=== PATIENT | male | born 1950 | race Caucasian/White ===

== ENCOUNTER 2020-06-14 07:50 | Outpatient (CLI) | payer MEDICARE, SELFPAY ==
[2020-06-14 08:04] LABS: Hematocrit 45.3 % (37.0-46.0); Mean Corpuscular HGB Conc 33.1 g/dL (32.0-36.0); Mean Corpuscular Hemoglobin 29.4 pg (27.0-31.0); Mean Corpuscular Volume 88.8 fL (78.0-102.0); Mean Platelet Volume 10.2 fl (8.7-11.0); Platelet Count Result 151 K/mm3 (150-420); Red Cell Distribution Width 13.9 % (11.6-14.4); White Blood Count 2.6 K/mm3 (4.8-10.8)
[2020-06-14 08:34] LABS: Band Neutrophils Percent 1 % (0-6); Neutrophils Absolute Manual 1.24 K/mm3 (1.3-6.7); Neutrophils Percent Manual 47 % (46-73); Total Cells Counted 100
[2020-06-14 08:35] LABS: Basophils Percent Manual 0 % (0-1); Eosinophils Percent Manual 8 % (1-6); Lymphocytes Absolute Manual 1.09 K/mm3 (1.1-4.5); Lymphocytes Percent Manual 42 % (18-44); Monocytes Absolute Manual 0.05 K/mm3 (0.1-0.90); Monocytes Percent Manual 2 % (3-9); Platelet Estimate Adequate (Adequate)
[2020-06-14 09:24] LABS: Alanine Aminotransferase 26 U/L (16-63); Albumin Level 3.9 g/dL (3.4-5.0); Alkaline Phosphatase 64 U/L (46-116); Anion Gap 7 mmol/L (8-16); Aspartate Amino Transferase 19 U/L (15-37); Bilirubin,Total 1.2 mg/dL (0.00-1.00); Blood Urea Nitrogen 22 mg/dL (7-18); Calcium 8.9 mg/dL (8.5-10.1); Carbon Dioxide 29 mmol/L (21-32); Chloride 105 mmol/L (98-108); Cholesterol 204 mg/dL (0-200); Estimated Glomerular Filt Rate > 60; Glucose 100 mg/dL (70-99); HDL Direct 52 mg/dL (40-60); LDL Cholesterol Calculated 123 mg/dL (<130); Osmolality Calculated 295 mOsm/kg (285-295); Potassium 4.4 mmol/L (3.5-5.1); Sodium 141 mmol/L (136-145); Thyroid Stimulating Hormone 5.59 uIU/mL (0.36-3.74); Total Protein 7.4 g/dL (6.4-8.2); Triglycerides 144 mg/dL (0-150)
[2020-06-14 09:35] LABS: Prostate Specific Antigen 5.5 ng/mL (< OR = 4.0)
== END 2020-06-14 07:51 | disposition home or self-care (01) ==
PROVIDERS: PCP Internal Medicine; Visit Provider Internal Medicine
DX: E66.9 Obesity, unspecified (principal); Z12.5 Encounter for screening for malignant neoplasm of prostate; K76.9 Liver disease, unspecified; I10 Essential (primary) hypertension
CPT/HCPCS: 36415; 80053; 80061; 84153; 84443; 85025; G0103

== ENCOUNTER 2020-12-05 15:49 | Outpatient (CLI) | payer MEDICARE, SELFPAY ==
--- NOTE | ~2020-12-05 | XR_ITS ---
EXAMINATION: XR chest 2V DATE: 12/05/2020 16:19 INDICATION: Cough and fever. TECHNIQUE: Frontal and lateral views of the chest were obtained. COMPARISON: CT abdomen and pelvis 07/05/2009 FINDINGS: There are airspace opacities in right midlung zone. No pleural effusion or pneumothorax. Th e heart size is normal. There is a moderate-sized hiatal hernia. Surgical clips in the right upper qu adrant are likely from cholecystectomy. IMPRESSION: 1. Airspace opacities in right midlung zone, consistent with pneumonia. 2. Moderate-sized hiatal hernia. Reviewed, dictated and finalized at location A.
[2020-12-05 16:14] LABS: Hematocrit 40.9 % (37.0-46.0); Hemoglobin 13.7 g/dL (12.4-15.3); Mean Corpuscular HGB Conc 33.5 g/dL (32.0-36.0); Mean Corpuscular Hemoglobin 29.3 pg (27.0-31.0); Mean Corpuscular Volume 87.4 fL (78.0-102.0); Mean Platelet Volume 9.7 fl (8.7-11.0); Platelet Count Result 134 K/mm3 (150-420); Red Blood Count 4.68 M/mm3 (4.70-6.10); Red Cell Distribution Width 13.7 % (11.6-14.4); White Blood Count 2.5 K/mm3 (4.8-10.8)
[2020-12-05 16:29] LABS: Add Urine Microscopic? YES; Alanine Aminotransferase 33 U/L (16-63); Albumin Level 3.5 g/dL (3.4-5.0); Alkaline Phosphatase 73 U/L (46-116); Anion Gap 7 mmol/L (8-16); Appearance Urine Clear (Clear); Aspartate Amino Transferase 24 U/L (15-37); Bilirubin Urine Negative (Negative); Bilirubin,Total 1.2 mg/dL (0.00-1.00); Blood Urea Nitrogen 17 mg/dL (7-18); Blood Urine Negative (Negative); Calcium 8.8 mg/dL (8.5-10.1); Carbon Dioxide 28 mmol/L (21-32); Chloride 100 mmol/L (98-108); Color Urine Yellow (Yellow); Estimated Glomerular Filt Rate 51; Glucose 169 mg/dL (70-99); Glucose Urine UA Negative (Negative); Ketones Urine Negative (Negative); Leukocyte Esterase Ur Negative (Negative); Nitrate Urine Negative (Negative); Osmolality Calculated 285 mOsm/kg (285-295); Potassium 4.1 mmol/L (3.5-5.1); Protein Urine Trace (Negative); Sodium 135 mmol/L (136-145); Specific Grav Ur 1.025 (1.010-1.020); Total Protein 7.6 g/dL (6.4-8.2); Urobilinogen Urine 0.2 mg/dL (0.2-1.0); pH Urine 5.5 (5.0-8.0)
[2020-12-05 16:36] LABS: RBC Urine None seen /hpf (0-2); WBC Urine None seen /hpf (0-3)
[2020-12-05 16:37] LABS: Bacteria Urine Trace /hpf; Squamous Epithelial Cell Urine Rare /hpf (Few)
[2020-12-05 16:38] LABS: Influenza Control Valid (Valid)
[2020-12-05 16:54] LABS: Band Neutrophils Percent 1 % (0-6); Basophils Absolute Manual 0.02 K/mm3 (0-0.1); Basophils Percent Manual 1 % (0-1); Eosinophils Absolute Manual 0.05 K/mm3 (0.02-0.5); Eosinophils Percent Manual 2 % (1-6); Lymphocytes Absolute Manual 0.45 K/mm3 (1.1-4.5); Lymphocytes Percent Manual 18 % (18-44); Monocytes Absolute Manual 0.05 K/mm3 (0.1-0.90); Monocytes Percent Manual 2 % (3-9); Neutrophils Absolute Manual 1.92 K/mm3 (1.3-6.7); Neutrophils Percent Manual 76 % (46-73); Total Cells Counted 100
[2020-12-05 16:55] LABS: Platelet Estimate Adequate (Adequate)
[2020-12-05 17:02] LABS: SARS-CoV-2 RNA PCR Negative (Negative)
== END 2020-12-05 15:50 | disposition home or self-care (01) ==
PROVIDERS: PCP Internal Medicine; Visit Provider Internal Medicine
DX: R05 Cough (principal); R50.9 Fever, unspecified; Z20.822 Contact with and (suspected) exposure to COVID-19
CPT/HCPCS: 36415; 71046; 80053; 81001; 85025; 87804; C9803; U0003; U0005

== ENCOUNTER 2020-12-23 07:08 | Outpatient (CLI) | payer MEDICARE, SELFPAY ==
[2020-12-23 07:33] LABS: Hematocrit 42.4 % (37.0-46.0); Mean Corpuscular Hemoglobin 28.9 pg (27.0-31.0); Mean Corpuscular Volume 87.4 fL (78.0-102.0); Platelet Count Result 152 K/mm3 (150-420); Red Blood Count 4.85 M/mm3 (4.70-6.10); Red Cell Distribution Width 13.8 % (11.6-14.4); White Blood Count 2.1 K/mm3 (4.8-10.8)
[2020-12-23 07:34] LABS: Add Urine Microscopic? NO; Appearance Urine Clear (Clear); Bilirubin Urine Negative (Negative); Blood Urine Negative (Negative); Color Urine Light Yellow (Yellow); Glucose Urine UA Negative (Negative); Ketones Urine Negative (Negative); Leukocyte Esterase Ur Negative (Negative); Nitrate Urine Negative (Negative); Protein Urine Negative (Negative); Specific Grav Ur 1.025 (1.010-1.020); Urobilinogen Urine 0.2 mg/dL (0.2-1.0); pH Urine 5.5 (5.0-8.0)
[2020-12-23 07:54] LABS: Total Cells Counted 100
[2020-12-23 07:55] LABS: Band Neutrophils Percent 0 % (0-6); Eosinophils Absolute Manual 0.12 K/mm3 (0.02-0.5); Eosinophils Percent Manual 6 % (1-6); Lymphocytes Absolute Manual 0.96 K/mm3 (1.1-4.5); Lymphocytes Percent Manual 46 % (18-44); Monocytes Absolute Manual 0.06 K/mm3 (0.1-0.90); Monocytes Percent Manual 3 % (3-9); Neutrophils Absolute Manual 0.94 K/mm3 (1.3-6.7); Neutrophils Percent Manual 45 % (46-73); Platelet Estimate Adequate (Adequate)
[2020-12-23 08:24] LABS: Alanine Aminotransferase 38 U/L (16-63); Albumin Level 3.6 g/dL (3.4-5.0); Alkaline Phosphatase 65 U/L (46-116); Anion Gap 10 mmol/L (8-16); Aspartate Amino Transferase 28 U/L (15-37); Blood Urea Nitrogen 21 mg/dL (7-18); CRP < 0.5 mg/dL (0.0-0.9); Calcium 8.8 mg/dL (8.5-10.1); Carbon Dioxide 25 mmol/L (21-32); Chloride 105 mmol/L (98-108); Estimated Glomerular Filt Rate > 60; Glucose 125 mg/dL (70-99); Osmolality Calculated 294 mOsm/kg (285-295); Potassium 4.2 mmol/L (3.5-5.1); Sodium 140 mmol/L (136-145); Thyroid Stimulating Hormone 4.37 uIU/mL (0.36-3.74); Total Protein 6.9 g/dL (6.4-8.2)
[2020-12-27 11:43] LABS: Immunoglobulin A 24 mg/dL (70-320); Immunoglobulin G 1255 mg/dL (600-1540); Immunoglobulin M 13 mg/dL (50-300)
[2020-12-28 12:00] LABS: Mycoplasma IgM Antibody Titer 24 U/mL (<770)
== END 2020-12-23 07:09 | disposition home or self-care (01) ==
LOC: CHSLAB 07:12
PROVIDERS: PCP Internal Medicine; Visit Provider Internal Medicine
DX: J18.9 Pneumonia, unspecified organism (principal); D47.2 Monoclonal gammopathy; R79.89 Other specified abnormal findings of blood chemistry; R94.6 Abnormal results of thyroid function studies; Z01.84 Encounter for antibody response examination
CPT/HCPCS: 36415; 80053; 81003; 82784; 84443; 85025; 86140; 86738; 86769

== ENCOUNTER 2021-03-30 07:41 | Outpatient (CLI) | payer MEDICARE, SELFPAY ==
--- NOTE | ~2021-03-30 | NM_ITS ---
EXAMINATION: NM bone scan whole body DATE: 03/30/2021 11:25 INDICATION: Malignant neoplasm of the prostate TECHNIQUE: 25 mCi Tc-99m HDP was administered intravenously. Delayed whole-body scintigrams were obt ained. COMPARISON: Chest radiograph dated 12/05/2020. No other recent imaging studies at our institution. FINDINGS: Likely degenerative joint centered uptake at the medial compartments of both knees, at the bilateral hands and wrists and bilateral acromioclavicular and sternoclavicular joints. No other suspicious foc i of abnormal bone uptake. IMPRESSION: 1. No evident osseous metastatic disease. Reviewed, dictated and finalized at location A.
== END 2021-03-30 07:42 | disposition home or self-care (01) ==
PROVIDERS: PCP Internal Medicine; Visit Provider Urology
DX: C61 Malignant neoplasm of prostate (principal)
CPT/HCPCS: 78306; A9561

== ENCOUNTER 2023-01-30 07:20 | Outpatient (CLI) | payer MEDICARE, SELFPAY ==
[2023-01-30 07:37] LABS: Hemoglobin 13.9 g/dL (12.4-15.3); Mean Corpuscular HGB Conc 33.9 g/dL (32.0-36.0); Mean Corpuscular Volume 85.6 fL (78.0-102.0); Mean Platelet Volume 9.3 fl (8.7-11.0); Platelet Count Result 140 K/mm3 (150-420); Red Blood Count 4.79 M/mm3 (4.70-6.10); Red Cell Distribution Width 14.6 % (11.6-14.4); White Blood Count 1.8 K/mm3 (4.8-10.8)
[2023-01-30 07:42] LABS: Appearance Urine Clear (Clear); Bilirubin Urine Negative (Negative); Blood Urine Negative (Negative); Color Urine Light Yellow (Yellow); Glucose Urine UA Negative (Negative); Ketones Urine Negative (Negative); Leukocyte Esterase Ur Negative (Negative); Nitrate Urine Negative (Negative); Protein Urine Negative (Negative); Specific Grav Ur 1.015 (1.010-1.020); Urobilinogen Urine 0.2 mg/dL (0.2-1.0); pH Urine 6.5 (5.0-8.0)
[2023-01-30 07:47] LABS: Add Urine Microscopic? NO
[2023-01-30 08:09] LABS: Neutrophils Percent Manual 64 % (46-73); Total Cells Counted 100
[2023-01-30 08:10] LABS: Band Neutrophils Percent 4 % (0-6); Eosinophils Percent Manual 6 % (1-6); Lymphocytes Absolute Manual 0.37 K/mm3 (1.1-4.5); Lymphocytes Percent Manual 21 % (18-44); Monocytes Absolute Manual 0.09 K/mm3 (0.1-0.90); Monocytes Percent Manual 5 % (3-9); Neutrophils Absolute Manual 1.22 K/mm3 (1.3-6.7); Platelet Estimate Adequate (Adequate)
[2023-01-30 08:18] LABS: Alanine Aminotransferase 39 U/L (16-63); Albumin Level 3.5 g/dL (3.4-5.0); Alkaline Phosphatase 64 U/L (46-116); Anion Gap 8 mmol/L (8-16); Aspartate Amino Transferase 25 U/L (15-37); Bilirubin,Total 1.2 mg/dL (0.00-1.00); Blood Urea Nitrogen 19 mg/dL (7-18); Calcium 8.6 mg/dL (8.5-10.1); Carbon Dioxide 26 mmol/L (21-32); Chloride 107 mmol/L (98-108); Cholesterol 167 mg/dL (0-200); Estimated Glomerular Filt Rate > 60; Glucose 110 mg/dL (70-99); HDL Direct 44 mg/dL (40-60); LDL Cholesterol Calculated 98 mg/dL (<130); Osmolality Calculated 295 mOsm/kg (285-295); Potassium 4.2 mmol/L (3.5-5.1); Sodium 141 mmol/L (136-145); Thyroid Stimulating Hormone 5.18 uIU/mL (0.36-3.74); Total Protein 7.1 g/dL (6.4-8.2); Triglycerides 126 mg/dL (0-150)
== END 2023-01-30 07:21 | disposition home or self-care (01) ==
LOC: CHSLAB 07:22
PROVIDERS: PCP Internal Medicine; Visit Provider Internal Medicine
DX: R73.9 Hyperglycemia, unspecified (principal); R53.83 Other fatigue
CPT/HCPCS: 36415; 80053; 80061; 81003; 83036; 84443; 85025

== ENCOUNTER 2023-04-11 14:55 | Outpatient (CLI) | payer MEDICARE, SELFPAY ==
--- NOTE | ~2023-04-11 | XR_ITS ---
XR chest 2V 04/11/2023 15:15 Indication: Upper respiratory infection. History of pneumonia. Procedure: PA and lateral views of the chest Comparison: 12/05/2020 Findings: Heart size normal. Large hiatal hernia. No focal air space disease, pulmonary edema, pleura l effusion or suspected pneumothorax. There is diffuse idiopathic skeletal hyperostosis (DISH) of the thoracic spine. Impression: 1: No acute cardiopulmonary disease. Reviewed, dictated and finalized at location A. Impression: 1: No acute cardiopulmonary disease.
== END 2023-04-11 14:56 | disposition home or self-care (01) ==
LOC: CHSIMG 14:57
PROVIDERS: PCP Internal Medicine; Visit Provider Nurse Practitioner Family
DX: J06.9 Acute upper respiratory infection, unspecified (principal)
CPT/HCPCS: 71046

== ENCOUNTER 2023-07-12 07:25 | Outpatient (CLI) | payer MEDICARE, SELFPAY ==
[2023-07-12 07:43] LABS: Hematocrit 42.3 % (37.0-46.0); Hemoglobin 14.4 g/dL (12.4-15.3); Mean Corpuscular Hemoglobin 29.4 pg (27.0-31.0); Mean Corpuscular Volume 86.5 fL (78.0-102.0); Mean Platelet Volume 9.6 fl (8.7-11.0); Platelet Count Result 151 K/mm3 (150-420); Red Blood Count 4.89 M/mm3 (4.70-6.10); Red Cell Distribution Width 14.4 % (11.6-14.4); White Blood Count 1.9 K/mm3 (4.8-10.8)
[2023-07-12 07:44] LABS: Appearance Urine Clear (Clear); Bilirubin Urine Negative (Negative); Blood Urine Negative (Negative); Color Urine Yellow (Yellow); Glucose Urine UA Negative (Negative); Ketones Urine Negative (Negative); Leukocyte Esterase Ur Negative (Negative); Nitrate Urine Negative (Negative); Protein Urine Negative (Negative); Specific Grav Ur 1.025 (1.010-1.020); Urobilinogen Urine 0.2 mg/dL (0.2-1.0)
[2023-07-12 07:52] LABS: Add Urine Microscopic? NO
[2023-07-12 08:02] LABS: Band Neutrophils Percent 0 % (0-6); Basophils Absolute Manual 0.03 K/mm3 (0-0.1); Basophils Percent Manual 2 % (0-1); Eosinophils Absolute Manual 0.11 K/mm3 (0.02-0.5); Eosinophils Percent Manual 6 % (1-6); Lymphocytes Absolute Manual 0.47 K/mm3 (1.1-4.5); Lymphocytes Percent Manual 25 % (18-44); Monocytes Absolute Manual 0.13 K/mm3 (0.1-0.90); Monocytes Percent Manual 7 % (3-9); Neutrophils Absolute Manual 1.14 K/mm3 (1.3-6.7); Neutrophils Percent Manual 60 % (46-73); Platelet Estimate Adequate (Adequate); Total Cells Counted 100
[2023-07-12 08:43] LABS: Alanine Aminotransferase 31 U/L (16-63); Albumin Level 3.3 g/dL (3.4-5.0); Alkaline Phosphatase 53 U/L (46-116); Anion Gap 9 mmol/L (8-16); Aspartate Amino Transferase 22 U/L (15-37); Bilirubin,Total 0.9 mg/dL (0.00-1.00); Blood Urea Nitrogen 20 mg/dL (7-18); Calcium 8.7 mg/dL (8.5-10.1); Carbon Dioxide 26 mmol/L (21-32); Chloride 105 mmol/L (98-108); Cholesterol 184 mg/dL (0-200); Estimated Glomerular Filt Rate > 60; Glucose 107 mg/dL (70-99); HDL Direct 43 mg/dL (40-60); LDL Cholesterol Calculated 119 mg/dL (<130); Osmolality Calculated 292 mOsm/kg (285-295); Potassium 4.2 mmol/L (3.5-5.1); Sodium 140 mmol/L (136-145); Thyroid Stimulating Hormone 7.59 uIU/mL (0.36-3.74); Total Protein 7.1 g/dL (6.4-8.2); Triglycerides 112 mg/dL (0-150)
[2023-07-12 12:36] LABS: Free T3 2.99 pg/mL (2.18-3.98); Free T4 Free Thyroxine 0.87 ng/dL (0.76-1.46)
[2023-07-16 08:32] LABS: Immunoglobulin A 22 mg/dL (70-320); Immunoglobulin G 1633 mg/dL (600-1540); Immunoglobulin M 12 mg/dL (50-300)
== END 2023-07-12 07:26 | disposition home or self-care (01) ==
PROVIDERS: PCP Internal Medicine; Visit Provider Internal Medicine
DX: J06.9 Acute upper respiratory infection, unspecified (principal); R94.6 Abnormal results of thyroid function studies; Z13.6 Encounter for screening for cardiovascular disorders
CPT/HCPCS: 36415; 80053; 80061; 81003; 82784; 84439; 84443; 84481; 85025

== ENCOUNTER 2023-07-22 10:42 | Outpatient (CLI) | payer MEDICARE, SELFPAY | END 2023-07-22 10:43 | disposition home or self-care (01) | LOC: CHSLAB 10:43 | PROVIDERS: PCP Internal Medicine; Visit Provider Internal Medicine | DX: C43.61 Malignant melanoma of right upper limb, including shoulder (principal) | CPT/HCPCS: 88305; 88342 ==

== ENCOUNTER 2024-07-09 07:27 | Outpatient (CLI) | payer MEDICARE, SELFPAY ==
[2024-07-09 07:52] LABS: Hematocrit 37.4 % (37.0-46.0); Hemoglobin 12.4 g/dL (12.4-15.3); Immature Platelet Fraction Pct 2.4 % (1.0-7.0); Mean Corpuscular HGB Conc 33.2 g/dL (32-36); Mean Corpuscular Hemoglobin 29.5 pg (27.0-31.0); Mean Corpuscular Volume 88.8 fL (78.0-102.0); Mean Platelet Volume 9.5 fl (8.7-11.0); Platelet Count Result 118 K/mm3 (150-420); Red Blood Count 4.21 M/mm3 (4.70-6.10); Red Cell Distribution Width 14.2 % (11.6-14.4); White Blood Count 2.4 K/mm3 (4.8-10.8)
[2024-07-09 08:02] LABS: Add Urine Microscopic? NO; Appearance Urine Clear (Clear); Bilirubin Urine Negative (Negative); Blood Urine Negative (Negative); Color Urine Light Yellow (Yellow); Glucose Urine UA Negative (Negative); Ketones Urine Negative (Negative); Leukocyte Esterase Ur Negative LEU/UL (Negative); Nitrate Urine Negative (Negative); Protein Urine Negative (Negative); Specific Grav Ur 1.015 (1.010-1.020); Urobilinogen Urine 0.2 mg/dL (0.2-1.0)
[2024-07-09 08:39] LABS: Alanine Aminotransferase 24 U/L (16-63); Albumin Level 3.3 g/dL (3.4-5.0); Alkaline Phosphatase 50 U/L (46-116); Anion Gap 5 mmol/L (4-12); Aspartate Amino Transferase 17 U/L (15-37); Bilirubin,Total 1.3 mg/dL (0.00-1.00); Blood Urea Nitrogen 18 mg/dL (7-18); Calcium 8.9 mg/dL (8.5-10.1); Carbon Dioxide 32 mmol/L (21-32); Chloride 104 mmol/L (98-108); Cholesterol 263 mg/dL (0-200); Estimated Glomerular Filt Rate > 60; Free T3 2.85 pg/mL (2.18-3.98); Free T4 Free Thyroxine 0.82 ng/dL (0.76-1.46); Glucose 112 mg/dL (70-99); HDL Direct 50 mg/dL (40-60); LDL Cholesterol Calculated 168 mg/dL (<130); Osmolality Calculated 294 mOsm/kg (285-295); Potassium 3.9 mmol/L (3.5-5.1); Sodium 141 mmol/L (136-145); Thyroid Stimulating Hormone 4.28 uIU/mL (0.36-3.74); Total Protein 6.2 g/dL (6.4-8.2); Triglycerides 225 mg/dL (0-150)
[2024-07-09 13:58] LABS: Hemoglobin A1C 6.9 % (<5.7)
== END 2024-07-09 07:28 | disposition home or self-care (01) ==
LOC: CHSLAB 07:30
PROVIDERS: PCP Internal Medicine; Visit Provider Internal Medicine
DX: E03.9 Hypothyroidism, unspecified (principal); E78.5 Hyperlipidemia, unspecified; R73.01 Impaired fasting glucose
CPT/HCPCS: 36415; 80053; 80061; 81003; 83036; 84439; 84443; 84481; 85027; 85055

== ENCOUNTER 2024-08-10 11:03 | Outpatient (CLI) | payer MEDICARE, SELFPAY ==
--- NOTE | ~2024-08-10 | XR_ITS ---
Clinical Indication: Pneumonia PA and lateral views of the chest: Comparison: 04/11/2023 Findings: There is hazy right upper lobe airspace consolidation. Possible mild haziness bilateral dmitry g bases. No pleural effusion.. Cardiomediastinal silhouette is within normal limits. Bones and soft tissues are unremarkable. Impression: Right upper lobe pneumonia. Possible mild bibasilar pneumonic involvement versus mild bibasilar pulmonary edema. Reviewed, dictated and finalized at location . ARCH [employer]RARIAN Impression: Right upper lobe pneumonia. Possible mild bibasilar pneumonic involvement versus mild bibasilar pulmonary e bhavna.
[2024-08-10 11:44] LABS: Hematocrit 36.3 % (37.0-46.0); Hemoglobin 11.9 g/dL (12.4-15.3); Immature Platelet Fraction Pct 2.7 % (1.0-7.0); Mean Corpuscular HGB Conc 32.8 g/dL (32-36); Mean Corpuscular Hemoglobin 29.3 pg (27.0-31.0); Mean Corpuscular Volume 89.4 fL (78.0-102.0); Mean Platelet Volume 10.2 fl (8.7-11.0); Platelet Count Result 73 K/mm3 (150-420); Red Blood Count 4.06 M/mm3 (4.70-6.10); Red Cell Distribution Width 14.6 % (11.6-14.4); White Blood Count 3.8 K/mm3 (4.8-10.8)
[2024-08-10 11:45] LABS: Add Urine Microscopic? YES; Bilirubin Urine Negative (Negative); Blood Urine Negative (Negative); Color Urine Yellow (Yellow); Glucose Urine UA Negative (Negative); Ketones Urine Negative (Negative); Leukocyte Esterase Ur Negative (Negative); Nitrate Urine Negative (Negative); Protein Urine 3+ (Negative); Specific Grav Ur >= 1.030 (1.010-1.020); Urobilinogen Urine 0.2 mg/dL (0.2-1.0)
[2024-08-10 11:52] LABS: Amorphous Sediment Urine Moderate; Appearance Urine Cloudy (Clear); Bacteria Urine 1+ /hpf; RBC Urine None seen /hpf (0-2); Squamous Epithelial Cell Urine Rare /hpf (Few); WBC Urine None seen /hpf (0-3)
--- OUTSIDE RECORDS SUMMARY | 2024-08-10 11:59 | XMS_ITS ---
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/15/2017 Current Oncology Plans Bortezomib Weekly (3 weeks ON / 1 weeks OFF) 28 Day Cycles - Myeloma* Plan Start Date:11/29/2023 Plan Provider:Wander Matthews MD Linked Problems Multiple myeloma not having achieved remission (CMS/HCC) (HCC) Treatment Medications Current Day (Day 1 5, Cycle 9 - Planned for 08/14/2024) Next Day (Day 1, Cycle 10 - Planned for 08/28/2024) bortezomib (VELCADE)bortezomib (VELCADE) 2.5 mg/mL bortezomib (VELCADE) 2.5 mg/mL subcutaneous syringe 3.5 mg bortezomib (VELCADE) 2.5 mg/mL subcutaneous syringe 3.5 mg Pembrolizumab 21 Day Cycles* Plan Start Date:02/12/2024 Plan Provider:Wander Matthews MD Linked Problems Malignant melanoma of right upper extremity including shoulder (HCC)Chemotherapy induced nausea and vomiting Treatment Medications Current Day (Day 1 , Cycle 9 - Planned for 08/28/2024) Next Day (Day 1, Cycle 10 - Planned for 09/18/2024) pembrolizumab (KEYTRUDA)pembrolizumab (KEYTRUDA) IVPB in 100 mL pembrolizumab (KEYTRUDA) 200 mg in sodium chloride 0.9% 100 mL IVPB pembrolizumab (KEYTRUDA) 200 mg in sodium chloride 0.9% 100 mL IVPB Past Plans No past plan information found. Radiation Treatments * No radiation treatments are documented for this patient in [facility]. Treatments may have been administered in another system. Lifetime Dose Tracking * Chemical Lifetime Dose Automatic Entry Manual Entr y Fluoro Time 0.17 minutes 0.17 minutes 0 minutes Air kerma at the reference point (Ka,r) 3.5 mGy 3 .5 mGy 0 mGy
--- OUTSIDE RECORDS SUMMARY | 2024-08-10 12:00 | XMS_ITS | Clinical Summary ---
Author Organization [facility] Address [address] [place] [address] Phone Care Team Providers Care Tibco Developer Name Role Phone Vick Perkins MD Primary Care Provider [phone] Wander Matthews MD Unavailable [phone] Allergies No known active allergies Medications aspirin 81 mg tablet Take 1 tablet (81 mg total) by mouth daily Active magnesium gluconate 200 mg tabletIndicati ons:hypomagnes emia 1 tablet (200 mg total) Active multivitamin-C s-reon-ebenacr s 18-0.4 mg tablet Take by mouth. Activ e glucosam-faraz- lqf3-W-ptfb-maria guadalupe sw 750 mg-644 mg- 30 mg-1 mg tablet Take by mouth. Activ e omeprazole (PriLOSEC) 20 mg capsule Take 1 capsule (20 mg total) by mouth daily Active B complex 53-njwmu-O-bio t-zinc [id number] aw-zd-bbd-mg tablet Take by mouth. Activ e Lumigan 0.01 % ophthalmic drops 11/02/19 21 Active turmeric (CURCUMIN MISC) Active prochlorperazi ne (Compazine) 10 mg tabletIndicati ons:Multiple myeloma not having achieved remission (CMS/HCC) (HCC) Take 1 tablet (10 mg total) by mouth every 6 (six) hours as needed for nausea or vomiting 120 tablet 3 12/17/19 24 Active ascorbic acid (vitamin C) 100 mg tablet Take 1 tablet (100 mg total) by mouth daily Active BETA-GLUCAN ORAL Take by mouth Active prochlorperazi ne (Compazine) 10 mg tabletIndicati ons:Chemothera py induced nausea and vomiting,Malig nant melanoma of right upper extremity including shoulder (HCC) Take 1 tablet (10 mg total) by mouth every 6 (six) hours as needed for nausea or vomiting 30 tablet 3 03/10/20 24 Active triamterene-hy droCHLOROthiaz rosanne 37.5-25 mg per tablet/capsule Take 1 tablet/capsule by mouth daily 30 tablet/caps ule 11 04/22/20 24 025 Active Additional Information Patient not taking.Reported on 07/17/2024 dexAMETHasone (DECADRON) 4 mg tabletIndicati ons:Multiple myeloma not having achieved remission (CMS/HCC) (HCC) Take 5 tablets (20 mg total) by mouth once a week Take 5 tablets by mouth on day two of chemotherapy treatment weekly as directed. 50 tablet 1 06/03/20 24 Active gabapentin (NEURONTIN) 100 mg capsuleIndicat ions:Neuropath ic Pain Take 1 capsule (100 mg total) by mouth daily Take 1 capsule (100 mg total) by mouth daily at HS. 30 capsule 06/03/20 24 Active Additional Information Patient not taking.Reported on 06/26/2024 acyclovir (ZOVIRAX) 400 mg tabletIndicati ons:Multiple myeloma not having achieved remission (CMS/HCC) (HCC) TAKE 1 TABLET (400 MG TOTAL) BY MOUTH 3 (THREE) TIMES A DAY FOR SHINGLES PREVENTION. 90 tablet 3 07/06/19 25 Active levothyroxine (SYNTHROID) 25 mcg tabletIndicati ons:Hypothyroi dism, unspecified type Take 1 tablet (25 mcg total) by mouth net wpf developer before breakfast 30 tablet 2 07/17/19 25 Active ketoconazole (NIZORAL) 2 % creamIndicatio ns:fungal infection of skin APPLY TOPICALLY DAILY FOR 6 WEEKS 15 g 3 08/03/19 25 025 Active cefdinir (OMNICEF) 300 mg capsuleIndicat ions:Upper Respiratory/HE ENT Infection Take 1 capsule (300 mg total) by mouth 2 (two) times a day 20 capsule 3 08/07/19 25 Active ketoconazole (NIZORAL) 2 % creamIndicatio ns:fungal infection of skin Apply topically daily For 6 weeks 15 g 3 04/22/20 24 025 Discontinued Active Problems Problem Noted Date Diagnosed Date Malignant melanoma 02/12/2024 Overview (02/12/2024): Stage 111 malignant melanoma to skin superficial with 1 positive node. 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/15/2017 Encounters Date Type Department Care Team Description 08/07/2024 8:30 AM [employer] WORK[employer] Infusion [address] [place] [address] Multiple myeloma not having achieved remission (CMS/HCC) (HCC) (Primary Dx); Malignant melanoma of right upper extremity including shoulder (HCC); Chemotherapy induced nausea and vomiting 08/07/2024 8:15 AM [employer] Office Visit [facility] [address] [place] [address] Medical Office [address] [place] [address] Wander Matthews MD Malignant melanoma of right upper extremity including shoulder (HCC) (Primary Dx); Multiple myeloma not having achieved remission (CMS/HCC) (HCC); Chemotherapy induced nausea and vomiting; Acute upper respiratory infection 08/07/2024 8:00 AM [employer] WORKER Lab [address] [place] [phone] Multiple myeloma not having achieved remission (CMS/HCC) (HCC) 08/06/2024 Telephone [facility] [address] [place] [address] Medical Office [address] [place] [address] Lucrecia Haskins CLT 08/03/2024 4:18 PM [employer] - 08/03/2024 11:59 PM [employer] WORKER Hospital Encounter [address] [address] Multiple myeloma not having achieved remission (CMS/HCC) (HCC) Discharge Disposition: Discharge to home or self care 08/03/2024 8:15 AM [employer] VA[employer] WORKER Lab [facility] Outpatient Lab at [address] [phone] Multiple myeloma not having achieved remission (CMS/HCC) (HCC) (Primary Dx); Malignant melanoma (HCC) 07/31/2024 1:00 PM [employer] WORK[employer] Infusion [facility] [address] [place] [address] Multiple myeloma not having achieved remission (CMS/HCC) (HCC) (Primary Dx) 07/31/2024 12:30 PM [employer] WORKER Lab [facility] [address] [place] [address] Multiple myeloma not having achieved remission (CMS/HCC) (HCC) 07/31/2024 Orders Only [facility] [address] [place] [address] Medical Office [address] [place] [address] Wander Matthews MD 07/27/2024 1:03 PM [employer] - 07/27/2024 11:59 PM [employer] WORKER [address] [address] Hypothyroidism, unspecified type; Malignant melanoma of right upper extremity including shoulder (HCC) Discharge Disposition: Discharge to home or self care 07/27/2024 1:00 PM [employer] WORKER Lab [facility] Lab at [address] [phone] Chemotherapy induced nausea and vomiting (Primary Dx) 07/17/2024 8:30 AM [employer] Infusion [address] [place] [phone] Multiple myeloma not having achieved remission (CMS/HCC) (HCC) (Primary Dx); Malignant melanoma of right upper extremity including shoulder (HCC); Chemotherapy induced nausea and vomiting 07/17/2024 8:15 AM [employer] Office Visit [facility] [address] [place] [address] Medical Office [address] [place] [address] Wander Matthews MD Multiple myeloma not having achieved remission (CMS/HCC) (HCC) (Primary Dx); Malignant melanoma of right upper extremity including shoulder (HCC); Chemotherapy induced nausea and vomiting; Hypothyroidism, unspecified type 07/15/2024 Telephone [facility] [address] [place] [address] Office [facility] [address] [place] [address] Alix Miller RN 07/15/2024 Orders Only [facility] [address] [place] [address] Office [address] [place] [address] Wander Matthews MD 07/13/2024 4:18 PM [employer] - 07/13/2024 11:59 PM [employer] WORKER Hospital Encounter [address] [address] Malignant melanoma of right upper extremity including shoulder (HCC); Chemotherapy induced nausea and vomiting Discharge Disposition: Discharge to home or self care 07/13/2024 10:00 AM [employer] WORKER Lab [facility] Lab at [address] [phone] Monoclonal gammopathy of unknown significance (MGUS) (Primary Dx); Multiple myeloma not having achieved remission (CMS/HCC) (HCC) 07/10/2024 11:00 AM [employer] Infusion [address] [address] Multiple myeloma not having achieved remission (CMS/HCC) (HCC) (Primary Dx) 07/07/2024 9:05 AM [employer] WORK[employer] - 07/07/2024 11:59 PM [employer] WORKER Hospital Encounter [address] [address] Malignant melanoma of right upper extremity including shoulder (HCC); Multiple myeloma not having achieved remission (CMS/HCC) (HCC); Hypothyroidism due to medication Discharge Disposition: Discharge to home or self care 07/07/2024 9:00 AM [employer] WORKER Lab [facility] Lab at [address] [phone] 07/03/2024 9:00 AM [employer] Infusion [address] [address] Multiple myeloma not having achieved remission (CMS/HCC) (HCC) (Primary Dx) 06/29/2024 4:18 PM [employer] WORK[employer] - 06/29/2024 11:59 PM [employer] WORKER Hospital Encounter [address] [address] Malignant melanoma of right upper extremity including shoulder (HCC) Discharge Disposition: Discharge to home or self care 06/29/2024 9:00 AM [employer] WORKER Lab [facility] Lab at [address] [phone] Malignant melanoma (HCC) (Primary Dx); Multiple myeloma not having achieved remission (CMS/HCC) (HCC) 06/26/2024 9:00 AM [employer] Infusion [address] [place] [phone] Chemotherapy induced nausea and vomiting (Primary Dx); Malignant melanoma of right upper extremity including shoulder (HCC) 06/26/2024 8:45 AM [employer] WORK[employer] Office Visit [facility] [address] [place] [address] Medical Office [address] [place] [address] Wander Matthews MD Malignant melanoma of right upper extremity including shoulder (HCC) (Primary Dx); Chemotherapy induced nausea and vomiting; Multiple myeloma not having achieved remission (CMS/HCC) (HCC); Hypothyroidism due to medication 06/22/2024 11:05 AM [employer] - 06/22/2024 11:59 PM [employer] WORKER Hospital Encounter [address] [address] Multiple myeloma not having achieved remission (CMS/HCC) (HCC); Malignant melanoma of right upper extremity including shoulder (HCC) Discharge Disposition: Discharge to home or self care 06/22/2024 9:15 AM [employer] WORKER Lab [facility] Lab at [address] [address] Multiple myeloma not having achieved remission (CMS/HCC) (HCC) (Primary Dx); Monoclonal gammopathy of unknown significance (MGUS); Malignant melanoma (HCC); Chemotherapy induced nausea and vomiting 06/17/2024 11:30 AM [employer] Infusion [address] [place] [phone] Multiple myeloma not having achieved remission (CMS/HCC) (HCC) (Primary Dx) 06/16/2024 1:53 PM [employer] WORK[employer] - 06/16/2024 11:59 PM [employer] WORKER Hospital Encounter [address] [phone] Malignant melanoma of right upper extremity including shoulder (HCC); Chemotherapy induced nausea and vomiting Discharge Disposition: Discharge to home or self care 06/16/2024 8:45 AM [employer] WORKER Lab [facility] Lab at [address] [phone] Malignant melanoma (HCC) (Primary Dx); Multiple myeloma not having achieved remission (CMS/HCC) (HCC) 06/10/2024 10:00 AM [employer] Infusion [address] [place] [phone] Multiple myeloma not having achieved remission (CMS/HCC) (HCC) (Primary Dx) 06/09/2024 Documentation [facility] [address] [place] [address] Medical Office [facility] [address] [place] [address] Shereen Beal RN 06/09/2024 Telephone [facility] [address] [place] [address] Medical Office [facility] [address] [place] [address] Odessa Garland, LOGAN 06/08/2024 3:46 PM [employer] - 06/08/2024 11:59 PM [employer] WORKER Hospital Encounter [address] [phone] Multiple myeloma not having achieved remission (CMS/HCC) (HCC) Discharge Disposition: Discharge to home or self care 06/08/2024 8:15 AM [employer] WORKER Lab [facility] Lab at [address] [phone] Multiple myeloma not having achieved remission (CMS/HCC) (HCC) (Primary Dx); Malignant melanoma (HCC) 06/03/2024 9:30 AM [employer] WORK[employer] Infusion [facility] [address] [place] [phone] Chemotherapy induced nausea and vomiting (Primary Dx); Malignant melanoma of right upper extremity including shoulder (HCC); Multiple myeloma not having achieved remission (CMS/HCC) (HCC) 06/03/2024 9:00 AM [employer] Office Visit [facility] [address] [place] [address] [address] [place] [address] Wander Matthews MD Multiple myeloma not having achieved remission (CMS/HCC) (HCC) (Primary Dx); Malignant melanoma of right upper extremity including shoulder (HCC); Chemotherapy induced nausea and vomiting 06/02/2024 Telephone [facility] [address] [place] [address] Office [address] [place] [address] Lucrecia Haskins CLT 06/01/2024 2:15 PM [employer] - 06/01/2024 11:59 PM [employer] WORKER Hospital Encounter [address] [phone] Malignant melanoma of right upper extremity including shoulder (HCC) Discharge Disposition: Discharge to home or self care 06/01/2024 2:15 PM [employer] WORKER Lab [facility] Lab at [address] [phone] Malignant melanoma (HCC) (Primary Dx); Multiple myeloma not having achieved remission (CMS/HCC) (HCC) 05/20/2024 1:00 PM [employer] WORK[employer] Infusion [facility] [address] [address] Multiple myeloma not having achieved remission (CMS/HCC) (HCC) (Primary Dx) 05/18/2024 4:18 PM [employer] WORK[employer] - 05/18/2024 11:59 PM [employer] WORKER Hospital Encounter [address] [phone] Malignant melanoma of right upper extremity including shoulder (HCC) Discharge Disposition: Discharge to home or self care 05/18/2024 9:00 AM [employer] WORKER Lab [facility] Lab at [address] [address] Malignant melanoma (HCC) (Primary Dx) 05/13/2024 1:00 PM [employer] WORK[employer] Infusion [facility] [address] [address] Malignant melanoma of right upper extremity including shoulder (HCC) (Primary Dx); Multiple myeloma not having achieved remission (CMS/HCC) (HCC); Chemotherapy induced nausea and vomiting 05/11/2024 9:05 AM [employer] WORK[employer] - 05/11/2024 11:59 PM [employer] WORKER Hospital Encounter [address] [address] Malignant melanoma of right upper extremity including shoulder (HCC) Discharge Disposition: Discharge to home or self care 05/11/2024 9:00 AM [employer] WORKER Lab [facility] Lab at [address] [phone] Malignant melanoma (HCC) (Primary Dx) from Last 3 Months Immunizations Name Administration Dates Next Due Influenza, Quad, Adjuvantate d, Intramuscular 04/26/2023 Influenza, Quadrivalent, Hig h Dose, Preservative Free, Intrr 06/04/2022,04/05/2021,04/28/2020 Influenza, Trivalent, High D ose, Split, Preservative Free, Intramuscular 05/12/2019 Influenza, Unspecified 04/14/2021 Moderna SARS-CoV-2 Monovalen t Vaccination (12+ YRS) 09/10/2020,09/09/2020,08/12/2020 Pneumococcal Conjugate Pcv20 02/11/2023 RSV Vaccine, Pref, Recombina nt, Subunit, Adjuvanted, PF, IM (Arexvy) 07/16/2023 Tdap 03/09/2023 Surgical History Surgery Date Site/Laterality Comments COLONOSCOPY Medical History Medical History Date Comments Multiple myeloma not having achieved remission ( CMS/HCC) (HCC) 11/29/2023 Multiple myeloma (HCC) Family History Medical History Relation Name Comments Colon cancer Mother Relation Name Status Comments Mother (Age 76) Social History Tobacco Use Types Packs/Day Years Used Date Smoking Tobacco: Never Smokeless Tobacco: Never Alcohol Use Standard Drinks/Week Comments Not Currently 0 (1 standard drink = 0.6 oz pur e alcohol) AUDIT-C Answer Date Recorded Q1: How often do you have a drink containing alcohol? Never 07/17/2024 Q2: How many drinks containi ng alcohol do you have on a typical day when you are drinking? Patient does not drink Q3: How often do you have si x or more drinks on one occasion? Never 07/17/2024 Personal Safety Answer Date Recorded Have you ever been in or are you currently in a harmful physical or emotional relationship or is someone making you feel afraid or unsafe? Denies 11/11/2023 Sex and Gender Information Value Date Recorded Sex Assigned at Not on file Legal Sex Male 1:08 PM [employer] Gender Identity Not on file Sexual Orientation Not on file Obstetrics History Last Filed Vital Signs Vital Sign Reading Time Taken Comments Blood Pressure 110/72 08/07/2024 8:28 AM [employer] Pulse 118 08/07/2024 8:28 AM [employer] Temperature 36.8 C (98.2 F) 08/07/2024 8:28 AM [employer] Respiratory Rate 18 08/07/2024 8:28 AM [employer] Oxygen Saturation 95% 08/07/2024 8:28 AM [employer] Inhaled Oxygen Concentration - - Weight 105 kg (231 lb 6.4 oz) 08/07/2024 8:28 AM [employer] Height 177.8 cm (5' 10 ) 07/17/2024 8:09 AM [employer] Body Mass Index 33.2 07/17/2024 8:09 AM [employer] WORK[employer] Plan of Treatment Health Maintenance Due Date Last Done Comments Colon Cancer Screening-Colonoscopy 1950 Depression Screening 1950 Hepatitis C Screening 1950 Hepatitis B Screening 1970 Zoster Vaccine (1 of 2) 1971 Well Visit 65+ 2017 Influenza Vaccine (#1) 2024 , 06/04/2022, 04/14/2021, Additional history exists Covid-19 Vaccine (2023-2 5 season) 2024 05/18/2024, 06/04/2023, 06/13/2022, Additional history exists Fall Risk Assessment 08/07/2025 08/07/2024, 07/03/2024, 06/26/2024, Additional history exists DTaP/Tdap/Td Vaccine (2 - Td or Tdap) 03/09/2033 03/09/2023 Pneumococcal vaccine 65+ Completed 02/11/2023 Prostate Cancer Screening-PSA Discontinued , 12/25/2023, 11/07/2023, Additional history exists Procedures Procedure Name Priority Date/Time Associated Diagnosis Comments EGFR STAT 08/03/2024 10:57 PM [employer] Multiple myeloma not having achieved remission (CMS/HCC) (HCC) DIFFERENTIAL AUTO STAT 08/03/2024 10: 57 PM [employer] Multiple myeloma not having achieved remission (CMS/HCC) (HCC) CBC WITH AUTO DIFFERENTIAL STAT 08/03/2024 10:57 PM [employer] Multiple myeloma not having achieved remission (CMS/HCC) (HCC) COMPREHENSIVE METABOLIC PANEL STAT 08/03/2024 10:57 PM [employer] Multiple myeloma not having achieved remission (CMS/HCC) (HCC) EGFR Routine 07/27/2024 1:03 PM [employer] Malignant melanoma of right upper extremity including shoulder (HCC) DIFFERENTIAL AUTO Routine 07/27/2024 1:0 3 PM [employer] Malignant melanoma of right upper extremity including shoulder (HCC) IGG Routine 07/27/2024 1:03 PM [employer] Malignant melanoma of right upper extremity including shoulder (HCC) IMMUNOGLOBULIN FREE LIGHT CHAINS Routine 07/27/2024 1:03 PM [employer] Malignant melanoma of right upper extremity including shoulder (HCC) CBC WITH AUTO DIFFERENTIAL Routine 07/27/2024 1:03 PM [employer] Malignant melanoma of right upper extremity including shoulder (HCC) COMPREHENSIVE METABOLIC PANEL Routine 07/27/2024 1:03 PM [employer] Malignant melanoma of right upper extremity including shoulder (HCC) TSH Routine 07/27/2024 1:03 PM [employer] Hypothyroidism, unspecified type EGFR STAT 07/13/2024 10:05 AM [employer] Malignant melanoma of right upper extremity including shoulder (HCC) Chemotherapy induced nausea and vomiting DIFFERENTIAL AUTO STAT 07/13/2024 10: 05 AM [employer] WORK[employer] Malignant melanoma of right upper extremity including shoulder (HCC) Chemotherapy induced nausea and vomiting CBC WITH AUTO DIFFERENTIAL STAT 07/13/2024 10:05 AM [employer] Malignant melanoma of right upper extremity including shoulder (HCC) Chemotherapy induced nausea and vomiting COMPREHENSIVE METABOLIC PANEL STAT 07/13/2024 10:05 AM [employer] Malignant melanoma of right upper extremity including shoulder (HCC) Chemotherapy induced nausea and vomiting TSH Routine 07/13/2024 10:05 AM [employer] Malignant melanoma of right upper extremity including shoulder (HCC) Chemotherapy induced nausea and vomiting EGFR Routine 07/07/2024 9:05 AM [employer] WORK[employer] Malignant melanoma of right upper extremity including shoulder (HCC) Multiple myeloma not having achieved remission (CMS/HCC) (HCC) DIFFERENTIAL AUTO Routine 07/07/2024 9:0 5 AM [employer] Malignant melanoma of right upper extremity including shoulder (HCC) Multiple myeloma not having achieved remission (CMS/HCC) (HCC) CBC WITH AUTO DIFFERENTIAL Routine 07/07/2024 9:05 AM [employer] Malignant melanoma of right upper extremity including shoulder (HCC) Multiple myeloma not having achieved remission (CMS/HCC) (HCC) TSH Routine 07/07/2024 9:05 AM [employer] Malignant melanoma of right upper extremity including shoulder (HCC) Multiple myeloma not having achieved remission (CMS/HCC) (HCC) Hypothyroidism due to medication IMMUNOGLOBULIN FREE LIGHT CHAINS Routine 07/07/2024 9:05 AM [employer] Malignant melanoma of right upper extremity including shoulder (HCC) Multiple myeloma not having achieved remission (CMS/HCC) (HCC) IGG Routine 07/07/2024 9:05 AM [employer] Malignant melanoma of right upper extremity including shoulder (HCC) Multiple myeloma not having achieved remission (CMS/HCC) (HCC) COMPREHENSIVE METABOLIC PANEL Routine 07/07/2024 9:05 AM [employer] Malignant melanoma of right upper extremity including shoulder (HCC) Multiple myeloma not having achieved remission (CMS/HCC) (HCC) EGFR Routine 06/29/2024 8:57 AM [employer] Malignant melanoma of right upper extremity including shoulder (HCC) DIFFERENTIAL AUTO Routine 06/29/2024 8:5 7 AM [employer] Malignant melanoma of right upper extremity including shoulder (HCC) COMPREHENSIVE METABOLIC PANEL Routine 06/29/2024 8:57 AM [employer] Malignant melanoma of right upper extremity including shoulder (HCC) CBC WITH AUTO DIFFERENTIAL Routine 06/29/2024 8:57 AM [employer] Malignant melanoma of right upper extremity including shoulder (HCC) IMMUNOGLOBULIN FREE LIGHT CHAINS Routine 06/22/2024 9:14 AM [employer] Malignant melanoma of right upper extremity including shoulder (HCC) EGFR STAT 06/22/2024 9:14 AM [employer] Multiple myeloma not having achieved remission (CMS/HCC) (HCC) DIFFERENTIAL AUTO STAT 06/22/2024 9:1 4 AM [employer] Multiple myeloma not having achieved remission (CMS/HCC) (HCC) COMPREHENSIVE METABOLIC PANEL STAT 06/22/2024 9:14 AM [employer] Multiple myeloma not having achieved remission (CMS/HCC) (HCC) CBC WITH AUTO DIFFERENTIAL STAT 06/22/2024 9:14 AM [employer] Multiple myeloma not having achieved remission (CMS/HCC) (HCC) EGFR STAT 06/16/2024 8:00 AM [employer] Malignant melanoma of right upper extremity including shoulder (HCC) Chemotherapy induced nausea and vomiting DIFFERENTIAL AUTO STAT 06/16/2024 8:0 0 AM [employer] Malignant melanoma of right upper extremity including shoulder (HCC) Chemotherapy induced nausea and vomiting CBC WITH AUTO DIFFERENTIAL STAT 06/16/2024 8:00 AM [employer] Malignant melanoma of right upper extremity including shoulder (HCC) Chemotherapy induced nausea and vomiting COMPREHENSIVE METABOLIC PANEL STAT 06/16/2024 8:00 AM [employer] WORK[employer] Malignant melanoma of right upper extremity including shoulder (HCC) Chemotherapy induced nausea and vomiting EGFR Routine 06/08/2024 9:00 AM [employer] Multiple myeloma not having achieved remission (CMS/HCC) (HCC) DIFFERENTIAL AUTO Routine 06/08/2024 9:0 0 AM [employer] Multiple myeloma not having achieved remission (CMS/HCC) (HCC) CBC WITH AUTO DIFFERENTIAL Routine 06/08/2024 9:00 AM [employer] Multiple myeloma not having achieved remission (CMS/HCC) (HCC) COMPREHENSIVE METABOLIC PANEL Routine 06/08/2024 9:00 AM [employer] Multiple myeloma not having achieved remission (CMS/HCC) (HCC) EGFR Routine 06/01/2024 2:15 PM [employer] Malignant melanoma of right upper extremity including shoulder (HCC) DIFFERENTIAL AUTO Routine 06/01/2024 2:1 5 PM [employer] Malignant melanoma of right upper extremity including shoulder (HCC) IMMUNOGLOBULIN FREE LIGHT CHAINS Routine 06/01/2024 2:15 PM [employer] Malignant melanoma of right upper extremity including shoulder (HCC) IGG Routine 06/01/2024 2:15 PM [employer] Malignant melanoma of right upper extremity including shoulder (HCC) COMPREHENSIVE METABOLIC PANEL Routine 06/01/2024 2:15 PM [employer] Malignant melanoma of right upper extremity including shoulder (HCC) CBC WITH AUTO DIFFERENTIAL Routine 06/01/2024 2:15 PM [employer] Malignant melanoma of right upper extremity including shoulder (HCC) EGFR Routine 05/18/2024 9:11 AM [employer] Malignant melanoma of right upper extremity including shoulder (HCC) DIFFERENTIAL AUTO Routine 05/18/2024 9:1 1 AM [employer] Malignant melanoma of right upper extremity including shoulder (HCC) COMPREHENSIVE METABOLIC PANEL Routine 05/18/2024 9:11 AM [employer] Malignant melanoma of right upper extremity including shoulder (HCC) CBC WITH AUTO DIFFERENTIAL Routine 05/18/2024 9:11 AM [employer] Malignant melanoma of right upper extremity including shoulder (HCC) EGFR Routine 05/11/2024 9:05 AM [employer] Malignant melanoma of right upper extremity including shoulder (HCC) DIFFERENTIAL AUTO Routine 05/11/2024 9:0 5 AM [employer] Malignant melanoma of right upper extremity including shoulder (HCC) COMPREHENSIVE METABOLIC PANEL Routine 05/11/2024 9:05 AM [employer] Malignant melanoma of right upper extremity including shoulder (HCC) CBC WITH AUTO DIFFERENTIAL Routine 05/11/2024 9:05 AM [employer] Malignant melanoma of right upper extremity including shoulder (HCC) PSA SCREEN Routine 01/20/2024 12:52 PM CDT Malignant neoplasm of prostate (HCC) from Last 3 Months or Most Recently Relevant to Health Maintenance Results * eGFR (08/03/2024 10:57 PM [employer]) eGFR 82 >=60 mL/min/1. 73 m2 Comment: Interpretive Data Reference Interval Normal >/= 90 mL/min/1.73m2 Mildly decreased* 60 - 89 mL/min/1.73m2 Mildly to moderately decreased 45 - 59 mL/min/1.73m2 Moderately to severely decreased 30 - 44 mL/min/1.73m2 Severely decreased 15 - 29 mL/min/1.73m2 Kidney Failure < 15 mL/min/1.73m2 *Relative to young adult level Estimated glomerular filtration rate is determined by the 2020 CKD-EPI equation recommended by the National Kidney Foundation (A Unifying Approach to GFR Estimation: Recommendations of the NKF-ASK Task Force on Reassessing the Inclusion of Race in Diagnosing Kidney Disease, JASN 2020). The CKD-EPI equation should not be used for patients with unstable renal function and has not been validated in children and those over 70. Current interpretive data was last reviewed 2021. Blood 08/03/2024 10:5 7 PM [employer] 08/04/2024 12:03 AM [employer] us Wander Matthews MD LAB BLOOD ORDERABLES Final Re sult [facility] [id number] Department [place] [address] * (ABNORMAL) Differential, auto (08/03/2024 10:57 PM [employer]) Neutrophil abs 1.8 1.5 - 6.5 K/cumm Imm gran abs 0.0 0.0 - 0.1 K/cumm [facility] Lymphocyte abs 0.4(L) 0.8 - 3.3 K/cumm [facility] Monocyte abs 0.1(L) 0.2 - 0.8 K/cumm [facility] Eosinophil abs 0.0 0.0 - 0.5 K/cumm [facility] Basophil abs 0.0 0.0 - 0.1 K/cumm [facility] Neutrophil pct 78.2 % [facility] Comment: Consistent with previous result Interpretive Data Percent cell count reference ranges are not reported, since discordance with absolute values may lead to misinterpretation of CBC data. Current Interpretive Data was last revised on 2017. Imm gran pct 0.9 % [facility] Comment: Interpretive Data Percent cell count reference ranges are not reported, since discordance with absolute values may lead to misinterpretation of CBC data. Current Interpretive Data was last revised on 2017. Lymphocyte pct 17.0 % [facility] Comment: Interpretive Data Percent cell count reference ranges are not reported, since discordance with absolute values may lead to misinterpretation of CBC data. Current Interpretive Data was last revised on 2017. Monocyte pct 2.6 % [facility] Comment: Interpretive Data Percent cell count reference ranges are not reported, since discordance with absolute values may lead to misinterpretation of CBC data. Current Interpretive Data was last revised on 2017. Eosinophil pct 0.9 % [facility] Comment: Interpretive Data Percent cell count reference ranges are not reported, since discordance with absolute values may lead to misinterpretation of CBC data. Current Interpretive Data was last revised on 2017. Basophil pct 0.4 % [facility] Comment: Interpretive Data Percent cell count reference ranges are not reported, since discordance with absolute values may lead to misinterpretation of CBC data. Current Interpretive Data was last revised on 2017. Blood 08/03/2024 10:5 7 PM [employer] 08/03/2024 11:21 PM [employer] Wander Matthews MD LAB BLOOD ORDERABLES Final Re sult Performing Organization Address [facility] Co de Phone Number MICHELINE LUO [address] [place] [address] * (ABNORMAL) CBC with auto differential (08/03/2024 10:57 PM [employer]) WBC 2.3(L) 3.8 - 9.9 K/cumm Hgb 11.6(L) 13.0 - 17.5 g/dL [facility] Hct 36.9(L) 38.9 - 50.3 % [facility] Plt 189 150 - 400 K/cumm [facility] MPV 9.6 9.1 - 12.3 fL [facility] RBC 3.85(L) 4.30 - 5.80 M/cumm [facility] MCV 95.8 81.3 - 96.4 fL [facility] MCH 30.1 27.1 - 33.3 pg [facility] MCHC 31.4(L) 32.3 - 35.7 g/dL [facility] RDW CV 15.3(H) 11.1 - 14.9 % [facility] RDW SD 54.1(H) 35.7 - 48.1 fL [facility] NRBC abs 0.00 0.00 - 0.01 K/cumm [facility] Blood 08/03/2024 10:5 7 PM [employer] 08/03/2024 11:21 PM [employer] Wander Matthews MD LAB BLOOD ORDERABLES Final Re sult [facility]LINE LUO [address] Department [place] [address] * (ABNORMAL) Comprehensive metabolic panel (08/03/2024 10:57 PM [employer]) Sodium 139 135 - 145 mmol/L Potassium, pl 3.8 3.3 - 4.9 mmol/L [facility] Chloride 103 97 - 110 mmol/L [facility] CO2 24 22 - 32 mmol/L [facility] Anion gap 12 2 - 15 mmol/L [facility] BUN 24 6 - 25 mg/dL [facility] Creatinine 0.98 0.80 - 1.30 mg/dL [facility] Glucose 219(H) 70 - 199 mg/dL [facility] Comment: Interpretive Data Fasting glucose >/= 126 mg/dl is diagnostic for diabetes. Fasting is defined as no caloric intake for at least 8 hours. Fasting glucose between 100 mg/dl to 125 mg/dl is diagnostic of prediabetes. In a patient with classic symptoms of hyperglycemia or hyperglycemic crisis, a random glucose >/= 200 mg/dl is diagnostic for diabetes. In the absence of unequivocal hyperglycemia, results should be confirmed by repeat testing. The classification and Diagnosis of Diabetes Diabetes Care 2021; 46: S19-S40. Current interpretive data was last revised 2022. Calcium 9.3 8.5 - 10.3 mg/dL [facility] Bilirubin, total 0.5 0.1 - 1.2 mg/dL [facility] Protein, pl 6.9 6.5 - 8.5 g/dL [facility] Albumin 3.6 3.5 - 5.0 g/dL [facility] Alk phos 58 40 - 130 Units/L [facility] ALT 12 7 - 55 Units/L [facility] AST 27 10 - 50 Units/L [facility] Blood 08/03/2024 10:5 7 PM [employer] 08/03/2024 11:21 PM [employer] Wander Matthews MD LAB [place]LOOD [place] [address] [address] Department [place] [address] * eGFR (07/27/2024 1:03 PM [employer]) eGFR >90 >=60 mL/min/1. 73 m2 Comment: Interpretive Data Reference Interval Normal >/= 90 mL/min/1.73m2 Mildly decreased* 60 - 89 mL/min/1.73m2 Mildly to moderately decreased 45 - 59 mL/min/1.73m2 Moderately to severely decreased 30 - 44 mL/min/1.73m2 Severely decreased 15 - 29 mL/min/1.73m2 Kidney Failure < 15 mL/min/1.73m2 *Relative to young adult level Estimated glomerular filtration rate is determined by the 2020 CKD-EPI equation recommended by the National Kidney Foundation (A Unifying Approach to GFR Estimation: Recommendations of the NKF-ASK Task Force on Reassessing the Inclusion of Race in Diagnosing Kidney Disease, JASN 2020). The CKD-EPI equation should not be used for patients with unstable renal function and has not been validated in children and those over 70. Current interpretive data was last reviewed 2021. Blood 07/27/2024 1:03 PM [employer] 07/27/2024 7:27 PM [employer] us Wander Matthews MD LAB BLOOD ORDERABLES Final Re sult [facility] [address] Department [place] [address] * (ABNORMAL) Differential, auto (07/27/2024 1:03 PM [employer]) Pathologist [facility] Neutrophil abs 2.4 1.5 - 6.5 K/cumm Imm gran abs 0.0 0.0 - 0.1 K/cumm [facility] Lymphocyte abs 0.2(L) 0.8 - 3.3 K/cumm [facility] Monocyte abs 0.1(L) 0.2 - 0.8 K/cumm [facility] Eosinophil abs 0.1 0.0 - 0.5 K/cumm [facility] Basophil abs 0.0 0.0 - 0.1 K/cumm [facility] Neutrophil pct 85.7 % [facility] Comment: Consistent with previous result Interpretive Data Percent cell count reference ranges are not reported, since discordance with absolute values may lead to misinterpretation of CBC data. Current Interpretive Data was last revised on 2017. Imm gran pct 0.4 % [facility] Comment: Interpretive Data Percent cell count reference ranges are not reported, since discordance with absolute values may lead to misinterpretation of CBC data. Current Interpretive Data was last revised on 2017. Lymphocyte pct 8.5 % [facility] Comment: Interpretive Data Percent cell count reference ranges are not reported, since discordance with absolute values may lead to misinterpretation of CBC data. Current Interpretive Data was last revised on 2017. Monocyte pct 1.8 % [facility] Comment: Interpretive Data Percent cell count reference ranges are not reported, since discordance with absolute values may lead to misinterpretation of CBC data. Current Interpretive Data was last revised on 2017. Eosinophil pct 3.2 % [facility] Comment: Interpretive Data Percent cell count reference ranges are not reported, since discordance with absolute values may lead to misinterpretation of CBC data. Current Interpretive Data was last revised on 2017. Basophil pct 0.4 % [facility] Comment: Interpretive Data Percent cell count reference ranges are not reported, since discordance with absolute values may lead to misinterpretation of CBC data. Current Interpretive Data was last revised on 2017. Blood 07/27/2024 1:03 PM [employer] 07/27/2024 7:25 PM [employer] us Wander Matthews MD LAB BLOOD ORDERABLES Final Re sult [facility] [id number] Department [place] [address] * (ABNORMAL) Immunoglobulin free light chains (07/27/2024 1:03 PM [employer]) [place]/Lambda ratio 43.30(H) 0.26 - 1.65 [place] free light chain 11.26(H) 0.33 - 1.94 mg/dL [facility] Comment: Interpretive Data The [employer] Ig [place] FLC assay procedure was used. Results from different manufacturers or methods may not be comparable. Serial testing should be performed using the same method. Lambda free light chain 0.26(L) 0.57 - 2.63 mg/dL [facility] Comment: Interpretive Data The [employer]ay[employer] Ig Lambda FLC assay procedure was used. Results from different manufacturers or methods may not be comparable. Serial testing should be performed using the same method. Blood 07/27/2024 1:03 PM [employer] 07/27/2024 7:25 PM [employer] Wander Matthews MD LAB BLOOD ORDERABLES Final Re sult Performing Organization Address [facility] Co de Phone Number MICHELINE LUO [address] [place] [address] * (ABNORMAL) CBC with auto differential (07/27/2024 1:03 PM [employer]) WBC 2.8(L) 3.8 - 9.9 K/cumm Hgb 10.9(L) 13.0 - 17.5 g/dL [facility] Hct 34.7(L) 38.9 - 50.3 % [facility] Plt 154 150 - 400 K/cumm [facility] MPV 10.0 9.1 - 12.[address] [facility] RBC 3.70(L) 4.30 - 5.80 M/cumm [facility] MCV 93.8 81.3 - 96.[address] [facility] MCH 29.5 27.1 - 33.[address] [facility] MCHC 31.4(L) 32.3 - 35.7 g/dL [facility] RDW CV 15.2(H) 11.1 - 14.9 % [facility] RDW SD 52.3(H) 35.7 - 48.1 fL [facility] NRBC abs 0.00 0.00 - 0.01 K/cumm [facility] Blood 07/27/2024 1:03 PM [employer] 07/27/2024 7:25 PM [employer] Wander Matthews MD LAB BLOOD ORDERABLES Final Re sult Performing Organization Address [facility] Co de Phone Number MICHELINE LUO [address] [employer] [place] [address] * TSH (07/27/2024 1:03 PM [employer]) [facility] Thyroid Stimulating Hormone 3.23 0.30 - 4.20 mcIUnit/mL Blood 07/27/2024 1:03 PM [employer] 07/27/2024 7:25 PM [employer] Narrative [facility] - 07/27/2024 7:52 PM [employer] Starting 08/10 every 4 weeks Wander Matthews MD LAB BLOOD ORDERABLES Final Re sult Performing Organization Address [facility] Co de Phone Number MICHELINE [address] [place] [address] * IgG (07/27/2024 1:03 PM [employer]) [facility] Immunoglobulin G 1,090 700 - 1,600 mg/dL Blood 07/27/2024 1:03 PM [employer] 07/27/2024 7:25 PM [employer] Wander Matthews MD LAB BLOOD ORDERABLES Final Re sult Performing Organization Address [facility] de Phone Number [facility] [address] [place] [address] * Comprehensive metabolic panel (07/27/2024 1:03 PM [employer]) [facility] Sodium 139 135 - 145 mmol/L Potassium, pl 3.9 3.3 - 4.9 mmol/L [facility] Chloride 103 97 - 110 mmol/L [facility] CO2 23 22 - 32 mmol/L [facility] Anion gap 13 2 - 15 mmol/L [facility] BUN 18 6 - 25 mg/dL [facility] Creatinine 0.90 0.80 - 1.30 mg/dL [facility] Glucose 175 70 - 199 mg/dL [facility] Comment: Interpretive Data Fasting glucose >/= 126 mg/dl is diagnostic for diabetes. Fasting is defined as no caloric intake for at least 8 hours. Fasting glucose between 100 mg/dl to 125 mg/dl is diagnostic of prediabetes. In a patient with classic symptoms of hyperglycemia or hyperglycemic crisis, a random glucose >/= 200 mg/dl is diagnostic for diabetes. In the absence of unequivocal hyperglycemia, results should be confirmed by repeat testing. The classification and Diagnosis of Diabetes Diabetes Care 202; 46: S19-S40. Current interpretive data was last revised 2022. Calcium 9.2 8.5 - 10.3 mg/dL [facility] Bilirubin, total 0.8 0.1 - 1.2 mg/dL [facility] Protein, pl 6.8 6.5 - 8.5 g/dL [facility] Albumin 3.6 3.5 - 5.0 g/dL [facility] Alk phos 55 40 - 130 Units/L [facility] ALT 13 7 - 55 Units/L [facility] AST 23 10 - 50 Units/L [facility] Blood 07/27/2024 1:03 PM [employer] 07/27/2024 7:25 PM [employer] Wander Matthews MD LAB BLOOD ORDERABLES Final Re sult [facility] [id number] Department [place] [address] * eGFR (07/13/2024 10:05 AM [employer]) eGFR 85 >=60 mL/min/1. 73 m2 Comment: Interpretive Data Reference Interval Normal >/= 90 mL/min/1.73m2 Mildly decreased* 60 - 89 mL/min/1.73m2 Mildly to moderately decreased 45 - 59 mL/min/1.73m2 Moderately to severely decreased 30 - 44 mL/min/1.73m2 Severely decreased 15 - 29 mL/min/1.73m2 Kidney Failure < 15 mL/min/1.73m2 *Relative to young adult level Estimated glomerular filtration rate is determined by the 2020 CKD-EPI equation recommended by the National Kidney Foundation (A Unifying Approach to GFR Estimation: Recommendations of the NKF-ASK Task Force on Reassessing the Inclusion of Race in Diagnosing Kidney Disease, JASN 2020). The CKD-EPI equation should not be used for patients with unstable renal function and has not been validated in children and those over 70. Current interpretive data was last reviewed 2021. Blood 07/13/2024 10:0 5 AM [employer] 07/13/2024 9:45 PM [employer] us Wander Matthews MD LAB BLOOD ORDERABLES Final Re sult [facility] [address] Department [place] [address] * (ABNORMAL) Differential, auto (07/13/2024 10:05 AM [employer]) Neutrophil abs 1.9 1.5 - 6.5 K/cumm Imm gran abs 0.0 0.0 - 0.1 K/cumm [facility] Lymphocyte abs 0.4(L) 0.8 - 3.3 K/cumm [facility] Monocyte abs 0.1(L) 0.2 - 0.8 K/cumm [facility] Eosinophil abs 0.0 0.0 - 0.5 K/cumm [facility] Basophil abs 0.0 0.0 - 0.1 K/cumm [facility] Neutrophil pct 76.6 % [facility] Comment: Consistent with previous result Interpretive Data Percent cell count reference ranges are not reported, since discordance with absolute values may lead to misinterpretation of CBC data. Current Interpretive Data was last revised on 2017. Imm gran pct 1.2 % [facility] Comment: Interpretive Data Percent cell count reference ranges are not reported, since discordance with absolute values may lead to misinterpretation of CBC data. Current Interpretive Data was last revised on 2017. Lymphocyte pct 17.7 % [facility] Comment: Interpretive Data Percent cell count reference ranges are not reported, since discordance with absolute values may lead to misinterpretation of CBC data. Current Interpretive Data was last revised on 2017. Monocyte pct 3.3 % [facility] Comment: Interpretive Data Percent cell count reference ranges are not reported, since discordance with absolute values may lead to misinterpretation of CBC data. Current Interpretive Data was last revised on 2017. Eosinophil pct 0.8 % [facility] Comment: Interpretive Data Percent cell count reference ranges are not reported, since discordance with absolute values may lead to misinterpretation of CBC data. Current Interpretive Data was last revised on 2017. Basophil pct 0.4 % [facility] Comment: Interpretive Data Percent cell count reference ranges are not reported, since discordance with absolute values may lead to misinterpretation of CBC data. Current Interpretive Data was last revised on 2017. Blood 07/13/2024 10:0 5 AM [employer] 07/13/2024 9:30 PM [employer] Wander Matthews MD LAB BLOOD ORDERABLES Final Re sult [facility] [id number] Department [place] [address] * (ABNORMAL) CBC with auto differential (07/13/2024 10:05 AM [employer]) WBC 2.4(L) 3.8 - 9.9 K/cumm Hgb 11.7(L) 13.0 - 17.5 g/dL [facility] Hct 37.0(L) 38.9 - 50.3 % [facility] Plt 82(L) 150 - 400 K/cumm [facility] Comment:No clot detected in sample. MPV 10.9 9.1 - 12.3 fL [facility] RBC 3.92(L) 4.30 - 5.80 M/cumm [facility] MCV 94.4 81.3 - 96.4 fL [facility] MCH 29.8 27.1 - 33.3 pg [facility] MCHC 31.6(L) 32.3 - 35.7 g/dL [facility] RDW CV 15.7(H) 11.1 - 14.9 % [facility] RDW SD 53.8(H) 35.7 - 48.1 fL [facility] NRBC abs 0.04(H) 0.00 - 0.01 K/cumm [facility] Blood 07/13/2024 10:0 5 AM [employer] 07/13/2024 9:30 PM [employer] Wander Matthews MD LAB BLOOD ORDERABLES Final Re sult Performing Organization Address City/[facility]/ZIP Co de Phone Number MICHELINE LUO [address] Department [place] [address] * (ABNORMAL) TSH (07/13/2024 10:05 AM [employer]) Thyroid Stimulating Hormone 6.51(H) 0.30 - 4.20 mcIUnit/mL Blood 07/13/2024 10:0 5 AM [employer] 07/13/2024 9:30 PM [employer] Wander Matthews MD LAB BLOOD ORDERABLES Final Re sult Performing Organization Address [facility] Co de Phone Number MICHELINE LUO [address] Department [place] [address] * (ABNORMAL) Comprehensive metabolic panel (07/13/2024 10:05 AM [employer]) Sodium 140 135 - 145 mmol/L Potassium, pl 3.6 3.3 - 4.9 mmol/L [facility] Chloride 103 97 - 110 mmol/L [facility] CO2 27 22 - 32 mmol/L [facility] Anion gap 10 2 - 15 mmol/L [facility] BUN 20 6 - 25 mg/dL [facility] Creatinine 0.95 0.80 - 1.30 mg/dL [facility] Glucose 159 70 - 199 mg/dL [facility] Comment: Interpretive Data Fasting glucose >/= 126 mg/dl is diagnostic for diabetes. Fasting is defined as no caloric intake for at least 8 hours. Fasting glucose between 100 mg/dl to 125 mg/dl is diagnostic of prediabetes. In a patient with classic symptoms of hyperglycemia or hyperglycemic crisis, a random glucose >/= 200 mg/dl is diagnostic for diabetes. In the absence of unequivocal hyperglycemia, results should be confirmed by repeat testing. The classification and Diagnosis of Diabetes Diabetes Care 2021; 46: S19-S40. Current interpretive data was last revised 2022. Calcium 9.3 8.5 - 10.3 mg/dL [facility] Bilirubin, total 0.6 0.1 - 1.2 mg/dL [facility] Protein, pl 6.4(L) 6.5 - 8.5 g/dL [facility] Albumin 3.7 3.5 - 5.0 g/dL [facility] Alk phos 49 40 - 130 Units/L [facility] ALT 16 7 - 55 Units/L [facility] AST 20 10 - 50 Units/L [facility] Blood 07/13/2024 10:0 5 AM [employer] 07/13/2024 9:30 PM [employer] Wander Matthews MD LAB BLOOD ORDERABLES Final Re sult Performing Organization Address [facility] Co de Phone Number MICHELINE LUO [address] Department [employer] [place] [address] * eGFR (07/07/2024 9:05 AM [employer]) eGFR 86 >=60 mL/min/1. 73 m2 Comment: Interpretive Data Reference Interval Normal >/= 90 mL/min/1.73m2 Mildly decreased* 60 - 89 mL/min/1.73m2 Mildly to moderately decreased 45 - 59 mL/min/1.73m2 Moderately to severely decreased 30 - 44 mL/min/1.73m2 Severely decreased 15 - 29 mL/min/1.73m2 Kidney Failure < 15 mL/min/1.73m2 *Relative to young adult level Estimated glomerular filtration rate is determined by the 2020 CKD-EPI equation recommended by the National Kidney Foundation (A Unifying Approach to GFR Estimation: Recommendations of the NKF-ASK Task Force on Reassessing the Inclusion of Race in Diagnosing Kidney Disease, JASN 2020). The CKD-EPI equation should not be used for patients with unstable renal function and has not been validated in children and those over 70. Current interpretive data was last reviewed 2021. Blood 07/07/2024 9:05 AM [employer] 07/07/2024 4:21 PM [employer] Wander Matthews MD LAB BLOOD ORDERABLES Final Re sult Performing Organization Address [facility]/ZIP Co de Phone Number MICHELINE LUO [address] [address] Mckeon Department [place] [address] * (ABNORMAL) Differential, auto (07/07/2024 9:05 AM [employer] WORK[employer]) Neutrophil abs 1.9 1.5 - 6.5 K/cumm Imm gran abs 0.0 0.0 - 0.1 K/cumm [facility] Lymphocyte abs 0.4(L) 0.8 - 3.3 K/cumm [facility] Monocyte abs 0.1(L) 0.2 - 0.8 K/cumm [facility] Eosinophil abs 0.1 0.0 - 0.5 K/cumm [facility] Basophil abs 0.0 0.0 - 0.1 K/cumm [facility] Neutrophil pct 76.1 % [facility] Comment: Consistent with previous result Interpretive Data Percent cell count reference ranges are not reported, since discordance with absolute values may lead to misinterpretation of CBC data. Current Interpretive Data was last revised on 2017. Imm gran pct 0.4 % [facility] Comment: Interpretive Data Percent cell count reference ranges are not reported, since discordance with absolute values may lead to misinterpretation of CBC data. Current Interpretive Data was last revised on 2017. Lymphocyte pct 17.3 % [facility] Comment: Interpretive Data Percent cell count reference ranges are not reported, since discordance with absolute values may lead to misinterpretation of CBC data. Current Interpretive Data was last revised on 2017. Monocyte pct 3.3 % [facility] Comment: Interpretive Data Percent cell count reference ranges are not reported, since discordance with absolute values may lead to misinterpretation of CBC data. Current Interpretive Data was last revised on 2017. Eosinophil pct 2.5 % [facility] Comment: Interpretive Data Percent cell count reference ranges are not reported, since discordance with absolute values may lead to misinterpretation of CBC data. Current Interpretive Data was last revised on 2017. Basophil pct 0.4 % [facility] Comment: Interpretive Data Percent cell count reference ranges are not reported, since discordance with absolute values may lead to misinterpretation of CBC data. Current Interpretive Data was last revised on 2017. Blood 07/07/2024 9:05 AM [employer] 07/07/2024 4:03 PM [employer] WORK[employer] Wander Matthews MD LAB BLOOD ORDERABLES Final Re sult Performing Organization Address [facility] Co de Phone Number MICHELINE LUO [address] Amadou [facility] [employer] [place], [place] [phone] * (ABNORMAL) Immunoglobulin free light chains (07/07/2024 9:05 AM [employer] WORKER) Pathologist [facility] [place]/Lambda ratio 22.10(H) 0.26 - 1.65 [place] free light chain 4.87(H) 0.33 - 1.94 mg/dL [facility] Comment: Interpretive Data The [employer] [place] FLC assay procedure was used. Results from different manufacturers or methods may not be comparable. Serial testing should be performed using the same method. Lambda free light chain 0.22(L) 0.57 - 2.63 mg/dL [facility] Comment: Interpretive Data The [employer] Ig Lambda FLC assay procedure was used. Results from different manufacturers or methods may not be comparable. Serial testing should be performed using the same method. Blood 07/07/2024 9:05 AM [employer] 07/07/2024 4:03 PM [employer] WORK[employer] Wander Matthews MD LAB BLOOD ORDERABLES Final Re sult Performing Organization Address [facility] Co de Phone Number MICHELINE LUO [address] Am[address] Department [employer] [place] [address] * (ABNORMAL) CBC with auto differential (07/07/2024 9:05 AM [employer] WORKER) Pathologist [facility] WBC 2.4(L) 3.8 - 9.9 K/cumm Hgb 11.7(L) 13.0 - 17.5 g/dL [facility] Hct 37.4(L) 38.9 - 50.3 % [facility] Plt 134(L) 150 - 400 K/cumm [facility] MPV 10.7 9.1 - 12.3 fL [facility] RBC 4.03(L) 4.30 - 5.80 M/cumm [facility] MCV 92.8 81.3 - 96.4 fL [facility] MCH 29.0 27.1 - 33.3 pg [facility] MCHC 31.3(L) 32.3 - 35.7 g/dL [facility] RDW CV 14.6 11.1 - 14.9 % [facility] RDW SD 49.2(H) 35.7 - 48.1 fL [facility] NRBC abs 0.00 0.00 - 0.01 K/cumm [facility] Blood 07/07/2024 9:05 AM [employer] 07/07/2024 4:03 PM [employer] WORK[employer] Wander Matthews MD LAB BLOOD ORDERABLES Final Re sult Performing Organization Address [facility] Co de Phone Number MICHELINE LUO [address] [address] [facility] [place] [address] * (ABNORMAL) TSH (07/07/2024 9:05 AM [employer]) Thyroid Stimulating Hormone 4.33(H) 0.30 - 4.20 mcIUnit/mL Blood 07/07/2024 9:05 AM [employer] WORK[employer] 07/07/2024 4:03 PM [employer] WORKER Wander Matthews MD LAB BLOOD ORDERABLES Final Re sult Performing Organization Address [facility] Co de Phone Number MICHELINE LUO [address] [address] [facility] [place] [address] * IgG (07/07/2024 9:05 AM [employer] WORKER) Immunoglobulin G 957 700 - 1,600 mg/dL Blood 07/07/2024 9:05 AM [employer] WORKER 07/07/2024 4:03 PM [employer] WORK[employer] Wander Matthews MD LAB BLOOD ORDERABLES Final Re sult Performing Organization Address [facility] Co de Phone Number MICHELINE LUO [address] [address] [facility] [place] [address] * Comprehensive metabolic panel (07/07/2024 9:05 AM [employer] WORKER) Sodium 140 135 - 145 mmol/L Potassium, pl 3.9 3.3 - 4.9 mmol/L [facility] Chloride 104 97 - 110 mmol/L [facility] CO2 25 22 - 32 mmol/L [facility] Anion gap 11 2 - 15 mmol/L [facility] BUN 20 6 - 25 mg/dL [facility] Creatinine 0.94 0.80 - 1.30 mg/dL [facility] Glucose 134 70 - 199 mg/dL [facility] Comment: Interpretive Data Fasting glucose >/= 126 mg/dl is diagnostic for diabetes. Fasting is defined as no caloric intake for at least 8 hours. Fasting glucose between 100 mg/dl to 125 mg/dl is diagnostic of prediabetes. In a patient with classic symptoms of hyperglycemia or hyperglycemic crisis, a random glucose >/= 200 mg/dl is diagnostic for diabetes. In the absence of unequivocal hyperglycemia, results should be confirmed by repeat testing. The classification and Diagnosis of Diabetes Diabetes Care 2021; 46: S19-S40. Current interpretive data was last revised 2022. Calcium 9.2 8.5 - 10.3 mg/dL [facility] Bilirubin, total 0.7 0.1 - 1.2 mg/dL [facility] Protein, pl 6.5 6.5 - 8.5 g/dL [facility] Albumin 3.6 3.5 - 5.0 g/dL [facility] Alk phos 49 40 - 130 Units/L [facility] ALT 16 7 - 55 Units/L [facility] AST 22 10 - 50 Units/L [facility] Blood 07/07/2024 9:05 AM [employer] 07/07/2024 4:03 PM [employer] WORKER us Wander Matthews MD LAB BLOOD ORDERABLES Final Re sult MICHELINE [address] Amadou Mckeon [place] [address] * eGFR (06/29/2024 8:57 AM [employer] WORKER) eGFR 71 >=60 mL/min/1. 73 m2 Comment: Interpretive Data Reference Interval Normal >/= 90 mL/min/1.73m2 Mildly decreased* 60 - 89 mL/min/1.73m2 Mildly to moderately decreased 45 - 59 mL/min/1.73m2 Moderately to severely decreased 30 - 44 mL/min/1.73m2 Severely decreased 15 - 29 mL/min/1.73m2 Kidney Failure < 15 mL/min/1.73m2 *Relative to young adult level Estimated glomerular filtration rate is determined by the 2020 CKD-EPI equation recommended by the National Kidney Foundation (A Unifying Approach to GFR Estimation: Recommendations of the NKF-ASK Task Force on Reassessing the Inclusion of Race in Diagnosing Kidney Disease, JASN 202). The CKD-EPI equation should not be used for patients with unstable renal function and has not been validated in children and those over 70. Current interpretive data was last reviewed 2021. Blood 06/29/2024 8:57 AM [employer] WORKER 06/29/2024 8:16 PM [employer] WORK[employer] us Wander Matthews MD LAB BLOOD ORDERABLES Final Re sult MICHELINE [address] Amadou Mckeon Department [place] [address] * (ABNORMAL) Differential, auto (06/29/2024 8:57 AM [employer] WORK[employer]) Neutrophil abs 2.2 1.5 - 6.5 K/cumm Imm gran abs 0.0 0.0 - 0.1 K/cumm [facility] Lymphocyte abs 0.3(L) 0.8 - 3.3 K/cumm [facility] Monocyte abs 0.1(L) 0.2 - 0.8 K/cumm [facility] Eosinophil abs 0.1 0.0 - 0.5 K/cumm [facility] Basophil abs 0.0 0.0 - 0.1 K/cumm [facility] Neutrophil pct 80.6 % MICHELINE Comment: Consistent with previous result Interpretive Data Percent cell count reference ranges are not reported, since discordance with absolute values may lead to misinterpretation of CBC data. Current Interpretive Data was last revised on 2017. Imm gran pct 0.7 % [facility] Comment: Interpretive Data Percent cell count reference ranges are not reported, since discordance with absolute values may lead to misinterpretation of CBC data. Current Interpretive Data was last revised on 2017. Lymphocyte pct 12.7 % [facility] Comment: Interpretive Data Percent cell count reference ranges are not reported, since discordance with absolute values may lead to misinterpretation of CBC data. Current Interpretive Data was last revised on 2017. Monocyte pct 2.2 % [facility] Comment: Interpretive Data Percent cell count reference ranges are not reported, since discordance with absolute values may lead to misinterpretation of CBC data. Current Interpretive Data was last revised on 2017. Eosinophil pct 3.4 % [facility] Comment: Interpretive Data Percent cell count reference ranges are not reported, since discordance with absolute values may lead to misinterpretation of CBC data. Current Interpretive Data was last revised on 2017. Basophil pct 0.4 % [facility] Comment: Interpretive Data Percent cell count reference ranges are not reported, since discordance with absolute values may lead to misinterpretation of CBC data. Current Interpretive Data was last revised on 2017. Blood 06/29/2024 8:57 AM [employer] WORKER 06/29/2024 6:44 PM [employer] WORKER us Wander Matthews MD LAB BLOOD ORDERABLES Final Re sult [facility] [address] Am[address] Mckeon Department [place] [address] * (ABNORMAL) CBC with auto differential (06/29/2024 8:57 AM [employer] WORK[employer]) WBC 2.7(L) 3.8 - 9.9 K/cumm Hgb 11.6(L) 13.0 - 17.5 g/dL [facility] Hct 37.4(L) 38.9 - 50.3 % [facility] Plt 183 150 - 400 K/cumm [facility] MPV 9.8 9.1 - 12.3 fL [facility] RBC 3.97(L) 4.30 - 5.80 M/cumm [facility] MCV 94.2 81.3 - 96.4 fL [facility] MCH 29.2 27.1 - 33.3 pg [facility] MCHC 31.0(L) 32.3 - 35.7 g/dL [facility] RDW CV 14.8 11.1 - 14.9 % [facility] RDW SD 51.3(H) 35.7 - 48.1 fL [facility] NRBC abs 0.00 0.00 - 0.01 K/cumm [facility] Blood 06/29/2024 8:57 AM [employer] WORKER 06/29/2024 6:44 PM [employer] WORKER us Wander Matthews MD LAB BLOOD [place] [address] Amadou Mckeon Department [place] [address] * Comprehensive metabolic panel (06/29/2024 8:57 AM [employer] WORKER) Sodium 140 135 - 145 mmol/L Potassium, pl 4.1 3.3 - 4.9 mmol/L [facility] Chloride 105 97 - 110 mmol/L [facility] CO2 24 22 - 32 mmol/L [facility] Anion gap 11 2 - 15 mmol/L [facility] BUN 15 6 - 25 mg/dL [facility] Creatinine 1.10 0.80 - 1.30 mg/dL [facility] Glucose 121 70 - 199 mg/dL [facility] Comment: Interpretive Data Fasting glucose >/= 126 mg/dl is diagnostic for diabetes. Fasting is defined as no caloric intake for at least 8 hours. Fasting glucose between 100 mg/dl to 125 mg/dl is diagnostic of prediabetes. In a patient with classic symptoms of hyperglycemia or hyperglycemic crisis, a random glucose >/= 200 mg/dl is diagnostic for diabetes. In the absence of unequivocal hyperglycemia, results should be confirmed by repeat testing. The classification and Diagnosis of Diabetes Diabetes Care 2021; 46: S19-S40. Current interpretive data was last revised 2022. Calcium 9.5 8.5 - 10.3 mg/dL [facility] Bilirubin, total 0.6 0.1 - 1.2 mg/dL [facility] Protein, pl 6.7 6.5 - 8.5 g/dL [facility] Albumin 3.7 3.5 - 5.0 g/dL [facility] Alk phos 48 40 - 130 Units/L [facility] ALT 18 7 - 55 Units/L [facility] AST 25 10 - 50 Units/L [facility] Blood 06/29/2024 8:57 AM [employer] WORKER 06/29/2024 6:44 PM [employer] WORKER Wander Matthews MD LAB BLOOD ORDERABLES Final Re sult Performing Organization Address [facility] Co de Phone Number MICHELINE LUO [address] [address] Department [place] [address] * eGFR (06/22/2024 9:14 AM [employer] WORKER) eGFR 71 >=60 mL/min/1. 73 m2 Comment: Interpretive Data Reference Interval Normal >/= 90 mL/min/1.73m2 Mildly decreased* 60 - 89 mL/min/1.73m2 Mildly to moderately decreased 45 - 59 mL/min/1.73m2 Moderately to severely decreased 30 - 44 mL/min/1.73m2 Severely decreased 15 - 29 mL/min/1.73m2 Kidney Failure < 15 mL/min/1.73m2 *Relative to young adult level Estimated glomerular filtration rate is determined by the 2020 CKD-EPI equation recommended by the National Kidney Foundation (A Unifying Approach to GFR Estimation: Recommendations of the NKF-ASK Task Force on Reassessing the Inclusion of Race in Diagnosing Kidney Disease, JASN 2020). The CKD-EPI equation should not be used for patients with unstable renal function and has not been validated in children and those over 70. Current interpretive data was last reviewed 2021. Blood 06/22/2024 9:14 AM [employer] WORKER 06/22/2024 5:53 PM [employer] WORKER Wander Matthews MD LAB BLOOD ORDERABLES Final Re sult Performing Organization Address [facility]/ZIP Co de Phone Number MICHELINE LUO [address] Am[address]ou Department of [employer] [place], [place] [phone] * (ABNORMAL) Differential, auto (06/22/2024 9:14 AM [employer] WORKER) Neutrophil abs 2.8 1.5 - 6.5 K/cumm Imm gran abs 0.0 0.0 - 0.1 K/cumm [facility] Lymphocyte abs 0.2(L) 0.8 - 3.3 K/cumm [facility] Monocyte abs 0.1(L) 0.2 - 0.8 K/cumm [facility] Eosinophil abs 0.1 0.0 - 0.5 K/cumm [facility] Basophil abs 0.0 0.0 - 0.1 K/cumm [facility] Neutrophil pct 89.3 % [facility] Comment: Consistent with previous result Interpretive Data Percent cell count reference ranges are not reported, since discordance with absolute values may lead to misinterpretation of CBC data. Current Interpretive Data was last revised on 2017. Imm gran pct 0.3 % [facility] Comment: Interpretive Data Percent cell count reference ranges are not reported, since discordance with absolute values may lead to misinterpretation of CBC data. Current Interpretive Data was last revised on 2017. Lymphocyte pct 7.2 % [facility] Comment: Interpretive Data Percent cell count reference ranges are not reported, since discordance with absolute values may lead to misinterpretation of CBC data. Current Interpretive Data was last revised on 2017. Monocyte pct 1.6 % [facility] Comment: Interpretive Data Percent cell count reference ranges are not reported, since discordance with absolute values may lead to misinterpretation of CBC data. Current Interpretive Data was last revised on 2017. Eosinophil pct 1.6 % [facility] Comment: Interpretive Data Percent cell count reference ranges are not reported, since discordance with absolute values may lead to misinterpretation of CBC data. Current Interpretive Data was last revised on 2017. Basophil pct 0.0 % [facility] Comment: Interpretive Data Percent cell count reference ranges are not reported, since discordance with absolute values may lead to misinterpretation of CBC data. Current Interpretive Data was last revised on 2017. Blood 06/22/2024 9:14 AM [employer] WORKER 06/22/2024 5:29 PM [employer] WORKER us Wander Matthews MD LAB BLOOD ORDERABLES Final Re sult MICHELINE LUO [address] Amadou Department of Laboratories [place], [place] [phone] * (ABNORMAL) Immunoglobulin free light chains (06/22/2024 9:14 AM [employer] WORKER) [facility] [place]/Lambda ratio 28.50(H) 0.26 - 1.65 [place] free light chain 8.26(H) 0.33 - 1.94 mg/dL [facility] Comment: Interpretive Data The [employer] Ig [place] FLC assay procedure was used. Results from different manufacturers or methods may not be comparable. Serial testing should be performed using the same method. Lambda free light chain 0.29(L) 0.57 - 2.63 mg/dL [facility] Comment: Interpretive Data The [employer] Ig Lambda FLC assay procedure was used. Results from different manufacturers or methods may not be comparable. Serial testing should be performed using the same method. Blood 06/22/2024 9:14 AM [employer] WORKER 06/23/2024 10:18 AM [employer] WORKER Wander Matthews MD LAB BLOOD ORDERABLES Final Re sult Performing Organization Address [facility] Co de Phone Number MICHELINE LUO [address] Am[address]ou Department of Laboratories [place], [place] [phone] * (ABNORMAL) CBC with auto differential (06/22/2024 9:14 AM [employer] WORKER) [facility] WBC 3.2(L) 3.8 - 9.9 K/cumm Hgb 12.4(L) 13.0 - 17.5 g/dL [facility] Hct 39.0 38.9 - 50.3 % [facility] Plt 85(L) 150 - 400 K/cumm [facility] MPV 11.0 9.1 - 12.3 fL [facility] RBC 4.21(L) 4.30 - 5.80 M/cumm [facility] MCV 92.6 81.3 - 96.4 fL [facility] MCH 29.5 27.1 - 33.3 pg [facility] MCHC 31.8(L) 32.3 - 35.7 g/dL [facility] RDW CV 14.3 11.1 - 14.9 % [facility] RDW SD 48.1 35.7 - 48.1 fL [facility] NRBC abs 0.00 0.00 - 0.01 K/cumm [facility] Blood 06/22/2024 9:14 AM [employer] WORKER 06/22/2024 5:29 PM [employer] WORK[employer] us Wander Matthews MD LAB [place]LOOD [place] [address] Am[address] Mckeon Department [place] [address] * (ABNORMAL) Comprehensive metabolic panel (06/22/2024 9:14 AM [employer] WORKER) Sodium 140 135 - 145 mmol/L Potassium, pl 3.6 3.3 - 4.9 mmol/L [facility] Chloride 103 97 - 110 mmol/L [facility] CO2 26 22 - 32 mmol/L [facility] Anion gap 11 2 - 15 mmol/L [facility] BUN 23 6 - 25 mg/dL [facility] Creatinine 1.10 0.80 - 1.30 mg/dL [facility] Glucose 176 70 - 199 mg/dL [facility] Comment: Interpretive Data Fasting glucose >/= 126 mg/dl is diagnostic for diabetes. Fasting is defined as no caloric intake for at least 8 hours. Fasting glucose between 100 mg/dl to 125 mg/dl is diagnostic of prediabetes. In a patient with classic symptoms of hyperglycemia or hyperglycemic crisis, a random glucose >/= 200 mg/dl is diagnostic for diabetes. In the absence of unequivocal hyperglycemia, results should be confirmed by repeat testing. The classification and Diagnosis of Diabetes Diabetes Care 202; 46: S19-S40. Current interpretive data was last revised 2022. Calcium 9.3 8.5 - 10.3 mg/dL [facility] Bilirubin, total 0.8 0.1 - 1.2 mg/dL [facility] Protein, pl 6.4(L) 6.5 - 8.5 g/dL [facility] Albumin 3.6 3.5 - 5.0 g/dL [facility] Alk phos 54 40 - 130 Units/L [facility] ALT 19 7 - 55 Units/L [facility] AST 26 10 - 50 Units/L [facility] Blood 06/22/2024 9:14 AM [employer] WORKER 06/22/2024 5:29 PM [employer] WORKER Wander Matthews MD LAB BLOOD ORDERABLES Final Re sult Performing Organization Address [facility] Co de Phone Number MICHELINE LUO [address] [address] Department [place] [address] * eGFR (06/16/2024 8:00 AM [employer] WORK[employer]) eGFR 68 >=60 mL/min/1. 73 m2 Comment: Interpretive Data Reference Interval Normal >/= 90 mL/min/1.73m2 Mildly decreased* 60 - 89 mL/min/1.73m2 Mildly to moderately decreased 45 - 59 mL/min/1.73m2 Moderately to severely decreased 30 - 44 mL/min/1.73m2 Severely decreased 15 - 29 mL/min/1.73m2 Kidney Failure < 15 mL/min/1.73m2 *Relative to young adult level Estimated glomerular filtration rate is determined by the 2020 CKD-EPI equation recommended by the National Kidney Foundation (A Unifying Approach to GFR Estimation: Recommendations of the NKF-ASK Task Force on Reassessing the Inclusion of Race in Diagnosing Kidney Disease, JASN 2020). The CKD-EPI equation should not be used for patients with unstable renal function and has not been validated in children and those over 70. Current interpretive data was last reviewed 2021. Blood 06/16/2024 8:00 AM [employer] WORK[employer] 06/16/2024 2:09 PM [employer] WORKER Wander Matthews MD LAB BLOOD ORDERABLES Final Re sult Performing Organization Address [facility]/ZIP Co de Phone Number MICHELINE LUO [address] [address] Department of [employer] [place], [place] [phone] * (ABNORMAL) Differential, auto (06/16/2024 8:00 AM [employer] WORKER) Neutrophil abs 2.9 1.5 - 6.5 K/cumm Imm gran abs 0.0 0.0 - 0.1 K/cumm [facility] Lymphocyte abs 0.4(L) 0.8 - 3.3 K/cumm [facility] Monocyte abs 0.1(L) 0.2 - 0.8 K/cumm [facility] Eosinophil abs 0.1 0.0 - 0.5 K/cumm [facility] Basophil abs 0.0 0.0 - 0.1 K/cumm [facility] Neutrophil pct 83.4 % [facility] Comment: Consistent with previous result Interpretive Data Percent cell count reference ranges are not reported, since discordance with absolute values may lead to misinterpretation of CBC data. Current Interpretive Data was last revised on 2017. Imm gran pct 0.6 % [facility] Comment: Interpretive Data Percent cell count reference ranges are not reported, since discordance with absolute values may lead to misinterpretation of CBC data. Current Interpretive Data was last revised on 2017. Lymphocyte pct 10.6 % [facility] Comment: Interpretive Data Percent cell count reference ranges are not reported, since discordance with absolute values may lead to misinterpretation of CBC data. Current Interpretive Data was last revised on 2017. Monocyte pct 1.4 % [facility] Comment: Interpretive Data Percent cell count reference ranges are not reported, since discordance with absolute values may lead to misinterpretation of CBC data. Current Interpretive Data was last revised on 2017. Eosinophil pct 3.7 % [facility] Comment: Interpretive Data Percent cell count reference ranges are not reported, since discordance with absolute values may lead to misinterpretation of CBC data. Current Interpretive Data was last revised on 2017. Basophil pct 0.3 % [facility] Comment: Interpretive Data Percent cell count reference ranges are not reported, since discordance with absolute values may lead to misinterpretation of CBC data. Current Interpretive Data was last revised on 2017. Blood 06/16/2024 8:0 0 AM [employer] 06/16/2024 1:56 PM [employer] us Wander Matthews MD LAB BLOOD ORDERABLES Final Re sult MICHELINE LUO [address] Am[address] Mckeon Department [place] [address] * (ABNORMAL) CBC with auto differential (06/16/2024 8:00 AM [employer] WORK[employer]) Pathologist [facility] WBC 3.5(L) 3.8 - 9.9 K/cumm Hgb 13.3 13.0 - 17.5 g/dL [facility] Hct 40.1 38.9 - 50.3 % [facility] Plt 79(L) 150 - 400 K/cumm [facility] MPV 11.3 9.1 - 12.3 fL [facility] RBC 4.42 4.30 - 5.80 M/cumm [facility] MCV 90.7 81.3 - 96.4 fL [facility] MCH 30.1 27.1 - 33.[address] MCHC 33.2 32.3 - 35.7 g/dL [facility] RDW CV 14.0 11.1 - 14.9 % [facility] RDW SD 46.8 35.7 - 48.1 fL [facility] NRBC abs 0.00 0.00 - 0.01 K/cumm [facility] Blood 06/16/2024 8:00 AM [employer] 06/16/2024 1:56 PM ICE [employer] Wander Matthews MD LAB BLOOD ORDERABLES Final Re sult [facility] [address] Department [place] [address] * Comprehensive metabolic panel (06/16/2024 8:00 AM ICE [employer] VA[employer] WORKER) [facility] Sodium 137 135 - 145 mmol/L Potassium, pl 3.8 3.3 - 4.9 mmol/L [facility] Chloride 99 97 - 110 mmol/L [facility] CO2 27 22 - 32 mmol/L [facility] Anion gap 11 2 - 15 mmol/L [facility] BUN 24 6 - 25 mg/dL [facility] Creatinine 1.14 0.80 - 1.30 mg/dL [facility] Comment:Icteric sample, test results may be affected. Glucose 172 70 - 199 mg/dL [facility] Comment: Interpretive Data Fasting glucose >/= 126 mg/dl is diagnostic for diabetes. Fasting is defined as no caloric intake for at least 8 hours. Fasting glucose between 100 mg/dl to 125 mg/dl is diagnostic of prediabetes. In a patient with classic symptoms of hyperglycemia or hyperglycemic crisis, a random glucose >/= 200 mg/dl is diagnostic for diabetes. In the absence of unequivocal hyperglycemia, results should be confirmed by repeat testing. The classification and Diagnosis of Diabetes Diabetes Care 2021; 46: S19-S40. Current interpretive data was last revised 2022. Calcium 9.8 8.5 - 10.3 mg/dL [facility] Bilirubin, total 1.2 0.1 - 1.2 mg/dL [facility] Protein, pl 7.2 6.5 - 8.5 g/dL [facility] Albumin 3.9 3.5 - 5.0 g/dL [facility] Alk phos 52 40 - 130 Units/L [facility] ALT 15 7 - 55 Units/L [facility] AST 18 10 - 50 Units/L [facility] Blood 06/16/2024 8:00 AM [employer] 06/16/2024 1:56 PM [employer] us Wander Matthews MD LAB BLOOD ORDERABLES Final Re sult [facility] [id number] Department of Laboratories [place], [place] [id number] * eGFR (06/08/2024 9:00 AM [employer] WORK[employer]) eGFR 73 >=60 mL/min/1. 73 m2 Comment: Interpretive Data Reference Interval Normal >/= 90 mL/min/1.73m2 Mildly decreased* 60 - 89 mL/min/1.73m2 Mildly to moderately decreased 45 - 59 mL/min/1.73m2 Moderately to severely decreased 30 - 44 mL/min/1.73m2 Severely decreased 15 - 29 mL/min/1.73m2 Kidney Failure < 15 mL/min/1.73m2 *Relative to young adult level Estimated glomerular filtration rate is determined by the 2020 CKD-EPI equation recommended by the National Kidney Foundation (A Unifying Approach to GFR Estimation: Recommendations of the NKF-ASK Task Force on Reassessing the Inclusion of Race in Diagnosing Kidney Disease, JASN 2020). The CKD-EPI equation should not be used for patients with unstable renal function and has not been validated in children and those over 70. Current interpretive data was last reviewed 2021. Blood 06/08/2024 9:00 AM [employer] 06/08/2024 4:57 PM [employer] WORK[employer] us Wander Matthews MD LAB BLOOD ORDERABLES Final Re sult [facility] [address] [address] Department [place] [address] * (ABNORMAL) Differential, auto (06/08/2024 9:00 AM [employer]) Neutrophil abs 1.8 1.5 - 6.5 K/cumm Imm gran abs 0.0 0.0 - 0.1 K/cumm [facility] Lymphocyte abs 0.4(L) 0.8 - 3.3 K/cumm [facility] Monocyte abs 0.1(L) 0.2 - 0.8 K/cumm [facility] Eosinophil abs 0.1 0.0 - 0.5 K/cumm [facility] Basophil abs 0.0 0.0 - 0.1 K/cumm [facility] Neutrophil pct 77.5 % [facility] Comment: Consistent with previous result Interpretive Data Percent cell count reference ranges are not reported, since discordance with absolute values may lead to misinterpretation of CBC data. Current Interpretive Data was last revised on 2017. Imm gran pct 0.4 % [facility] Comment: Interpretive Data Percent cell count reference ranges are not reported, since discordance with absolute values may lead to misinterpretation of CBC data. Current Interpretive Data was last revised on 2017. Lymphocyte pct 16.1 % [facility] Comment: Interpretive Data Percent cell count reference ranges are not reported, since discordance with absolute values may lead to misinterpretation of CBC data. Current Interpretive Data was last revised on 2017. Monocyte pct 3.0 % [facility] Comment: Interpretive Data Percent cell count reference ranges are not reported, since discordance with absolute values may lead to misinterpretation of CBC data. Current Interpretive Data was last revised on 2017. Eosinophil pct 2.6 % [facility] Comment: Interpretive Data Percent cell count reference ranges are not reported, since discordance with absolute values may lead to misinterpretation of CBC data. Current Interpretive Data was last revised on 2017. Basophil pct 0.4 % [facility] Comment: Interpretive Data Percent cell count reference ranges are not reported, since discordance with absolute values may lead to misinterpretation of CBC data. Current Interpretive Data was last revised on 2017. Blood 06/08/2024 9:00 AM [employer] 06/08/2024 4:38 PM [employer] Wander Matthews MD LAB BLOOD ORDERABLES Final [facility]ult [facility] [id number] [address] Department of Laboratories [place] [phone] * (ABNORMAL) CBC with auto differential (06/08/2024 9:00 AM ICE [employer] WORK[employer]) WBC 2.3(L) 3.8 - 9.9 K/cumm Hgb 12.6(L) 13.0 - 17.5 g/dL [facility] Hct 38.7(L) 38.9 - 50.3 % [facility] Plt 130(L) 150 - 400 K/cumm [facility] MPV 10.9 9.1 - 12.3 fL [facility] RBC 4.20(L) 4.30 - 5.80 M/cumm [facility] MCV 92.1 81.3 - 96.4 fL [facility] MCH 30.0 27.1 - 33.3 pg [facility] MCHC 32.6 32.3 - 35.7 g/dL [facility] RDW CV 14.0 11.1 - 14.9 % [facility] RDW SD 47.1 35.7 - 48.1 fL [facility] NRBC abs 0.00 0.00 - 0.01 K/cumm [facility] Blood 06/08/2024 9:00 AM [employer] 06/08/2024 4:38 PM ICE [employer] WORKER Narrative [facility] - 06/08/2024 5:03 PM ICE [employer] Dr. Matthews weekly CBC on 01/20/2024 and 01/27/2024 Wander Matthews MD LAB BLOOD ORDERABLES Final Re sult [facility] [address] Department [place] [address] * (ABNORMAL) Comprehensive metabolic panel (06/08/2024 9:00 AM ICE [employer] WORK[employer]) Pathologist [facility] Sodium 139 135 - 145 mmol/L Potassium, pl 3.7 3.3 - 4.9 mmol/L [facility] Chloride 100 97 - 110 mmol/L [facility] CO2 27 22 - 32 mmol/L [facility] Anion gap 12 2 - 15 mmol/L [facility] BUN 28(H) 6 - 25 mg/dL [facility] Creatinine 1.08 0.80 - 1.30 mg/dL [facility] Glucose 95 70 - 199 mg/dL [facility] Comment: Interpretive Data Fasting glucose >/= 126 mg/dl is diagnostic for diabetes. Fasting is defined as no caloric intake for at least 8 hours. Fasting glucose between 100 mg/dl to 125 mg/dl is diagnostic of prediabetes. In a patient with classic symptoms of hyperglycemia or hyperglycemic crisis, a random glucose >/= 200 mg/dl is diagnostic for diabetes. In the absence of unequivocal hyperglycemia, results should be confirmed by repeat testing. The classification and Diagnosis of Diabetes Diabetes Care 2021; 46: S19-S40. Current interpretive data was last revised 2022. Calcium 10.2 8.5 - 10.3 mg/dL [facility] Bilirubin, total 0.6 0.1 - 1.2 mg/dL [facility] Protein, pl 7.0 6.5 - 8.5 g/dL [facility] Albumin 4.0 3.5 - 5.0 g/dL [facility] Alk phos 48 40 - 130 Units/L [facility] ALT 15 7 - 55 Units/L [facility] AST 23 10 - 50 Units/L [facility] Blood 06/08/2024 9:00 AM [employer] 06/08/2024 4:38 PM ICE [employer] WORKER Narrative MICHELINE - 06/08/2024 5:21 PM ICE [employer] VA[employer] WORKER Cassie [facility] weekly x 2 01/20/2024 and 01/27/2024 Wander Matthews MD LAB BLOOD ORDERABLES Final Re sult MICHELINE LUO [address] Department [place] [address] * eGFR (06/01/2024 2:15 PM [employer] WORK[employer]) eGFR 70 >=60 mL/min/1. 73 m2 Comment: Interpretive Data Reference Interval Normal >/= 90 mL/min/1.73m2 Mildly decreased* 60 - 89 mL/min/1.73m2 Mildly to moderately decreased 45 - 59 mL/min/1.73m2 Moderately to severely decreased 30 - 44 mL/min/1.73m2 Severely decreased 15 - 29 mL/min/1.73m2 Kidney Failure < 15 mL/min/1.73m2 *Relative to young adult level Estimated glomerular filtration rate is determined by the 2020 CKD-EPI equation recommended by the National Kidney Foundation (A Unifying Approach to GFR Estimation: Recommendations of the NKF-ASK Task Force on Reassessing the Inclusion of Race in Diagnosing Kidney Disease, JASN 2020). The CKD-EPI equation should not be used for patients with unstable renal function and has not been validated in children and those over 70. Current interpretive data was last reviewed 2021. Blood 06/01/2024 2:15 PM ICE [employer]ER 06/01/2024 9:08 PM [employer] WORKER Wander Matthews MD LAB BLOOD ORDERABLES Final Re sult [facility] [address] [address] Department [place] [place] [address] * (ABNORMAL) Differential, auto (06/01/2024 2:15 PM ICE [employer] WORKER) Neutrophil abs 2.6 1.5 - 6.5 K/cumm Imm gran abs 0.0 0.0 - 0.1 K/cumm [facility] Lymphocyte abs 0.5(L) 0.8 - 3.3 K/cumm [facility] Monocyte abs 0.1(L) 0.2 - 0.8 K/cumm [facility] Eosinophil abs 0.1 0.0 - 0.5 K/cumm [facility] Basophil abs 0.0 0.0 - 0.1 K/cumm [facility] Neutrophil pct 78.8 % [facility] Comment: Interpretive Data Percent cell count reference ranges are not reported, since discordance with absolute values may lead to misinterpretation of CBC data. Current Interpretive Data was last revised on 2017. Imm gran pct 0.3 % [facility] Comment: Interpretive Data Percent cell count reference ranges are not reported, since discordance with absolute values may lead to misinterpretation of CBC data. Current Interpretive Data was last revised on 2017. Lymphocyte pct 14.1 % [facility] Comment: Interpretive Data Percent cell count reference ranges are not reported, since discordance with absolute values may lead to misinterpretation of CBC data. Current Interpretive Data was last revised on 2017. Monocyte pct 3.4 % [facility] Comment: Interpretive Data Percent cell count reference ranges are not reported, since discordance with absolute values may lead to misinterpretation of CBC data. Current Interpretive Data was last revised on 2017. Eosinophil pct 2.5 % [facility] Comment: Interpretive Data Percent cell count reference ranges are not reported, since discordance with absolute values may lead to misinterpretation of CBC data. Current Interpretive Data was last revised on 2017. Basophil pct 0.9 % [facility] Comment: Interpretive Data Percent cell count reference ranges are not reported, since discordance with absolute values may lead to misinterpretation of CBC data. Current Interpretive Data was last revised on 2017. Blood 06/01/2024 2:15 PM [employer] WORKER 06/01/2024 9:06 PM ICE [employer] WORKER us Wander Matthews MD LAB BLOOD ORDERABLES Final Re sult [facility] [id number] [address] Department [place] [address] * (ABNORMAL) Immunoglobulin free light chains (06/01/2024 2:15 PM ICE [employer] WORKER) [facility] [place]/Lambda ratio 18.40(H) 0.26 - 1.65 [place] free light chain 12.17(H) 0.33 - 1.94 mg/dL [facility] Comment: Interpretive Data The [employer] Ig [place] FLC assay procedure was used. Results from different manufacturers or methods may not be comparable. Serial testing should be performed using the same method. Lambda free light chain 0.66 0.57 - 2.63 mg/dL [facility] Comment: Interpretive Data The Blay[employer] Ig Lambda FLC assay procedure was used. Results from different manufacturers or methods may not be comparable. Serial testing should be performed using the same method. Blood 06/01/2024 2:15 PM ICE [employer] WORKER 06/01/2024 9:06 PM [employer] WORKER Wander Matthews MD LAB BLOOD ORDERABLES Final Re sult [facility] [address] [address] Department [place] [address] * (ABNORMAL) CBC with auto differential (06/01/2024 2:15 PM ICE [employer] WORKER) [facility] WBC 3.3(L) 3.8 - 9.9 K/cumm Hgb 12.4(L) 13.0 - 17.5 g/dL [facility] Hct 39.0 38.9 - 50.3 % [facility] Plt 191 150 - 400 K/cumm [facility] MPV 10.3 9.1 - 12.3 fL [facility] RBC 4.17(L) 4.30 - 5.80 M/cumm [facility] MCV 93.5 81.3 - 96.4 fL [facility] MCH 29.7 27.1 - 33.3 pg [facility] MCHC 31.8(L) 32.3 - 35.7 g/dL [facility] RDW CV 14.1 11.1 - 14.9 % [facility] RDW SD 48.1 35.7 - 48.1 fL [facility] NRBC abs 0.00 0.00 - 0.01 K/cumm [facility] Blood 06/01/2024 2:15 PM ICE [employer] WORKER 06/01/2024 9:06 PM [employer] WORKER Wander Matthews MD LAB BLOOD ORDERABLES Final Re sult MICHELINE [facility]O [address] [address] [facility] [place] [place] [address] * IgG (06/01/2024 2:15 PM ICE [employer] VA[employer] WORKER) Pathologist [facility] Immunoglobulin G 1,202 700 - 1,600 mg/dL Blood 06/01/2024 2:15 PM ICE [employer] WORKER 06/01/2024 9:06 PM ICE [employer] VA[employer] WORKER Result [facility] Wander Matthews MD LAB BLOOD ORDERABLES Final Re sult Performing Organization Address [facility] Co de Phone Number MICHELINE LUO [address] [address] Department [place] [address] * Comprehensive metabolic panel (06/01/2024 2:15 PM ICE [employer] WORKER) Pathologist [facility] Sodium 140 135 - 145 mmol/L Potassium, pl 3.9 3.3 - 4.9 mmol/L [facility] Chloride 102 97 - 110 mmol/L [facility] CO2 28 22 - 32 mmol/L [facility] Anion gap 10 2 - 15 mmol/L [facility] BUN 18 6 - 25 mg/dL [facility] Creatinine 1.12 0.80 - 1.30 mg/dL [facility] Glucose 109 70 - 199 mg/dL [facility] Comment: Interpretive Data Fasting glucose >/= 126 mg/dl is diagnostic for diabetes. Fasting is defined as no caloric intake for at least 8 hours. Fasting glucose between 100 mg/dl to 125 mg/dl is diagnostic of prediabetes. In a patient with classic symptoms of hyperglycemia or hyperglycemic crisis, a random glucose >/= 200 mg/dl is diagnostic for diabetes. In the absence of unequivocal hyperglycemia, results should be confirmed by repeat testing. The classification and Diagnosis of Diabetes Diabetes Care 2021; 46: S19-S40. Current interpretive data was last revised 2022. Calcium 9.8 8.5 - 10.3 mg/dL [facility] Bilirubin, total 0.8 0.1 - 1.2 mg/dL [facility] Protein, pl 7.3 6.5 - 8.5 g/dL [facility] Albumin 4.0 3.5 - 5.0 g/dL [facility] Alk phos 52 40 - 130 Units/L [facility] ALT 15 7 - 55 Units/L [facility] AST 23 10 - 50 Units/L [facility] Blood 06/01/2024 2:15 PM [employer] WORKER 06/01/2024 9:06 PM [employer] WORKER Wander Matthews MD LAB BLOOD ORDERABLES Final Re sult Performing Organization Address City/State/[facility] Co de Phone Number MICHELINE LUO [address] Department [place] [address] * eGFR (05/18/2024 9:11 AM ICE [employer] WORKER) eGFR 71 >=60 mL/min/1. 73 m2 Comment: Interpretive Data Reference Interval Normal >/= 90 mL/min/1.73m2 Mildly decreased* 60 - 89 mL/min/1.73m2 Mildly to moderately decreased 45 - 59 mL/min/1.73m2 Moderately to severely decreased 30 - 44 mL/min/1.73m2 Severely decreased 15 - 29 mL/min/1.73m2 Kidney Failure < 15 mL/min/1.73m2 *Relative to young adult level Estimated glomerular filtration rate is determined by the 2020 CKD-EPI equation recommended by the National Kidney Foundation (A Unifying Approach to GFR Estimation: Recommendations of the NKF-ASK Task Force on Reassessing the Inclusion of Race in Diagnosing Kidney Disease, JASN 2021). The CKD-EPI equation should not be used for patients with unstable renal function and has not been validated in children and those over 70. Current interpretive data was last reviewed 2021. Blood 05/18/2024 9:11 AM ICE [employer] WORKER 05/18/2024 4:06 PM ICE [employer] VA[employer] WORKER us Wander Matthews MD LAB BLOOD ORDERABLES Final Re sult MICHELINE [address] Department [place] [address] * (ABNORMAL) Differential, auto (05/18/2024 9:11 AM ICE [employer] VA[employer] WORKER) Neutrophil abs 2.7 1.5 - 6.5 K/cumm Imm gran abs 0.0 0.0 - 0.1 K/cumm [facility] Lymphocyte abs 0.4(L) 0.8 - 3.3 K/cumm [facility] Monocyte abs 0.1(L) 0.2 - 0.8 K/cumm [facility] Eosinophil abs 0.0 0.0 - 0.5 K/cumm [facility] Basophil abs 0.0 0.0 - 0.1 K/cumm [facility] Neutrophil pct 82.4 % [facility] Comment: Consistent with previous result Interpretive Data Percent cell count reference ranges are not reported, since discordance with absolute values may lead to misinterpretation of CBC data. Current Interpretive Data was last revised on 2017. Imm gran pct 0.9 % [facility] Comment: Interpretive Data Percent cell count reference ranges are not reported, since discordance with absolute values may lead to misinterpretation of CBC data. Current Interpretive Data was last revised on 2017. Lymphocyte pct 13.0 % [facility] Comment: Interpretive Data Percent cell count reference ranges are not reported, since discordance with absolute values may lead to misinterpretation of CBC data. Current Interpretive Data was last revised on 2017. Monocyte pct 2.2 % [facility] Comment: Interpretive Data Percent cell count reference ranges are not reported, since discordance with absolute values may lead to misinterpretation of CBC data. Current Interpretive Data was last revised on 2017. Eosinophil pct 1.2 % [facility] Comment: Interpretive Data Percent cell count reference ranges are not reported, since discordance with absolute values may lead to misinterpretation of CBC data. Current Interpretive Data was last revised on 2017. Basophil pct 0.3 % [facility] Comment: Interpretive Data Percent cell count reference ranges are not reported, since discordance with absolute values may lead to misinterpretation of CBC data. Current Interpretive Data was last revised on 2017. Blood 05/18/2024 9:11 AM ICE [employer] WORKER 05/18/2024 3:59 PM [employer] WORKER Wander Matthews MD LAB BLOOD ORDERABLES Final Re sult MICHELINE [id number] Department [employer] [place] [address] * (ABNORMAL) CBC with auto differential (05/18/2024 9:11 AM ICE [employer] WORKER) WBC 3.2(L) 3.8 - 9.9 K/cumm Hgb 13.0 13.0 - 17.5 g/dL [facility] Hct 40.2 38.9 - 50.3 % [facility] Plt 88(L) 150 - 400 K/cumm [facility] MPV 11.4 9.1 - 12.3 fL [facility] RBC 4.30 4.30 - 5.80 M/cumm [facility] MCV 93.5 81.3 - 96.4 fL [facility] MCH 30.2 27.1 - 33.3 pg [facility] MCHC 32.3 32.3 - 35.7 g/dL [facility] RDW CV 14.4 11.1 - 14.9 % [facility] RDW SD 49.5(H) 35.7 - 48.1 fL [facility] NRBC abs 0.00 0.00 - 0.01 K/cumm [facility] Blood 05/18/2024 9:11 AM ICE [employer] WORKER 05/18/2024 3:59 PM ICE [employer] WORKER Wander Matthews MD LAB BLOOD ORDERABLES Final Re sult MICHELINE LUO [address] Department [employer] [place] [address] * Comprehensive metabolic panel (05/18/2024 9:11 AM ICE [employer] WORKER) Sodium 137 135 - 145 mmol/L Potassium, pl 4.0 3.3 - 4.9 mmol/L [facility] Chloride 99 97 - 110 mmol/L [facility] CO2 28 22 - 32 mmol/L [facility] Anion gap 10 2 - 15 mmol/L [facility] BUN 24 6 - 25 mg/dL [facility] Creatinine 1.10 0.80 - 1.30 mg/dL [facility] Glucose 124 70 - 199 mg/dL [facility] Comment: Interpretive Data Fasting glucose >/= 126 mg/dl is diagnostic for diabetes. Fasting is defined as no caloric intake for at least 8 hours. Fasting glucose between 100 mg/dl to 125 mg/dl is diagnostic of prediabetes. In a patient with classic symptoms of hyperglycemia or hyperglycemic crisis, a random glucose >/= 200 mg/dl is diagnostic for diabetes. In the absence of unequivocal hyperglycemia, results should be confirmed by repeat testing. The classification and Diagnosis of Diabetes Diabetes Care 202; 46: S19-S40. Current interpretive data was last revised 2022. Calcium 9.4 8.5 - 10.3 mg/dL [facility] Bilirubin, total 0.8 0.1 - 1.2 mg/dL [facility] Protein, pl 6.5 6.5 - 8.5 g/dL [facility] Albumin 3.7 3.5 - 5.0 g/dL [facility] Alk phos 47 40 - 130 Units/L [facility] ALT 14 7 - 55 Units/L [facility] AST 22 10 - 50 Units/L [facility] Blood 05/18/2024 9:11 AM [employer] WORKER 05/18/2024 3:59 PM [employer] WORKER Wander Matthews MD LAB BLOOD ORDERABLES Final Re sult MICHELINE LUO [address] [place] [address] * eGFR (05/11/2024 9:05 AM [employer] WORKER) eGFR 85 >=60 mL/min/1. 73 m2 Comment: Interpretive Data Reference Interval Normal >/= 90 mL/min/1.73m2 Mildly decreased* 60 - 89 mL/min/1.73m2 Mildly to moderately decreased 45 - 59 mL/min/1.73m2 Moderately to severely decreased 30 - 44 mL/min/1.73m2 Severely decreased 15 - 29 mL/min/1.73m2 Kidney Failure < 15 mL/min/1.73m2 *Relative to young adult level Estimated glomerular filtration rate is determined by the 2020 CKD-EPI equation recommended by the National Kidney Foundation (A Unifying Approach to GFR Estimation: Recommendations of the NKF-ASK Task Force on Reassessing the Inclusion of Race in Diagnosing Kidney Disease, JASN 202). The CKD-EPI equation should not be used for patients with unstable renal function and has not been validated in children and those over 70. Current interpretive data was last reviewed 2021. Blood 05/11/2024 9:05 AM [employer] WORKER 05/11/2024 4:33 PM [employer] WORKER us Wander Matthews MD LAB BLOOD ORDERABLES Final Re sult [facility] [id number] [address] Department [place] [address] * (ABNORMAL) Differential, auto (05/11/2024 9:05 AM [employer] WORKER) Neutrophil abs 2.0 1.5 - 6.5 K/cumm Imm gran abs 0.0 0.0 - 0.1 K/cumm [facility] Lymphocyte abs 0.4(L) 0.8 - 3.3 K/cumm [facility] Monocyte abs 0.1(L) 0.2 - 0.8 K/cumm [facility] Eosinophil abs 0.1 0.0 - 0.5 K/cumm [facility] Basophil abs 0.0 0.0 - 0.1 K/cumm [facility] Neutrophil pct 77.2 % [facility] Comment: Consistent with previous result Interpretive Data Percent cell count reference ranges are not reported, since discordance with absolute values may lead to misinterpretation of CBC data. Current Interpretive Data was last revised on 2017. Imm gran pct 0.4 % [facility] Comment: Interpretive Data Percent cell count reference ranges are not reported, since discordance with absolute values may lead to misinterpretation of CBC data. Current Interpretive Data was last revised on 2017. Lymphocyte pct 16.0 % [facility] Comment: Interpretive Data Percent cell count reference ranges are not reported, since discordance with absolute values may lead to misinterpretation of CBC data. Current Interpretive Data was last revised on 2017. Monocyte pct 3.0 % [facility] Comment: Interpretive Data Percent cell count reference ranges are not reported, since discordance with absolute values may lead to misinterpretation of CBC data. Current Interpretive Data was last revised on 2017. Eosinophil pct 3.0 % [facility] Comment: Interpretive Data Percent cell count reference ranges are not reported, since discordance with absolute values may lead to misinterpretation of CBC data. Current Interpretive Data was last revised on 2017. Basophil pct 0.4 % [facility] Comment: Interpretive Data Percent cell count reference ranges are not reported, since discordance with absolute values may lead to misinterpretation of CBC data. Current Interpretive Data was last revised on 2017. Blood 05/11/2024 9:05 AM [employer]ER 05/11/2024 4:07 PM [employer] WORKER Wander Matthews MD LAB BLOOD ORDERABLES Final Re sult [facility] [id number] [address] Department [place] [address] * (ABNORMAL) CBC with auto differential (05/11/2024 9:05 AM [employer]) WBC 2.6(L) 3.8 - 9.9 K/cumm Hgb 12.8(L) 13.0 - 17.5 g/dL [facility] Hct 39.7 38.9 - 50.3 % [facility] Plt 118(L) 150 - 400 K/cumm [facility] MPV 11.0 9.1 - 12.3 fL [facility] RBC 4.27(L) 4.30 - 5.80 M/cumm [facility] MCV 93.0 81.3 - 96.4 fL [facility] MCH 30.0 27.1 - 33.3 pg [facility] MCHC 32.2(L) 32.3 - 35.7 g/dL [facility] RDW CV 13.9 11.1 - 14.9 % [facility] RDW SD 47.3 35.7 - 48.1 fL [facility] NRBC abs 0.00 0.00 - 0.01 K/cumm [facility] Blood 05/11/2024 9:05 AM [employer] 05/11/2024 4:07 PM [employer] Wander Matthews MD LAB BLOOD ORDER[place] [id number] [address]on Department [place] [address] * Comprehensive metabolic panel (05/11/2024 9:05 AM [employer]) Sodium 138 135 - 145 mmol/L Potassium, pl 3.9 3.3 - 4.9 mmol/L [facility] Chloride 101 97 - 110 mmol/L [facility] CO2 26 22 - 32 mmol/L [facility] Anion gap 11 2 - 15 mmol/L [facility] BUN 24 6 - 25 mg/dL [facility] Creatinine 0.95 0.80 - 1.30 mg/dL [facility] Glucose 124 70 - 199 mg/dL [facility] Comment: Interpretive Data Fasting glucose >/= 126 mg/dl is diagnostic for diabetes. Fasting is defined as no caloric intake for at least 8 hours. Fasting glucose between 100 mg/dl to 125 mg/dl is diagnostic of prediabetes. In a patient with classic symptoms of hyperglycemia or hyperglycemic crisis, a random glucose >/= 200 mg/dl is diagnostic for diabetes. In the absence of unequivocal hyperglycemia, results should be confirmed by repeat testing. The classification and Diagnosis of Diabetes Diabetes Care 2021; 46: S19-S40. Current interpretive data was last revised 2022. Calcium 9.5 8.5 - 10.3 mg/dL [facility] Bilirubin, total 0.8 0.1 - 1.2 mg/dL [facility] Protein, pl 7.0 6.5 - 8.5 g/dL [facility] Albumin 3.9 3.5 - 5.0 g/dL [facility] Alk phos 51 40 - 130 Units/L [facility] ALT 15 7 - 55 Units/L [facility] AST 21 10 - 50 Units/L [facility] Blood 05/11/2024 9:05 AM [employer] 05/11/2024 4:07 PM [employer] Wander Matthwes MD LAB BLOOD ORDERABLES Final Re sult Performing Organization Address [facility] Co de Phone Number MICHELINE [id number] [address] [facility] [place] [place] [address] * PSA screen (01/20/2024 12:52 PM CDT) PSA-Total 0.18 <=6.20 ng/mL Comment: Interpretive Data AGE SEX REFERENCE INTERVAL 0 minutes-150 years Female None 0 minutes-49 years Male None 50-59 years Male 0-3.90 60-69 years Male 0-5.40 70-79 years Male 0-6.20 80-150 years Male 0-6.20 The [employer] PSA Total assay procedure was used. Results from different manufacturers or methods may not be comparable. Serial testing should be performed using the same method. Current interpretive data last revised 21. Blood 01/20/2024 12:5 2 PM CDT 01/20/2024 7:03 PM CDT Dain De La Rosa MD LAB BLOOD ORDERABLES Fi nal Result Performing Organization Address [facility] de Phone Number [facility] [id number] [facility] [place] [address] from Last 3 Months or Most Recently Relevant to Health Maintenance Insurance MEDICARE [facility] MEDICARE [facility] Care Teams [employer] Relationship Specialty Start Date End Date Vick Perkins MD PCP - General Internal Medicine 01/08/18 Wander Matthews MD Medical Oncologist/Division Officer Weapons Department Hematology and Oncology 10/25/22
--- OUTSIDE RECORDS SUMMARY | 2024-08-10 12:00 | XMS_ITS | Referral Summary ---
Author Organization [facility] Address [address] [place] [address] Phone Care Team Providers Care Quality Improvement Engineer Name Role Phone Vick Perkins MD Primary Care Provider [phone] Wander Matthews MD Unavailable [phone] Encounters Date Type Department Care Team Description 08/07/2024 8:00 AM ENGINEERING COORDINATOR Lab [facility] Infusion [address] [place] [phone] Multiple myeloma not having achieved remission (CMS/HCC) (HCC) 08/07/2024 8:30 AM ENGINEERING COORDINATOR Infusion [address] [place] [address] Multiple myeloma not having achieved remission (CMS/HCC) (HCC) (Primary Dx); Malignant melanoma of right upper extremity including shoulder (HCC); Chemotherapy induced nausea and vomiting 08/07/2024 8:15 AM ENGINEERING COORDINATOR Office Visit [facility] [address] [place] [address] Medical Office [facility] B [facility] [address] [place] [address] Wander Matthews MD Malignant melanoma of right upper extremity including shoulder (HCC) (Primary Dx); Multiple myeloma not having achieved remission (CMS/HCC) (HCC); Chemotherapy induced nausea and vomiting; Acute upper respiratory infection 08/06/2024 Telephone [facility] [address] [place] [address] Medical Office [facility] [address] [place] [address] Lucrecia Haskins CLT 08/03/2024 4:18 PM ENGINEERING COORDINATOR - 08/03/2024 11:59 PM ENGINEERING COORDINATOR Hospital Encounter [address] [phone] Multiple myeloma not having achieved remission (CMS/HCC) (HCC) Discharge Disposition: Discharge to home or self care 08/03/2024 8:15 AM ENGINEERING COORDINATOR Lab [facility] Outpatient Lab at [address] [address] Multiple myeloma not having achieved remission (CMS/HCC) (HCC) (Primary Dx); Malignant melanoma (HCC) 07/31/2024 Orders Only [facility] [address] [place] [address] Medical Office Bld[address] [place] [address] Wander Matthews MD 07/31/2024 12:30 PM ENGINEERING COORDINATOR Lab [address] [place] [phone] Multiple myeloma not having achieved remission (CMS/HCC) (HCC) 07/31/2024 1:00 PM ENGINEERING COORDINATOR Infusion [facility] Infusion [address] [place] [phone] Multiple myeloma not having achieved remission (CMS/HCC) (HCC) (Primary Dx) 07/27/2024 1:03 PM ENGINEERING COORDINATOR - 07/27/2024 11:59 PM ENGINEERING COORDINATOR Hospital Encounter [address] [address] Hypothyroidism, unspecified type; Malignant melanoma of right upper extremity including shoulder (HCC) Discharge Disposition: Discharge to home or self care 07/27/2024 1:00 PM ENGINEERING COORDINATOR Lab [facility] Outpatient Lab at [address] [phone] Chemotherapy induced nausea and vomiting (Primary Dx) 07/17/2024 8:30 AM ENGINEERING COORDINATOR Infusion [facility] Infusion [address] [place] [phone] Multiple myeloma not having achieved remission (CMS/HCC) (HCC) (Primary Dx); Malignant melanoma of right upper extremity including shoulder (HCC); Chemotherapy induced nausea and vomiting 07/17/2024 8:15 AM ENGINEERING COORDINATOR Office Visit [facility] [address] [place] [address] Office [facility] [address] [place] [address] Wander Matthews MD Multiple myeloma not having achieved remission (CMS/HCC) (HCC) (Primary Dx); Malignant melanoma of right upper extremity including shoulder (HCC); Chemotherapy induced nausea and vomiting; Hypothyroidism, unspecified type 07/15/2024 Telephone [facility] [address] [place] [address] [address] [place] [address] Alix Miller RN 07/15/2024 Orders Only [facility] [address] [place] [address] [address] [place] [address] Wander Matthews MD 07/13/2024 4:18 PM ENGINEERING COORDINATOR - 07/13/2024 11:59 PM ENGINEERING COORDINATOR Hospital Encounter [address] [address] Malignant melanoma of right upper extremity including shoulder (HCC); Chemotherapy induced nausea and vomiting Discharge Disposition: Discharge to home or self care 07/13/2024 10:00 AM ENGINEERING COORDINATOR Lab [facility] Outpatient Lab at [address] [phone] Monoclonal gammopathy of unknown significance (MGUS) (Primary Dx); Multiple myeloma not having achieved remission (CMS/HCC) (HCC) 07/10/2024 11:00 AM ENGINEERING COORDINATOR Infusion [facility] [place] [address] [facility] [address] [place] [address] Multiple myeloma not having achieved remission (CMS/HCC) (HCC) (Primary Dx) 07/07/2024 9:05 AM ENGINEERING COORDINATOR - 07/07/2024 11:59 PM ENGINEERING COORDINATOR Hospital Encounter [address] [address] Malignant melanoma of right upper extremity including shoulder (HCC); Multiple myeloma not having achieved remission (CMS/HCC) (HCC); Hypothyroidism due to medication Discharge Disposition: Discharge to home or self care 07/07/2024 9:00 AM ENGINEERING COORDINATOR Lab [facility] Outpatient Lab at [address] [address] 07/03/2024 9:00 AM ENGINEERING COORDINATOR Infusion [address] [address] Multiple myeloma not having achieved remission (CMS/HCC) (HCC) (Primary Dx) 06/29/2024 4:18 PM ENGINEERING COORDINATOR - 06/29/2024 11:59 PM ENGINEERING COORDINATOR Hospital Encounter [address] [address] Malignant melanoma of right upper extremity including shoulder (HCC) Discharge Disposition: Discharge to home or self care 06/29/2024 9:00 AM ENGINEERING COORDINATOR Lab [facility] Outpatient Lab at [address] [address] Malignant melanoma (HCC) (Primary Dx); Multiple myeloma not having achieved remission (CMS/HCC) (HCC) 06/26/2024 9:00 AM ENGINEERING COORDINATOR Infusion [facility] Infusion [address] [place] [phone] Chemotherapy induced nausea and vomiting (Primary Dx); Malignant melanoma of right upper extremity including shoulder (HCC) 06/26/2024 8:45 AM ENGINEERING COORDINATOR Office Visit [facility] [address] [place] [address] Medical Office Bldg B [address] [address] Wander Matthews MD Malignant melanoma of right upper extremity including shoulder (HCC) (Primary Dx); Chemotherapy induced nausea and vomiting; Multiple myeloma not having achieved remission (CMS/HCC) (HCC); Hypothyroidism due to medication 06/22/2024 11:05 AM ENGINEERING COORDINATOR - 06/22/2024 11:59 PM ENGINEERING COORDINATOR Hospital Encounter [address] [address] Multiple myeloma not having achieved remission (CMS/HCC) (HCC); Malignant melanoma of right upper extremity including shoulder (HCC) Discharge Disposition: Discharge to home or self care 06/22/2024 9:15 AM ENGINEERING COORDINATOR Lab [facility] Outpatient Lab at [address] [address] Multiple myeloma not having achieved remission (CMS/HCC) (HCC) (Primary Dx); Monoclonal gammopathy of unknown significance (MGUS); Malignant melanoma (HCC); Chemotherapy induced nausea and vomiting 06/17/2024 11:30 AM ENGINEERING COORDINATOR Infusion [facility] Infusion [address] [place] [phone] Multiple myeloma not having achieved remission (CMS/HCC) (HCC) (Primary Dx) 06/16/2024 1:53 PM ENGINEERING COORDINATOR - 06/16/2024 11:59 PM ENGINEERING COORDINATOR Hospital Encounter [address] [phone] Malignant melanoma of right upper extremity including shoulder (HCC); Chemotherapy induced nausea and vomiting Discharge Disposition: Discharge to home or self care 06/16/2024 8:45 AM ENGINEERING COORDINATOR Lab [facility] Outpatient Lab at [address] [address] Malignant melanoma (HCC) (Primary Dx); Multiple myeloma not having achieved remission (CMS/HCC) (HCC) 06/10/2024 10:00 AM ENGINEERING COORDINATOR Infusion [address] [place] [phone] Multiple myeloma not having achieved remission (CMS/HCC) (HCC) (Primary Dx) 06/09/2024 Documentation [facility] [address] [place] [address] Medical Office [facility] [address] [place] [address] Shereen Beal RN 06/09/2024 Telephone [facility] [address] [place] [address] Medical Office [facility] [address] [place] [address] Odessa Garland CLT 06/08/2024 3:46 PM ENGINEERING COORDINATOR - 06/08/2024 11:59 PM ENGINEERING COORDINATOR Hospital Encounter [address] [address] Multiple myeloma not having achieved remission (CMS/HCC) (HCC) Discharge Disposition: Discharge to home or self care 06/08/2024 8:15 AM ENGINEERING COORDINATOR Lab [facility] Outpatient Lab at [address] [address] Multiple myeloma not having achieved remission (CMS/HCC) (HCC) (Primary Dx); Malignant melanoma (HCC) 06/03/2024 9:30 AM ENGINEERING COORDINATOR Infusion [facility] Infusion [place] [address] [facility] [address] [place] [address] Chemotherapy induced nausea and vomiting (Primary Dx); Malignant melanoma of right upper extremity including shoulder (HCC); Multiple myeloma not having achieved remission (CMS/HCC) (HCC) 06/03/2024 9:00 AM ENGINEERING COORDINATOR Office Visit [facility] [address] [place] [address] Medical Office [address] [place] [address] Wander Matthews MD Multiple myeloma not having achieved remission (CMS/HCC) (HCC) (Primary Dx); Malignant melanoma of right upper extremity including shoulder (HCC); Chemotherapy induced nausea and vomiting 06/02/2024 Telephone [facility] [address] [place] [address] Medical Office [address]g [address] [place] [address] Lucrecia Haskins CLT 06/01/2024 2:15 PM ENGINEERING COORDINATOR - 06/01/2024 11:59 PM ENGINEERING COORDINATOR Hospital Encounter [address] [address] Malignant melanoma of right upper extremity including shoulder (HCC) Discharge Disposition: Discharge to home or self care 06/01/2024 2:15 PM ENGINEERING COORDINATOR Lab [facility] Outpatient Lab at [address] [address] Malignant melanoma (HCC) (Primary Dx); Multiple myeloma not having achieved remission (CMS/HCC) (HCC) 05/20/2024 1:00 PM ENGINEERING COORDINATOR Infusion [facility] Infusion [place] [address] [facility] [address] [place] [phone] Multiple myeloma not having achieved remission (CMS/HCC) (HCC) (Primary Dx) 05/18/2024 4:18 PM ENGINEERING COORDINATOR - 05/18/2024 11:59 PM ENGINEERING COORDINATOR Hospital Encounter [address] [phone] Malignant melanoma of right upper extremity including shoulder (HCC) Discharge Disposition: Discharge to home or self care 05/18/2024 9:00 AM ENGINEERING COORDINATOR Lab [facility] Outpatient Lab at [address] [address] Malignant melanoma (HCC) (Primary Dx) 05/13/2024 1:00 PM ENGINEERING COORDINATOR Infusion [facility] [address] [facility] [address] [place] [address] Malignant melanoma of right upper extremity including shoulder (HCC) (Primary Dx); Multiple myeloma not having achieved remission (CMS/HCC) (HCC); Chemotherapy induced nausea and vomiting 05/11/2024 9:05 AM ENGINEERING COORDINATOR - 05/11/2024 11:59 PM ENGINEERING COORDINATOR [address] [address] Malignant melanoma of right upper extremity including shoulder (HCC) Discharge Disposition: Discharge to home or self care 05/11/2024 9:00 AM ENGINEERING COORDINATOR Lab [facility] Outpatient Lab at [address] [address] Malignant melanoma (HCC) (Primary Dx) from Last 3 Months Allergies No known active allergies Medications aspirin 81 mg tablet Take 1 tablet (81 mg total) by mouth daily Active magnesium gluconate 200 mg tabletIndicati ons:hypomagnes emia 1 tablet (200 mg total) Active multivitamin-C n-kcve-ehnitsw s 18-0.4 mg tablet Take by mouth. Activ e glucosam-faraz- tem8-H-erdf-maria guadalupe sw 750 mg-644 mg- 30 mg-1 mg tablet Take by mouth. Activ e omeprazole (PriLOSEC) 20 mg capsule Take 1 capsule (20 mg total) by mouth daily Active B complex 34-oasuy-K-bio t-zinc [id number] fm-bg-few-mg tablet Take by mouth. Activ e Lumigan [...] 1 tablet (25 mcg total) by mouth early childhood associate before breakfast 30 tablet 2 07/17/19 25 [...] gammopathy of unknown significance (M CHARY) 11/15/2017 Immunizations Name Administration Dates Next Due Influenza, Quad, Adjuvantate d, Intramuscular 04/26/2023 Influenza, Quadrivalent, Hig h Dose, Preservative Free, Intrr 06/04/2022,04/05/2021,04/28/2020 Influenza, Trivalent, High D ose, Split, Preservative Free, Intramuscular 05/12/2019 Influenza, Unspecified 04/14/2021 Moderna SARS-CoV-2 Monovalen t Vaccination (12+ YRS) 09/10/2020,09/09/2020,08/12/2020 Pneumococcal Conjugate Pcv20 02/11/2023 RSV Vaccine, Pref, Recombina nt, Subunit, Adjuvanted, PF, IM (Arexvy) 07/16/2023 Tdap 03/09/2023 Social History Tobacco Use Types Packs/Day Years [...] on file Legal Sex Male 1:08 PM ENGINEERING COORDINATOR Gender Identity Not on file Sexual Orientation Not on file Last Filed Vital Signs Vital Sign Reading Time Taken Comments Blood Pressure 110/72 08/07/2024 8:28 AM ENGINEERING COORDINATOR Pulse 118 08/07/2024 8:28 AM ENGINEERING COORDINATOR Temperature 36.8 C (98.2 F) 08/07/2024 8:28 AM ENGINEERING COORDINATOR Respiratory Rate 18 08/07/2024 8:28 AM ENGINEERING COORDINATOR Oxygen Saturation 95% 08/07/2024 8:28 AM ENGINEERING COORDINATOR Inhaled Oxygen Concentration - - Weight 105 kg (231 lb 6.4 oz) 08/07/2024 8:28 AM ENGINEERING COORDINATOR Height 177.8 cm (5' 10 ) 07/17/2024 8:09 AM ENGINEERING COORDINATOR Body Mass Index 33.2 07/17/2024 8:09 AM ENGINEERING COORDINATOR Plan of Treatment Not on file Procedures Procedure Name Priority Date/Time Associated Diagnosis Comments EGFR STAT 08/03/2024 10:57 PM ENGINEERING COORDINATOR Multiple myeloma not having achieved remission (CMS/HCC) (HCC) DIFFERENTIAL AUTO STAT 08/03/2024 10: 57 PM ENGINEERING COORDINATOR Multiple myeloma not having achieved remission (CMS/HCC) (HCC) CBC WITH AUTO DIFFERENTIAL STAT 08/03/2024 10:57 PM ENGINEERING COORDINATOR Multiple myeloma not having achieved remission (CMS/HCC) (HCC) COMPREHENSIVE METABOLIC PANEL STAT 08/03/2024 10:57 PM ENGINEERING COORDINATOR Multiple myeloma not having achieved remission (CMS/HCC) (HCC) EGFR Routine 07/27/2024 1:03 PM ENGINEERING COORDINATOR Malignant melanoma of right upper extremity including shoulder (HCC) DIFFERENTIAL AUTO Routine 07/27/2024 1:0 3 PM ENGINEERING COORDINATOR Malignant melanoma of right upper extremity including shoulder (HCC) IGG Routine 07/27/2024 1:03 PM ENGINEERING COORDINATOR Malignant melanoma of right upper extremity including shoulder (HCC) IMMUNOGLOBULIN FREE LIGHT CHAINS Routine 07/27/2024 1:03 PM ENGINEERING COORDINATOR Malignant melanoma of right upper extremity including shoulder (HCC) CBC WITH AUTO DIFFERENTIAL Routine 07/27/2024 1:03 PM ENGINEERING COORDINATOR Malignant melanoma of right upper extremity including shoulder (HCC) COMPREHENSIVE METABOLIC PANEL Routine 07/27/2024 1:03 PM ENGINEERING COORDINATOR Malignant melanoma of right upper extremity including shoulder (HCC) TSH Routine 07/27/2024 1:03 PM ENGINEERING COORDINATOR Hypothyroidism, unspecified type EGFR STAT 07/13/2024 10:05 AM ENGINEERING COORDINATOR Malignant melanoma of right upper extremity including shoulder (HCC) Chemotherapy induced nausea and vomiting DIFFERENTIAL AUTO STAT 07/13/2024 10: 05 AM ENGINEERING COORDINATOR Malignant melanoma of right upper extremity including shoulder (HCC) Chemotherapy induced nausea and vomiting CBC WITH AUTO DIFFERENTIAL STAT 07/13/2024 10:05 AM ENGINEERING COORDINATOR Malignant melanoma of right upper extremity including shoulder (HCC) Chemotherapy induced nausea and vomiting COMPREHENSIVE METABOLIC PANEL STAT 07/13/2024 10:05 AM ENGINEERING COORDINATOR Malignant melanoma of right upper extremity including shoulder (HCC) Chemotherapy induced nausea and vomiting TSH Routine 07/13/2024 10:05 AM ENGINEERING COORDINATOR Malignant melanoma of right upper extremity including shoulder (HCC) Chemotherapy induced nausea and vomiting EGFR Routine 07/07/2024 9:05 AM ENGINEERING COORDINATOR Malignant melanoma of right upper extremity including shoulder (HCC) Multiple myeloma not having achieved remission (CMS/HCC) (HCC) DIFFERENTIAL AUTO Routine 07/07/2024 9:0 5 AM ENGINEERING COORDINATOR Malignant melanoma of right upper extremity including shoulder (HCC) Multiple myeloma not having achieved remission (CMS/HCC) (HCC) CBC WITH AUTO DIFFERENTIAL Routine 07/07/2024 9:05 AM ENGINEERING COORDINATOR Malignant melanoma of right upper extremity including shoulder (HCC) Multiple myeloma not having achieved remission (CMS/HCC) (HCC) TSH Routine 07/07/2024 9:05 AM ENGINEERING COORDINATOR Malignant melanoma of right upper extremity including shoulder (HCC) Multiple myeloma not having achieved remission (CMS/HCC) (HCC) Hypothyroidism due to medication IMMUNOGLOBULIN FREE LIGHT CHAINS Routine 07/07/2024 9:05 AM ENGINEERING COORDINATOR Malignant melanoma of right upper extremity including shoulder (HCC) Multiple myeloma not having achieved remission (CMS/HCC) (HCC) IGG Routine 07/07/2024 9:05 AM ENGINEERING COORDINATOR Malignant melanoma of right upper extremity including shoulder (HCC) Multiple myeloma not having achieved remission (CMS/HCC) (HCC) COMPREHENSIVE METABOLIC PANEL Routine 07/07/2024 9:05 AM ENGINEERING COORDINATOR Malignant melanoma of right upper extremity including shoulder (HCC) Multiple myeloma not having achieved remission (CMS/HCC) (HCC) EGFR Routine 06/29/2024 8:57 AM ENGINEERING COORDINATOR Malignant melanoma of right upper extremity including shoulder (HCC) DIFFERENTIAL AUTO Routine 06/29/2024 8:5 7 AM ENGINEERING COORDINATOR Malignant melanoma of right upper extremity including shoulder (HCC) COMPREHENSIVE METABOLIC PANEL Routine 06/29/2024 8:57 AM ENGINEERING COORDINATOR Malignant melanoma of right upper extremity including shoulder (HCC) CBC WITH AUTO DIFFERENTIAL Routine 06/29/2024 8:57 AM ENGINEERING COORDINATOR Malignant melanoma of right upper extremity including shoulder (HCC) IMMUNOGLOBULIN FREE LIGHT CHAINS Routine 06/22/2024 9:14 AM ENGINEERING COORDINATOR Malignant melanoma of right upper extremity including shoulder (HCC) EGFR STAT 06/22/2024 9:14 AM ENGINEERING COORDINATOR Multiple myeloma not having achieved remission (CMS/HCC) (HCC) DIFFERENTIAL AUTO STAT 06/22/2024 9:1 4 AM ENGINEERING COORDINATOR Multiple myeloma not having achieved remission (CMS/HCC) (HCC) COMPREHENSIVE METABOLIC PANEL STAT 06/22/2024 9:14 AM ENGINEERING COORDINATOR Multiple myeloma not having achieved remission (CMS/HCC) (HCC) CBC WITH AUTO DIFFERENTIAL STAT 06/22/2024 9:14 AM ENGINEERING COORDINATOR Multiple myeloma not having achieved remission (CMS/HCC) (HCC) EGFR STAT 06/16/2024 8:00 AM ENGINEERING COORDINATOR Malignant melanoma of right upper extremity including shoulder (HCC) Chemotherapy induced nausea and vomiting DIFFERENTIAL AUTO STAT 06/16/2024 8:0 0 AM ENGINEERING COORDINATOR Malignant melanoma of right upper extremity including shoulder (HCC) Chemotherapy induced nausea and vomiting CBC WITH AUTO DIFFERENTIAL STAT 06/16/2024 8:00 AM ENGINEERING COORDINATOR Malignant melanoma of right upper extremity including shoulder (HCC) Chemotherapy induced nausea and vomiting COMPREHENSIVE METABOLIC PANEL STAT 06/16/2024 8:00 AM ENGINEERING COORDINATOR Malignant melanoma of right upper extremity including shoulder (HCC) Chemotherapy induced nausea and vomiting EGFR Routine 06/08/2024 9:00 AM ENGINEERING COORDINATOR Multiple myeloma not having achieved remission (CMS/HCC) (HCC) DIFFERENTIAL AUTO Routine 06/08/2024 9:0 0 AM ENGINEERING COORDINATOR Multiple myeloma not having achieved remission (CMS/HCC) (HCC) CBC WITH AUTO DIFFERENTIAL Routine 06/08/2024 9:00 AM ENGINEERING COORDINATOR Multiple myeloma not having achieved remission (CMS/HCC) (HCC) COMPREHENSIVE METABOLIC PANEL Routine 06/08/2024 9:00 AM ENGINEERING COORDINATOR Multiple myeloma not having achieved remission (CMS/HCC) (HCC) EGFR Routine 06/01/2024 2:15 PM ENGINEERING COORDINATOR Malignant melanoma of right upper extremity including shoulder (HCC) DIFFERENTIAL AUTO Routine 06/01/2024 2:1 5 PM ENGINEERING COORDINATOR Malignant melanoma of right upper extremity including shoulder (HCC) IMMUNOGLOBULIN FREE LIGHT CHAINS Routine 06/01/2024 2:15 PM ENGINEERING COORDINATOR Malignant melanoma of right upper extremity including shoulder (HCC) IGG Routine 06/01/2024 2:15 PM ENGINEERING COORDINATOR Malignant melanoma of right upper extremity including shoulder (HCC) COMPREHENSIVE METABOLIC PANEL Routine 06/01/2024 2:15 PM ENGINEERING COORDINATOR Malignant melanoma of right upper extremity including shoulder (HCC) CBC WITH AUTO DIFFERENTIAL Routine 06/01/2024 2:15 PM ENGINEERING COORDINATOR Malignant melanoma of right upper extremity including shoulder (HCC) EGFR Routine 05/18/2024 9:11 AM ENGINEERING COORDINATOR Malignant melanoma of right upper extremity including shoulder (HCC) DIFFERENTIAL AUTO Routine 05/18/2024 9:1 1 AM ENGINEERING COORDINATOR Malignant melanoma of right upper extremity including shoulder (HCC) COMPREHENSIVE METABOLIC PANEL Routine 05/18/2024 9:11 AM ENGINEERING COORDINATOR Malignant melanoma of right upper extremity including shoulder (HCC) CBC WITH AUTO DIFFERENTIAL Routine 05/18/2024 9:11 AM ENGINEERING COORDINATOR Malignant melanoma of right upper extremity including shoulder (HCC) EGFR Routine 05/11/2024 9:05 AM ENGINEERING COORDINATOR Malignant melanoma of right upper extremity including shoulder (HCC) DIFFERENTIAL AUTO Routine 05/11/2024 9:0 5 AM ENGINEERING COORDINATOR Malignant melanoma of right upper extremity including shoulder (HCC) COMPREHENSIVE METABOLIC PANEL Routine 05/11/2024 9:05 AM ENGINEERING COORDINATOR Malignant melanoma of right upper extremity including shoulder (HCC) CBC WITH AUTO DIFFERENTIAL Routine 05/11/2024 9:05 AM ENGINEERING COORDINATOR Malignant melanoma of right upper extremity including shoulder (HCC) PSA SCREEN Routine 01/20/2024 12:52 PM CDT Malignant neoplasm of prostate (HCC) from Last 3 Months or Most Recently Relevant to Health Maintenance Results * eGFR (08/03/2024 10:57 PM ENGINEERING COORDINATOR) eGFR 82 >=60 mL/min/1. 73 m2 Comment: [...] reviewed 2021. Blood 08/03/2024 10:5 7 PM ENGINEERING COORDINATOR 08/04/2024 12:03 AM ENGINEERING COORDINATOR us Wander Matthews MD LAB BLOOD ORDERABLES Final Re sult [facility] [id number] [address] Department [place] [address] * (ABNORMAL) Differential, auto (08/03/2024 10:57 PM ENGINEERING COORDINATOR) Pathologist [facility] Neutrophil abs 1.8 1.5 - 6.5 K/cumm Imm gran abs 0.0 0.0 - 0.1 K/cumm [facility] Lymphocyte abs 0.4(L) 0.8 - 3.3 K/cumm [facility] Monocyte abs 0.1(L) 0.2 - 0.8 K/cumm [facility] Eosinophil abs 0.0 0.0 - 0.5 K/cumm [facility] Basophil abs 0.0 0.0 - 0.1 K/cumm [facility] Neutrophil pct 78.2 % [facility] Comment: Consistent with previous result Interpretive Data Percent cell count reference ranges are not reported, since discordance with absolute values may lead to misinterpretation of CBC data. Current Interpretive Data was last revised on 2017. Imm gran pct 0.9 % [facility] Comment: Interpretive Data Percent cell count reference ranges are not reported, since discordance with absolute values may lead to misinterpretation of CBC data. Current Interpretive Data was last revised on 2017. Lymphocyte pct 17.0 % [facility] Comment: Interpretive Data Percent cell count reference ranges are not reported, since discordance with absolute values may lead to misinterpretation of CBC data. Current Interpretive Data was last revised on 2017. Monocyte pct 2.6 % [facility] Comment: Interpretive Data Percent cell count reference ranges are not reported, since discordance with absolute values may lead to misinterpretation of CBC data. Current Interpretive Data was last revised on 2017. Eosinophil pct 0.9 % [facility] Comment: Interpretive Data Percent cell count reference ranges are not reported, since discordance with absolute values may lead to misinterpretation of CBC data. Current Interpretive Data was last revised on 2017. Basophil pct 0.4 % [facility] Comment: Interpretive Data Percent cell count reference ranges are not reported, since discordance with absolute values may lead to misinterpretation of CBC data. Current Interpretive Data was last revised on 2017. Blood 08/03/2024 10:5 7 PM ENGINEERING COORDINATOR 08/03/2024 11:21 PM ENGINEERING COORDINATOR us Wander Matthews MD LAB BLOOD ORDERABLES Final Re sult [facility] [id number] [address] Department [place] [address] * (ABNORMAL) CBC with auto differential (08/03/2024 10:57 PM ENGINEERING COORDINATOR) WBC 2.3(L) 3.8 - 9.9 K/cumm Hgb 11.6(L) 13.0 - 17.5 g/dL [facility] Hct 36.9(L) 38.9 - 50.3 % [facility] Plt 189 150 - 400 K/cumm [facility] MPV 9.6 9.1 - 12.3 fL [facility] RBC 3.85(L) 4.30 - 5.80 M/cumm [facility] MCV 95.8 81.3 - 96.4 fL [facility] MCH 30.1 27.1 - 33.3 pg [facility] MCHC 31.4(L) 32.3 - 35.7 g/dL [facility] RDW CV 15.3(H) 11.1 - 14.9 % [facility] RDW SD 54.1(H) 35.7 - 48.1 fL [facility] NRBC abs 0.00 0.00 - 0.01 K/cumm [facility] Blood 08/03/2024 10:5 7 PM ENGINEERING COORDINATOR 08/03/2024 11:21 PM ENGINEERING COORDINATOR us Wander Matthews MD LAB BLOOD ORDERABLES Final Re sult [facility] [address] [address] Department [place] [address] * (ABNORMAL) Comprehensive metabolic panel (08/03/2024 10:57 PM ENGINEERING COORDINATOR) Sodium 139 135 - 145 mmol/L Potassium, pl 3.8 3.3 - 4.9 mmol/L [facility] Chloride 103 97 - 110 mmol/L [facility] CO2 24 22 - 32 mmol/L [facility] Anion gap 12 2 - 15 mmol/L [facility] BUN 24 6 - 25 mg/dL [facility] Creatinine 0.98 0.80 - 1.30 mg/dL [facility] Glucose 219(H) 70 - 199 mg/dL [facility] [...] 8.5 - 10.3 mg/dL [facility] Bilirubin, total 0.5 0.1 - 1.2 mg/dL [facility] Protein, pl 6.9 6.5 - 8.5 g/dL [facility] Albumin 3.6 3.5 - 5.0 g/dL [facility] Alk phos 58 40 - 130 Units/L [facility] ALT 12 7 - 55 Units/L [facility] AST 27 10 - 50 Units/L [facility] Blood 08/03/2024 10:5 7 PM ENGINEERING COORDINATOR 08/03/2024 11:21 PM ENGINEERING COORDINATOR Wander Matthews MD LAB BLOOD ORDERABLES Final Re sult [facility] [address] [address] [place] [address] * eGFR (07/27/2024 1:03 PM ENGINEERING COORDINATOR) eGFR >90 >=60 mL/min/1. 73 m2 Comment: [...] last reviewed 2021. Blood 07/27/2024 1:03 PM ENGINEERING COORDINATOR 07/27/2024 7:27 PM ENGINEERING COORDINATOR Wander Matthews MD LAB BLOOD ORDERABLES Final Re sult [facility] [address] [address] Department [place] [address] * (ABNORMAL) Differential, auto (07/27/2024 1:03 PM ENGINEERING COORDINATOR) Neutrophil abs 2.4 1.5 - 6.5 K/cumm Imm gran abs 0.0 0.0 - 0.1 K/cumm [facility] Lymphocyte abs 0.2(L) 0.8 - 3.3 K/cumm [facility] Monocyte abs 0.1(L) 0.2 - 0.8 K/cumm [facility] Eosinophil abs 0.1 0.0 - 0.5 K/cumm [facility] Basophil abs 0.0 0.0 - 0.1 K/cumm [facility] Neutrophil pct 85.7 % [facility] Comment: Consistent with previous result Interpretive Data Percent cell count reference ranges are not reported, since discordance with absolute values may lead to misinterpretation of CBC data. Current Interpretive Data was last revised on 2017. Imm gran pct 0.4 % [facility] Comment: Interpretive Data Percent cell count reference ranges are not reported, since discordance with absolute values may lead to misinterpretation of CBC data. Current Interpretive Data was last revised on 2017. Lymphocyte pct 8.5 % [facility] Comment: Interpretive Data Percent cell count reference ranges are not reported, since discordance with absolute values may lead to misinterpretation of CBC data. Current Interpretive Data was last revised on 2017. Monocyte pct 1.8 % [facility] Comment: Interpretive Data Percent cell count reference ranges are not reported, since discordance with absolute values may lead to misinterpretation of CBC data. Current Interpretive Data was last revised on 2017. Eosinophil pct 3.2 % [facility] Comment: Interpretive Data Percent cell count reference ranges are not reported, since discordance with absolute values may lead to misinterpretation of CBC data. Current Interpretive Data was last revised on 2017. Basophil pct 0.4 % [facility] Comment: Interpretive Data Percent cell count reference ranges are not reported, since discordance with absolute values may lead to misinterpretation of CBC data. Current Interpretive Data was last revised on 2017. Blood 07/27/2024 1:03 PM ENGINEERING COORDINATOR 07/27/2024 7:25 PM ENGINEERING COORDINATOR Wander Matthews MD LAB BLOOD ORDERABLES Final Re sult Performing Organization Address [facility] Co de Phone Number MICHELINE [facility] [address] [address] Department Laboratories [place], [place] [id number] * (ABNORMAL) Immunoglobulin free light chains (07/27/2024 1:03 PM ENGINEERING COORDINATOR) Pathologist [facility] [place]/Lambda ratio 43.30(H) 0.26 - 1.65 [place] free light chain 11.26(H) 0.33 - 1.94 mg/dL [facility] Comment: Interpretive Data The [employer] [place] FLC assay procedure was used. Results from different manufacturers or methods may not be comparable. Serial testing should be performed using the same method. Lambda free light chain 0.26(L) 0.57 - 2.63 mg/dL [facility] Comment: Interpretive Data The [employer] L[place] FLC assay procedure was used. Results from different manufacturers or methods may not be comparable. Serial testing should be performed using the same method. Blood 07/27/2024 1:03 PM ENGINEERING COORDINATOR 07/27/2024 7:25 PM ENGINEERING COORDINATOR Wander Matthews MD LAB BLOOD ORDERABLES Final Re sult Performing Organization Address [facility] de Phone Number MICHELINE LUO [address] [address] Department of [employer] [place], [place] [id number] * (ABNORMAL) CBC with auto differential (07/27/2024 1:03 PM ENGINEERING COORDINATOR) [facility] WBC 2.8(L) 3.8 - 9.9 K/cumm Hgb 10.9(L) 13.0 - 17.5 g/dL [facility] Hct 34.7(L) 38.9 - 50.3 % [facility] Plt 154 150 - 400 K/cumm [facility] MPV 10.0 9.1 - 12.3 fL [facility] RBC 3.70(L) 4.30 - 5.80 M/cumm [facility] MCV 93.8 81.3 - 96.4 fL [facility] MCH 29.5 27.1 - 33.3 pg [facility] MCHC 31.4(L) 32.3 - 35.7 g/dL [facility] RDW CV 15.2(H) 11.1 - 14.9 % [facility] RDW SD 52.3(H) 35.7 - 48.1 fL [facility] NRBC abs 0.00 0.00 - 0.01 K/cumm [facility] CH Blood 07/27/2024 1:03 PM ENGINEERING COORDINATOR 07/27/2024 7:25 PM ENGINEERING COORDINATOR Wander Matthews MD LAB BLOOD ORDERABLES Final Re sult Performing Organization Address [facility] Co de Phone Number MICHELINE LUO [address] [address] [facility] [email or web address] [address] * TSH (07/27/2024 1:03 PM ENGINEERING COORDINATOR) Thyroid Stimulating Hormone 3.23 0.30 - 4.20 mcIUnit/mL Blood 07/27/2024 1:03 PM ENGINEERING COORDINATOR 07/27/2024 7:25 PM ENGINEERING COORDINATOR Narrative [facility] - 07/27/2024 7:52 PM ENGINEERING COORDINATOR Starting 08/10 every 4 weeks Wander Matthews MD LAB BLOOD ORDERABLES Final Re sult Performing Organization Address [facility] Co de Phone Number [facility] [address] [address] [facility] [email or web address] [place], [place] [phone] * IgG (07/27/2024 1:03 PM ENGINEERING COORDINATOR) Immunoglobulin G 1,090 700 - 1,600 mg/dL Blood 07/27/2024 1:03 PM ENGINEERING COORDINATOR 07/27/2024 7:25 PM ENGINEERING COORDINATOR Wander Matthews MD LAB BLOOD ORDERABLES Final Re sult Performing Organization Address [facility] Co de Phone Number MICHELINE LUO [address] [address] [facility] [email or web address] [address] * Comprehensive metabolic panel (07/27/2024 1:03 PM ENGINEERING COORDINATOR) Sodium 139 135 - 145 mmol/L Potassium, pl 3.9 3.3 - 4.9 mmol/L [facility] Chloride 103 97 - 110 mmol/L [facility] CO2 23 22 - 32 mmol/L [facility] Anion gap 13 2 - 15 mmol/L [facility] BUN 18 6 - 25 mg/dL [facility] Creatinine 0.90 0.80 - 1.30 mg/dL [facility] Glucose 175 70 - 199 mg/dL [facility] Comment: [...] Units/L [facility] Blood 07/27/2024 1:03 PM ENGINEERING COORDINATOR 07/27/2024 7:25 PM ENGINEERING COORDINATOR us Wander Matthews MD LAB BLOOD ORDERABLES Final Re sult [facility] [address] [address] Department [place] [address] * eGFR (07/13/2024 10:05 AM ENGINEERING COORDINATOR) eGFR 85 >=60 mL/min/1. 73 m2 Comment: [...] reviewed 2021. Blood 07/13/2024 10:0 5 AM ENGINEERING COORDINATOR 07/13/2024 9:45 PM ENGINEERING COORDINATOR us Wander Matthews MD LAB BLOOD ORDERABLES Final Re sult [facility] [address] [address] Department [place] [address] * (ABNORMAL) Differential, auto (07/13/2024 10:05 AM ENGINEERING COORDINATOR) Neutrophil abs 1.9 1.5 - 6.5 K/cumm Imm gran abs 0.0 0.0 - 0.1 K/cumm [facility] Lymphocyte abs 0.4(L) 0.8 - 3.3 K/cumm [facility] Monocyte abs 0.1(L) 0.2 - 0.8 K/cumm [facility] Eosinophil abs 0.0 0.0 - 0.5 K/cumm [facility] Basophil abs 0.0 0.0 - 0.1 K/cumm [facility] Neutrophil pct 76.6 % [facility] Comment: Consistent with previous result Interpretive Data Percent cell count reference ranges are not reported, since discordance with absolute values may lead to misinterpretation of CBC data. Current Interpretive Data was last revised on 2017. Imm gran pct 1.2 % [facility] Comment: Interpretive Data Percent cell count reference ranges are not reported, since discordance with absolute values may lead to misinterpretation of CBC data. Current Interpretive Data was last revised on 2017. Lymphocyte pct 17.7 % [facility] Comment: Interpretive Data Percent cell count reference ranges are not reported, since discordance with absolute values may lead to misinterpretation of CBC data. Current Interpretive Data was last revised on 2017. Monocyte pct 3.3 % [facility] Comment: Interpretive Data Percent cell count reference ranges are not reported, since discordance with absolute values may lead to misinterpretation of CBC data. Current Interpretive Data was last revised on 2017. Eosinophil pct 0.8 % [facility] Comment: Interpretive Data Percent cell count reference ranges are not reported, since discordance with absolute values may lead to misinterpretation of CBC data. Current Interpretive Data was last revised on 2017. Basophil pct 0.4 % [facility] Comment: Interpretive Data Percent cell count reference ranges are not reported, since discordance with absolute values may lead to misinterpretation of CBC data. Current Interpretive Data was last revised on 2017. Blood 07/13/2024 10:0 5 AM ENGINEERING COORDINATOR 07/13/2024 9:30 PM ENGINEERING COORDINATOR us Wander Matthews MD LAB BLOOD ORDERABLES Final Re sult [facility] [address] [address] Department [place] [address] * (ABNORMAL) CBC with auto differential (07/13/2024 10:05 AM ENGINEERING COORDINATOR) WBC 2.4(L) 3.8 - 9.9 K/cumm Hgb 11.7(L) 13.0 - 17.5 g/dL [facility] Hct 37.0(L) 38.9 - 50.3 % [facility] Plt 82(L) 150 - 400 K/cumm [facility] Comment:No clot detected in sample. MPV 10.9 9.1 - 12.3 fL [facility] RBC 3.92(L) 4.30 - 5.80 M/cumm [facility] MCV 94.4 81.3 - 96.4 fL [facility] MCH 29.8 27.1 - 33.3 pg [facility] MCHC 31.6(L) 32.3 - 35.7 g/dL [facility] RDW CV 15.7(H) 11.1 - 14.9 % [facility] RDW SD 53.8(H) 35.7 - 48.1 fL [facility] NRBC abs 0.04(H) 0.00 - 0.01 K/cumm [facility] Blood 07/13/2024 10:0 5 AM ENGINEERING COORDINATOR 07/13/2024 9:30 PM ENGINEERING COORDINATOR Wander Matthews MD LAB BLOOD ORDERABLES Final Re sult Performing Organization Address [facility] de Phone Number MICHELINE LUO [address] [address] Department [email or web address] [address] * (ABNORMAL) TSH (07/13/2024 10:05 AM ENGINEERING COORDINATOR) Thyroid Stimulating Hormone 6.51(H) 0.30 - 4.20 mcIUnit/mL Blood 07/13/2024 10:0 5 AM ENGINEERING COORDINATOR 07/13/2024 9:30 PM ENGINEERING COORDINATOR Wander Matthews MD LAB BLOOD ORDERABLES Final Re sult Performing Organization Address [facility] Co de Phone Number [facility] [address] [address] [place] [address] * (ABNORMAL) Comprehensive metabolic panel (07/13/2024 10:05 AM ENGINEERING COORDINATOR) Sodium 140 135 - 145 mmol/L Potassium, pl 3.6 3.3 - 4.9 mmol/L [facility] Chloride 103 97 - 110 mmol/L [facility] CO2 27 22 - 32 mmol/L [facility] Anion gap 10 2 - 15 mmol/L [facility] BUN 20 6 - 25 mg/dL [facility] Creatinine 0.95 0.80 - 1.30 mg/dL [facility] Glucose 159 70 - 199 mg/dL [facility] Comment: [...] [facility] Blood 07/13/2024 10:0 5 AM ENGINEERING COORDINATOR 07/13/2024 9:30 PM ENGINEERING COORDINATOR Wander Matthews MD LAB BLOOD ORDERABLES Final Re sult [facility] [address] [address] Department [place] [address] * eGFR (07/07/2024 9:05 AM ENGINEERING COORDINATOR) eGFR 86 >=60 mL/min/1. 73 m2 Comment: [...] last reviewed 2021. Blood 07/07/2024 9:05 AM ENGINEERING COORDINATOR 07/07/2024 4:21 PM ENGINEERING COORDINATOR us Wander Matthews MD LAB BLOOD ORDERABLES Final Re sult [facility] [address] [address] Department [place] [address] * (ABNORMAL) Differential, auto (07/07/2024 9:05 AM ENGINEERING COORDINATOR) Neutrophil abs 1.9 1.5 - 6.5 K/cumm Imm gran abs 0.0 0.0 - 0.1 K/cumm [facility] Lymphocyte abs 0.4(L) 0.8 - 3.3 K/cumm [facility] Monocyte abs 0.1(L) 0.2 - 0.8 K/cumm [facility] Eosinophil abs 0.1 0.0 - 0.5 K/cumm [facility] Basophil abs 0.0 0.0 - 0.1 K/cumm [facility] Neutrophil pct 76.1 % [facility] Comment: Consistent with previous result Interpretive Data Percent cell count reference ranges are not reported, since discordance with absolute values may lead to misinterpretation of CBC data. Current Interpretive Data was last revised on 2017. Imm gran pct 0.4 % [facility] Comment: Interpretive Data Percent cell count reference ranges are not reported, since discordance with absolute values may lead to misinterpretation of CBC data. Current Interpretive Data was last revised on 2017. Lymphocyte pct 17.3 % [facility] Comment: Interpretive Data Percent cell count reference ranges are not reported, since discordance with absolute values may lead to misinterpretation of CBC data. Current Interpretive Data was last revised on 2017. Monocyte pct 3.3 % [facility] Comment: Interpretive Data Percent cell count reference ranges are not reported, since discordance with absolute values may lead to misinterpretation of CBC data. Current Interpretive Data was last revised on 2017. Eosinophil pct 2.5 % [facility] Comment: Interpretive Data Percent cell count reference ranges are not reported, since discordance with absolute values may lead to misinterpretation of CBC data. Current Interpretive Data was last revised on 2017. Basophil pct 0.4 % [facility] Comment: Interpretive Data Percent cell count reference ranges are not reported, since discordance with absolute values may lead to misinterpretation of CBC data. Current Interpretive Data was last revised on 2017. Blood 07/07/2024 9:05 AM ENGINEERING COORDINATOR 07/07/2024 4:03 PM ENGINEERING COORDINATOR Wander Matthews MD LAB BLOOD ORDERABLES Final Re sult Performing Organization Address [facility] de Phone Number MICHELINE [address] [address] [place] [address] * (ABNORMAL) Immunoglobulin free light chains (07/07/2024 9:05 AM ENGINEERING COORDINATOR) [place]/Lambda ratio 22.10(H) 0.26 - 1.65 [place] free light chain 4.87(H) 0.33 - 1.94 mg/dL [facility] Comment: Interpretive Data The [employer] Ig [place] FLC assay procedure was used. Results from different manufacturers or methods may not be comparable. Serial testing should be performed using the same method. Lambda free light chain 0.22(L) 0.57 - 2.63 mg/dL [facility] Comment: Interpretive Data The [employer] [place] FLC assay procedure was used. Results from different manufacturers or methods may not be comparable. Serial testing should be performed using the same method. Blood 07/07/2024 9:05 AM ENGINEERING COORDINATOR 07/07/2024 4:03 PM ENGINEERING COORDINATOR Wander Matthews MD LAB BLOOD ORDERABLES Final Re sult Performing Organization Address [facility] de Phone Number MICHELINE LUO [address] Department [place] [address] * (ABNORMAL) CBC with auto differential (07/07/2024 9:05 AM ENGINEERING COORDINATOR) WBC 2.4(L) 3.8 - 9.9 K/cumm Hgb 11.7(L) 13.0 - 17.5 g/dL [facility] Hct 37.4(L) 38.9 - 50.3 % [facility] Plt 134(L) 150 - 400 K/cumm [facility] MPV 10.7 9.1 - 12.3 fL [facility] RBC 4.03(L) 4.30 - 5.80 M/cumm [facility] MCV 92.8 81.3 - 96.4 fL [facility] MCH 29.0 27.1 - 33.3 pg [facility] MCHC 31.3(L) 32.3 - 35.7 g/dL [facility] RDW CV 14.6 11.1 - 14.9 % [facility] RDW SD 49.2(H) 35.7 - 48.1 fL [facility] NRBC abs 0.00 0.00 - 0.01 K/cumm [facility] Blood 07/07/2024 9:05 AM ENGINEERING COORDINATOR 07/07/2024 4:03 PM ENGINEERING COORDINATOR Wander Matthews MD LAB BLOOD ORDERABLES Final Re sult Performing Organization Address [facility] Co de Phone Number MICHELINE LUO [address] [address] [facility] [place] [address] * (ABNORMAL) TSH (07/07/2024 9:05 AM ENGINEERING COORDINATOR) Thyroid Stimulating Hormone 4.33(H) 0.30 - 4.20 mcIUnit/mL Blood 07/07/2024 9:05 AM ENGINEERING COORDINATOR 07/07/2024 4:03 PM ENGINEERING COORDINATOR Wander Matthews MD LAB BLOOD ORDERABLES Final Re sult Performing Organization Address [facility]/State/ZIP Co de Phone Number MICHELINE LUO [address] [address] Department [place] [address] * IgG (07/07/2024 9:05 AM ENGINEERING COORDINATOR) Immunoglobulin G 957 700 - 1,600 mg/dL Blood 07/07/2024 9:05 AM ENGINEERING COORDINATOR 07/07/2024 4:03 PM ENGINEERING COORDINATOR Wander Matthews MD LAB BLOOD ORDERABLES Final Re sult [facility] [address] [address] Department [place] [address] * Comprehensive metabolic panel (07/07/2024 9:05 AM ENGINEERING COORDINATOR) Pathologist [facility] Sodium 140 135 - 145 mmol/L Potassium, pl 3.9 3.3 - 4.9 mmol/L [facility] Chloride 104 97 - 110 mmol/L [facility] CO2 25 22 - 32 mmol/L [facility] Anion gap 11 2 - 15 mmol/L [facility] BUN 20 6 - 25 mg/dL [facility] Creatinine 0.94 0.80 - 1.30 mg/dL [facility] Glucose 134 70 - 199 mg/dL [facility] Comment: Interpretive Data Fasting glucose >/= [...] Calcium 9.2 8.5 - 10.3 mg/dL [facility] Bilirubin, total 0.7 0.1 - 1.2 mg/dL [facility] Protein, pl 6.5 6.5 - 8.5 g/dL [facility] Albumin 3.6 3.5 - 5.0 g/dL [facility] Alk phos 49 40 - 130 Units/L [facility] ALT 16 7 - 55 Units/L [facility] AST 22 10 - 50 Units/L [facility] Blood 07/07/2024 9:05 AM ENGINEERING COORDINATOR 07/07/2024 4:03 PM ENGINEERING COORDINATOR Wander Matthews MD LAB BLOOD ORDERABLES Final Re sult Performing Organization Address City/[facility] Co de Phone Number MICHELINE LUO [address] [address] Department [email or web address] [place], [place] [phone] * eGFR (06/29/2024 8:57 AM ENGINEERING COORDINATOR) eGFR 71 >=60 mL/min/1. 73 m2 Comment: [...] last reviewed 2021. Blood 06/29/2024 8:57 AM ENGINEERING COORDINATOR 06/29/2024 8:16 PM ENGINEERING COORDINATOR Wander Matthews MD LAB BLOOD ORDERABLES Final Re sult Performing Organization Address City/[facility]/ZIP Co de Phone Number MICHELINE LUO [address] [address] Department of [employer] [place], [place] [phone] * (ABNORMAL) Differential, auto (06/29/2024 8:57 AM ENGINEERING COORDINATOR) Neutrophil abs 2.2 1.5 - 6.5 K/cumm Imm gran abs 0.0 0.0 - 0.1 K/cumm [facility] Lymphocyte abs 0.3(L) 0.8 - 3.3 K/cumm [facility] Monocyte abs 0.1(L) 0.2 - 0.8 K/cumm [facility] Eosinophil abs 0.1 0.0 - 0.5 K/cumm [facility] Basophil abs 0.0 0.0 - 0.1 K/cumm [facility] Neutrophil pct 80.6 % [facility] Comment: Consistent with previous result Interpretive Data Percent cell count reference ranges are not reported, since discordance with absolute values may lead to misinterpretation of CBC data. Current Interpretive Data was last revised on 2017. Imm gran pct 0.7 % [facility] Comment: Interpretive Data Percent cell count reference ranges are not reported, since discordance with absolute values may lead to misinterpretation of CBC data. Current Interpretive Data was last revised on 2017. Lymphocyte pct 12.7 % [facility] Comment: Interpretive Data Percent cell count reference ranges are not reported, since discordance with absolute values may lead to misinterpretation of CBC data. Current Interpretive Data was last revised on 2017. Monocyte pct 2.2 % [facility] Comment: Interpretive Data Percent cell count reference ranges are not reported, since discordance with absolute values may lead to misinterpretation of CBC data. Current Interpretive Data was last revised on 2017. Eosinophil pct 3.4 % [facility] Comment: Interpretive Data Percent cell count reference ranges are not reported, since discordance with absolute values may lead to misinterpretation of CBC data. Current Interpretive Data was last revised on 2017. Basophil pct 0.4 % [facility] Comment: Interpretive Data Percent cell count reference ranges are not reported, since discordance with absolute values may lead to misinterpretation of CBC data. Current Interpretive Data was last revised on 2017. Blood 06/29/2024 8:57 AM ENGINEERING COORDINATOR 06/29/2024 6:44 PM ENGINEERING COORDINATOR us Wander Matthews MD LAB BLOOD ORDERABLES Final Re sult [facility] [address] [address] Department [place] [address] * (ABNORMAL) CBC with auto differential (06/29/2024 8:57 AM ENGINEERING COORDINATOR) [facility] WBC 2.7(L) 3.8 - 9.9 K/cumm Hgb 11.6(L) 13.0 - 17.5 g/dL [facility] Hct 37.4(L) 38.9 - 50.3 % [facility] CH Plt 183 150 - 400 K/cumm [facility] CH MPV 9.8 9.1 - 12.3 fL [facility] RBC 3.97(L) 4.30 - 5.80 M/cumm [facility] CH MCV 94.2 81.3 - 96.4 fL [facility] CH MCH 29.2 27.1 - 33.3 pg [facility] MCHC 31.0(L) 32.3 - 35.7 g/dL [facility] CH RDW CV 14.8 11.1 - 14.9 % [facility] [place] RDW SD 51.3(H) 35.7 - 48.1 fL [facility] NRBC abs 0.00 0.00 - 0.01 K/cumm [facility] Blood 06/29/2024 8:57 AM ENGINEERING COORDINATOR 06/29/2024 6:44 PM ENGINEERING COORDINATOR Wander Matthews MD LAB BLOOD ORDERABLES Final Re sult [facility] [address] [address] Department [place] [address] * Comprehensive metabolic panel (06/29/2024 8:57 AM ENGINEERING COORDINATOR) [facility] Sodium 140 135 - 145 mmol/L Potassium, pl 4.1 3.3 - 4.9 mmol/L [facility] Chloride 105 97 - 110 mmol/L [facility] CH CO2 24 22 - 32 mmol/L [facility] CH Anion gap 11 2 - 15 mmol/L [facility] CH BUN 15 6 - 25 mg/dL [facility] Creatinine 1.10 0.80 - 1.30 mg/dL [facility] Glucose 121 70 - 199 mg/dL [facility] Comment: Interpretive Data Fasting glucose >/= [...] Units/L [facility] CH Blood 06/29/2024 8:57 AM ENGINEERING COORDINATOR 06/29/2024 6:44 PM ENGINEERING COORDINATOR us Wander Matthews MD LAB BLOOD ORDERABLES Final Re sult [facility]HE[facility] LUO [address] [address] Department [place] [address] * eGFR (06/22/2024 9:14 AM ENGINEERING COORDINATOR) eGFR 71 >=60 mL/min/1. 73 m2 Comment: [...] last reviewed 2021. Blood 06/22/2024 9:14 AM ENGINEERING COORDINATOR 06/22/2024 5:53 PM ENGINEERING COORDINATOR us Wander Matthews MD LAB BLOOD ORDERABLES Final Re sult [facility] [address] [address] Department [place] [address] * (ABNORMAL) Differential, auto (06/22/2024 9:14 AM ENGINEERING COORDINATOR) Neutrophil abs 2.8 1.5 - 6.5 K/cumm Imm gran abs 0.0 0.0 - 0.1 K/cumm [facility] Lymphocyte abs 0.2(L) 0.8 - 3.3 K/cumm [facility] Monocyte abs 0.1(L) 0.2 - 0.8 K/cumm [facility] Eosinophil abs 0.1 0.0 - 0.5 K/cumm [facility] Basophil abs 0.0 0.0 - 0.1 K/cumm [facility] Neutrophil pct 89.3 % [facility] Comment: Consistent with previous result Interpretive Data Percent cell count reference ranges are not reported, since discordance with absolute values may lead to misinterpretation of CBC data. Current Interpretive Data was last revised on 2017. Imm gran pct 0.3 % [facility] Comment: Interpretive Data Percent cell count reference ranges are not reported, since discordance with absolute values may lead to misinterpretation of CBC data. Current Interpretive Data was last revised on 2017. Lymphocyte pct 7.2 % [facility] Comment: Interpretive Data Percent cell count reference ranges are not reported, since discordance with absolute values may lead to misinterpretation of CBC data. Current Interpretive Data was last revised on 2017. Monocyte pct 1.6 % [facility] Comment: Interpretive Data Percent cell count reference ranges are not reported, since discordance with absolute values may lead to misinterpretation of CBC data. Current Interpretive Data was last revised on 2017. Eosinophil pct 1.6 % [facility] Comment: Interpretive Data Percent cell count reference ranges are not reported, since discordance with absolute values may lead to misinterpretation of CBC data. Current Interpretive Data was last revised on 2017. Basophil pct 0.0 % [facility] Comment: Interpretive Data Percent cell count reference ranges are not reported, since discordance with absolute values may lead to misinterpretation of CBC data. Current Interpretive Data was last revised on 2017. Blood 06/22/2024 9:14 AM ENGINEERING COORDINATOR 06/22/2024 5:29 PM ENGINEERING COORDINATOR Wander Matthews MD LAB BLOOD ORDERABLES Final Re sult Performing Organization Address [facility] de Phone Number MICHELINE [address] [address] [facility] [address] [place], [place] [id number] * (ABNORMAL) Immunoglobulin free light chains (06/22/2024 9:14 AM ENGINEERING COORDINATOR) [place]/Lambda ratio 28.50(H) 0.26 - 1.65 [place] free light chain 8.26(H) 0.33 - 1.94 mg/dL [facility] Comment: Interpretive Data The [employer] Ig [place] FLC assay procedure was used. Results from different manufacturers or methods may not be comparable. Serial testing should be performed using the same method. Lambda free light chain 0.29(L) 0.57 - 2.63 mg/dL [facility] Comment: Interpretive Data The [employer] Ig Lambda FLC assay procedure was used. Results from different manufacturers or methods may not be comparable. Serial testing should be performed using the same method. Blood 06/22/2024 9:14 AM ENGINEERING COORDINATOR 06/23/2024 10:18 AM ENGINEERING COORDINATOR Wander Matthews MD LAB BLOOD ORDERABLES Final Re sult Performing Organization Address [facility] de Phone Number [facility] [address] [address] [place] [address] * (ABNORMAL) CBC with auto differential (06/22/2024 9:14 AM ENGINEERING COORDINATOR) [facility] WBC 3.2(L) 3.8 - 9.9 K/cumm Hgb 12.4(L) 13.0 - 17.5 g/dL [facility] Hct 39.0 38.9 - 50.3 % [facility] Plt 85(L) 150 - 400 K/cumm [facility] CH MPV 11.0 9.1 - 12.3 fL [facility] RBC 4.21(L) 4.30 - 5.80 M/cumm [facility] CH MCV 92.6 81.3 - 96.4 fL [facility] CH MCH 29.5 27.1 - 33.3 pg [facility] MCHC 31.8(L) 32.3 - 35.7 g/dL [facility] CH RDW CV 14.3 11.1 - 14.9 % [facility] CH RDW SD 48.1 35.7 - 48.1 fL [facility] NRBC abs 0.00 0.00 - 0.01 K/cumm [facility] Blood 06/22/2024 9:14 AM ENGINEERING COORDINATOR 06/22/2024 5:29 PM ENGINEERING COORDINATOR Wander Matthews MD LAB BLOOD ORDERABLES Final Re sult [facility] [place] [address] [address] Department [place] [address] * (ABNORMAL) Comprehensive metabolic panel (06/22/2024 9:14 AM ENGINEERING COORDINATOR) [facility] Sodium 140 135 - 145 mmol/L Potassium, pl 3.6 3.3 - 4.9 mmol/L [facility] Chloride 103 97 - 110 mmol/L [facility] CO2 26 22 - 32 mmol/L [facility] Anion gap 11 2 - 15 mmol/L [facility] BUN 23 6 - 25 mg/dL [facility] Creatinine 1.10 0.80 - 1.30 mg/dL [facility] Glucose 176 70 - 199 mg/dL [facility] Comment: Interpretive Data Fasting glucose >/= [...] CH AST 26 10 - 50 Units/L [facility] CH Blood 06/22/2024 9:14 AM ENGINEERING COORDINATOR 06/22/2024 5:29 PM ENGINEERING COORDINATOR us Wander Matthews MD LAB BLOOD ORDERABLES Final Re sult [place] [address] [address] Department [place] [address] * eGFR (06/16/2024 8:00 AM ENGINEERING COORDINATOR) eGFR 68 >=60 mL/min/1. 73 m2 Comment: [...] last reviewed 2021. Blood 06/16/2024 8:00 AM ENGINEERING COORDINATOR 06/16/2024 2:09 PM ENGINEERING COORDINATOR us Wander Matthews MD LAB BLOOD ORDERABLES Final Re sult [facility] [address] [address] Department [place] [address] * (ABNORMAL) Differential, auto (06/16/2024 8:00 AM ENGINEERING COORDINATOR) Neutrophil abs 2.9 1.5 - 6.5 K/cumm Imm gran abs 0.0 0.0 - 0.1 K/cumm [facility] Lymphocyte abs 0.4(L) 0.8 - 3.3 K/cumm [facility] Monocyte abs 0.1(L) 0.2 - 0.8 K/cumm [facility] Eosinophil abs 0.1 0.0 - 0.5 K/cumm [facility] Basophil abs 0.0 0.0 - 0.1 K/cumm [facility] Neutrophil pct 83.4 % [facility] Comment: Consistent with previous result Interpretive Data Percent cell count reference ranges are not reported, since discordance with absolute values may lead to misinterpretation of CBC data. Current Interpretive Data was last revised on 2017. Imm gran pct 0.6 % [facility] Comment: Interpretive Data Percent cell count reference ranges are not reported, since discordance with absolute values may lead to misinterpretation of CBC data. Current Interpretive Data was last revised on 2017. Lymphocyte pct 10.6 % [facility] Comment: Interpretive Data Percent cell count reference ranges are not reported, since discordance with absolute values may lead to misinterpretation of CBC data. Current Interpretive Data was last revised on 2017. Monocyte pct 1.4 % [facility] Comment: Interpretive Data Percent cell count reference ranges are not reported, since discordance with absolute values may lead to misinterpretation of CBC data. Current Interpretive Data was last revised on 2017. Eosinophil pct 3.7 % [facility] Comment: Interpretive Data Percent cell count reference ranges are not reported, since discordance with absolute values may lead to misinterpretation of CBC data. Current Interpretive Data was last revised on 2017. Basophil pct 0.3 % [facility] Comment: Interpretive Data Percent cell count reference ranges are not reported, since discordance with absolute values may lead to misinterpretation of CBC data. Current Interpretive Data was last revised on 2017. Blood 06/16/2024 8:00 AM ENGINEERING COORDINATOR 06/16/2024 1:56 PM ENGINEERING COORDINATOR Wander Matthews MD LAB BLOOD ORDERABLES Final Re sult [place] [address] [address] Department [place] [address] * (ABNORMAL) CBC with auto differential (06/16/2024 8:00 AM ENGINEERING COORDINATOR) WBC 3.5(L) 3.8 - 9.9 K/cumm Hgb 13.3 13.0 - 17.5 g/dL [facility] Hct 40.1 38.9 - 50.3 % [facility] Plt 79(L) 150 - 400 K/cumm [facility] MPV 11.3 9.1 - 12.3 fL [facility] RBC 4.42 4.30 - 5.80 M/cumm [facility] MCV 90.7 81.3 - 96.4 fL [facility] MCH 30.1 27.1 - 33.3 pg [facility] MCHC 33.2 32.3 - 35.7 g/dL [facility] RDW CV 14.0 11.1 - 14.9 % [facility] RDW SD 46.8 35.7 - 48.1 fL [facility] NRBC abs 0.00 0.00 - 0.01 K/cumm [facility] Blood 06/16/2024 8:00 AM ENGINEERING COORDINATOR 06/16/2024 1:56 PM ENGINEERING COORDINATOR Wander Matthews MD LAB BLOOD ORDERABLES Final Re sult Performing Organization Address [facility]/ZIP Co de Phone Number MICHELINE LUO [address] [address] Department of Laboratories [place] [phone] * Comprehensive metabolic panel (06/16/2024 8:00 AM ENGINEERING COORDINATOR) Sodium 137 135 - 145 mmol/L Potassium, pl 3.8 3.3 - 4.9 mmol/L [facility] Chloride 99 97 - 110 mmol/L [facility] CH CO2 27 22 - 32 mmol/L [facility] Anion gap 11 2 - 15 mmol/L [facility] CH BUN 24 6 - 25 mg/dL [facility] Creatinine 1.14 0.80 - 1.30 mg/dL [facility] Comment:Icteric sample, test results may be affected. Glucose 172 70 - 199 mg/dL [facility] CH Comment: [...] Units/L [facility] Blood 06/16/2024 8:00 AM ENGINEERING COORDINATOR 06/16/2024 1:56 PM ENGINEERING COORDINATOR Wander Matthews MD LAB BLOOD ORDERABLES Final Re sult Performing Organization Address [facility] Co de Phone Number MICHELINE LUO [address] [address] Department [place] [address] * eGFR (06/08/2024 9:00 AM ENGINEERING COORDINATOR) eGFR 73 >=60 mL/min/1. 73 m2 Comment: [...] last reviewed 2021. Blood 06/08/2024 9:00 AM ENGINEERING COORDINATOR 06/08/2024 4:57 PM ENGINEERING COORDINATOR Wander Matthews MD LAB BLOOD ORDERABLES Final Re sult [facility] [address] [address] Department [place] [address] * (ABNORMAL) Differential, auto (06/08/2024 9:00 AM ENGINEERING COORDINATOR) Neutrophil abs 1.8 1.5 - 6.5 K/cumm Imm gran abs 0.0 0.0 - 0.1 K/cumm [facility] Lymphocyte abs 0.4(L) 0.8 - 3.3 K/cumm [facility] Monocyte abs 0.1(L) 0.2 - 0.8 K/cumm [facility] Eosinophil abs 0.1 0.0 - 0.5 K/cumm [facility] [place] Basophil abs 0.0 0.0 - 0.1 K/cumm [facility] Neutrophil pct 77.5 % [facility] Comment: Consistent with previous result [...] revised on 2017. Lymphocyte pct 16.1 % [facility] Comment: Interpretive Data Percent cell count reference ranges are not reported, since discordance with absolute values may lead to misinterpretation of CBC data. Current Interpretive Data was last revised on 2017. Monocyte pct 3.0 % [facility] Comment: Interpretive Data Percent cell count reference ranges are not reported, since discordance with absolute values may lead to misinterpretation of CBC data. Current Interpretive Data was last revised on 2017. Eosinophil pct 2.6 % [facility] Comment: Interpretive Data Percent cell count reference ranges are not reported, since discordance with absolute values may lead to misinterpretation of CBC data. Current Interpretive Data was last revised on 2017. Basophil pct 0.4 % [facility] Comment: Interpretive Data Percent cell count reference ranges are not reported, since discordance with absolute values may lead to misinterpretation of CBC data. Current Interpretive Data was last revised on 2017. Blood 06/08/2024 9:00 AM ENGINEERING COORDINATOR 06/08/2024 4:38 PM ENGINEERING COORDINATOR Wander Matthews MD LAB BLOOD ORDERABLES Final Re sult [facility] [address] [address] Department [place] [address] * (ABNORMAL) CBC with auto differential (06/08/2024 9:00 AM ENGINEERING COORDINATOR) WBC 2.3(L) 3.8 - 9.9 K/cumm Hgb 12.6(L) 13.0 - 17.5 g/dL [facility] Hct 38.7(L) 38.9 - 50.3 % [facility] CH Plt 130(L) 150 - 400 K/cumm [facility] CH MPV 10.9 9.1 - 12.3 fL [facility] CH RBC 4.20(L) 4.30 - 5.80 M/cumm [facility] CH MCV 92.1 81.3 - 96.4 fL [facility] CH MCH 30.0 27.1 - 33.3 pg [facility] CH MCHC 32.6 32.3 - 35.7 g/dL [facility] CH RDW CV 14.0 11.1 - 14.9 % [facility] CH RDW SD 47.1 35.7 - 48.1 fL [facility] CH NRBC abs 0.00 0.00 - 0.01 K/cumm [facility] Blood 06/08/2024 9:00 AM ENGINEERING COORDINATOR 06/08/2024 4:38 PM ENGINEERING COORDINATOR Narrative [facility] - 06/08/2024 5:[address] Matthews weekly CBC on 01/20/2024 and 01/27/2024 Wander Matthews MD LAB BLOOD ORDERABLES Final Re sult [facility] [address] [address] Department [place] [address] * (ABNORMAL) Comprehensive metabolic panel (06/08/2024 9:00 AM ENGINEERING COORDINATOR) Sodium 139 135 - 145 mmol/L Potassium, pl 3.7 3.3 - 4.9 mmol/L [facility] Chloride 100 97 - 110 mmol/L [facility] CO2 27 22 - 32 mmol/L [facility] [place] Anion gap 12 2 - 15 mmol/L [facility] BUN 28(H) 6 - 25 mg/dL [facility] Creatinine 1.08 0.80 - 1.30 mg/dL [facility] Glucose 95 70 - 199 mg/dL [facility] Comment: Interpretive Data Fasting glucose >/= [...] Units/L [facility] Blood 06/08/2024 9:00 AM ENGINEERING COORDINATOR 06/08/2024 4:38 PM ENGINEERING COORDINATOR Narrative [facility] - 06/08/2024 5:21 PM ENGINEERING COORDINATOR Cassie [facility] weekly x 2 01/20/2024 and 01/27/2024 Wander Matthews MD LAB BLOOD ORDERABLES Final Re sult [facility] [address] [address] Department [place] [address] * eGFR (06/01/2024 2:15 PM ENGINEERING COORDINATOR) eGFR 70 >=60 mL/min/1. 73 m2 Comment: [...] last reviewed 2021. Blood 06/01/2024 2:15 PM ENGINEERING COORDINATOR 06/01/2024 9:08 PM ENGINEERING COORDINATOR us Wander Matthews MD LAB BLOOD ORDERABLES Final Re sult [facility] [address] [address] Department [place] [address] * (ABNORMAL) Differential, auto (06/01/2024 2:15 PM ENGINEERING COORDINATOR) Neutrophil abs 2.6 1.5 - 6.5 K/cumm Imm gran abs 0.0 0.0 - 0.1 K/cumm [facility] Lymphocyte abs 0.5(L) 0.8 - 3.3 K/cumm [facility] Monocyte abs 0.1(L) 0.2 - 0.8 K/cumm [facility] Eosinophil abs 0.1 0.0 - 0.5 K/cumm [facility] Basophil abs 0.0 0.0 - 0.1 K/cumm [facility] Neutrophil pct 78.8 % [facility] Comment: Interpretive Data Percent cell count reference ranges are not reported, since discordance with absolute values may lead to misinterpretation of CBC data. Current Interpretive Data was last revised on 2017. Imm gran pct 0.3 % [facility] Comment: Interpretive Data Percent cell count reference ranges are not reported, since discordance with absolute values may lead to misinterpretation of CBC data. Current Interpretive Data was last revised on 2017. Lymphocyte pct 14.1 % [facility] Comment: Interpretive Data Percent cell count reference ranges are not reported, since discordance with absolute values may lead to misinterpretation of CBC data. Current Interpretive Data was last revised on 2017. Monocyte pct 3.4 % [facility] Comment: Interpretive Data Percent cell count reference ranges are not reported, since discordance with absolute values may lead to misinterpretation of CBC data. Current Interpretive Data was last revised on 2017. Eosinophil pct 2.5 % [facility] Comment: Interpretive Data Percent cell count reference ranges are not reported, since discordance with absolute values may lead to misinterpretation of CBC data. Current Interpretive Data was last revised on 2017. Basophil pct 0.9 % [facility] Comment: Interpretive Data Percent cell count reference ranges are not reported, since discordance with absolute values may lead to misinterpretation of CBC data. Current Interpretive Data was last revised on 2017. Blood 06/01/2024 2:15 PM ENGINEERING COORDINATOR 06/01/2024 9:06 PM ENGINEERING COORDINATOR Wander Matthews MD LAB BLOOD ORDERABLES Final Re sult Performing Organization Address [facility] Co de Phone Number MICHELINE PUJA [address] [address] [employer] [place], [place] [id number] * (ABNORMAL) Immunoglobulin free light chains (06/01/2024 2:15 PM ENGINEERING COORDINATOR) [place]/Lambda ratio 18.40(H) 0.26 - 1.65 [place] free light chain 12.17(H) 0.33 - 1.94 mg/dL [facility] Comment: Interpretive Data The [employer] Ig [place] FLC assay procedure was used. Results from different manufacturers or methods may not be comparable. Serial testing should be performed using the same method. Lambda free light chain 0.66 0.57 - 2.63 mg/dL [facility] [place] Comment: Interpretive Data The [employer] Ig Lambda FLC assay procedure was used. Results from different manufacturers or methods may not be comparable. Serial testing should be performed using the same method. Blood 06/01/2024 2:15 PM ENGINEERING COORDINATOR 06/01/2024 9:06 PM ENGINEERING COORDINATOR Wander Matthews MD LAB BLOOD ORDERABLES Final Re sult Performing Organization Address [facility] Co de Phone Number VICTOR [facility] LUO [address] [address] [employer] [place], [place] [phone] * (ABNORMAL) CBC with auto differential (06/01/2024 2:15 PM ENGINEERING COORDINATOR) WBC 3.3(L) 3.8 - 9.9 K/cumm Hgb 12.4(L) 13.0 - 17.5 g/dL [facility] Hct 39.0 38.9 - 50.3 % [facility] Plt 191 150 - 400 K/cumm [facility] CH MPV 10.3 9.1 - 12.3 fL [facility] RBC 4.17(L) 4.30 - 5.80 M/cumm [facility] MCV 93.5 81.3 - 96.4 fL [facility] MCH 29.7 27.1 - 33.3 pg [facility] MCHC 31.8(L) 32.3 - 35.7 g/dL [facility] CH RDW CV 14.1 11.1 - 14.9 % [facility] RDW SD 48.1 35.7 - 48.1 fL [facility] NRBC abs 0.00 0.00 - 0.01 K/cumm [facility] Blood 06/01/2024 2:15 PM ENGINEERING COORDINATOR 06/01/2024 9:06 PM ENGINEERING COORDINATOR Wander Matthews MD LAB BLOOD ORDERABLES Final Re sult Performing Organization Address [facility] Co de Phone Number [facility] [address] [address] [facility] [email or web address] [address] * IgG (06/01/2024 2:15 PM ENGINEERING COORDINATOR) [facility] Immunoglobulin G 1,202 700 - 1,600 mg/dL Blood 06/01/2024 2:15 PM ENGINEERING COORDINATOR 06/01/2024 9:06 PM ENGINEERING COORDINATOR Wander Matthews MD LAB BLOOD ORDERABLES Final Re sult Performing Organization Address City/[facility]/ZIP Co de Phone Number [facility] [address] [address] [facility] [place] [address] * Comprehensive metabolic panel (06/01/2024 2:15 PM ENGINEERING COORDINATOR) [facility] Sodium 140 135 - 145 mmol/L Potassium, pl 3.9 3.3 - 4.9 mmol/L [facility] Chloride 102 97 - 110 mmol/L [facility] CO2 28 22 - 32 mmol/L [facility] Anion gap 10 2 - 15 mmol/L [facility] BUN 18 6 - 25 mg/dL [facility] Creatinine 1.12 0.80 - 1.30 mg/dL [facility] Glucose 109 70 - 199 mg/dL [facility] Comment: [...] Units/L [facility] Blood 06/01/2024 2:15 PM ENGINEERING COORDINATOR 06/01/2024 9:06 PM ENGINEERING COORDINATOR Wander Matthews MD LAB BLOOD ORDERABLES Final Re sult [place] [address] [address] Department [place] [address] * eGFR (05/18/2024 9:11 AM ENGINEERING COORDINATOR) eGFR 71 >=60 mL/min/1. 73 m2 Comment: [...] last reviewed 2021. Blood 05/18/2024 9:11 AM ENGINEERING COORDINATOR 05/18/2024 4:06 PM ENGINEERING COORDINATOR us Wander Matthews MD LAB BLOOD ORDERABLES Final Re sult [facility] [address] [address] Department [place] [address] * (ABNORMAL) Differential, auto (05/18/2024 9:11 AM ENGINEERING COORDINATOR) Neutrophil abs 2.7 1.5 - 6.5 K/cumm Imm gran abs 0.0 0.0 - 0.1 K/cumm [facility] Lymphocyte abs 0.4(L) 0.8 - 3.3 K/cumm [facility] Monocyte abs 0.1(L) 0.2 - 0.8 K/cumm [facility] Eosinophil abs 0.0 0.0 - 0.5 K/cumm [facility] Basophil abs 0.0 0.0 - 0.1 K/cumm [facility] Neutrophil pct 82.4 % [facility] Comment: Consistent with previous result Interpretive Data Percent cell count reference ranges are not reported, since discordance with absolute values may lead to misinterpretation of CBC data. Current Interpretive Data was last revised on 2017. Imm gran pct 0.9 % [facility] Comment: Interpretive Data Percent cell count reference ranges are not reported, since discordance with absolute values may lead to misinterpretation of CBC data. Current Interpretive Data was last revised on 2017. Lymphocyte pct 13.0 % [facility] Comment: Interpretive Data Percent cell count [...] revised on 2017. Blood 05/18/2024 9:11 AM ENGINEERING COORDINATOR 05/18/2024 3:59 PM ENGINEERING COORDINATOR us Wander Matthews MD LAB BLOOD ORDERABLES Final Re sult [facility] [id number] [address] Department of Laboratories [place], [place] [id number] * (ABNORMAL) CBC with auto differential (05/18/2024 9:11 AM ENGINEERING COORDINATOR) WBC 3.2(L) 3.8 - 9.9 K/cumm Hgb 13.0 13.0 - 17.5 g/dL [facility] Hct 40.2 38.9 - 50.3 % [facility] Plt 88(L) 150 - 400 K/cumm [facility] MPV 11.4 9.1 - 12.3 fL [facility] RBC 4.30 4.30 - 5.80 M/cumm [facility] MCV 93.5 81.3 - 96.4 fL [facility] MCH 30.2 27.1 - 33.3 pg [facility] MCHC 32.3 32.3 - 35.7 g/dL [facility] RDW CV 14.4 11.1 - 14.9 % [facility] RDW SD 49.5(H) 35.7 - 48.1 fL [facility] NRBC abs 0.00 0.00 - 0.01 K/cumm [facility] Blood 05/18/2024 9:11 AM ENGINEERING COORDINATOR 05/18/2024 3:59 PM ENGINEERING COORDINATOR us Wander Matthews MD LAB [place]LOOD [place] [id number] [address] Department [place] [address] * Comprehensive metabolic panel (05/18/2024 9:11 AM ENGINEERING COORDINATOR) Sodium 137 135 - 145 mmol/L Potassium, [...] Units/L [facility] Blood 05/18/2024 9:11 AM ENGINEERING COORDINATOR 05/18/2024 3:59 PM ENGINEERING COORDINATOR Wander Matthews MD LAB BLOOD ORDERABLES Final Re sult Performing Organization Address [facility] Co de Phone Number MICHELINE LUO [address] [address] Department [place] [address] * eGFR (05/11/2024 9:05 AM ENGINEERING COORDINATOR) eGFR 85 >=60 mL/min/1. 73 m2 Comment: [...] last reviewed 2021. Blood 05/11/2024 9:05 AM ENGINEERING COORDINATOR 05/11/2024 4:33 PM ENGINEERING COORDINATOR Wander Matthews MD LAB BLOOD ORDERABLES Final Re sult MICHELINE [facility] [address] Department [place] [address] * (ABNORMAL) Differential, auto (05/11/2024 9:05 AM ENGINEERING COORDINATOR) Neutrophil abs 2.0 1.5 - 6.5 K/cumm Imm gran abs 0.0 0.0 - 0.1 K/cumm [facility] Lymphocyte abs 0.4(L) 0.8 - 3.3 K/cumm [facility] Monocyte abs 0.1(L) 0.2 - 0.8 K/cumm [facility] Eosinophil abs 0.1 0.0 - 0.5 K/cumm [facility] Basophil abs 0.0 0.0 - 0.1 K/cumm [facility] Neutrophil pct 77.2 % [facility] Comment: Consistent with previous result Interpretive Data Percent cell count reference ranges are not reported, since discordance with absolute values may lead to misinterpretation of CBC data. Current Interpretive Data was last revised on 2017. Imm gran pct 0.4 % [facility] Comment: Interpretive Data Percent cell count reference ranges are not reported, since discordance with absolute values may lead to misinterpretation of CBC data. Current Interpretive Data was last revised on 2017. Lymphocyte pct 16.0 % [facility] Comment: Interpretive Data Percent cell count reference ranges are not reported, since discordance with absolute values may lead to misinterpretation of CBC data. Current Interpretive Data was last revised on 2017. Monocyte pct 3.0 % [facility] Comment: Interpretive Data Percent cell count reference ranges are not reported, since discordance with absolute values may lead to misinterpretation of CBC data. Current Interpretive Data was last revised on 2017. Eosinophil pct 3.0 % [facility] Comment: Interpretive Data Percent cell count reference ranges are not reported, since discordance with absolute values may lead to misinterpretation of CBC data. Current Interpretive Data was last revised on 2017. Basophil pct 0.4 % [facility] Comment: Interpretive Data Percent cell count reference ranges are not reported, since discordance with absolute values may lead to misinterpretation of CBC data. Current Interpretive Data was last revised on 2017. Blood 05/11/2024 9:05 AM ENGINEERING COORDINATOR 05/11/2024 4:07 PM ENGINEERING COORDINATOR us Wander Matthews MD LAB BLOOD ORDERABLES Final Re sult MICHELINE [address] [address] Department [place] [address] * (ABNORMAL) CBC with auto differential (05/11/2024 9:05 AM ENGINEERING COORDINATOR) Pathologist [facility] WBC 2.6(L) 3.8 - 9.9 K/cumm Hgb 12.8(L) 13.0 - 17.5 g/dL [facility] Hct 39.7 38.9 - 50.3 % [facility] Plt 118(L) 150 - 400 K/cumm [facility] MPV 11.0 9.1 - 12.3 fL [facility] RBC 4.27(L) 4.30 - 5.80 M/cumm [facility] MCV 93.0 81.3 - 96.4 fL [facility] MCH 30.0 27.1 - 33.3 pg [facility] MCHC 32.2(L) 32.3 - 35.7 g/dL [facility] RDW CV 13.9 11.1 - 14.9 % [facility] RDW SD 47.3 35.7 - 48.1 fL [facility] NRBC abs 0.00 0.00 - 0.01 K/cumm [facility] Blood 05/11/2024 9:05 AM ENGINEERING COORDINATOR 05/11/2024 4:07 PM ENGINEERING COORDINATOR Wander Matthews MD LAB BLOOD ORDERABLES Final Re sult [facility] [address] [address] Department [place] [address] * Comprehensive metabolic panel (05/11/2024 9:05 AM ENGINEERING COORDINATOR) [facility] Sodium 138 135 - 145 mmol/L Potassium, pl 3.9 3.3 - 4.9 mmol/L [facility] Chloride 101 97 - 110 mmol/L [facility] CO2 26 22 - 32 mmol/L [facility] Anion gap 11 2 - 15 mmol/L [facility] BUN 24 6 - 25 mg/dL [facility] Creatinine 0.95 0.80 - 1.30 mg/dL [facility] Glucose 124 70 - 199 mg/dL [facility] Comment: Interpretive Data Fasting glucose >/= [...] Units/L [facility] Blood 05/11/2024 9:05 AM ENGINEERING COORDINATOR 05/11/2024 4:07 PM ENGINEERING COORDINATOR Wander Matthews MD LAB BLOOD ORDERABLES Final Re sult [facility] [address] [address] Department of Laboratories [place] [phone] * PSA screen (01/20/2024 12:52 PM CDT) [...] De La Rosa MD LAB BLOOD ORDERABLES [facility] Result Performing Organization Address City/State/ZIP [place] Phone Number MICHELINE [phone] [facility] Department [place] [address] from Last 3 Months or Most Recently Relevant to Health Maintenance Insurance MEDICARE [facility] MEDICARE [facility] Care Teams Quality Improvement Engineer Relationship Specialty Start Date End Date Vick Perkins MD PCP - General Internal Medicine 01/08/18 Wander Matthews MD Medical Oncologist/Dental Office Assistant Hematology and Oncology 10/25/22
--- OUTSIDE RECORDS SUMMARY | 2024-08-10 12:02 | XMS_ITS | Encounter Summary ---
Author Organization [facility] Address [address] [place] [address] Phone Care Team Providers Care Tool Drawing Checker Name Role Phone Vick Perkins MD Primary Care Provider [phone] Wander Matthews MD Unavailable [phone] Wander Matthews MD Unavailable [phone] Encounter Details Date Type Department Care Team (Latest Contact Info) Description 09/30/2018 Orders Only [facility] Scanning, Provider Social History Tobacco Use Types Packs/Day Years Used Date Smoking Tobacco: Never Assessed Sex and Gender Information Value Date Recorded Sex Assigned at Not on file 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 Gender Identity Not on file Sexual Orientation Not on file documented as of this encounter Plan of Treatment Not on file documented as of this encounter Procedures Procedure Name Priority Date/Time Associated Diagnosis Comments SCAN - LABS 09/30/2018 documented in this encounter Results * SCAN - LABS (09/30/2018) us Provider Scanning Final Result documented in this encounter Visit Diagnoses Not on filedocumented in this encounter Care Teams Tool Drawing Checker Relationship Specialty Start Date End Date Vick Perikns MD PCP - General Internal Medicine 01/08/18 Wander Matthews MD Medical Oncologist/Director [facility] Development [facility] Hematology and Oncology 06/18/18 10/24/22 Wander Matthews MD Medical Oncologist/Director Child Development Center Hematology and Oncology 10/25/22 documented as of this encounter
--- OUTSIDE RECORDS SUMMARY | 2024-08-10 12:02 | XMS_ITS | Encounter Summary ---
Author Organization [facility] [employer] [facility] Address [address] [place] [address] Phone Care Team Providers Care Astrochemist Name Role Phone Vick Perkins MD Primary Care Provider [phone] Wander Matthews MD Unavailable [phone] Wander Matthews MD Unavailable [phone] Encounter Details Date Type Department Care Team (Latest Contact Info) Description 09/22/2020 Orders Only [facility] Scanning, Provider Social History Tobacco Use Types Packs/Day Years Used Date Smoking Tobacco: Never Smokeless Tobacco: Never Alcohol Use Standard Drinks/Week Comments Not Currently 0 (1 standard drink = 0.6 oz pur e alcohol) AUDIT-C Answer Date Recorded Frequency of Alcohol Consumption Never 10/30/2018 Average Number of Drinks Not on file 019 Frequency of Binge Drinking Not on file 08/2018 Sex and Gender Information Value Date Recorded Sex Assigned at Not on file 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 Gender Identity Not on file Sexual Orientation Not on file documented as of this encounter Plan of Treatment Not on file documented as of this encounter Procedures Procedure Name Priority Date/Time Associated Diagnosis Comments SCAN - RADIOLOGY/IMAGING 09/22/2020 documented in this encounter Results * SCAN - RADIOLOGY/IMAGING (09/22/2020) Anatomical Region Laterality Modality Other us Provider Scanning Final Result documented in this encounter Visit Diagnoses Not on filedocumented in this encounter Care Teams Astrochemist Relationship Specialty Start Date End Date Vick Perkins MD PCP - General Internal Medicine 01/08/18 Wander Matthews MD Medical Oncologist/Refuse Driver Hematology and Oncology 06/18/18 10/24/22 Wander Matthews MD Medical Oncologist/Refuse Driver Hematology and Oncology 10/25/22 documented as of this encounter
--- OUTSIDE RECORDS SUMMARY | 2024-08-10 12:02 | XMS_ITS | Clinical Summary ---
Author Organization [facility] Address [address] [place] [address] Care Team Providers Care Signal Mechanic Name Role Phone Vick Perkins MD Primary Care Provider [phone] Allergies No known active allergies Medications Ascorbic Acid (VITAMIN C) 100 MG tablet Take 1 tablet (100 mg total) by mouth daily. 03/31/2023 Active aspirin EC (ECOTRIN) 81 MG tablet Take 1 tablet (81 mg total) by mouth daily. 07/01/2003 Active B Complex-Biotin- FA (B COMPLETE) Tab 07/01/2021 Active bimatoprost (LUMIGAN) 0.01 % Solution Place 1 drop into both eyes nightly at bedtime. 03/20/2021 Active Misc Natural Products (OSTEO BI-FLEX ADV TRIPLE ST) Tab Take 1 tablet by mouth daily. Active Multiple Vitamin (MULTI-VITAMIN DAILY OR) Take 1 tablet by mouth daily. 07/01/2013 Active omeprazole (PRILOSEC) 20 MG capsule Take 1 capsule (20 mg total) by mouth daily. Active Turmeric (CURCUMIN 95) 500 MG Cap 07/01/2013 Active Beta Glucan 250 MG Cap Active pembrolizumab (KEYTRUDA) 100 MG/4ML injection Inject 8 mLs (200 mg total) into the vein once. Active bortezomib (VELCADE) 3.5 MG chemo injection Inject 1.3 mg/m2 into the vein once. Active levothyroxine (SYNTHROID) 25 MCG tablet Take 1 tablet (25 mcg total) by mouth every morning. Active ondansetron (ZOFRAN) 8 MG tablet Take 1 tablet (8 mg total) by mouth every 8 (eight) hours as needed for Nausea. Active dexamethasone (DECADRON) 0.5 MG tablet Take 1 tablet (0.5 mg total) by mouth 2 (two) times daily with meals. Active acyclovir (ZOVIRAX) 400 MG tablet Take 1 tablet (400 mg total) by mouth every 4 (four) hours while awake. Active Encounters Date Type Department Care Team Description 07/27/2024 9:23 AM CABLE RIGGER Anesthesia Event [facility] [address] [place] [id number] Brandon Beal CRNA Hitt, Tracy A, CRNA 07/27/2024 9:12 AM CABLE RIGGER - 07/27/2024 9:53 AM CABLE RIGGER Surgery [facility] [address] [place] [id number] Kwasi Cervantes MD CATARACT REMOVAL WITH IOL IMPLANT 07/27/2024 7:51 AM CABLE RIGGER - 07/27/2024 10:03 AM CABLE RIGGER Hospital Encounter [facility] [address] [place] [id number] Kwasi Cervantes MD Discharge Disposition: Home or Self Care (Routine Discharge) 07/27/2024 Travel from Last 3 Months Social History Tobacco Use Types Packs/Day Years Used Date Smoking Tobacco: Never Smokeless Tobacco: Never Tobacco Cessation:Counseling Given: Not Answered Alcohol Use Standard Drinks/Week Comments Never 0 (1 standard drink = 0.6 oz pur e alcohol) Sex and Gender Information Value Date Recorded Sex Assigned at Not on file Legal Sex Male 3:07 PM CABLE RIGGER Gender Identity Not on file Sexual Orientation Not on file Last Filed Vital Signs Vital Sign Reading Time Taken Comments Blood Pressure 140/89 07/27/2024 9:53 AM CABLE RIGGER Pulse 89 07/27/2024 9:53 AM CABLE RIGGER Temperature 36.5 C (97.7 F) 07/27/2024 8:10 AM CABLE RIGGER Respiratory Rate 14 07/27/2024 9:53 AM CABLE RIGGER Oxygen Saturation 97% 07/27/2024 9:53 AM CABLE RIGGER Inhaled Oxygen Concentration - - Weight 108.9 kg (240 lb) 07/22/2024 12:13 PM CABLE RIGGER Height 180.3 cm (5' 11 ) 07/22/2024 12:13 PM CABLE RIGGER Body Mass Index 33.47 07/22/2024 12:13 PM CABLE RIGGER Plan of Treatment Health Maintenance Due Date Last Done Comments Colorectal Cancer Screening Colonoscopy (10 Years) 1950 Hepatitis C 1970 Zoster Vaccines (1 of 2) 2002 Annual Medicare Wellness Visit 2017 COVID-19 Vaccine (3 - 2023-2 5 season) 2024 09/10/2020, 08/12/2020 Influenza Adult (#1) 2024 04/14/2021, 04/28/2020, 05/12/2019 DTaP, Tdap and Td Vaccines ( 2 - Td or Tdap) 03/09/2033 03/09/2023 Pneumococcal Vaccine: 65+ Years Completed 02/11/2023 RSV Immunization or 60+ Years Completed 07/16/2023 Meningococcal B Vaccine Aged Out No l onger eligible based on patient's age to complete this topic Meningococcal Vaccine Aged Out No trudy todd eligible based on patient's age to complete this topic RSV Immunizations Under 20 Months Aged Out No longer eligible b ased on patient's age to complete this topic Medical Devices Implanted Type Area Coil Winding Supervisor Device Identifier Shelf Expiration Date Model / Serial / Lot Rupert Manuel Toric Ii Optiblue Implanted:Qty: 1 on 07/27/2024 by Kwasi Cervantes MD at [facility] Lens Left: Eye [employer] 12/09/2025 / [id number] / Procedures Procedure Name Priority Date/Time Associated Diagnosis Comments REMV CATARACT EXTRACAP,INSERT LENS 07/27/2024 9:21 AM CABLE RIGGER H25.12 from Last 3 Months Insurance MEDICARE [facility] Care Teams Signal Mechanic Relationship Specialty Start Date End Date Vick Perkins MD [address] [place] [address] PCP - General INTERNAL MEDICINE 09/21/20
[2024-08-10 12:18] LABS: SARS-CoV-2 RNA PCR Negative (Negative)
[2024-08-10 12:21] LABS: Influenza A QL RT-PCR Positive (Negative); Influenza B QL RT-PCR Negative (Negative); RSV RNA, RT-PCR Negative (Negative)
[2024-08-10 12:24] LABS: Band Neutrophils Percent 2 % (0-6); Basophils Percent Manual 0 % (0-1); Eosinophils Percent Manual 0 % (1-6); Lymphocytes Absolute Manual 0.03 K/mm3 (1.1-4.5); Lymphocytes Percent Manual 1 % (18-44); Monocytes Absolute Manual 0.03 K/mm3 (0.1-0.90); Monocytes Percent Manual 1 % (3-9); Neutrophils Absolute Manual 3.72 K/mm3 (1.3-6.7); Neutrophils Percent Manual 96 % (46-73); Platelet Estimate Decreased (Adequate); Total Cells Counted 100
[2024-08-10 12:44] LABS: Alanine Aminotransferase 40 U/L (16-63); Albumin Level 2.7 g/dL (3.4-5.0); Alkaline Phosphatase 78 U/L (46-116); Amylase 24 U/L (25-115); Anion Gap 13 mmol/L (4-12); Aspartate Amino Transferase 48 U/L (15-37); Bilirubin,Total 0.9 mg/dL (0.00-1.00); Blood Urea Nitrogen 30 mg/dL (7-18); Carbon Dioxide 25 mmol/L (21-32); Chloride 99 mmol/L (98-108); Estimated Glomerular Filt Rate 56; Glucose 153 mg/dL (70-99); Lipase 30 U/L (16-77); NT Pro B Type Natriuretic Pept 240 pg/mL (0-125); Osmolality Calculated 293 mOsm/kg (285-295); Potassium 4.4 mmol/L (3.5-5.1); Sodium 137 mmol/L (136-145); Total Protein 6.9 g/dL (6.4-8.2)
== END 2024-08-10 11:04 | disposition home or self-care (01) ==
LOC: CHSLAB 11:06
PROVIDERS: PCP Internal Medicine; Visit Provider Internal Medicine
DX: J18.9 Pneumonia, unspecified organism (principal); R06.00 Dyspnea, unspecified; R11.2 Nausea with vomiting, unspecified
CPT/HCPCS: 36415; 71046; 80053; 81001; 82150; 83690; 83880; 85025; 85055; 86140; 87637

== ENCOUNTER 2024-08-19 07:09 | Outpatient (CLI) | payer MEDICARE, SELFPAY ==
--- OUTSIDE RECORDS SUMMARY | 2024-08-19 07:13 | XMS_ITS | Referral Summary ---
Author Organization [facility] Address [address] [facility] [place] [address] Phone Care Team Providers Care Imaging Technician Name Role Phone Vick Perkins MD Primary Care Provider [phone] Wander Matthews MD Unavailable [phone] Encounters Date Type Department Care Team Description 08/12/[address] [facility] [address] [place] [address] Office Bld[address] [place] [address] Jessica Jimenez RN 08/10/[address] [facility] [address] [place] [address] Office [facility] [address] [place] [address] Odessa Garland CLT 08/07/2024 8:00 AM ANALYSIS TESTER Lab [address] [place] [address] Multiple myeloma not having achieved remission (CMS/HCC) (HCC) 08/07/2024 8:30 AM ANALYSIS TESTER Infusion [address] [place] [address] Multiple myeloma not having achieved remission (CMS/HCC) (HCC) (Primary Dx); Malignant melanoma of right upper extremity including shoulder (HCC); Chemotherapy induced nausea and vomiting 08/07/2024 8:15 AM ANALYSIS TESTER Office Visit [facility] [address] [place] [address] Office Bld[address] [place] [address] Wander Matthews MD Malignant melanoma of right upper extremity including shoulder (HCC) (Primary Dx); Multiple myeloma not having achieved remission (CMS/HCC) (HCC); Chemotherapy induced nausea and vomiting; Acute upper respiratory infection 08/06/[address] [facility] [address] [place] [address] [address] [place] [address] Lucrecia Haskins CLT 08/03/2024 4:18 PM ANALYSIS TESTER - 08/03/2024 11:59 PM ANALYSIS TESTER Hospital Encounter [address] [address] Multiple myeloma not having achieved remission (CMS/HCC) (HCC) Discharge Disposition: Discharge to home or self care 08/03/2024 8:15 AM ANALYSIS TESTER Lab [facility] Outpatient Lab at [address] [id number] Multiple myeloma not having achieved remission (CMS/HCC) (HCC) (Primary Dx); Malignant melanoma (HCC) 07/31/[address] [facility] [address] [place] [address] [address] [place] [address] Wander Matthews MD 07/31/2024 12:30 [address] Lab [facility]fusion [address] [place] [phone] Multiple myeloma not having achieved remission (CMS/HCC) (HCC) 07/31/2024 1:[address] [facility] [address] [place] [address] Multiple myeloma not having achieved remission (CMS/HCC) (HCC) (Primary Dx) 07/27/2024 1:03 PM ANALYSIS TESTER - 07/27/2024 11:59 PM ANALYSIS TESTER Hospital Encounter [address] [address] Hypothyroidism, unspecified type; Malignant melanoma of right upper extremity including shoulder (HCC) Discharge Disposition: Discharge to home or self care 07/27/2024 1:00 PM ANALYSIS TESTER Lab [facility] Outpatient Lab at [address] [address] Chemotherapy induced nausea and vomiting (Primary Dx) 07/17/2024 8:30 [address]YSIS [address] [facility] Infusion [address] [address] [facility] [address] [place] [address] Multiple myeloma not having achieved remission (CMS/HCC) (HCC) (Primary Dx); Malignant melanoma of right upper extremity including shoulder (HCC); Chemotherapy induced nausea and vomiting 07/17/2024 8:15 AM ANALYSIS TESTER Office Visit [facility] [address] [place] [address] Medical Office [facility] [address] [place] [address] Wander Matthews MD Multiple myeloma not having achieved remission (CMS/HCC) (HCC) (Primary Dx); Malignant melanoma of right upper extremity including shoulder (HCC); Chemotherapy induced nausea and vomiting; Hypothyroidism, unspecified type 07/15/[address] [facility] [address] [place] [address] Office [facility] B [facility] [address] [place] [address] Alix Miller RN 07/15/[address] [facility] [address] [place] [address] Office [facility] [address] [place] [address] Wander Matthews MD 07/13/2024 4:18 PM ANALYSIS TESTER - 07/13/2024 11:59 PM ANALYSIS TESTER [address] [address] Malignant melanoma of right upper extremity including shoulder (HCC); Chemotherapy induced nausea and vomiting Discharge Disposition: Discharge to home or self care 07/13/2024 10:00 AM ANALYSIS TESTER Lab [facility] Outpatient Lab at [address] [address] Monoclonal gammopathy of unknown significance (MGUS) (Primary Dx); Multiple myeloma not having achieved remission (CMS/HCC) (HCC) 07/10/2024 11:[address]YSIS [address] [facility]fusion [place] [address] [place] [address] Multiple myeloma not having achieved remission (CMS/HCC) (HCC) (Primary Dx) 07/07/2024 9:05 AM ANALYSIS TESTER - 07/07/2024 11:59 PM ANALYSIS TESTER Hospital Encounter [address] [address] Malignant melanoma of right upper extremity including shoulder (HCC); Multiple myeloma not having achieved remission (CMS/HCC) (HCC); Hypothyroidism due to medication Discharge Disposition: Discharge to home or self care 07/07/2024 9:00 AM ANALYSIS TESTER Lab [facility] Out[facility] Lab at [address] [address] 07/03/2024 9:00 AM ANALYSIS TESTER Infusion [address] [address] Multiple myeloma not having achieved remission (CMS/HCC) (HCC) (Primary Dx) 06/29/2024 4:18 PM ANALYSIS TESTER - 06/29/2024 11:59 PM ANALYSIS TESTER Hospital Encounter [address] [address] Malignant melanoma of right upper extremity including shoulder (HCC) Discharge Disposition: Discharge to home or self care 06/29/2024 9:00 AM ANALYSIS TESTER Lab [facility] Out[facility] Lab at [address] [address] Malignant melanoma (HCC) (Primary Dx); Multiple myeloma not having achieved remission (CMS/HCC) (HCC) 06/26/2024 9:00 AM ANALYSIS TESTER Infusion [address] [address] Chemotherapy induced nausea and vomiting (Primary Dx); Malignant melanoma of right upper extremity including shoulder (HCC) 06/26/2024 8:45 AM ANALYSIS TESTER Office Visit [facility] [address] [place] [address] Medical Office Bldg [address] [place] [address] Wander Matthews MD Malignant melanoma of right upper extremity including shoulder (HCC) (Primary Dx); Chemotherapy induced nausea and vomiting; Multiple myeloma not having achieved remission (CMS/HCC) (HCC); Hypothyroidism due to medication 06/22/2024 11:05 AM ANALYSIS TESTER - 06/22/2024 11:59 PM ANALYSIS TESTER Hospital Encounter [address] [address] Multiple myeloma not having achieved remission (CMS/HCC) (HCC); Malignant melanoma of right upper extremity including shoulder (HCC) Discharge Disposition: Discharge to home or self care 06/22/2024 9:15 AM ANALYSIS TESTER Lab [facility] Out[facility] Lab at [address] [address] Multiple myeloma not having achieved remission (CMS/HCC) (HCC) (Primary Dx); Monoclonal gammopathy of unknown significance (MGUS); Malignant melanoma (HCC); Chemotherapy induced nausea and vomiting 06/17/2024 11:30 AM ANALYSIS TESTER Infusion [address] [address] Multiple myeloma not having achieved remission (CMS/HCC) (HCC) (Primary Dx) 06/16/2024 1:53 PM ANALYSIS TESTER - 06/16/2024 11:59 PM ANALYSIS TESTER Hospital Encounter [address] [address] Malignant melanoma of right upper extremity including shoulder (HCC); Chemotherapy induced nausea and vomiting Discharge Disposition: Discharge to home or self care 06/16/2024 8:45 AM ANALYSIS TESTER Lab [facility] Out[facility] Lab at [address] [address] Malignant melanoma (HCC) (Primary Dx); Multiple myeloma not having achieved remission (CMS/HCC) (HCC) 06/10/2024 10:00 AM ANALYSIS TESTER Infusion [address] [place] [address] Multiple myeloma not having achieved remission (CMS/HCC) (HCC) (Primary Dx) 06/09/[address] [facility] [address] [place] [address] Medical Office [facility] [address] [place] [address] Shereen Beal, ALLAN 06/09/[address] [facility] [address] [place] [address] Medical Office Bldg [address] [place] [address] Odessa Garland CLT 06/08/2024 3:46 PM ANALYSIS TESTER - 06/08/2024 11:59 PM ANALYSIS TESTER Hospital Encounter [facility] [phone] [place] [phone] Multiple myeloma not having achieved remission (CMS/HCC) (HCC) Discharge Disposition: Discharge to home or self care 06/08/2024 8:15 AM ANALYSIS TESTER Lab [facility] Out[facility] Lab at [address] [address] Multiple myeloma not having achieved remission (CMS/HCC) (HCC) (Primary Dx); Malignant melanoma (HCC) 06/03/2024 9:30 AM ANALYSIS TESTER Infusion [facility] [address] [facility] [address] [place] [address] Chemotherapy induced nausea and vomiting (Primary Dx); Malignant melanoma of right upper extremity including shoulder (HCC); Multiple myeloma not having achieved remission (CMS/HCC) (HCC) 06/03/2024 9:00 AM ANALYSIS TESTER Office Visit [facility] [address] [place] [address] Medical Office [address] [place] [address] Wander Matthews MD Multiple myeloma not having achieved remission (CMS/HCC) (HCC) (Primary Dx); Malignant melanoma of right upper extremity including shoulder (HCC); Chemotherapy induced nausea and vomiting 06/02/[address] [facility] [address] [place] [address] Medical Office Bldg [address] [place] [address] Lucrecia Haskins, CLT 06/01/2024 2:15 PM ANALYSIS TESTER - 06/01/2024 11:59 PM ANALYSIS TESTER Hospital Encounter [facility] [phone] [place] [address] Malignant melanoma of right upper extremity including shoulder (HCC) Discharge Disposition: Discharge to home or self care 06/01/2024 2:15 PM ANALYSIS TESTER Lab [facility] Outpatient Lab at [address] [address] Malignant melanoma (HCC) (Primary Dx); Multiple myeloma not having achieved remission (CMS/HCC) (HCC) 05/20/2024 1:00 PM ANALYSIS TESTER Infusion [facility] [address] [facility] [address] [place] [address] Multiple myeloma not having achieved remission (CMS/HCC) (HCC) (Primary Dx) from Last 3 Months Allergies No known active allergies Medications aspirin 81 mg tablet Take 1 tablet (81 mg total) by mouth daily Active magnesium gluconate 200 mg tabletIndicati ons:hypomagnes emia 1 tablet (200 mg total) Active multivitamin-C v-vwak-dyhmzsp s 18-0.4 mg tablet Take by mouth. Activ e glucosam-faraz- ipx6-U-kekw-maria guadalupe sw 750 mg-644 mg- 30 mg-1 mg tablet Take by mouth. Activ e omeprazole (PriLOSEC) 20 mg capsule Take 1 capsule (20 mg total) by mouth daily Active B complex 10-ljbbg-E-bio t-zinc [id number] qr-wn-rpd-mg tablet Take by mouth. Activ e Lumigan [...] ons:Multiple myeloma not having achieved remission (CMS/HCC) ([facility]) TAKE 1 TABLET (400 MG TOTAL) BY MOUTH 3 (THREE) TIMES A DAY FOR SHINGLES PREVENTION. 90 tablet 3 07/06/19 25 Active levothyroxine (SYNTHROID) 25 mcg tabletIndicati ons:Hypothyroi dism, unspecified type Take 1 tablet (25 mcg total) by mouth product coordinator before breakfast 30 tablet 2 07/17/19 25 [...] of unknown significance (M [facility]) 11/15/2017 Immunizations Immunization Administration Dates Next Due Influenza, Quad, Adjuvantate [...] on file Legal Sex Male 1:08 PM ANALYSIS TESTER Gender Identity Not on file Sexual Orientation Not on file Last Filed Vital Signs Vital Sign Reading Time Taken Comments Blood Pressure 110/72 08/07/2024 8:28 AM ANALYSIS TESTER Pulse 118 08/07/2024 8:28 AM ANALYSIS TESTER Temperature 36.8 C (98.2 F) 08/07/2024 8:28 AM ANALYSIS TESTER Respiratory Rate 18 08/07/2024 8:28 AM ANALYSIS TESTER Oxygen Saturation 95% 08/07/2024 8:28 AM ANALYSIS TESTER Inhaled Oxygen Concentration - - Weight 105 kg (231 lb 6.4 oz) 08/07/2024 8:28 AM ANALYSIS TESTER Height 177.8 cm (5' 10 ) 07/17/2024 8:09 AM ANALYSIS TESTER Body Mass Index 33.2 07/17/2024 8:09 AM ANALYSIS TESTER Plan of Treatment Not on file Procedures Procedure Name Priority Date/Time Associated Diagnosis Comments EGFR STAT 08/03/2024 10:57 PM ANALYSIS TESTER Multiple myeloma not having achieved remission (CMS/HCC) (HCC) DIFFERENTIAL AUTO STAT 08/03/2024 10: 57 PM ANALYSIS TESTER Multiple myeloma not having achieved remission (CMS/HCC) (HCC) CBC WITH AUTO DIFFERENTIAL STAT 08/03/2024 10:57 PM ANALYSIS TESTER Multiple myeloma not having achieved remission (CMS/HCC) (HCC) COMPREHENSIVE METABOLIC PANEL STAT 08/03/2024 10:57 PM ANALYSIS TESTER Multiple myeloma not having achieved remission (CMS/HCC) (HCC) EGFR Routine 07/27/2024 1:03 PM ANALYSIS TESTER Malignant melanoma of right upper extremity including shoulder (HCC) DIFFERENTIAL AUTO Routine 07/27/2024 1:0 3 PM ANALYSIS TESTER Malignant melanoma of right upper extremity including shoulder (HCC) IGG Routine 07/27/2024 1:03 PM ANALYSIS TESTER Malignant melanoma of right upper extremity including shoulder (HCC) IMMUNOGLOBULIN FREE LIGHT CHAINS Routine 07/27/2024 1:03 PM ANALYSIS TESTER Malignant melanoma of right upper extremity including shoulder (HCC) CBC WITH AUTO DIFFERENTIAL Routine 07/27/2024 1:03 PM ANALYSIS TESTER Malignant melanoma of right upper extremity including shoulder (HCC) COMPREHENSIVE METABOLIC PANEL Routine 07/27/2024 1:03 PM ANALYSIS TESTER Malignant melanoma of right upper extremity including shoulder (HCC) TSH Routine 07/27/2024 1:03 PM ANALYSIS TESTER Hypothyroidism, unspecified type EGFR STAT 07/13/2024 10:05 AM ANALYSIS TESTER Malignant melanoma of right upper extremity including shoulder (HCC) Chemotherapy induced nausea and vomiting DIFFERENTIAL AUTO STAT 07/13/2024 10: 05 AM ANALYSIS TESTER Malignant melanoma of right upper extremity including shoulder (HCC) Chemotherapy induced nausea and vomiting CBC WITH AUTO DIFFERENTIAL STAT 07/13/2024 10:05 AM ANALYSIS TESTER Malignant melanoma of right upper extremity including shoulder (HCC) Chemotherapy induced nausea and vomiting COMPREHENSIVE METABOLIC PANEL STAT 07/13/2024 10:05 AM ANALYSIS TESTER Malignant melanoma of right upper extremity including shoulder (HCC) Chemotherapy induced nausea and vomiting TSH Routine 07/13/2024 10:05 AM ANALYSIS TESTER Malignant melanoma of right upper extremity including shoulder (HCC) Chemotherapy induced nausea and vomiting EGFR Routine 07/07/2024 9:05 AM ANALYSIS TESTER Malignant melanoma of right upper extremity including shoulder (HCC) Multiple myeloma not having achieved remission (CMS/HCC) (HCC) DIFFERENTIAL AUTO Routine 07/07/2024 9:0 5 AM ANALYSIS TESTER Malignant melanoma of right upper extremity including shoulder (HCC) Multiple myeloma not having achieved remission (CMS/HCC) (HCC) CBC WITH AUTO DIFFERENTIAL Routine 07/07/2024 9:05 AM ANALYSIS TESTER Malignant melanoma of right upper extremity including shoulder (HCC) Multiple myeloma not having achieved remission (CMS/HCC) (HCC) TSH Routine 07/07/2024 9:05 AM ANALYSIS TESTER Malignant melanoma of right upper extremity including shoulder (HCC) Multiple myeloma not having achieved remission (CMS/HCC) (HCC) Hypothyroidism due to medication IMMUNOGLOBULIN FREE LIGHT CHAINS Routine 07/07/2024 9:05 AM ANALYSIS TESTER Malignant melanoma of right upper extremity including shoulder (HCC) Multiple myeloma not having achieved remission (CMS/HCC) (HCC) IGG Routine 07/07/2024 9:05 AM ANALYSIS TESTER Malignant melanoma of right upper extremity including shoulder (HCC) Multiple myeloma not having achieved remission (CMS/HCC) (HCC) COMPREHENSIVE METABOLIC PANEL Routine 07/07/2024 9:05 AM ANALYSIS TESTER Malignant melanoma of right upper extremity including shoulder (HCC) Multiple myeloma not having achieved remission (CMS/HCC) (HCC) EGFR Routine 06/29/2024 8:57 AM ANALYSIS TESTER Malignant melanoma of right upper extremity including shoulder (HCC) DIFFERENTIAL AUTO Routine 06/29/2024 8:5 7 AM ANALYSIS TESTER Malignant melanoma of right upper extremity including shoulder (HCC) COMPREHENSIVE METABOLIC PANEL Routine 06/29/2024 8:57 AM ANALYSIS TESTER Malignant melanoma of right upper extremity including shoulder (HCC) CBC WITH AUTO DIFFERENTIAL Routine 06/29/2024 8:57 AM ANALYSIS TESTER Malignant melanoma of right upper extremity including shoulder (HCC) IMMUNOGLOBULIN FREE LIGHT CHAINS Routine 06/22/2024 9:14 AM ANALYSIS TESTER Malignant melanoma of right upper extremity including shoulder (HCC) EGFR STAT 06/22/2024 9:14 AM ANALYSIS TESTER Multiple myeloma not having achieved remission (CMS/HCC) (HCC) DIFFERENTIAL AUTO STAT 06/22/2024 9:1 4 AM ANALYSIS TESTER Multiple myeloma not having achieved remission (CMS/HCC) (HCC) COMPREHENSIVE METABOLIC PANEL STAT 06/22/2024 9:14 AM ANALYSIS TESTER Multiple myeloma not having achieved remission (CMS/HCC) (HCC) CBC WITH AUTO DIFFERENTIAL STAT 06/22/2024 9:14 AM ANALYSIS TESTER Multiple myeloma not having achieved remission (CMS/HCC) (HCC) EGFR STAT 06/16/2024 8:00 AM ANALYSIS TESTER Malignant melanoma of right upper extremity including shoulder (HCC) Chemotherapy induced nausea and vomiting DIFFERENTIAL AUTO STAT 06/16/2024 8:0 0 AM ANALYSIS TESTER Malignant melanoma of right upper extremity including shoulder (HCC) Chemotherapy induced nausea and vomiting CBC WITH AUTO DIFFERENTIAL STAT 06/16/2024 8:00 AM ANALYSIS TESTER Malignant melanoma of right upper extremity including shoulder (HCC) Chemotherapy induced nausea and vomiting COMPREHENSIVE METABOLIC PANEL STAT 06/16/2024 8:00 AM ANALYSIS TESTER Malignant melanoma of right upper extremity including shoulder (HCC) Chemotherapy induced nausea and vomiting EGFR Routine 06/08/2024 9:00 AM ANALYSIS TESTER Multiple myeloma not having achieved remission (CMS/HCC) (HCC) DIFFERENTIAL AUTO Routine 06/08/2024 9:0 0 AM ANALYSIS TESTER Multiple myeloma not having achieved remission (CMS/HCC) (HCC) CBC WITH AUTO DIFFERENTIAL Routine 06/08/2024 9:00 AM ANALYSIS TESTER Multiple myeloma not having achieved remission (CMS/HCC) (HCC) COMPREHENSIVE METABOLIC PANEL Routine 06/08/2024 9:00 AM ANALYSIS TESTER Multiple myeloma not having achieved remission (CMS/HCC) (HCC) EGFR Routine 06/01/2024 2:15 PM ANALYSIS TESTER Malignant melanoma of right upper extremity including shoulder (HCC) DIFFERENTIAL AUTO Routine 06/01/2024 2:1 5 PM ANALYSIS TESTER Malignant melanoma of right upper extremity including shoulder (HCC) IMMUNOGLOBULIN FREE LIGHT CHAINS Routine 06/01/2024 2:15 PM ANALYSIS TESTER Malignant melanoma of right upper extremity including shoulder (HCC) IGG Routine 06/01/2024 2:15 PM ANALYSIS TESTER Malignant melanoma of right upper extremity including shoulder (HCC) COMPREHENSIVE METABOLIC PANEL Routine 06/01/2024 2:15 PM ANALYSIS TESTER Malignant melanoma of right upper extremity including shoulder (HCC) CBC WITH AUTO DIFFERENTIAL Routine 06/01/2024 2:15 PM ANALYSIS TESTER Malignant melanoma of right upper extremity including shoulder (HCC) PSA SCREEN Routine 01/20/2024 12:52 PM CDT Malignant neoplasm of prostate (HCC) from Last 3 Months or Most Recently Relevant to Health Maintenance Results * eGFR (08/03/2024 10:57 PM ANALYSIS TESTER) eGFR 82 >=60 mL/min/1. 73 m2 Comment: [...] reviewed 2021. Blood 08/03/2024 10:5 7 PM ANALYSIS TESTER 08/04/2024 12:03 AM ANALYSIS TESTER Wander Matthews MD LAB BLOOD ORDERABLES Final Re sult [facility] [id number] [address] Department of Laboratories [place], [place] [id number] * (ABNORMAL) Differential, auto (08/03/2024 10:57 PM ANALYSIS TESTER) Neutrophil abs 1.8 1.5 - 6.5 K/cumm Imm gran abs 0.0 0.0 - 0.1 K/cumm [facility] Lymphocyte abs 0.4(L) 0.8 - 3.3 K/cumm [facility] Monocyte abs 0.1(L) 0.2 - 0.8 K/cumm [facility] Eosinophil abs 0.0 0.0 - 0.5 K/cumm [facility] Basophil abs 0.0 0.0 - 0.1 K/cumm [facility] Neutrophil pct 78.2 % [facility] Comment: Consistent with previous result Interpretive Data Percent cell count reference ranges are not reported, since discordance with absolute values may lead to misinterpretation of CBC data. Current Interpretive Data was last revised on 2017. Imm gran pct 0.9 % [facility] Comment: Interpretive Data Percent cell count reference ranges are not reported, since discordance with absolute values may lead to misinterpretation of CBC data. Current Interpretive Data was last revised on 2017. Lymphocyte pct 17.0 % [facility] Comment: Interpretive Data Percent cell count reference ranges are not reported, since discordance with absolute values may lead to misinterpretation of CBC data. Current Interpretive Data was last revised on 2017. Monocyte pct 2.6 % [facility] Comment: Interpretive Data Percent cell [...] on 2017. Blood 08/03/2024 10:5 7 PM ANALYSIS TESTER 08/03/2024 11:21 PM ANALYSIS TESTER Wander Matthews MD LAB BLOOD ORDERABLES Final Re sult [facility] [id number] [address] Department [place] [address] * (ABNORMAL) CBC with auto differential (08/03/2024 10:57 PM ANALYSIS TESTER) WBC 2.3(L) 3.8 - 9.9 K/cumm Hgb 11.6(L) 13.0 - 17.5 g/dL [facility] Hct 36.9(L) 38.9 - 50.3 % [facility] Plt 189 150 - 400 K/cumm [facility] MPV 9.6 9.1 - 12.3 fL [facility] RBC 3.85(L) 4.30 - 5.80 M/cumm [facility] MCV 95.8 81.3 - 96.4 fL [facility] MCH 30.1 27.1 - 33.3 pg [facility] MCHC 31.4(L) 32.3 - 35.7 g/dL [facility] RDW CV 15.3(H) 11.1 - 14.9 % [facility] RDW SD 54.1(H) 35.7 - 48.1 fL [facility] NRBC abs 0.00 0.00 - 0.01 K/cumm [facility] Blood 08/03/2024 10:5 7 PM ANALYSIS TESTER 08/03/2024 11:21 PM ANALYSIS TESTER us Wander Matthews MD LAB BLOOD ORDER[place] [id number] [address] Department [place] [address] * (ABNORMAL) Comprehensive metabolic panel (08/03/2024 10:57 PM ANALYSIS TESTER) Sodium 139 135 - 145 mmol/L Potassium, [...] [facility] Blood 08/03/2024 10:5 7 PM ANALYSIS TESTER 08/03/2024 11:21 PM ANALYSIS TESTER Wander Matthews MD LAB BLOOD ORDERABLES Final Re sult [facility] [id number] [place] [address] * eGFR (07/27/2024 1:03 PM ANALYSIS TESTER) eGFR >90 >=60 mL/min/1. 73 m2 Comment: [...] last reviewed 2021. Blood 07/27/2024 1:03 PM ANALYSIS TESTER 07/27/2024 7:27 PM ANALYSIS TESTER Wander Matthews MD LAB BLOOD ORDERABLES Final Re sult Performing Organization Address City/[facility]/ZIP Co de Phone Number [facility] [id number] [address] Department [employer] [place], [place] [phone] * (ABNORMAL) Differential, auto (07/27/2024 1:03 PM ANALYSIS TESTER) Neutrophil abs 2.4 1.5 - 6.5 K/cumm Imm gran abs 0.0 0.0 - 0.1 K/cumm [facility] Lymphocyte abs 0.2(L) 0.8 - 3.3 K/cumm [facility] Monocyte abs 0.1(L) 0.2 - 0.8 K/cumm [facility] Eosinophil abs 0.1 0.0 - 0.5 K/cumm [facility] Basophil abs 0.0 0.0 - 0.1 K/cumm [facility] Neutrophil pct 85.7 % [facility] Comment: Consistent with previous result Interpretive Data Percent cell count reference ranges are not reported, since discordance with absolute values may lead to misinterpretation of CBC data. Current Interpretive Data was last revised on 2017. Imm gran pct 0.4 % [facility] Comment: Interpretive Data Percent cell count reference ranges are not reported, since discordance with absolute values may lead to misinterpretation of CBC data. Current Interpretive Data was last revised on 2017. Lymphocyte pct 8.5 % [facility] Comment: Interpretive Data Percent cell count reference ranges are not reported, since discordance with absolute values may lead to misinterpretation of CBC data. Current Interpretive Data was last revised on 2017. Monocyte pct 1.8 % [facility] Comment: Interpretive Data Percent cell count reference ranges are not reported, since discordance with absolute values may lead to misinterpretation of CBC data. Current Interpretive Data was last revised on 2017. Eosinophil pct 3.2 % [facility] Comment: Interpretive Data Percent cell [...] revised on 2017. Blood 07/27/2024 1:03 PM ANALYSIS TESTER 07/27/2024 7:25 PM ANALYSIS TESTER Wander Matthews MD LAB BLOOD ORDERABLES Final Re sult Performing Organization Address [facility] Co de Phone Number MICHELINE LUO [address] [address] Department of Laboratories [place], [place] [phone] * (ABNORMAL) Immunoglobulin free light chains (07/27/2024 1:03 PM ANALYSIS TESTER) [facility] Ca[place]/Lambda ratio 43.30(H) 0.26 - 1.65 [place] free light chain 11.26(H) 0.33 - 1.94 mg/dL [facility] Comment: Interpretive Data The [employer]ayne Ig Carencro FLC assay procedure was used. Results from different manufacturers or methods may not be comparable. Serial testing should be performed using the same method. Lambda free light chain 0.26(L) 0.57 - 2.63 mg/dL [facility] Comment: Interpretive Data The Blayne Ig Lambda FLC assay procedure was used. Results from different manufacturers or methods may not be comparable. Serial testing should be performed using the same method. Blood 07/27/2024 1:03 PM ANALYSIS TESTER 07/27/2024 7:25 PM ANALYSIS TESTER Wander Matthews MD LAB BLOOD ORDERABLES Final Re sult Performing Organization Address [facility] de Phone Number MICHELINE LUO [address] [place] [address] * (ABNORMAL) CBC with auto differential (07/27/2024 1:03 PM ANALYSIS TESTER) [facility] WBC 2.8(L) 3.8 - 9.9 K/cumm Hgb 10.9(L) 13.0 - 17.5 g/dL [facility] Hct 34.7(L) 38.9 - 50.3 % [facility] Plt 154 150 - 400 K/cumm [facility] MPV 10.0 9.1 - 12.3 fL [facility] RBC 3.70(L) 4.30 - 5.80 M/cumm [facility] MCV 93.8 81.3 - 96.4 fL [facility] MCH 29.5 27.1 - 33.3 pg [facility] MCHC 31.4(L) 32.3 - 35.7 g/dL [facility] RDW CV 15.2(H) 11.1 - 14.9 % [facility] RDW SD 52.3(H) 35.7 - 48.1 fL [facility] NRBC abs 0.00 0.00 - 0.01 K/cumm [facility] Blood 07/27/2024 1:03 PM ANALYSIS TESTER 07/27/2024 7:25 PM ANALYSIS TESTER Wander Matthews MD LAB BLOOD ORDERABLES Final Re sult Performing Organization Address [facility] Co de Phone Number VICTOR HUGOMIC [address] [address] [facility] [place] [address] * TSH (07/27/2024 1:03 PM ANALYSIS TESTER) Thyroid Stimulating Hormone 3.23 0.30 - 4.20 mcIUnit/mL Blood 07/27/2024 1:03 PM ANALYSIS TESTER 07/27/2024 7:25 PM ANALYSIS TESTER Narrative [facility] - 07/27/2024 7:52 PM ANALYSIS TESTER Starting 08/10 every 4 weeks Wander Matthews MD LAB BLOOD ORDERABLES Final Re sult Performing Organization Address [facility] Co de Phone Number [facility]CTOR [facility] [address] [address] [place] [address] * IgG (07/27/2024 1:03 PM ANALYSIS TESTER) Immunoglobulin G 1,090 700 - 1,600 mg/dL Blood 07/27/2024 1:03 PM ANALYSIS TESTER 07/27/2024 7:25 PM ANALYSIS TESTER Result [facility] Wander Matthesw MD LAB BLOOD ORDERABLES Final Re sult Performing Organization Address [facility] Co de Phone Number [facility] [address] [address] [place] [address] * Comprehensive metabolic panel (07/27/2024 1:03 PM ANALYSIS TESTER) Sodium 139 135 - 145 mmol/L Potassium, [...] Units/L [facility] Blood 07/27/2024 1:03 PM ANALYSIS TESTER 07/27/2024 7:25 PM ANALYSIS TESTER us Wander Mattehws MD LAB BLOOD ORDERABLES Final Re sult MICHELINE LUO [address] [address] [place] [address] * eGFR (07/13/2024 10:05 AM ANALYSIS TESTER) eGFR 85 >=60 mL/min/1. 73 m2 Comment: [...] reviewed 2021. Blood 07/13/2024 10:0 5 AM ANALYSIS TESTER 07/13/2024 9:45 PM ANALYSIS TESTER Wander Matthews MD LAB BLOOD ORDERABLES Final Re sult [facility] [address] [address] [place] [address] * (ABNORMAL) Differential, auto (07/13/2024 10:05 AM ANALYSIS TESTER) Neutrophil abs 1.9 1.5 - 6.5 K/cumm Imm gran abs 0.0 0.0 - 0.1 K/cumm [facility] Lymphocyte abs 0.4(L) 0.8 - 3.3 K/cumm [facility] Monocyte abs 0.1(L) 0.2 - 0.8 K/cumm [facility] Eosinophil abs 0.0 0.0 - 0.5 K/cumm [facility] Basophil abs 0.0 0.0 - 0.1 K/cumm [facility] Neutrophil pct 76.6 % [facility] Comment: Consistent with previous result Interpretive Data Percent cell count reference ranges are not reported, since discordance with absolute values may lead to misinterpretation of CBC data. Current Interpretive Data was last revised on 2017. Imm gran pct 1.2 % [facility] Comment: Interpretive Data Percent cell count reference ranges are not reported, since discordance with absolute values may lead to misinterpretation of CBC data. Current Interpretive Data was last revised on 2017. Lymphocyte pct 17.7 % [facility] Comment: Interpretive Data Percent cell count reference ranges are not reported, since discordance with absolute values may lead to misinterpretation of CBC data. Current Interpretive Data was last revised on 2017. Monocyte pct 3.3 % [facility] Comment: Interpretive Data Percent cell count reference ranges are not reported, since discordance with absolute values may lead to misinterpretation of CBC data. Current Interpretive Data was last revised on 2017. Eosinophil pct 0.8 % [facility] Comment: Interpretive Data Percent cell count reference ranges are not reported, since discordance with absolute values may lead to misinterpretation of CBC data. Current Interpretive Data was last revised on 2017. Basophil pct 0.4 % [facility] Comment: Interpretive Data Percent cell count reference ranges are not reported, since discordance with absolute values may lead to misinterpretation of CBC data. Current Interpretive Data was last revised on 2017. Blood 07/13/2024 10:0 5 AM ANALYSIS TESTER 07/13/2024 9:30 PM ANALYSIS TESTER Wander Matthews MD LAB BLOOD ORDERABLES Final Re sult [facility] [address] [address] Department of Laboratories [place], [place] [phone] * (ABNORMAL) CBC with auto differential (07/13/2024 10:05 AM ANALYSIS TESTER) WBC 2.4(L) 3.8 - 9.9 K/cumm Hgb 11.7(L) 13.0 - 17.5 g/dL [facility] Hct 37.0(L) 38.9 - 50.3 % [facility] Plt 82(L) 150 - 400 K/cumm [facility] Comment:No clot detected in sample. MPV 10.9 9.1 - 12.3 fL [facility] RBC 3.92(L) 4.30 - 5.80 M/cumm [facility] [...] [facility] Blood 07/13/2024 10:0 5 AM ANALYSIS TESTER 07/13/2024 9:30 PM ANALYSIS TESTER Wander Matthews MD LAB BLOOD ORDERABLES Final Re sult Performing Organization Address [facility] Co de Phone Number MICHELINE [address] [address] [place] [address] * (ABNORMAL) TSH (07/13/2024 10:05 AM ANALYSIS TESTER) Pathologist [facility] Thyroid Stimulating Hormone 6.51(H) 0.30 - 4.20 mcIUnit/mL Blood 07/13/2024 10:0 5 AM ANALYSIS TESTER 07/13/2024 9:30 PM ANALYSIS TESTER Wander Matthews MD LAB BLOOD ORDERABLES Final Re sult Performing Organization Address [facility] Co de Phone Number MICHELINE [address] [address] Department [place] [address] * (ABNORMAL) Comprehensive metabolic panel (07/13/2024 10:05 AM ANALYSIS TESTER) Sodium 140 135 - 145 mmol/L Potassium, pl 3.6 3.3 - 4.9 mmol/L [facility] Chloride 103 97 - 110 mmol/L [facility] CO2 27 22 - 32 mmol/L [facility] Anion gap 10 2 - 15 mmol/L [facility] BUN 20 6 - 25 mg/dL [facility] Creatinine 0.95 0.80 - 1.30 mg/dL [facility] Glucose 159 70 - 199 mg/dL [facility] Comment: Interpretive Data Fasting glucose >/= 126 [...] [facility] Blood 07/13/2024 10:0 5 AM ANALYSIS TESTER 07/13/2024 9:30 PM ANALYSIS TESTER Wander Matthews MD LAB BLOOD ORDERABLES Final Re sult MICHELINE [address] [address] [place] [address] * eGFR (07/07/2024 9:05 AM ANALYSIS TESTER) eGFR 86 >=60 mL/min/1. 73 m2 Comment: [...] last reviewed 2021. Blood 07/07/2024 9:05 AM ANALYSIS TESTER 07/07/2024 4:21 PM ANALYSIS TESTER us Wander Matthews MD LAB BLOOD ORDERABLES Final Re sult [facility] [address] [address] Department [place] [address] * (ABNORMAL) Differential, auto (07/07/2024 9:05 AM ANALYSIS TESTER) Neutrophil abs 1.9 1.5 - 6.5 K/cumm Imm gran abs 0.0 0.0 - 0.1 K/cumm [facility] Lymphocyte abs 0.4(L) 0.8 - 3.3 K/cumm [facility] Monocyte abs 0.1(L) 0.2 - 0.8 K/cumm [facility] CH Eosinophil abs 0.1 0.0 - 0.5 K/cumm [facility] Basophil abs 0.0 0.0 - 0.1 K/cumm [facility] Neutrophil pct 76.1 % [facility] Comment: Consistent with previous result Interpretive Data Percent cell count reference ranges are not reported, since discordance with absolute values may lead to misinterpretation of CBC data. Current Interpretive Data was last revised on 2017. Imm gran pct 0.4 % [facility] Comment: Interpretive Data Percent cell count reference ranges are not reported, since discordance with absolute values may lead to misinterpretation of CBC data. Current Interpretive Data was last revised on 2017. Lymphocyte pct 17.3 % [facility] Comment: Interpretive Data Percent cell count reference ranges are not reported, since discordance with absolute values may lead to misinterpretation of CBC data. Current Interpretive Data was last revised on 2017. Monocyte pct 3.3 % [facility] Comment: Interpretive Data Percent cell count reference ranges are not reported, since discordance with absolute values may lead to misinterpretation of CBC data. Current Interpretive Data was last revised on 2017. Eosinophil pct 2.5 % [facility] Comment: Interpretive Data Percent cell [...] revised on 2017. Blood 07/07/2024 9:05 AM ANALYSIS TESTER 07/07/2024 4:03 PM ANALYSIS TESTER Wander Matthews MD LAB BLOOD ORDERABLES Final Re sult Performing Organization Address [facility] de Phone Number MICHELINE [address] [address] [facility] [employer] [place], [place] [phone] * (ABNORMAL) Immunoglobulin free light chains (07/07/2024 9:05 AM ANALYSIS TESTER) Carencro/Lambda ratio 22.10(H) 0.26 - 1.65 [place] free light chain 4.87(H) 0.33 - 1.94 mg/dL [facility] Comment: Interpretive Data The Blayne Ig [place] FLC assay procedure was used. Results from different manufacturers or methods may not be comparable. Serial testing should be performed using the same method. Lambda free light chain 0.22(L) 0.57 - 2.63 mg/dL [facility] Comment: Interpretive Data The Blayne Ig Lambda FLC assay procedure was used. Results from different manufacturers or methods may not be comparable. Serial testing should be performed using the same method. Blood 07/07/2024 9:05 AM ANALYSIS TESTER 07/07/2024 4:03 PM ANALYSIS TESTER Wander Matthews MD LAB BLOOD ORDERABLES Final Re sult Performing Organization Address [facility] Co de Phone Number MICHELINE [address] [address] [facility] [place] [address] * (ABNORMAL) CBC with auto differential (07/07/2024 9:05 AM ANALYSIS TESTER) WBC 2.4(L) 3.8 - 9.9 K/cumm Hgb 11.7(L) 13.0 - 17.5 g/dL [facility] Hct 37.4(L) 38.9 - 50.3 % [facility] Plt 134(L) 150 - 400 K/cumm [facility] MPV 10.7 9.1 - 12.3 fL [facility] RBC 4.03(L) 4.30 - 5.80 M/cumm [facility] MCV 92.8 81.3 - 96.4 fL [facility] MCH 29.0 27.1 - 33.3 pg [facility] MCHC 31.3(L) 32.3 - 35.7 g/dL [facility] RDW CV 14.6 11.1 - 14.9 % [facility] RDW SD 49.2(H) 35.7 - 48.1 fL [facility] NRBC abs 0.00 0.00 - 0.01 K/cumm [facility] Blood 07/07/2024 9:05 AM ANALYSIS TESTER 07/07/2024 4:03 PM ANALYSIS TESTER Wander Matthews MD LAB BLOOD ORDERABLES Final Re sult Performing Organization Address [facility] Co de Phone Number MICHELINE PUJA [address] [place] [address] * (ABNORMAL) TSH (07/07/2024 9:05 AM ANALYSIS TESTER) Thyroid Stimulating Hormone 4.33(H) 0.30 - 4.20 mcIUnit/mL Blood 07/07/2024 9:05 AM ANALYSIS TESTER 07/07/2024 4:03 PM ANALYSIS TESTER Wander Matthews MD LAB BLOOD ORDERABLES Final Re sult Performing Organization Address [facility] Co de Phone Number VICTOR HUGOMIC LUO [address] [address] [facility] [place] [employer] [place] [address] * IgG (07/07/2024 9:05 AM ANALYSIS TESTER) Immunoglobulin G 957 700 - 1,600 mg/dL Blood 07/07/2024 9:05 AM ANALYSIS TESTER 07/07/2024 4:03 PM ANALYSIS TESTER us Wander Matthews MD LAB BLOOD [place] [address] [address] [place] [address] * Comprehensive metabolic panel (07/07/2024 9:05 AM ANALYSIS TESTER) Sodium 140 135 - 145 mmol/L Potassium, [...] Units/L [facility] Blood 07/07/2024 9:05 AM ANALYSIS TESTER 07/07/2024 4:03 PM ANALYSIS TESTER Wander Matthews MD LAB BLOOD ORDERABLES Final Re sult Performing Organization Address [facility]/ZIP Co de Phone Number MICHELINE LUO [address] [address] Department of [employer] [place], [place] [id number] * eGFR (06/29/2024 8:57 AM ANALYSIS TESTER) eGFR 71 >=60 mL/min/1. 73 m2 Comment: [...] last reviewed 2021. Blood 06/29/2024 8:57 AM ANALYSIS TESTER 06/29/2024 8:16 PM ANALYSIS TESTER Wander Matthews MD LAB BLOOD ORDERABLES Final Re sult MICHELINE LUO [address] [address] [place] [address] * (ABNORMAL) Differential, auto (06/29/2024 8:57 AM ANALYSIS TESTER) Neutrophil abs 2.2 1.5 - 6.5 K/cumm Imm gran abs 0.0 0.0 - 0.1 K/cumm [facility] Lymphocyte abs 0.3(L) 0.8 - 3.3 K/cumm [facility] Monocyte abs 0.1(L) 0.2 - 0.8 K/cumm [facility] Eosinophil abs 0.1 0.0 - 0.5 K/cumm [facility] Basophil abs 0.0 0.0 - 0.1 K/cumm [facility] Neutrophil pct 80.6 % [facility] Comment: Consistent with previous result Interpretive Data Percent cell count reference ranges are not reported, since discordance with absolute values may lead to misinterpretation of CBC data. Current Interpretive Data was last revised on 2017. Imm gran pct 0.7 % [facility] Comment: Interpretive Data Percent cell count reference ranges are not reported, since discordance with absolute values may lead to misinterpretation of CBC data. Current Interpretive Data was last revised on 2017. Lymphocyte pct 12.7 % [facility] Comment: Interpretive Data Percent cell count reference ranges are not reported, since discordance with absolute values may lead to misinterpretation of CBC data. Current Interpretive Data was last revised on 2017. Monocyte pct 2.2 % [facility] Comment: Interpretive Data Percent cell count reference ranges are not reported, since discordance with absolute values may lead to misinterpretation of CBC data. Current Interpretive Data was last revised on 2017. Eosinophil pct 3.4 % [facility] Comment: Interpretive Data Percent cell count reference ranges are not reported, since discordance with absolute values may lead to misinterpretation of CBC data. Current Interpretive Data was last revised on 2017. Basophil pct 0.4 % [facility] Comment: Interpretive Data Percent cell count reference ranges are not reported, since discordance with absolute values may lead to misinterpretation of CBC data. Current Interpretive Data was last revised on 2017. Blood 06/29/2024 8:57 AM ANALYSIS TESTER 06/29/2024 6:44 PM ANALYSIS TESTER us Wander Matthews MD LAB BLOOD ORDERABLES Final Re sult VICTOR HUGOMIC [address] [address] [place] [address] * (ABNORMAL) CBC with auto differential (06/29/2024 8:57 AM ANALYSIS TESTER) [facility] WBC 2.7(L) 3.8 - 9.9 K/cumm Hgb 11.6(L) 13.0 - 17.5 g/dL [facility] Hct 37.4(L) 38.9 - 50.3 % [facility] Plt 183 150 - 400 K/cumm [facility] MPV 9.8 9.1 - 12.3 fL [facility] RBC 3.97(L) 4.30 - 5.80 M/cumm [facility] MCV 94.2 81.3 - 96.4 fL [facility] MCH 29.2 27.1 - 33.3 pg [facility] MCHC 31.0(L) 32.3 - 35.7 g/dL [facility] RDW CV 14.8 11.1 - 14.9 % [facility] RDW SD 51.3(H) 35.7 - 48.1 fL [facility] NRBC abs 0.00 0.00 - 0.01 K/cumm [facility] Blood 06/29/2024 8:57 AM ANALYSIS TESTER 06/29/2024 6:44 PM ANALYSIS TESTER Wander Matthews MD LAB BLOOD ORDERABLES Final Re sult [facility] [address] [address] Department [place] [address] * Comprehensive metabolic panel (06/29/2024 8:57 AM ANALYSIS TESTER) [facility] Sodium 140 135 - 145 mmol/L Potassium, pl 4.1 3.3 - 4.9 mmol/L [facility] Chloride 105 97 - 110 mmol/L [facility] CO2 24 22 - 32 mmol/L [facility] Anion gap 11 2 - 15 mmol/L [facility] BUN 15 6 - 25 mg/dL [facility] Creatinine 1.10 0.80 - 1.30 mg/dL [facility] Glucose 121 70 - 199 mg/dL [facility] Comment: Interpretive Data Fasting glucose >/= 126 [...] Units/L [facility] Blood 06/29/2024 8:57 AM ANALYSIS TESTER 06/29/2024 6:44 PM ANALYSIS TESTER us Wander Matthews MD LAB BLOOD ORDERABLES Final Re sult MICHELINE [address] [address] [place] [address] * eGFR (06/22/2024 9:14 AM ANALYSIS TESTER) eGFR 71 >=60 mL/min/1. 73 m2 Comment: [...] data was last reviewed 2021. Blood 06/22/2024 9:1 4 AM ANALYSIS TESTER 06/22/2024 5:53 PM ANALYSIS TESTER us Wander Matthews MD LAB BLOOD ORDERABLES Final Re sult [facility] [address] [address] [place] [address] * (ABNORMAL) Differential, auto (06/22/2024 9:14 AM ANALYSIS TESTER) Neutrophil abs 2.8 1.5 - 6.5 K/cumm Imm gran abs 0.0 0.0 - 0.1 K/cumm [facility] Lymphocyte abs 0.2(L) 0.8 - 3.3 K/cumm [facility] Monocyte abs 0.1(L) 0.2 - 0.8 K/cumm [facility] Eosinophil abs 0.1 0.0 - 0.5 K/cumm [facility] Basophil abs 0.0 0.0 - 0.1 K/cumm [facility] Neutrophil pct 89.3 % [facility] Comment: Consistent with previous result Interpretive Data Percent cell count reference ranges are not reported, since discordance with absolute values may lead to misinterpretation of CBC data. Current Interpretive Data was last revised on 2017. Imm gran pct 0.3 % [facility] Comment: Interpretive Data Percent cell count reference ranges are not reported, since discordance with absolute values may lead to misinterpretation of CBC data. Current Interpretive Data was last revised on 2017. Lymphocyte pct 7.2 % [facility] Comment: Interpretive Data Percent cell count reference ranges are not reported, since discordance with absolute values may lead to misinterpretation of CBC data. Current Interpretive Data was last revised on 2017. Monocyte pct 1.6 % [facility] Comment: Interpretive Data Percent cell count [...] revised on 2017. Blood 06/22/2024 9:14 AM ANALYSIS TESTER 06/22/2024 5:29 PM ANALYSIS TESTER Wander Matthews MD LAB BLOOD ORDERABLES Final Re sult Performing Organization Address [facility] de Phone Number VICTOR HUGOMIC [address] [address] [facility] [employer] [place], [place] [phone] * (ABNORMAL) Immunoglobulin free light chains (06/22/2024 9:14 AM ANALYSIS TESTER) Pathologist [facility] Carencro/Lambda ratio 28.50(H) 0.26 - 1.65 [place] free light chain 8.26(H) 0.33 - 1.94 mg/dL [facility] Comment: Interpretive Data The [employer]ayne Ig [place] FLC assay procedure was used. Results from [...] the same method. Blood 06/22/2024 9:14 AM ANALYSIS TESTER 06/23/2024 10:18 AM ANALYSIS TESTER Wander Matthews MD LAB BLOOD ORDERABLES Final Re sult Performing Organization Address [facility] Co de Phone Number VICTOR HUGOMIC [address] [address] [place] [address] * (ABNORMAL) CBC with auto differential (06/22/2024 9:14 AM ANALYSIS TESTER) Pathologist [facility] WBC 3.2(L) 3.8 - 9.9 K/cumm Hgb 12.4(L) 13.0 - 17.5 g/dL [facility] Hct 39.0 38.9 - 50.3 % [facility] Plt 85(L) 150 - 400 K/cumm [facility] MPV 11.0 9.1 - 12.3 fL [facility] RBC 4.21(L) 4.30 - 5.80 M/cumm [facility] MCV 92.6 81.3 - 96.4 fL [facility] CH MCH 29.5 27.1 - 33.3 pg [facility] MCHC 31.8(L) 32.3 - 35.7 g/dL [facility] RDW CV 14.3 11.1 - 14.9 % [facility] RDW SD 48.1 35.7 - 48.1 fL [facility] NRBC abs 0.00 0.00 - 0.01 K/cumm [facility] Blood 06/22/2024 9:14 AM ANALYSIS TESTER 06/22/2024 5:29 PM ANALYSIS TESTER us Wander Matthews MD LAB BLOOD ORDERABLES Final Re sult [facility] [address] [address] [place] [address] * (ABNORMAL) Comprehensive metabolic panel (06/22/2024 9:14 AM ANALYSIS TESTER) [facility] Sodium 140 135 - 145 mmol/L Potassium, pl 3.6 3.3 - 4.9 mmol/L [facility] Chloride 103 97 - 110 mmol/L [facility] CO2 26 22 - 32 mmol/L [facility] Anion gap 11 2 - 15 mmol/L [facility] BUN 23 6 - 25 mg/dL [facility] Creatinine 1.10 0.80 - 1.30 mg/dL [facility] Glucose 176 70 - 199 mg/dL [facility] Comment: Interpretive Data Fasting glucose >/= 126 [...] Units/L [facility] Blood 06/22/2024 9:14 AM ANALYSIS TESTER 06/22/2024 5:29 PM ANALYSIS TESTER Wander Matthews MD LAB BLOOD ORDERABLES Final Re sult [facility] [address] [address] [place] [address] * eGFR (06/16/2024 8:00 AM ANALYSIS TESTER) eGFR 68 >=60 mL/min/1. 73 m2 Comment: [...] last reviewed 2021. Blood 06/16/2024 8:00 AM ANALYSIS TESTER 06/16/2024 2:09 PM ANALYSIS TESTER us Wander Matthews MD LAB BLOOD ORDERABLES Final Re sult [facility] [address] [address] [place] [address] * (ABNORMAL) Differential, auto (06/16/2024 8:00 AM ANALYSIS TESTER) Neutrophil abs 2.9 1.5 - 6.5 K/cumm Imm gran abs 0.0 0.0 - 0.1 K/cumm [facility] Lymphocyte abs 0.4(L) 0.8 - 3.3 K/cumm [facility] Monocyte abs 0.1(L) 0.2 - 0.8 K/cumm [facility] Eosinophil abs 0.1 0.0 - 0.5 K/cumm [facility] Basophil abs 0.0 0.0 - 0.1 K/cumm [facility] Neutrophil pct 83.4 % [facility] Comment: Consistent with previous result Interpretive Data Percent cell count reference ranges are not reported, since discordance with absolute values may lead to misinterpretation of CBC data. Current Interpretive Data was last revised on 2017. Imm gran pct 0.6 % [facility] Comment: Interpretive Data Percent cell count reference ranges are not reported, since discordance with absolute values may lead to misinterpretation of CBC data. Current Interpretive Data was last revised on 2017. Lymphocyte pct 10.6 % [facility] Comment: Interpretive Data Percent cell count reference ranges are not reported, since discordance with absolute values may lead to misinterpretation of CBC data. Current Interpretive Data was last revised on 2017. Monocyte pct 1.4 % [facility] Comment: Interpretive Data Percent cell count reference ranges are not reported, since discordance with absolute values may lead to misinterpretation of CBC data. Current Interpretive Data was last revised on 2017. Eosinophil pct 3.7 % [facility] Comment: Interpretive Data Percent cell count reference ranges are not reported, since discordance with absolute values may lead to misinterpretation of CBC data. Current Interpretive Data was last revised on 2017. Basophil pct 0.3 % [facility] Comment: Interpretive Data Percent cell count reference ranges are not reported, since discordance with absolute values may lead to misinterpretation of CBC data. Current Interpretive Data was last revised on 2017. Blood 06/16/2024 8:00 AM ANALYSIS TESTER 06/16/2024 1:56 PM ANALYSIS TESTER Wander Matthews MD LAB BLOOD ORDERABLES Final Re sult Performing Organization Address City/[facility]/ZIP Co de Phone Number MICHELINE [id number] [address] Department [place] [address] * (ABNORMAL) CBC with auto differential (06/16/2024 8:00 AM ANALYSIS TESTER) WBC 3.5(L) 3.8 - 9.9 K/cumm Hgb 13.3 13.0 - 17.5 g/dL [facility] Hct 40.1 38.9 - 50.3 % [facility] Plt 79(L) 150 - 400 K/cumm [facility] MPV 11.3 9.1 - 12.3 fL [facility] RBC 4.42 4.30 - 5.80 M/cumm [facility] MCV 90.7 81.3 - 96.4 fL [facility] MCH 30.1 27.1 - 33.3 pg [facility] MCHC 33.2 32.3 - 35.7 g/dL [facility] RDW CV 14.0 11.1 - 14.9 % [facility] RDW SD 46.8 35.7 - 48.1 fL [facility] NRBC abs 0.00 0.00 - 0.01 K/cumm [facility] Blood 06/16/2024 8:00 AM ANALYSIS TESTER 06/16/2024 1:56 PM ANALYSIS TESTER Wander Matthews MD LAB BLOOD ORDERABLES Final Re sult MICHELINE LUO [address] [address] Department [place] [address] * Comprehensive metabolic panel (06/16/2024 8:00 AM ANALYSIS TESTER) Sodium 137 135 - 145 mmol/L Potassium, [...] affected. Glucose 172 70 - 199 mg/dL [facility] Comment: Interpretive Data Fasting glucose >/= [...] Units/L [facility] Blood 06/16/2024 8:00 AM ANALYSIS TESTER 06/16/2024 1:56 PM ANALYSIS TESTER us Wander Matthews MD LAB BLOOD ORDERABLES Final Re sult MICHELINE LUO [address] [address] Department [place] [address] * eGFR (06/08/2024 9:00 AM ANALYSIS TESTER) eGFR 73 >=60 mL/min/1. 73 m2 Comment: [...] last reviewed 2021. Blood 06/08/2024 9:00 AM ANALYSIS TESTER 06/08/2024 4:57 PM ANALYSIS TESTER us Wander Matthews MD LAB BLOOD ORDERABLES Final Re sult [facility] [id number] [address] Department [place] [address] * (ABNORMAL) Differential, auto (06/08/2024 9:00 AM ANALYSIS TESTER) Pathologist [facility] Neutrophil abs 1.8 1.5 - 6.5 K/cumm Imm gran abs 0.0 0.0 - 0.1 K/cumm [facility] Lymphocyte abs 0.4(L) 0.8 - 3.3 K/cumm [facility] Monocyte abs 0.1(L) 0.2 - 0.8 K/cumm [facility] Eosinophil abs 0.1 0.0 - 0.5 K/cumm [facility] Basophil abs 0.0 0.0 - 0.1 K/cumm [facility] Neutrophil pct 77.5 % [facility] Comment: Consistent with previous result Interpretive Data Percent cell count reference ranges are not reported, since discordance with absolute values may lead to misinterpretation of CBC data. Current Interpretive Data was last revised on 2017. Imm gran pct 0.4 % [facility] Comment: Interpretive Data Percent cell count reference ranges are not reported, since discordance with absolute values may lead to misinterpretation of CBC data. Current Interpretive Data was last revised on 2017. Lymphocyte pct 16.1 % [facility] Comment: Interpretive Data Percent cell count reference ranges are not reported, since discordance with absolute values may lead to misinterpretation of CBC data. Current Interpretive Data was last revised on 2017. Monocyte pct 3.0 % [facility] Comment: Interpretive Data Percent cell count reference ranges are not reported, since discordance with absolute values may lead to misinterpretation of CBC data. Current Interpretive Data was last revised on 2017. Eosinophil pct 2.6 % [facility] Comment: Interpretive Data Percent cell [...] revised on 2017. Blood 06/08/2024 9:00 AM ANALYSIS TESTER 06/08/2024 4:38 PM ANALYSIS TESTER Wander Matthews MD LAB BLOOD ORDERABLES Final Re sult [facility] [id number] [address] Department [place] [address] * (ABNORMAL) CBC with auto differential (06/08/2024 9:00 AM ANALYSIS TESTER) WBC 2.3(L) 3.8 - 9.9 K/cumm Hgb 12.6(L) 13.0 - 17.5 g/dL [facility] Hct 38.7(L) 38.9 - 50.3 % [facility] Plt 130(L) 150 - 400 K/cumm [facility] MPV 10.9 9.1 - 12.3 fL [facility] RBC 4.20(L) 4.30 - 5.80 M/cumm [facility] MCV 92.1 81.3 - 96.4 fL [facility] MCH 30.0 27.1 - 33.3 pg [facility] MCHC 32.6 32.3 - 35.7 g/dL [facility] RDW CV 14.0 11.1 - 14.9 % [facility] RDW SD 47.1 35.7 - 48.1 fL [facility] NRBC abs 0.00 0.00 - 0.01 K/cumm [facility] Blood 06/08/2024 9:00 AM ANALYSIS TESTER 06/08/2024 4:38 PM ANALYSIS TESTER Narrative [facility] - 06/08/2024 5:[address] Matthews weekly CBC on 01/20/2024 and 01/27/2024 Wander Matthews MD LAB BLOOD ORDERABLES Final Re sult [facility] [address] [address] Department [place] [address] * (ABNORMAL) Comprehensive metabolic panel (06/08/2024 9:00 AM ANALYSIS TESTER) Sodium 139 135 - 145 mmol/L Potassium, pl 3.7 3.3 - 4.9 mmol/L [facility] Chloride 100 97 - 110 mmol/L [facility] CO2 27 22 - 32 mmol/L [facility] Anion gap 12 2 - 15 mmol/L [facility] BUN 28(H) 6 - 25 mg/dL [facility] Creatinine 1.08 0.80 - 1.30 mg/dL [facility] Glucose 95 70 - 199 mg/dL [facility] Comment: Interpretive Data Fasting glucose >/= 126 [...] Units/L [facility] Blood 06/08/2024 9:00 AM ANALYSIS TESTER 06/08/2024 4:38 PM ANALYSIS TESTER Narrative [facility] - 06/08/2024 5:21 PM ANALYSIS TESTER Cassie [facility] weekly x 2 01/20/2024 and 01/27/2024 Wander Matthews MD LAB BLOOD ORDERABLES Final Re sult MICHELINE LUO [address] [address] Department of Laboratories [place] [id number] * eGFR (06/01/2024 2:15 PM ANALYSIS TESTER) eGFR 70 >=60 mL/min/1. 73 m2 Comment: [...] last reviewed 2021. Blood 06/01/2024 2:15 PM ANALYSIS TESTER 06/01/2024 9:08 PM ANALYSIS TESTER us Wander Matthews MD LAB BLOOD ORDERABLES Final Re sult [facility] [address] [address] Department [place] [address] * (ABNORMAL) Differential, auto (06/01/2024 2:15 PM ANALYSIS TESTER) Neutrophil abs 2.6 1.5 - 6.5 K/cumm Imm gran abs 0.0 0.0 - 0.1 K/cumm [facility] Lymphocyte abs 0.5(L) 0.8 - 3.3 K/cumm [facility] Monocyte abs 0.1(L) 0.2 - 0.8 K/cumm [facility] Eosinophil abs 0.1 0.0 - 0.5 K/cumm [facility] Basophil abs 0.0 0.0 - 0.1 K/cumm [facility] Neutrophil pct 78.8 % [facility] Comment: Interpretive Data Percent cell count reference ranges are not reported, since discordance with absolute values may lead to misinterpretation of CBC data. Current Interpretive Data was last revised on 2017. Imm gran pct 0.3 % [facility] Comment: Interpretive Data Percent cell count reference ranges are not reported, since discordance with absolute values may lead to misinterpretation of CBC data. Current Interpretive Data was last revised on 2017. Lymphocyte pct 14.1 % [facility] Comment: Interpretive Data Percent cell count reference ranges are not reported, since discordance with absolute values may lead to misinterpretation of CBC data. Current Interpretive Data was last revised on 2017. Monocyte pct 3.4 % [facility] Comment: Interpretive Data Percent cell count reference ranges are not reported, since discordance with absolute values may lead to misinterpretation of CBC data. Current Interpretive Data was last revised on 2017. Eosinophil pct 2.5 % [facility] Comment: Interpretive Data Percent cell count reference [...] revised on 2017. Blood 06/01/2024 2:15 PM ANALYSIS TESTER 06/01/2024 9:06 PM ANALYSIS TESTER Wander Matthews MD LAB BLOOD ORDERABLES Final Re sult Performing Organization Address [facility] de Phone Number VICTOR HUG[address] [address] [place] [address] * (ABNORMAL) Immunoglobulin free light chains (06/01/2024 2:15 PM ANALYSIS TESTER) [place]/Lambda ratio 18.40(H) 0.26 - 1.65 [place] free light chain 12.17(H) 0.33 - 1.94 mg/dL MICHELINE Comment: Interpretive Data The [employer]ne Ig [place] FLC assay procedure was used. Results from different manufacturers or methods may not be comparable. Serial testing should be performed using the same method. Lambda free light chain 0.66 0.57 - 2.63 mg/dL [facility] Comment: Interpretive Data The Blayne Ig Lambda FLC assay procedure was used. Results from different manufacturers or methods may not be comparable. Serial testing should be performed using the same method. Blood 06/01/2024 2:15 PM ANALYSIS TESTER 06/01/2024 9:06 PM ANALYSIS TESTER Wander Matthews MD LAB BLOOD ORDERABLES Final Re sult Performing Organization Address [facility] Co de Phone Number MICHELINE LUO [address] [place] [address] * (ABNORMAL) CBC with auto differential (06/01/2024 2:15 PM ANALYSIS TESTER) WBC 3.3(L) 3.8 - 9.9 K/cumm Hgb 12.4(L) 13.0 - 17.5 g/dL [facility] Hct 39.0 38.9 - 50.3 % [facility] Plt 191 150 - 400 K/cumm [facility] MPV 10.3 9.1 - 12.3 fL [facility] RBC 4.17(L) 4.30 - 5.80 M/cumm [facility] MCV 93.5 81.3 - 96.4 fL [facility] MCH 29.7 27.1 - 33.3 pg [facility] MCHC 31.8(L) 32.3 - 35.7 g/dL [facility] RDW CV 14.1 11.1 - 14.9 % [facility] RDW SD 48.1 35.7 - 48.1 fL [facility] NRBC abs 0.00 0.00 - 0.01 K/cumm [facility] Blood 06/01/2024 2:15 PM ANALYSIS TESTER 06/01/2024 9:06 PM ANALYSIS TESTER Wander Matthews MD LAB BLOOD ORDERABLES Final Re sult Performing Organization Address [facility] de Phone Number [facility] [address] [address] Department of [employer] [place], [place] [id number] * IgG (06/01/2024 2:15 PM ANALYSIS TESTER) [facility] Immunoglobulin G 1,202 700 - 1,600 mg/dL Blood 06/01/2024 2:15 PM ANALYSIS TESTER 06/01/2024 9:06 PM ANALYSIS TESTER Wander Matthews MD LAB BLOOD ORDERABLES Final Re sult Performing Organization Address [facility] Co de Phone Number [facility] [address] [address] Department of [employer] [place], [place] [id number] * Comprehensive metabolic panel (06/01/2024 2:15 PM ANALYSIS TESTER) [facility] Sodium 140 135 - 145 mmol/L Potassium, pl 3.9 3.3 - 4.9 mmol/L [facility] Chloride 102 97 - 110 mmol/L [facility] CO2 28 22 - 32 mmol/L [facility] Anion gap 10 2 - 15 mmol/L [facility] BUN 18 6 - 25 mg/dL [facility] Creatinine 1.12 0.80 - 1.30 mg/dL [facility] Glucose 109 70 - 199 mg/dL [facility] Comment: Interpretive Data Fasting glucose >/= 126 [...] Calcium 9.8 8.5 - 10.3 mg/dL [facility] Bilirubin, total 0.8 0.1 - 1.2 mg/dL [facility] Protein, pl 7.3 6.5 - 8.5 g/dL [facility] Albumin 4.0 3.5 - 5.0 g/dL [facility] Alk phos 52 40 - 130 Units/L [facility] ALT 15 7 - 55 Units/L [facility] AST 23 10 - 50 Units/L [facility] Blood 06/01/2024 2:15 PM ANALYSIS TESTER 06/01/2024 9:06 PM ANALYSIS TESTER Wander Matthews MD LAB BLOOD ORDERABLES Final Re sult [facility] [address] [address] [place] [address] * PSA screen (01/20/2024 12:52 PM CDT) [...] 2 PM CDT 01/20/2024 7:03 PM CDT us Dain De La Rosa MD LAB BLOOD ORDERABLES nal Result Performing Organization Address City/State/ZIP Co hi Phone Number MICHELINE [address] [facility] [place] [address] from Last 3 Months or Most Recently Relevant to Health [place] [address] [facility] MEDICARE [employer] Care Teams Imaging Technician Relationship Specialty Start Date End Date Vick Perkins MD PCP - General Internal Medicine 01/08/18 Wander Matthews MD Medical Oncologist/Communications Instructor Hematology and Oncology 10/25/22
--- OUTSIDE RECORDS SUMMARY | 2024-08-19 07:13 | XMS_ITS ---
Author Organization [facility] Address [address] [place] [address] Phone Care Team Providers Care Radio Engineering Teacher Name Role Phone Vick Perkins MD Primary Care Provider [phone] Wander Matthews MD Unavailable [phone] Active Problems Problem Noted Date Diagnosed Date Malignant melanoma 02/12/2024 Overview (02/12/2024): Stage 111 malignant melanoma to skin superficial with 1 positive node. 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 Lifetime Dose Tracking * Chemical Lifetime Dose Automatic Entry Manual Entr y Fluoro Time 0.17 minutes 0.17 minutes 0 minutes Air kerma at the reference point (Ka,r) 3.5 mGy 3 .5 mGy 0 mGy
--- OUTSIDE RECORDS SUMMARY | 2024-08-19 07:14 | XMS_ITS | Clinical Summary ---
Author Organization [facility] Address [address] [place] [address] Phone Care Team Providers Care Pearl Fisherman Name Role Phone Vick Perkins MD Primary Care Provider [phone] Wander Matthews MD Unavailable [phone] Allergies No known active allergies Medications aspirin 81 mg tablet Take 1 tablet (81 mg total) by mouth daily Active magnesium gluconate 200 mg tabletIndicati ons:hypomagnes emia 1 tablet (200 mg total) Active multivitamin-C p-xoyf-kyubxlr s 18-0.4 mg tablet Take by mouth. Activ e glucosam-faraz- cuh5-V-rnob-maria guadalupe sw 750 mg-644 mg- 30 mg-1 mg tablet Take by mouth. Activ e omeprazole (PriLOSEC) 20 mg capsule Take 1 capsule (20 mg total) by mouth daily Active B complex 37-qluvg-K-bio t-zinc [id number] zi-nh-gkz-mg tablet Take by mouth. Activ e Lumigan [...] 1 tablet (25 mcg total) by mouth chargemaster specialist before breakfast 30 tablet 2 07/17/19 25 [...] Type Department Care Team Description 08/12/2024 Telephone [facility] Oncology [address] [place] [address] Office [facility] [address] [place] [address] Jessica Jimenez RN 08/10/2024 Telephone [facility] On[facility] [address] [place] [address] Office [facility] [address] [place] [address] Odessa Garland, LOGAN 08/07/2024 8:30 AM DIRECTOR OF CATERING SALES Infusion [facility] Cancer Infusion [address] [place] [address] Multiple myeloma not having achieved remission (CMS/HCC) (HCC) (Primary Dx); Malignant melanoma of right upper extremity including shoulder (HCC); Chemotherapy induced nausea and vomiting 08/07/2024 8:15 AM DIRECTOR OF CATERING SALES Office Visit [facility] Oncology [address] [place] [address] [address] [place] [address] Wander Matthews MD Malignant melanoma of right upper extremity including shoulder (HCC) (Primary Dx); Multiple myeloma not having achieved remission (CMS/HCC) (HCC); Chemotherapy induced nausea and vomiting; Acute upper respiratory infection 08/07/2024 8:00 AM DIRECTOR OF CATERING SALES Lab [facility] Infusion [address] [place] [address] Multiple myeloma not having achieved remission (CMS/HCC) (HCC) 08/06/2024 Telephone [facility] Oncology [address] [place] [address] Office [facility] [address] [place] [address] Lucrecia Haskins, CLT 08/03/2024 4:18 PM DIRECTOR OF CATERING SALES - 08/03/2024 11:59 PM DIRECTOR OF CATERING SALES Hospital Encounter [address] [address] Multiple myeloma not having achieved remission (CMS/HCC) (HCC) Discharge Disposition: Discharge to home or self care 08/03/2024 8:15 AM DIRECTOR OF CATERING SALES Lab [facility] Outpatient Lab at [address] [address] Multiple myeloma not having achieved remission (CMS/HCC) (HCC) (Primary Dx); Malignant melanoma (HCC) 07/31/2024 1:00 PM DIRECTOR OF CATERING SALES Infusion [address] [place] [phone] Multiple myeloma not having achieved remission (CMS/HCC) (HCC) (Primary Dx) 07/31/2024 12:30 PM DIRECTOR OF CATERING SALES Lab [address] [place] [phone] Multiple myeloma not having achieved remission (CMS/HCC) (HCC) 07/31/2024 Orders Only [facility] Oncology [address] [place] [address] Medical Office Bld[address] [place] [address] Wander Matthews MD 07/27/2024 1:03 PM DIRECTOR OF CATERING SALES - 07/27/2024 11:59 PM DIRECTOR OF CATERING SALES Hospital Encounter [address] [address] Hypothyroidism, unspecified type; Malignant melanoma of right upper extremity including shoulder (HCC) Discharge Disposition: Discharge to home or self care 07/27/2024 1:00 PM DIRECTOR OF CATERING SALES Lab [facility] Outpatient Lab at [address] [address] Chemotherapy induced nausea and vomiting (Primary Dx) 07/17/2024 8:30 AM DIRECTOR OF CATERING SALES Infusion [address] [place] [phone] Multiple myeloma not having achieved remission (CMS/HCC) (HCC) (Primary Dx); Malignant melanoma of right upper extremity including shoulder (HCC); Chemotherapy induced nausea and vomiting 07/17/2024 8:15 AM DIRECTOR OF CATERING SALES Office Visit [facility] On[facility] [address] [place] [address] Office [facility] [address] [place] [address] Wander Matthews MD Multiple myeloma not having achieved remission (CMS/HCC) (HCC) (Primary Dx); Malignant melanoma of right upper extremity including shoulder (HCC); Chemotherapy induced nausea and vomiting; Hypothyroidism, unspecified type 07/15/2024 Telephone [facility] [address] [place] [address] Office [facility] [address] [place] [address] Alix Miller RN 07/15/2024 Orders Only [facility] [address] [place] [address] Office [facility] [address] [place] [address] Wander Matthews MD 07/13/2024 4:18 PM DIRECTOR OF CATERING SALES - 07/13/2024 11:59 PM DIRECTOR OF CATERING SALES Hospital Encounter [address] [address] Malignant melanoma of right upper extremity including shoulder (HCC); Chemotherapy induced nausea and vomiting Discharge Disposition: Discharge to home or self care 07/13/2024 10:00 AM DIRECTOR OF CATERING SALES Lab [facility] Outpatient Lab at [address] [address] Monoclonal gammopathy of unknown significance (MGUS) (Primary Dx); Multiple myeloma not having achieved remission (CMS/HCC) (HCC) 07/10/2024 11:00 AM DIRECTOR OF CATERING SALES Infusion [facility]fusion [facility] [address] [facility] [address] [place] [address] Multiple myeloma not having achieved remission (CMS/HCC) (HCC) (Primary Dx) 07/07/2024 9:05 AM DIRECTOR OF CATERING SALES - 07/07/2024 11:59 PM DIRECTOR OF CATERING SALES Hospital Encounter [address] [address] Malignant melanoma of right upper extremity including shoulder (HCC); Multiple myeloma not having achieved remission (CMS/HCC) (HCC); Hypothyroidism due to medication Discharge Disposition: Discharge to home or self care 07/07/2024 9:00 AM DIRECTOR OF CATERING SALES Lab [facility] Outpatient Lab at [address] [address] 07/03/2024 9:00 AM DIRECTOR OF CATERING SALES Infusion [address] [address] Multiple myeloma not having achieved remission (CMS/HCC) (HCC) (Primary Dx) 06/29/2024 4:18 PM DIRECTOR OF CATERING SALES - 06/29/2024 11:59 PM DIRECTOR OF CATERING SALES Hospital Encounter [address] [address] Malignant melanoma of right upper extremity including shoulder (HCC) Discharge Disposition: Discharge to home or self care 06/29/2024 9:00 AM DIRECTOR OF CATERING SALES Lab [facility] Outpatient Lab at [address] [address] Malignant melanoma (HCC) (Primary Dx); Multiple myeloma not having achieved remission (CMS/HCC) (HCC) 06/26/2024 9:00 AM DIRECTOR OF CATERING SALES Infusion [address] [address] Chemotherapy induced nausea and vomiting (Primary Dx); Malignant melanoma of right upper extremity including shoulder (HCC) 06/26/2024 8:45 AM DIRECTOR OF CATERING SALES Office Visit [facility] Oncology [address] [place] [address] Medical [address] [address] Wander Matthews MD Malignant melanoma of right upper extremity including shoulder (HCC) (Primary Dx); Chemotherapy induced nausea and vomiting; Multiple myeloma not having achieved remission (CMS/HCC) (HCC); Hypothyroidism due to medication 06/22/2024 11:05 AM DIRECTOR OF CATERING SALES - 06/22/2024 11:59 PM DIRECTOR OF CATERING SALES Hospital Encounter [address] [address] Multiple myeloma not having achieved remission (CMS/HCC) (HCC); Malignant melanoma of right upper extremity including shoulder (HCC) Discharge Disposition: Discharge to home or self care 06/22/2024 9:15 AM DIRECTOR OF CATERING SALES Lab [facility] Outpatient Lab at [address] [address] Multiple myeloma not having achieved remission (CMS/HCC) (HCC) (Primary Dx); Monoclonal gammopathy of unknown significance (MGUS); Malignant melanoma (HCC); Chemotherapy induced nausea and vomiting 06/17/2024 11:30 AM DIRECTOR OF CATERING SALES Infusion [address] [place] [phone] Multiple myeloma not having achieved remission (CMS/HCC) (HCC) (Primary Dx) 06/16/2024 1:53 PM DIRECTOR OF CATERING SALES - 06/16/2024 11:59 PM DIRECTOR OF CATERING SALES Hospital Encounter [address] [address] Malignant melanoma of right upper extremity including shoulder (HCC); Chemotherapy induced nausea and vomiting Discharge Disposition: Discharge to home or self care 06/16/2024 8:45 AM DIRECTOR OF CATERING SALES Lab [facility] Outpatient Lab at [address] [phone] Malignant melanoma (HCC) (Primary Dx); Multiple myeloma not having achieved remission (CMS/HCC) (HCC) 06/10/2024 10:00 AM DIRECTOR OF CATERING SALES Infusion [address] [address] Multiple myeloma not having achieved remission (CMS/HCC) (HCC) (Primary Dx) 06/09/2024 Documentation [facility] [address] [place] [address] Medical Office [facility] [address] [place] [address] Shereen Beal RN 06/09/2024 Telephone [facility] [address] [place] [address] Medical Office [facility] [address] [place] [address] Odessa Garland CLT 06/08/2024 3:46 PM DIRECTOR OF CATERING SALES - 06/08/2024 11:59 PM DIRECTOR OF CATERING SALES Hospital Encounter [address] [address] Multiple myeloma not having achieved remission (CMS/HCC) (HCC) Discharge Disposition: Discharge to home or self care 06/08/2024 8:15 AM DIRECTOR OF CATERING SALES Lab [facility] Outpatient Lab at [address] [address] Multiple myeloma not having achieved remission (CMS/HCC) (HCC) (Primary Dx); Malignant melanoma (HCC) 06/03/2024 9:30 AM DIRECTOR OF CATERING SALES Infusion [facility] Infusion [address] [place] [address] Chemotherapy induced nausea and vomiting (Primary Dx); Malignant melanoma of right upper extremity including shoulder (HCC); Multiple myeloma not having achieved remission (CMS/HCC) (HCC) 06/03/2024 9:00 AM DIRECTOR OF CATERING SALES Office Visit [facility] On[facility] [address] [place] [address] Medical Office [facility] [address] [place] [address] Wander Matthews MD Multiple myeloma not having achieved remission (CMS/HCC) (HCC) (Primary Dx); Malignant melanoma of right upper extremity including shoulder (HCC); Chemotherapy induced nausea and vomiting 06/02/2024 Telephone [facility] Oncology [address] [place] [address] Office [address] [place] [address] Lucrecia Haskins CLT 06/01/2024 2:15 PM DIRECTOR OF CATERING SALES - 06/01/2024 11:59 PM DIRECTOR OF CATERING SALES [place] [phone] Malignant melanoma of right upper extremity including shoulder (HCC) Discharge Disposition: Discharge to home or self care 06/01/2024 2:15 PM DIRECTOR OF CATERING SALES Lab [facility] Outpatient Lab at [address] [address] Malignant melanoma (HCC) (Primary Dx); Multiple myeloma not having achieved remission (CMS/HCC) (HCC) 05/20/2024 1:00 PM DIRECTOR OF CATERING SALES Infusion [facility] Cancer Infusion [address] [place] [address] Multiple myeloma not having achieved remission (CMS/HCC) (HCC) (Primary Dx) from Last 3 Months Immunizations Immunization Administration Dates Next Due Influenza, [...] on file Legal Sex Male 1:08 PM DIRECTOR OF CATERING SALES Gender Identity Not on file Sexual Orientation Not on file Obstetrics History Last Filed Vital Signs Vital Sign Reading Time Taken Comments Blood Pressure 110/72 08/07/2024 8:28 AM DIRECTOR OF [employer] SALES Pulse 118 08/07/2024 8:28 AM DIRECTOR OF [employer]ING SALES Temperature 36.8 C (98.2 F) 08/07/2024 8:28 AM DIRECTOR OF CATERING SALES Respiratory Rate 18 08/07/2024 8:28 AM DIRECTOR OF CATERING SALES Oxygen Saturation 95% 08/07/2024 8:28 AM DIRECTOR OF CATERING SALES Inhaled Oxygen Concentration - - Weight 105 kg (231 lb 6.4 oz) 08/07/2024 8:28 AM DIRECTOR OF [employer]ERING SALES Height 177.8 cm (5' 10 ) 07/17/2024 8:09 AM DIRECTOR OF CATERING SALES Body Mass Index 33.2 07/17/2024 8:09 AM DIRECTOR OF CATERING SALES Plan of Treatment Health Maintenance Due Date Last Done Comments Colon Cancer Screening-Colonoscopy 1950 Depression Screening 1950 Hepatitis C Screening 1950 Hepatitis B Screening 1970 Zoster Vaccine (1 of 2) 1971 Well Visit 65+ 2017 Influenza Vaccine (#1) 2024 3, 06/04/2022, 04/14/2021, Additional history exists Covid-19 Vaccine (9 - Modern a risk season) 2024 05/18/2024, 06/04/2023, 06/13/2022, Additional history exists Fall Risk Assessment 08/07/2025 08/07/2024, 07/03/2024, 06/26/2024, Additional history exists DTaP/Tdap/Td Vaccine (2 - Td or Tdap) 03/09/2033 03/09/2023 Pneumococcal vaccine 65+ Completed 02/11/2023 Prostate Cancer Screening-PSA Discontinued , 12/25/2023, 11/07/2023, Additional history exists Procedures Procedure Name Priority Date/Time Associated Diagnosis Comments EGFR STAT 08/03/2024 10:57 PM DIRECTOR OF [employer]ES Multiple myeloma not having achieved remission (CMS/HCC) (HCC) DIFFERENTIAL AUTO STAT 08/03/2024 10: 57 PM DIRECTOR OF [employer]ING SALES Multiple myeloma not having achieved remission (CMS/HCC) (HCC) CBC WITH AUTO DIFFERENTIAL STAT 08/03/2024 10:57 PM DIRECTOR OF CATERING SALES Multiple myeloma not having achieved remission (CMS/HCC) (HCC) COMPREHENSIVE METABOLIC PANEL STAT 08/03/2024 10:57 PM DIRECTOR OF CATERING SALES Multiple myeloma not having achieved remission (CMS/HCC) (HCC) EGFR Routine 07/27/2024 1:03 PM DIRECTOR OF [employer]ES Malignant melanoma of right upper extremity including shoulder (HCC) DIFFERENTIAL AUTO Routine 07/27/2024 1:0 3 PM DIRECTOR OF [employer]ERING SALES Malignant melanoma of right upper extremity including shoulder (HCC) IGG Routine 07/27/2024 1:03 PM DIRECTOR OF [employer]ERING SALES Malignant melanoma of right upper extremity including shoulder (HCC) IMMUNOGLOBULIN FREE LIGHT CHAINS Routine 07/27/2024 1:03 PM DIRECTOR OF CATERING SALES Malignant melanoma of right upper extremity including shoulder (HCC) CBC WITH AUTO DIFFERENTIAL Routine 07/27/2024 1:03 PM DIRECTOR OF CAT[employer]ING SALES Malignant melanoma of right upper extremity including shoulder (HCC) COMPREHENSIVE METABOLIC PANEL Routine 07/27/2024 1:03 PM DIRECTOR OF [employer]ING SALES Malignant melanoma of right upper extremity including shoulder (HCC) TSH Routine 07/27/2024 1:03 PM DIRECTOR OF [employer]ING SALES Hypothyroidism, unspecified type EGFR STAT 07/13/2024 10:05 AM DIRECTOR OF [employer]ING SALES Malignant melanoma of right upper extremity including shoulder (HCC) Chemotherapy induced nausea and vomiting DIFFERENTIAL AUTO STAT 07/13/2024 10: 05 AM DIRECTOR OF CATERING SALES Malignant melanoma of right upper extremity including shoulder (HCC) Chemotherapy induced nausea and vomiting CBC WITH AUTO DIFFERENTIAL STAT 07/13/2024 10:05 AM DIRECTOR OF CATERING SALES Malignant melanoma of right upper extremity including shoulder (HCC) Chemotherapy induced nausea and vomiting COMPREHENSIVE METABOLIC PANEL STAT 07/13/2024 10:05 AM DIRECTOR OF CATERING SALES Malignant melanoma of right upper extremity including shoulder (HCC) Chemotherapy induced nausea and vomiting TSH Routine 07/13/2024 10:05 AM DIRECTOR OF CATERING SALES Malignant melanoma of right upper extremity including shoulder (HCC) Chemotherapy induced nausea and vomiting EGFR Routine 07/07/2024 9:05 AM DIRECTOR OF CATERING SALES Malignant melanoma of right upper extremity including shoulder (HCC) Multiple myeloma not having achieved remission (CMS/HCC) (HCC) DIFFERENTIAL AUTO Routine 07/07/2024 9:0 5 AM DIRECTOR OF CATERING SALES Malignant melanoma of right upper extremity including shoulder (HCC) Multiple myeloma not having achieved remission (CMS/HCC) (HCC) CBC WITH AUTO DIFFERENTIAL Routine 07/07/2024 9:05 AM DIRECTOR OF CATERING SALES Malignant melanoma of right upper extremity including shoulder (HCC) Multiple myeloma not having achieved remission (CMS/HCC) (HCC) TSH Routine 07/07/2024 9:05 AM DIRECTOR OF CATERING SALES Malignant melanoma of right upper extremity including shoulder (HCC) Multiple myeloma not having achieved remission (CMS/HCC) (HCC) Hypothyroidism due to medication IMMUNOGLOBULIN FREE LIGHT CHAINS Routine 07/07/2024 9:05 AM DIRECTOR OF CAT[employer]ING SALES Malignant melanoma of right upper extremity including shoulder (HCC) Multiple myeloma not having achieved remission (CMS/HCC) (HCC) IGG Routine 07/07/2024 9:05 AM DIRECTOR OF CATERING SALES Malignant melanoma of right upper extremity including shoulder (HCC) Multiple myeloma not having achieved remission (CMS/HCC) (HCC) COMPREHENSIVE METABOLIC PANEL Routine 07/07/2024 9:05 AM DIRECTOR OF CATERING SALES Malignant melanoma of right upper extremity including shoulder (HCC) Multiple myeloma not having achieved remission (CMS/HCC) (HCC) EGFR Routine 06/29/2024 8:57 AM DIRECTOR OF CAT[employer]ING SALES Malignant melanoma of right upper extremity including shoulder (HCC) DIFFERENTIAL AUTO Routine 06/29/2024 8:5 7 AM DIRECTOR OF CATERING SALES Malignant melanoma of right upper extremity including shoulder (HCC) COMPREHENSIVE METABOLIC PANEL Routine 06/29/2024 8:57 AM DIRECTOR OF CATERING SALES Malignant melanoma of right upper extremity including shoulder (HCC) CBC WITH AUTO DIFFERENTIAL Routine 06/29/2024 8:57 AM DIRECTOR OF CATERING SALES Malignant melanoma of right upper extremity including shoulder (HCC) IMMUNOGLOBULIN FREE LIGHT CHAINS Routine 06/22/2024 9:14 AM DIRECTOR OF CATERING SALES Malignant melanoma of right upper extremity including shoulder (HCC) EGFR STAT 06/22/2024 9:14 AM DIRECTOR OF CATERING SALES Multiple myeloma not having achieved remission (CMS/HCC) (HCC) DIFFERENTIAL AUTO STAT 06/22/2024 9:1 4 AM DIRECTOR OF CATERING SALES Multiple myeloma not having achieved remission (CMS/HCC) (HCC) COMPREHENSIVE METABOLIC PANEL STAT 06/22/2024 9:14 AM DIRECTOR OF CATERING SALES Multiple myeloma not having achieved remission (CMS/HCC) (HCC) CBC WITH AUTO DIFFERENTIAL STAT 06/22/2024 9:14 AM DIRECTOR OF CATERING SALES Multiple myeloma not having achieved remission (CMS/HCC) (HCC) EGFR STAT 06/16/2024 8:00 AM DIRECTOR OF CATERING SALES Malignant melanoma of right upper extremity including shoulder (HCC) Chemotherapy induced nausea and vomiting DIFFERENTIAL AUTO STAT 06/16/2024 8:0 0 AM DIRECTOR OF CATERING SALES Malignant melanoma of right upper extremity including shoulder (HCC) Chemotherapy induced nausea and vomiting CBC WITH AUTO DIFFERENTIAL STAT 06/16/2024 8:00 AM DIRECTOR OF CATERING SALES Malignant melanoma of right upper extremity including shoulder (HCC) Chemotherapy induced nausea and vomiting COMPREHENSIVE METABOLIC PANEL STAT 06/16/2024 8:00 AM DIRECTOR OF CATERING SALES Malignant melanoma of right upper extremity including shoulder (HCC) Chemotherapy induced nausea and vomiting EGFR Routine 06/08/2024 9:00 AM DIRECTOR OF CATERING SALES Multiple myeloma not having achieved remission (CMS/HCC) (HCC) DIFFERENTIAL AUTO Routine 06/08/2024 9:0 0 AM DIRECTOR OF CATERING SALES Multiple myeloma not having achieved remission (CMS/HCC) (HCC) CBC WITH AUTO DIFFERENTIAL Routine 06/08/2024 9:00 AM DIRECTOR OF CATERING SALES Multiple myeloma not having achieved remission (CMS/HCC) (HCC) COMPREHENSIVE METABOLIC PANEL Routine 06/08/2024 9:00 AM DIRECTOR OF CATERING SALES Multiple myeloma not having achieved remission (CMS/HCC) (HCC) EGFR Routine 06/01/2024 2:15 PM DIRECTOR OF [employer]ING SALES Malignant melanoma of right upper extremity including shoulder (HCC) DIFFERENTIAL AUTO Routine 06/01/2024 2:1 5 PM DIRECTOR OF [employer]ING SALES Malignant melanoma of right upper extremity including shoulder (HCC) IMMUNOGLOBULIN FREE LIGHT CHAINS Routine 06/01/2024 2:15 PM DIRECTOR OF CATERING SALES Malignant melanoma of right upper extremity including shoulder (HCC) IGG Routine 06/01/2024 2:15 PM DIRECTOR OF CAT[employer]ING SALES Malignant melanoma of right upper extremity including shoulder (HCC) COMPREHENSIVE METABOLIC PANEL Routine 06/01/2024 2:15 PM DIRECTOR OF [employer]ING SALES Malignant melanoma of right upper extremity including shoulder (HCC) CBC WITH AUTO DIFFERENTIAL Routine 06/01/2024 2:15 PM DIRECTOR OF [employer]ING SALES Malignant melanoma of right upper extremity including shoulder (HCC) PSA SCREEN Routine 01/20/2024 12:52 PM CDT Malignant neoplasm of prostate (HCC) from Last 3 Months or Most Recently Relevant to Health Maintenance Results * eGFR (08/03/2024 10:57 PM DIRECTOR OF [employer]) eGFR 82 >=60 mL/min/1. 73 m2 Comment: [...] reviewed 2021. Blood 08/03/2024 10:5 7 PM DIRECTOR OF [employer]ING [employer]ES 08/04/2024 12:03 AM DIRECTOR OF CATERING SALES us Wander Matthews MD LAB BLOOD ORDERABLES Final Re sult MIC[id number] Department [place] [address] * (ABNORMAL) Differential, auto (08/03/2024 10:57 PM DIRECTOR OF [employer]ING SALES) Neutrophil abs 1.8 1.5 - 6.5 K/cumm Imm gran abs 0.0 0.0 - 0.1 K/cumm [facility] Lymphocyte abs 0.4(L) 0.8 - 3.3 K/cumm [facility] Monocyte abs 0.1(L) 0.2 - 0.8 K/cumm [facility] Eosinophil abs 0.0 0.0 - 0.5 K/cumm [facility] Basophil abs 0.0 0.0 - 0.1 K/cumm [facility] Neutrophil pct 78.2 % [facility] Comment: Consistent with previous result Interpretive Data Percent cell count reference ranges are not reported, since discordance with absolute values may lead to misinterpretation of CBC data. Current Interpretive Data was last revised on 2017. Imm gran pct 0.9 % [facility] Comment: Interpretive Data Percent cell count reference ranges are not reported, since discordance with absolute values may lead to misinterpretation of CBC data. Current Interpretive Data was last revised on 2017. Lymphocyte pct 17.0 % [facility] Comment: Interpretive Data Percent cell count reference ranges are not reported, since discordance with absolute values may lead to misinterpretation of CBC data. Current Interpretive Data was last revised on 2017. Monocyte pct 2.6 % [facility] Comment: Interpretive Data Percent cell count reference ranges are not reported, since discordance with absolute values may lead to misinterpretation of CBC data. Current Interpretive Data was last revised on 2017. Eosinophil pct 0.9 % [facility] Comment: Interpretive Data Percent cell count reference [...] on 2017. Blood 08/03/2024 10:5 7 PM DIRECTOR OF [employer]ES 08/03/2024 11:21 PM DIRECTOR OF [employer] SALES Wander Matthews MD LAB BLOOD ORDERABLES Final Re sult Performing Organization Address City/[facility]/ZIP Co de Phone Number MICHELINE LUO [address] [place] [address] * (ABNORMAL) CBC with auto differential (08/03/2024 10:57 PM DIRECTOR OF [employer]) WBC 2.3(L) 3.8 - 9.9 K/cumm Hgb 11.6(L) 13.0 - 17.5 g/dL [facility] Hct 36.9(L) 38.9 - 50.3 % [facility] Plt 189 150 - 400 K/cumm [facility] CH MPV 9.6 9.1 - 12.3 fL [facility] RBC 3.85(L) 4.30 - 5.80 M/cumm [facility] CH MCV 95.8 81.3 - 96.4 fL [facility] CH MCH 30.1 27.1 - 33.3 pg [facility] MCHC 31.4(L) 32.3 - 35.7 g/dL [facility] CH RDW CV 15.3(H) 11.1 - 14.9 % [facility] CH RDW SD 54.1(H) 35.7 - 48.1 fL [facility] NRBC abs 0.00 0.00 - 0.01 K/cumm [facility] Blood 08/03/2024 10:5 7 PM DIRECT[employer] OF [employer] 08/03/2024 11:21 PM DIRECTOR OF [employer] SALES Wander Matthews MD LAB BLOOD ORDERABLES Final Re sult Performing Organization Address City/[facility]/ZIP Co de Phone Number MICHELINE LUO [address] [place] [address] * (ABNORMAL) Comprehensive metabolic panel (08/03/2024 10:57 PM [employer]OR [employer]) Sodium 139 135 - 145 mmol/L Potassium, [...] [facility] Blood 08/03/2024 10:5 7 PM [employer] 08/03/2024 11:21 PM [employer] us Wander Matthews MD LAB BLOOD ORDERABLES Final Re sult MICHELINE LUO [address] Department [place] [address] * eGFR (07/27/2024 1:03 PM [employer]OR [employer]) Pathologist [facility] eGFR >90 >=60 mL/min/1. 73 m2 Comment: [...] last reviewed 2021. Blood 07/27/2024 1:03 PM [employer] 07/27/2024 7:27 PM [employer] us Wander Matthews MD LAB BLOOD ORDERABLES Final Re sult [facility] [id number] Department [place] [address] * (ABNORMAL) Differential, auto (07/27/2024 1:03 PM [employer]OR [employer]) Pathologist [facility] Neutrophil abs 2.4 1.5 - 6.5 K/cumm Imm gran abs 0.0 0.0 - 0.1 K/cumm [facility] Lymphocyte abs 0.2(L) 0.8 - 3.3 K/cumm [facility] Monocyte abs 0.1(L) 0.2 - 0.8 K/cumm [facility] Eosinophil abs 0.1 0.0 - 0.5 K/cumm [facility] Basophil abs 0.0 0.0 - 0.1 K/cumm [facility] Neutrophil pct 85.7 % [facility] Comment: Consistent with previous result Interpretive Data Percent cell count reference ranges are not reported, since discordance with absolute values may lead to misinterpretation of CBC data. Current Interpretive Data was last revised on 2017. Imm gran pct 0.4 % [facility] Comment: Interpretive Data Percent cell count reference ranges are not reported, since discordance with absolute values may lead to misinterpretation of CBC data. Current Interpretive Data was last revised on 2017. Lymphocyte pct 8.5 % [facility] Comment: Interpretive Data Percent cell count reference ranges are not reported, since discordance with absolute values may lead to misinterpretation of CBC data. Current Interpretive Data was last revised on 2017. Monocyte pct 1.8 % [facility] Comment: Interpretive Data Percent cell count reference ranges are not reported, since discordance with absolute values may lead to misinterpretation of CBC data. Current Interpretive Data was last revised on 2017. Eosinophil pct 3.2 % [facility] Comment: Interpretive Data Percent cell count reference ranges are not reported, since discordance with absolute values may lead to misinterpretation of CBC data. Current Interpretive Data was last revised on 2017. Basophil pct 0.4 % [facility] Comment: Interpretive Data Percent cell count reference ranges are not reported, since discordance with absolute values may lead to misinterpretation of CBC data. Current Interpretive Data was last revised on 2017. Blood 07/27/2024 1:03 PM [employer] 07/27/2024 7:25 PM [employer] us Wander Matthews MD LAB BLOOD ORDERABLES Final Re sult [facility] [id number] [address] Department of Laboratories [place], [place] [phone] * (ABNORMAL) Immunoglobulin free light chains (07/27/2024 1:03 PM [employer]) Cool/Lambda ratio 43.30(H) 0.26 - 1.65 Cool free light chain 11.26(H) 0.33 - 1.94 mg/dL [facility] Comment: Interpretive Data The [employer] Cool FLC assay procedure was used. Results from different manufacturers or methods may not be comparable. Serial testing should be performed using the same method. Lambda free light chain 0.26(L) 0.57 - 2.63 mg/dL [facility] Comment: Interpretive Data The [employer] Lambda FLC assay procedure was used. Results from different manufacturers or methods may not be comparable. Serial testing should be performed using the same method. Blood 07/27/2024 1:03 PM [employer] 07/27/2024 7:25 PM [employer] Wander Matthews MD LAB BLOOD ORDERABLES Final Re sult Performing Organization Address [facility]/ZIP Co de Phone Number MICHELINE LUO [address] [address] * (ABNORMAL) CBC with auto differential (07/27/2024 1:03 PM [employer]) WBC 2.8(L) 3.8 - 9.9 K/cumm Hgb 10.9(L) 13.0 - 17.5 g/dL [facility] Hct 34.7(L) 38.9 - 50.3 % [facility] Plt 154 150 - 400 K/cumm [facility] MPV 10.0 9.1 - 12.3 fL [facility] RBC 3.70(L) 4.30 - 5.80 M/cumm [facility] MCV 93.8 81.3 - 96.4 fL [facility] MCH 29.5 27.1 - 33.3 pg [facility] MCHC 31.4(L) 32.3 - 35.7 g/dL [facility] RDW CV 15.2(H) 11.1 - 14.9 % [facility] RDW SD 52.3(H) 35.7 - 48.1 fL [facility] NRBC abs 0.00 0.00 - 0.01 K/cumm [facility] Blood 07/27/2024 1:03 PM [employer] 07/27/2024 7:25 PM [employer] Wander Matthews MD LAB BLOOD ORDERABLES Final Re sult Performing Organization Address City/[facility]/ZIP Co de Phone Number MICHELINE LUO [address] Department [employer] [place], [place] [phone] * TSH (07/27/2024 1:03 PM [employer]OR [employer]) [facility] Thyroid Stimulating Hormone 3.23 0.30 - 4.20 mcIUnit/mL Blood 07/27/2024 1:03 PM [employer] 07/27/2024 7:25 PM [employer] Narrative [facility] - 07/27/2024 7:52 PM [employer] Starting 08/10 every 4 weeks Wander Matthews MD LAB BLOOD ORDERABLES Final Re sult Performing Organization Address [facility] Co de Phone Number MICHELINE LUO [address] Department [place] [place] [address] * IgG (07/27/2024 1:03 PM [employer]) [facility] Immunoglobulin G 1,090 700 - 1,600 mg/dL Blood 07/27/2024 1:03 PM [employer] 07/27/2024 7:25 PM [employer] Wnader Matthews MD LAB BLOOD ORDERABLES Final Re sult Performing Organization Address [facility] de Phone Number [facility] [address] [address] Department [place] [address] * Comprehensive metabolic panel (07/27/2024 1:03 PM DIRECTOR [employer]) [facility] Sodium 139 135 - 145 mmol/L Potassium, pl 3.9 3.3 - 4.9 mmol/L [facility] Chloride 103 97 - 110 mmol/L [facility] CO2 23 22 - 32 mmol/L [facility] Anion gap 13 2 - 15 mmol/L [facility] BUN 18 6 - 25 mg/dL [facility] Creatinine 0.90 0.80 - 1.30 mg/dL [facility] Glucose 175 70 - 199 mg/dL [facility] Comment: Interpretive Data Fasting glucose >/= 126 [...] Units/L [facility] Blood 07/27/2024 1:03 PM [employer] 07/27/2024 7:25 PM [employer] us Wander Matthews MD LAB BLOOD ORDERABLES Final Re sult [facility] [id number] Department [place] [address] * eGFR (07/13/2024 10:05 AM [employer]) eGFR 85 >=60 mL/min/1. 73 m2 Comment: [...] reviewed 2021. Blood 07/13/2024 10:0 5 AM [employer] 07/13/2024 9:45 PM [employer] us Wander Matthews MD LAB BLOOD ORDERABLES Final Re sult [facility] [address] Department [place] [address] * (ABNORMAL) Differential, auto (07/13/2024 10:05 AM [employer]) Neutrophil abs 1.9 1.5 - 6.5 K/cumm Imm gran abs 0.0 0.0 - 0.1 K/cumm [facility] Lymphocyte abs 0.4(L) 0.8 - 3.3 K/cumm [facility] Monocyte abs 0.1(L) 0.2 - 0.8 K/cumm [facility] Eosinophil abs 0.0 0.0 - 0.5 K/cumm [facility] Basophil abs 0.0 0.0 - 0.1 K/cumm [facility] Neutrophil pct 76.6 % [facility] Comment: Consistent with previous result Interpretive Data Percent cell count reference ranges are not reported, since discordance with absolute values may lead to misinterpretation of CBC data. Current Interpretive Data was last revised on 2017. Imm gran pct 1.2 % [facility] Comment: Interpretive Data Percent cell count reference ranges are not reported, since discordance with absolute values may lead to misinterpretation of CBC data. Current Interpretive Data was last revised on 2017. Lymphocyte pct 17.7 % [facility] Comment: Interpretive Data Percent cell count reference ranges are not reported, since discordance with absolute values may lead to misinterpretation of CBC data. Current Interpretive Data was last revised on 2017. Monocyte pct 3.3 % [facility] Comment: Interpretive Data Percent cell count reference ranges are not reported, since discordance with absolute values may lead to misinterpretation of CBC data. Current Interpretive Data was last revised on 2017. Eosinophil pct 0.8 % [facility] Comment: Interpretive Data Percent cell count reference ranges are not reported, since discordance with absolute values may lead to misinterpretation of CBC data. Current Interpretive Data was last revised on 2017. Basophil pct 0.4 % [facility] Comment: Interpretive Data Percent cell count reference ranges are not reported, since discordance with absolute values may lead to misinterpretation of CBC data. Current Interpretive Data was last revised on 2017. Blood 07/13/2024 10:0 5 AM [employer] 07/13/2024 9:30 PM [employer] Wander Matthews MD LAB BLOOD ORDERABLES Final Re sult Performing Organization Address [facility] Co de Phone Number [facility] [address] [address] Department of Laboratories [place], [place] [phone] * (ABNORMAL) CBC with auto differential (07/13/2024 10:05 AM [employer]) WBC 2.4(L) 3.8 - 9.9 K/cumm Hgb 11.7(L) 13.0 - 17.5 g/dL [facility] Hct 37.0(L) 38.9 - 50.3 % [facility] Plt 82(L) 150 - 400 K/cumm [facility] Comment:No clot detected in sample. MPV 10.9 9.1 - 12.3 fL [facility] RBC 3.92(L) 4.30 - 5.80 M/cumm [facility] MCV 94.4 81.3 - 96.4 fL [facility] MCH 29.8 27.1 - 33.3 pg [facility] MCHC 31.6(L) 32.3 - 35.7 g/dL [facility] RDW CV 15.7(H) 11.1 - 14.9 % [facility] RDW SD 53.8(H) 35.7 - 48.1 fL [facility] NRBC abs 0.04(H) 0.00 - 0.01 K/cumm [facility] Blood 07/13/2024 10:0 5 AM [employer] 07/13/2024 9:30 PM [employer] Wander Matthews MD LAB BLOOD ORDERABLES Final Re sult Performing Organization Address [facility]/ZIP Co de Phone Number MICHELINE LUO [address] Department [place] [address] * (ABNORMAL) TSH (07/13/2024 10:05 AM [employer]) Thyroid Stimulating Hormone 6.51(H) 0.30 - 4.20 mcIUnit/mL Blood 07/13/2024 10:0 5 AM [employer] 07/13/2024 9:30 PM [employer] Wander Matthews MD LAB BLOOD ORDERABLES Final Re sult MICHELINE LUO [address] Department [place] [address] * (ABNORMAL) Comprehensive metabolic panel (07/13/2024 10:05 AM [employer]) Sodium 140 135 - 145 mmol/L Potassium, [...] [facility] Blood 07/13/2024 10:0 5 AM [employer] 07/13/2024 9:30 PM [employer] Wander Matthews MD LAB BLOOD ORDERABLES Final Re sult Performing Organization Address [facility] Co de Phone Number MICHELINE LUO [address] [employer] [place], [place] [phone] * eGFR (07/07/2024 9:05 AM [employer]) eGFR 86 >=60 mL/min/1. 73 m2 Comment: [...] last reviewed 2021. Blood 07/07/2024 9:05 AM [employer] 07/07/2024 4:21 PM [employer] Wander Matthews MD LAB BLOOD ORDERABLES Final Re sult Performing Organization Address [facility]/ZIP Co de Phone Number MICHELINE LUO [address] [address] Department [place] [address] * (ABNORMAL) Differential, auto (07/07/2024 9:05 AM [employer]) Neutrophil abs 1.9 1.5 - 6.5 K/cumm Imm gran abs 0.0 0.0 - 0.1 K/cumm [facility] Lymphocyte abs 0.4(L) 0.8 - 3.3 K/cumm [facility] Monocyte abs 0.1(L) 0.2 - 0.8 K/cumm [facility] Eosinophil abs 0.1 0.0 - 0.5 K/cumm [facility] Basophil abs 0.0 0.0 - 0.1 K/cumm [facility] Neutrophil pct 76.1 % [facility] Comment: Consistent with previous result Interpretive Data Percent cell count reference ranges are not reported, since discordance with absolute values may lead to misinterpretation of CBC data. Current Interpretive Data was last revised on 2017. Imm gran pct 0.4 % [facility] Comment: Interpretive Data Percent cell count reference ranges are not reported, since discordance with absolute values may lead to misinterpretation of CBC data. Current Interpretive Data was last revised on 2017. Lymphocyte pct 17.3 % [facility] Comment: Interpretive Data Percent cell count reference ranges are not reported, since discordance with absolute values may lead to misinterpretation of CBC data. Current Interpretive Data was last revised on 2017. Monocyte pct 3.3 % [facility] Comment: Interpretive Data Percent cell count reference ranges are not reported, since discordance with absolute values may lead to misinterpretation of CBC data. Current Interpretive Data was last revised on 2017. Eosinophil pct 2.5 % [facility] Comment: Interpretive Data Percent cell count reference ranges are not reported, since discordance with absolute values may lead to misinterpretation of CBC data. Current Interpretive Data was last revised on 2017. Basophil pct 0.4 % [facility] Comment: Interpretive Data Percent cell count reference ranges are not reported, since discordance with absolute values may lead to misinterpretation of CBC data. Current Interpretive Data was last revised on 2017. Blood 07/07/2024 9:05 AM [employer] 07/07/2024 4:03 PM [employer] Wander Matthews MD LAB BLOOD ORDERABLES Final Re sult Performing Organization Address [facility] Co de Phone Number MICHELINE LUO [address] Department of Laboratories [place], [place] [phone] * (ABNORMAL) Immunoglobulin free light chains (07/07/2024 9:05 AM DIRECTOR [employer]) Pathologist [facility] Cool/Lambda ratio 22.10(H) 0.26 - 1.65 Cool free light chain 4.87(H) 0.33 - 1.94 mg/dL [facility] Comment: Interpretive Data The [employer] Ig Cool FLC assay procedure was used. Results from different manufacturers or methods may not be comparable. Serial testing should be performed using the same method. Lambda free light chain 0.22(L) 0.57 - 2.63 mg/dL [facility] Comment: Interpretive Data The [employer] Lambda FLC assay procedure was used. Results from different manufacturers or methods may not be comparable. Serial testing should be performed using the same method. Blood 07/07/2024 9:05 AM [employer] 07/07/2024 4:03 PM [employer] Wander Matthews MD LAB BLOOD ORDERABLES Final Re sult Performing Organization Address [facility] de Phone Number MICHELINE LUO [address] Department of Laboratories [place], [place] [phone] * (ABNORMAL) CBC with auto differential (07/07/2024 9:05 AM DIRECT[employer]) Pathologist [facility] WBC 2.4(L) 3.8 - 9.9 K/cumm Hgb 11.7(L) 13.0 - 17.5 g/dL [facility] Hct 37.4(L) 38.9 - 50.3 % [facility] Plt 134(L) 150 - 400 K/cumm [facility] MPV 10.7 9.1 - 12.3 fL [facility] RBC 4.03(L) 4.30 - 5.80 M/cumm [facility] MCV 92.8 81.3 - 96.4 fL [facility] MCH 29.0 27.1 - 33.3 pg [facility] MCHC 31.3(L) 32.3 - 35.7 g/dL [facility] RDW CV 14.6 11.1 - 14.9 % [facility] CH RDW SD 49.2(H) 35.7 - 48.1 fL [facility] NRBC abs 0.00 0.00 - 0.01 K/cumm [facility] Blood 07/07/2024 9:05 AM [employer] 07/07/2024 4:03 PM [employer] Wander Matthews MD LAB BLOOD ORDERABLES Final Re sult Performing Organization Address City/[facility] Co de Phone Number [facility] [address] [address] [facility] [place] [address] * (ABNORMAL) TSH (07/07/2024 9:05 AM DIRECT[employer]) Pathologist [facility] Thyroid Stimulating Hormone 4.33(H) 0.30 - 4.20 mcIUnit/mL Blood 07/07/2024 9:05 AM [employer] 07/07/2024 4:03 PM [employer] Wander Matthews MD LAB BLOOD ORDERABLES Final Re sult Performing Organization Address [facility] de Phone Number [facility] [address] [employer] [place], [place] [phone] * IgG (07/07/2024 9:05 AM DIRECTOR [employer]) Pathologist [facility] Immunoglobulin G 957 700 - 1,600 mg/dL Blood 07/07/2024 9:05 AM [employer] 07/07/2024 4:03 PM [employer] Wander Matthews MD LAB BLOOD ORDERABLES Final Re sult Performing Organization Address [facility] Co de Phone Number [facility] [address] [address] [facility] [place] [address] * Comprehensive metabolic panel (07/07/2024 9:05 AM DIRECT[employer]) Sodium 140 135 - 145 mmol/L Potassium, [...] Units/L [facility] Blood 07/07/2024 9:05 AM [employer] 07/07/2024 4:03 PM [employer] Wander Matthews MD LAB BLOOD ORDERABLES Final Re sult [facility] [address] [address] Department [place] [address] * eGFR (06/29/2024 8:57 AM [employer]) eGFR 71 >=60 mL/min/1. 73 m2 Comment: [...] last reviewed 2021. Blood 06/29/2024 8:57 AM [employer] 06/29/2024 8:16 PM [employer] us Wander Matthews MD LAB BLOOD ORDERABLES Final Re sult [facility] [address] [address] Department [place] [address] * (ABNORMAL) Differential, auto (06/29/2024 8:57 AM DIRECT[employer]) Neutrophil abs 2.2 1.5 - 6.5 K/cumm Imm gran abs 0.0 0.0 - 0.1 K/cumm [facility] Lymphocyte abs 0.3(L) 0.8 - 3.3 K/cumm [facility] Monocyte abs 0.1(L) 0.2 - 0.8 K/cumm [facility] Eosinophil abs 0.1 0.0 - 0.5 K/cumm [facility] Basophil abs 0.0 0.0 - 0.1 K/cumm [facility] Neutrophil pct 80.6 % [facility] Comment: Consistent with previous result Interpretive Data Percent cell count reference ranges are not reported, since discordance with absolute values may lead to misinterpretation of CBC data. Current Interpretive Data was last revised on 2017. Imm gran pct 0.7 % [facility] Comment: Interpretive Data Percent cell count reference ranges are not reported, since discordance with absolute values may lead to misinterpretation of CBC data. Current Interpretive Data was last revised on 2017. Lymphocyte pct 12.7 % [facility] Comment: Interpretive Data Percent cell count reference ranges are not reported, since discordance with absolute values may lead to misinterpretation of CBC data. Current Interpretive Data was last revised on 2017. Monocyte pct 2.2 % [facility] Comment: Interpretive Data Percent cell count reference ranges are not reported, since discordance with absolute values may lead to misinterpretation of CBC data. Current Interpretive Data was last revised on 2017. Eosinophil pct 3.4 % [facility] Comment: Interpretive Data Percent cell count reference ranges are not reported, since discordance with absolute values may lead to misinterpretation of CBC data. Current Interpretive Data was last revised on 2017. Basophil pct 0.4 % [facility] Comment: Interpretive Data Percent cell count reference ranges are not reported, since discordance with absolute values may lead to misinterpretation of CBC data. Current Interpretive Data was last revised on 2017. Blood 06/29/2024 8:57 AM [employer] 06/29/2024 6:44 PM [employer] us Wander Matthews MD LAB BLOOD ORDERABLES Final Re sult [facility] [address] [address] Department [place] [address] * (ABNORMAL) CBC with auto differential (06/29/2024 8:57 AM [employer]) WBC 2.7(L) 3.8 - 9.9 K/cumm Hgb 11.6(L) 13.0 - 17.5 g/dL [facility] Hct 37.4(L) 38.9 - 50.3 % [facility] Plt 183 150 - 400 K/cumm [facility] MPV 9.8 9.1 - 12.3 fL [facility] RBC 3.97(L) 4.30 - 5.80 M/cumm [facility] MCV 94.2 81.3 - 96.4 fL [facility] MCH 29.2 27.1 - 33.3 pg [facility] MCHC 31.0(L) 32.3 - 35.7 g/dL [facility] RDW CV 14.8 11.1 - 14.9 % [facility] RDW SD 51.3(H) 35.7 - 48.1 fL [facility] NRBC abs 0.00 0.00 - 0.01 K/cumm [facility] Blood 06/29/2024 8:57 AM [employer] 06/29/2024 6:44 PM [employer] Wander Matthews MD LAB [place]LOOD [place] [address] Department [place] [address] * Comprehensive metabolic panel (06/29/2024 8:57 AM DIRECT[employer]) Sodium 140 135 - 145 mmol/L Potassium, [...] CH AST 25 10 - 50 Units/L [facility] Blood 06/29/2024 8:57 AM [employer] 06/29/2024 6:44 PM [employer] Wander Matthews MD LAB BLOOD ORDERABLES Final Re sult Performing Organization Address City/[facility] Co de Phone Number MICHELINE LUO [address] Department of [employer] [place], [place] [phone] * eGFR (06/22/2024 9:14 AM [employer]) eGFR 71 >=60 mL/min/1. 73 m2 Comment: [...] last reviewed 2021. Blood 06/22/2024 9:14 AM [employer] 06/22/2024 5:53 PM [employer] Wander Matthews MD LAB BLOOD ORDERABLES Final Re sult Performing Organization Address City/[facility]/ZIP Co de Phone Number MICHELINE LUO [address] Department of [employer] [place], [place] [phone] * (ABNORMAL) Differential, auto (06/22/2024 9:14 AM DIRECT[employer]) Neutrophil abs 2.8 1.5 - 6.5 K/cumm Imm gran abs 0.0 0.0 - 0.1 K/cumm [facility] Lymphocyte abs 0.2(L) 0.8 - 3.3 K/cumm [facility] Monocyte abs 0.1(L) 0.2 - 0.8 K/cumm [facility] Eosinophil abs 0.1 0.0 - 0.5 K/cumm [facility] Basophil abs 0.0 0.0 - 0.1 K/cumm [facility] Neutrophil pct 89.3 % [facility] Comment: Consistent with previous result Interpretive Data Percent cell count reference ranges are not reported, since discordance with absolute values may lead to misinterpretation of CBC data. Current Interpretive Data was last revised on 2017. Imm gran pct 0.3 % [facility] Comment: Interpretive Data Percent cell count reference ranges are not reported, since discordance with absolute values may lead to misinterpretation of CBC data. Current Interpretive Data was last revised on 2017. Lymphocyte pct 7.2 % [facility] Comment: Interpretive Data Percent cell count reference ranges are not reported, since discordance with absolute values may lead to misinterpretation of CBC data. Current Interpretive Data was last revised on 2017. Monocyte pct 1.6 % [facility] Comment: Interpretive Data Percent cell count reference ranges are not reported, since discordance with absolute values may lead to misinterpretation of CBC data. Current Interpretive Data was last revised on 2017. Eosinophil pct 1.6 % [facility] Comment: Interpretive Data Percent cell count reference ranges are not reported, since discordance with absolute values may lead to misinterpretation of CBC data. Current Interpretive Data was last revised on 2017. Basophil pct 0.0 % [facility] Comment: Interpretive Data Percent cell count reference ranges are not reported, since discordance with absolute values may lead to misinterpretation of CBC data. Current Interpretive Data was last revised on 2017. Blood 06/22/2024 9:14 AM [employer] 06/22/2024 5:29 PM [employer] us Wander Matthews MD LAB BLOOD ORDERABLES Final Re sult MICHELINE LUO [address] Department [place] [address] * (ABNORMAL) Immunoglobulin free light chains (06/22/2024 9:14 AM DIRECTOR [employer]) [facility] Cool/Lambda ratio 28.50(H) 0.26 - 1.65 Cool free light chain 8.26(H) 0.33 - 1.94 mg/dL [facility] Comment: Interpretive Data The [employer] Ig Cool FLC assay procedure was used. Results from different manufacturers or methods may not be comparable. Serial testing should be performed using the same method. Lambda free light chain 0.29(L) 0.57 - 2.63 mg/dL [facility] Comment: Interpretive Data The [employer]ay[employer] Ig Lambda FLC assay procedure was used. Results from different manufacturers or methods may not be comparable. Serial testing should be performed using the same method. Blood 06/22/2024 9:14 AM DIRECTOR OF CATERING SALES 06/23/2024 10:18 AM DIRECTOR OF CATERING SALES Wander Matthews MD LAB BLOOD ORDERABLES Final Re sult [facility] [id number] Department [place] [address] * (ABNORMAL) CBC with auto differential (06/22/2024 9:14 AM DIRECTOR OF CATERING SALES) [facility] WBC 3.2(L) 3.8 - 9.9 K/cumm Hgb 12.4(L) 13.0 - 17.5 g/dL [facility] Hct 39.0 38.9 - 50.3 % [facility] Plt 85(L) 150 - 400 K/cumm [facility] MPV 11.0 9.1 - 12.3 fL [facility] RBC 4.21(L) 4.30 - 5.80 M/cumm [facility] MCV 92.6 81.3 - 96.4 fL [facility] MCH 29.5 27.1 - 33.3 pg [facility] MCHC 31.8(L) 32.3 - 35.7 g/dL [facility] RDW CV 14.3 11.1 - 14.9 % [facility] RDW SD 48.1 35.7 - 48.1 fL [facility] NRBC abs 0.00 0.00 - 0.01 K/cumm [facility] Blood 06/22/2024 9:14 AM DIRECTOR OF CATERING SALES 06/22/2024 5:29 PM DIRECTOR OF CATERING SALES us Wander Matthews MD LAB BLOOD ORDERABLES Final Re sult [facility] [id number] Department [place] [address] * (ABNORMAL) Comprehensive metabolic panel (06/22/2024 9:14 AM DIRECTOR OF CATERING SALES) Sodium 140 135 - 145 mmol/L Potassium, [...] Units/L [facility] Blood 06/22/2024 9:14 AM DIRECTOR OF CATERING SALES 06/22/2024 5:29 PM DIRECTOR OF CATERING SALES Wander Matthews MD LAB BLOOD ORDERABLES Final Re sult Performing Organization Address [facility] Co de Phone Number MICHELINE LUO [address] Department of Laboratories [place], [place] [id number] * eGFR (06/16/2024 8:00 AM DIRECTOR OF CATERING SALES) eGFR 68 >=60 mL/min/1. 73 m2 Comment: [...] last reviewed 2021. Blood 06/16/2024 8:00 AM DIRECTOR OF CATERING SALES 06/16/2024 2:09 PM DIRECTOR OF CATERING SALES Wander Matthews MD LAB BLOOD ORDERABLES Final Re sult MICHELINE LUO [address] Department [place] [address] * (ABNORMAL) Differential, auto (06/16/2024 8:00 AM DIRECTOR OF CATERING SALES) Neutrophil abs 2.9 1.5 - 6.5 K/cumm Imm gran abs 0.0 0.0 - 0.1 K/cumm [facility] Lymphocyte abs 0.4(L) 0.8 - 3.3 K/cumm [facility] Monocyte abs 0.1(L) 0.2 - 0.8 K/cumm [facility] Eosinophil abs 0.1 0.0 - 0.5 K/cumm [facility] Basophil abs 0.0 0.0 - 0.1 K/cumm [facility] Neutrophil pct 83.4 % [facility] Comment: Consistent with previous result Interpretive Data Percent cell count reference ranges are not reported, since discordance with absolute values may lead to misinterpretation of CBC data. Current Interpretive Data was last revised on 2017. Imm gran pct 0.6 % [facility] Comment: Interpretive Data Percent cell count reference ranges are not reported, since discordance with absolute values may lead to misinterpretation of CBC data. Current Interpretive Data was last revised on 2017. Lymphocyte pct 10.6 % [facility] Comment: Interpretive Data Percent cell count reference ranges are not reported, since discordance with absolute values may lead to misinterpretation of CBC data. Current Interpretive Data was last revised on 2017. Monocyte pct 1.4 % [facility] Comment: Interpretive Data Percent cell count reference ranges are not reported, since discordance with absolute values may lead to misinterpretation of CBC data. Current Interpretive Data was last revised on 2017. Eosinophil pct 3.7 % [facility] Comment: Interpretive Data Percent cell count reference ranges are not reported, since discordance with absolute values may lead to misinterpretation of CBC data. Current Interpretive Data was last revised on 2017. Basophil pct 0.3 % [facility] Comment: Interpretive Data Percent cell count reference ranges are not reported, since discordance with absolute values may lead to misinterpretation of CBC data. Current Interpretive Data was last revised on 2017. Blood 06/16/2024 8:00 AM DIRECTOR OF CATERING SALES 06/16/2024 1:56 PM DIRECTOR OF CATERING SALES us Wander Matthews MD LAB BLOOD ORDERABLES Final Re sult MICHELINE [address] Department [place] [address] * (ABNORMAL) CBC with auto differential (06/16/2024 8:00 AM DIRECTOR OF CATERING SALES) Pathologist [facility] WBC 3.5(L) 3.8 - 9.9 K/cumm Hgb 13.3 13.0 - 17.5 g/dL [facility] Hct 40.1 38.9 - 50.3 % [facility] Plt 79(L) 150 - 400 K/cumm [facility] MPV 11.3 9.1 - 12.3 fL [facility] RBC 4.42 4.30 - 5.80 M/cumm [facility] MCV 90.7 81.3 - 96.4 fL [facility] MCH 30.1 27.1 - 33.3 pg [facility] MCHC 33.2 32.3 - 35.7 g/dL [facility] RDW CV 14.0 11.1 - 14.9 % [facility] RDW SD 46.8 35.7 - 48.1 fL [facility] NRBC abs 0.00 0.00 - 0.01 K/cumm [facility] Blood 06/16/2024 8:00 AM DIRECTOR OF CATERING SALES 06/16/2024 1:56 PM DIRECTOR OF CATERING SALES us Wander Matthews MD LAB BLOOD ORDERABLES Final Re sult [facility] [id number] Department [place] [address] * Comprehensive metabolic panel (06/16/2024 8:00 AM DIRECTOR OF CATERING SALES) [facility] Sodium 137 135 - 145 mmol/L Potassium, pl 3.8 3.3 - 4.9 mmol/L [facility] Chloride 99 97 - 110 mmol/L [facility] CO2 27 22 - 32 mmol/L [facility] Anion gap 11 2 - 15 mmol/L [facility] BUN 24 6 - 25 mg/dL [facility] Creatinine 1.14 0.80 - 1.30 mg/dL [facility] Comment:Icteric sample, test results may be affected. Glucose 172 70 - 199 mg/dL [facility] Comment: Interpretive Data Fasting glucose >/= 126 [...] Units/L [facility] Blood 06/16/2024 8:00 AM DIRECTOR OF CATERING SALES 06/16/2024 1:56 PM DIRECTOR OF CATERING SALES us Wander Matthews MD LAB BLOOD ORDERABLES Final Re sult MIC[address]LINE [address] Department [place] [address] * eGFR (06/08/2024 9:00 AM DIRECTOR OF CATERING SALES) eGFR 73 >=60 mL/min/1. 73 m2 Comment: [...] last reviewed 2021. Blood 06/08/2024 9:00 AM DIRECTOR OF CATERING SALES 06/08/2024 4:57 PM DIRECTOR OF CATERING SALES us Wander Matthews MD LAB BLOOD ORDERABLES Final Re sult [facility] [address] Department [place] [address] * (ABNORMAL) Differential, auto (06/08/2024 9:00 AM DIRECTOR OF CATERING SALES) Neutrophil abs 1.8 1.5 - 6.5 K/cumm Imm gran abs 0.0 0.0 - 0.1 K/cumm [facility] Lymphocyte abs 0.4(L) 0.8 - 3.3 K/cumm [facility] Monocyte abs 0.1(L) 0.2 - 0.8 K/cumm [facility] Eosinophil abs 0.1 0.0 - 0.5 K/cumm [facility] Basophil abs 0.0 0.0 - 0.1 K/cumm [facility] Neutrophil pct 77.5 % [facility] Comment: Consistent with previous result Interpretive Data Percent cell count reference ranges are not reported, since discordance with absolute values may lead to misinterpretation of CBC data. Current Interpretive Data was last revised on 2017. Imm gran pct 0.4 % [facility] Comment: Interpretive Data Percent cell count reference ranges are not reported, since discordance with absolute values may lead to misinterpretation of CBC data. Current Interpretive Data was last revised on 2017. Lymphocyte pct 16.1 % [facility] Comment: Interpretive Data Percent cell count reference ranges are not reported, since discordance with absolute values may lead to misinterpretation of CBC data. Current Interpretive Data was last revised on 2017. Monocyte pct 3.0 % [facility] Comment: Interpretive Data Percent cell count reference ranges are not reported, since discordance with absolute values may lead to misinterpretation of CBC data. Current Interpretive Data was last revised on 2017. Eosinophil pct 2.6 % [facility] Comment: Interpretive Data Percent cell count reference ranges are not reported, since discordance with absolute values may lead to misinterpretation of CBC data. Current Interpretive Data was last revised on 2017. Basophil pct 0.4 % [facility] Comment: Interpretive Data Percent cell count reference ranges are not reported, since discordance with absolute values may lead to misinterpretation of CBC data. Current Interpretive Data was last revised on 2017. Blood 06/08/2024 9:00 AM DIRECTOR OF CATERING SALES 06/08/2024 4:38 PM DIRECTOR OF CATERING SALES us Wander Matthews MD LAB BLOOD ORDERABLES Final Re sult [facility] [id number] Department [place] [address] * (ABNORMAL) CBC with auto differential (06/08/2024 9:00 AM DIRECTOR OF CATERING SALES) WBC 2.3(L) 3.8 - 9.9 K/cumm Hgb 12.6(L) 13.0 - 17.5 g/dL [facility] Hct 38.7(L) 38.9 - 50.3 % [facility] Plt 130(L) 150 - 400 K/cumm [facility] MPV 10.9 9.1 - 12.3 fL [facility] RBC 4.20(L) 4.30 - 5.80 M/cumm [facility] MCV 92.1 81.3 - 96.4 fL [facility] MCH 30.0 27.1 - 33.3 pg [facility] MCHC 32.6 32.3 - 35.7 g/dL [facility] RDW CV 14.0 11.1 - 14.9 % [facility] RDW SD 47.1 35.7 - 48.1 fL [facility] NRBC abs 0.00 0.00 - 0.01 K/cumm [facility] Blood 06/08/2024 9:00 AM DIRECTOR OF CATERING SALES 06/08/2024 4:38 PM DIRECTOR OF CATERING SALES Narrative [facility] - 06/08/2024 5:03 PM DIRECTOR OF CATERING SALES Dr. Matthews weekly CBC on 01/20/2024 and 01/27/2024 us Wander Matthews MD LAB BLOOD ORDERABLES Final Re sult [facility] [address] Department [place] [address] * (ABNORMAL) Comprehensive metabolic panel (06/08/2024 9:00 AM DIRECTOR OF CATERING SALES) Sodium 139 135 - 145 mmol/L Potassium, [...] Units/L [facility] Blood 06/08/2024 9:00 AM DIRECTOR OF CATERING SALES 06/08/2024 4:38 PM DIRECTOR OF CATERING SALES Narrative [facility] - 06/08/2024 5:21 PM DIRECTOR OF CATERING SALES Cassie CMP weekly x 2 01/20/2024 and 01/27/2024 Wander Matthews MD LAB BLOOD ORDERABLES Final Re sult Performing Organization Address City/[facility]/ZIP Co de Phone Number MICHELINE LUO [address] Department [place] [address] * eGFR (06/01/2024 2:15 PM DIRECTOR OF CATERING SALES) eGFR 70 >=60 mL/min/1. 73 m2 Comment: [...] last reviewed 2021. Blood 06/01/2024 2:15 PM DIRECTOR OF CATERING SALES 06/01/2024 9:08 PM DIRECTOR OF CATERING SALES Wander Matthews MD LAB BLOOD ORDERABLES Final Re sult Performing Organization Address City/[facility]/ZIP Co de Phone Number MICHELINE LUO [address] Department [place] [address] * (ABNORMAL) Differential, auto (06/01/2024 2:15 PM DIRECTOR OF CATERING SALES) Neutrophil abs 2.6 1.5 - 6.5 K/cumm Imm gran abs 0.0 0.0 - 0.1 K/cumm [facility] Lymphocyte abs 0.5(L) 0.8 - 3.3 K/cumm [facility] Monocyte abs 0.1(L) 0.2 - 0.8 K/cumm [facility] Eosinophil abs 0.1 0.0 - 0.5 K/cumm [facility] Basophil abs 0.0 0.0 - 0.1 K/cumm [facility] Neutrophil pct 78.8 % [facility] Comment: Interpretive Data Percent cell count reference ranges are not reported, since discordance with absolute values may lead to misinterpretation of CBC data. Current Interpretive Data was last revised on 2017. Imm gran pct 0.3 % [facility] Comment: Interpretive Data Percent cell count reference ranges are not reported, since discordance with absolute values may lead to misinterpretation of CBC data. Current Interpretive Data was last revised on 2017. Lymphocyte pct 14.1 % [facility] Comment: Interpretive Data Percent cell count reference ranges are not reported, since discordance with absolute values may lead to misinterpretation of CBC data. Current Interpretive Data was last revised on 2017. Monocyte pct 3.4 % [facility] Comment: Interpretive Data Percent cell count reference ranges are not reported, since discordance with absolute values may lead to misinterpretation of CBC data. Current Interpretive Data was last revised on 2017. Eosinophil pct 2.5 % [facility] Comment: Interpretive Data Percent cell count reference ranges are not reported, since discordance with absolute values may lead to misinterpretation of CBC data. Current Interpretive Data was last revised on 2017. Basophil pct 0.9 % [facility] Comment: Interpretive Data Percent cell count reference ranges are not reported, since discordance with absolute values may lead to misinterpretation of CBC data. Current Interpretive Data was last revised on 2017. Blood 06/01/2024 2:15 PM DIRECTOR OF CATERING SALES 06/01/2024 9:06 PM DIRECTOR OF CATERING SALES us Wander Matthews MD LAB BLOOD ORDERABLES Final Re sult MICHELINE LUO [address] Department of Laboratories [place], [place] [id number] * (ABNORMAL) Immunoglobulin free light chains (06/01/2024 2:15 PM DIRECTOR OF CATERING SALES) Pathologist [facility] Cool/Lambda ratio 18.40(H) 0.26 - 1.65 Cool free light chain 12.17(H) 0.33 - 1.94 mg/dL [facility] Comment: Interpretive Data The [employer]ay[employer] Ig Cool FLC assay procedure was used. Results from different manufacturers or methods may not be comparable. Serial testing should be performed using the same method. Lambda free light chain 0.66 0.57 - 2.63 mg/dL [facility] Comment: Interpretive Data The [employer]ay[employer] Ig Lambda FLC assay procedure was used. Results from different manufacturers or methods may not be comparable. Serial testing should be performed using the same method. Blood 06/01/2024 2:15 PM DIRECTOR OF CATERING SALES 06/01/2024 9:06 PM DIRECTOR OF CATERING SALES Wander Matthews MD LAB BLOOD ORDERABLES Final Re sult [facility] [address] Department [place] [address] * (ABNORMAL) CBC with auto differential (06/01/2024 2:15 PM DIRECTOR OF CATERING SALES) Pathologist [facility] WBC 3.3(L) 3.8 - 9.9 K/cumm Hgb 12.4(L) 13.0 - 17.5 g/dL [facility] Hct 39.0 38.9 - 50.3 % [facility] Plt 191 150 - 400 K/cumm [facility] MPV 10.3 9.1 - 12.3 fL [facility] RBC 4.17(L) 4.30 - 5.80 M/cumm [facility] MCV 93.5 81.3 - 96.4 fL [facility] MCH 29.7 27.1 - 33.3 pg [facility] MCHC 31.8(L) 32.3 - 35.7 g/dL [facility] RDW CV 14.1 11.1 - 14.9 % [facility] RDW SD 48.1 35.7 - 48.1 fL [facility] NRBC abs 0.00 0.00 - 0.01 K/cumm [facility] Blood 06/01/2024 2:15 PM DIRECTOR OF CATERING SALES 06/01/2024 9:06 PM DIRECTOR OF CATERING SALES Wander Matthews MD LAB BLOOD ORDERABLES Final Re sult Performing Organization Address City/[facility]/ZIP Co de Phone Number MICHELINE LUO [address] Department [place] [address] * IgG (06/01/2024 2:15 PM DIRECTOR OF CATERING SALES) Pathologist [facility] Immunoglobulin G 1,202 700 - 1,600 mg/dL Blood 06/01/2024 2:15 PM DIRECTOR OF CATERING SALES 06/01/2024 9:06 PM DIRECTOR OF CATERING SALES Wander Matthews MD LAB BLOOD ORDERABLES Final Re sul Performing Organization Address [facility] de Phone Number MICHELINE LUO [address] [place] [address] * Comprehensive metabolic panel (06/01/2024 2:15 PM DIRECTOR OF CATERING SALES) [facility] Sodium 140 135 - 145 mmol/L Potassium, pl 3.9 3.3 - 4.9 mmol/L [facility] Chloride 102 97 - 110 mmol/L [facility] CO2 28 22 - 32 mmol/L [facility] Anion gap 10 2 - 15 mmol/L [facility] BUN 18 6 - 25 mg/dL [facility] Creatinine 1.12 0.80 - 1.30 mg/dL [facility] Glucose 109 70 - 199 mg/dL [facility] Comment: Interpretive Data Fasting glucose >/= 126 [...] 2022. Calcium 9.8 8.5 - 10.3 mg/dL [facility] Bilirubin, total 0.8 0.1 - 1.2 mg/dL [facility] Protein, pl 7.3 6.5 - 8.5 g/dL [facility] Albumin 4.0 3.5 - 5.0 g/dL [facility] Alk phos 52 40 - 130 Units/L [facility] ALT 15 7 - 55 Units/L [facility] AST 23 10 - 50 Units/L [facility] Blood 06/01/2024 2:15 PM DIRECTOR OF CATERING SALES 06/01/2024 9:06 PM DIRECTOR OF CATERING SALES Wander Matthews MD LAB BLOOD ORDERABLES Final Re sult MICHELINE LUO [address] [place] [address] * PSA screen (01/20/2024 12:52 PM CDT) [...] MD LAB BLOOD ORDERABLES Fi nal Result MICHELINE LUO [address] [place] [address] from Last 3 Months or Most Recently Relevant to Health Maintenance Insurance [facility] Care Teams Pearl Fisherman Relationship Specialty Start Date End Date Vick Perkins MD PCP - General Internal Medicine 01/08/18 Wander Mattehws MD Medical Oncologist/Through Operator Hematology and Oncology 10/25/22
--- OUTSIDE RECORDS SUMMARY | 2024-08-19 07:14 | XMS_ITS | Encounter Summary ---
Author Organization [facility] Address [address] [place] [address] Phone Care Team Providers Care Electric Meter Repairer Name Role Phone Vick Perkins MD Primary Care Provider [phone] Wander Matthews MD Unavailable [phone] Wander Matthews MD Unavailable [phone] Encounter Details Date Type Department Care Team (Latest Contact Info) Description 09/30/2018 Orders Only [facility] Scanning, Provider Social History Tobacco Use Types Packs/Day Years Used Date Smoking Tobacco: Never Assessed Sex and Gender Information Value Date Recorded Sex Assigned at Not on file 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
--- OUTSIDE RECORDS SUMMARY | 2024-08-19 07:14 | XMS_ITS | Encounter Summary ---
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
--- OUTSIDE RECORDS SUMMARY | 2024-08-19 07:15 | XMS_ITS | Clinical Summary ---
Author Organization [facility] Address [address] [place] [address] Care Team Providers Care English Language Arts Teacher Name Role Phone Vick Perkins MD Primary Care Provider Allergies No known active allergies Medications Ascorbic [...] Department Care Team Description 07/27/2024 9:23 AM STRIP POLISHER Anesthesia Event [facility] [address] [place] [id number] Brandon Beal CRNA Hitt, Tracy A, CRNA 07/27/2024 9:12 AM STRIP POLISHER - 07/27/2024 9:53 AM STRIP POLISHER Surgery [facility] [address] [place] [id number] Kwasi Cervantes MD CATARACT REMOVAL WITH IOL IMPLANT 07/27/2024 7:51 AM STRIP POLISHER - 07/27/2024 10:03 AM STRIP POLISHER Hospital Encounter [facility] [address] [place] [address] Kwasi Cervantes MD Discharge Disposition: Home or [...] on file Legal Sex Male 3:07 PM STRIP POLISHER Gender Identity Not on file Sexual Orientation Not on file Last Filed Vital Signs Vital Sign Reading Time Taken Comments Blood Pressure 140/89 07/27/2024 9:53 AM STRIP POLISHER Pulse 89 07/27/2024 9:53 AM STRIP POLISHER Temperature 36.5 C (97.7 F) 07/27/2024 8:10 AM STRIP POLISHER Respiratory Rate 14 07/27/2024 9:53 AM STRIP POLISHER Oxygen Saturation 97% 07/27/2024 9:53 AM STRIP POLISHER Inhaled Oxygen Concentration - - Weight 108.9 kg (240 lb) 07/22/2024 12:13 PM STRIP POLISHER Height 180.3 cm (5' 11 ) 07/22/2024 12:13 PM STRIP POLISHER Body Mass Index 33.47 07/22/2024 12:13 PM STRIP POLISHER Plan of Treatment Health Maintenance Due Date [...] this topic Medical Devices Implanted Type Area Fibrous Wallboard Inspector Device Identifier Shelf Expiration Date Model / Serial / Lot Rupert Manuel Toric Ii Optiblue Implanted:Qty: 1 on 07/27/2024 by Kwasi Cervantes MD at [facility] Lens Left: Eye [employer] 12/09/2025 / [id number] / Procedures Procedure Name Priority Date/Time Associated Diagnosis Comments REMV CATARACT EXTRACAP,INSERT LENS 07/27/2024 9:21 AM STRIP POLISHER H25.12 from Last 3 Months Insurance MEDICARE [facility] Care Teams English Language Arts Teacher Relationship Specialty Start Date End Date Vick Perkins MD [address] [place] [address] PCP - General INTERNAL MEDICINE 09/21/20
[2024-08-19 07:27] LABS: Hematocrit 37.1 % (37.0-46.0); Hemoglobin 12.3 g/dL (12.4-15.3); Mean Corpuscular HGB Conc 33.2 g/dL (32-36); Mean Corpuscular Hemoglobin 29.6 pg (27.0-31.0); Mean Corpuscular Volume 89.2 fL (78.0-102.0); Mean Platelet Volume 9.4 fl (8.7-11.0); Platelet Count Result 225 K/mm3 (150-420); Red Blood Count 4.16 M/mm3 (4.70-6.10); Red Cell Distribution Width 14.7 % (11.6-14.4); White Blood Count 3.4 K/mm3 (4.8-10.8)
[2024-08-19 08:33] LABS: Alanine Aminotransferase 44 U/L (16-63); Alkaline Phosphatase 72 U/L (46-116); Anion Gap 8 mmol/L (4-12); Aspartate Amino Transferase 19 U/L (15-37); Blood Urea Nitrogen 17 mg/dL (7-18); CRP 1.8 mg/dL (0.0-0.9); Carbon Dioxide 29 mmol/L (21-32); Chloride 104 mmol/L (98-108); Estimated Glomerular Filt Rate > 60; Glucose 101 mg/dL (70-99); NT Pro B Type Natriuretic Pept 28 pg/mL (0-125); Osmolality Calculated 293 mOsm/kg (285-295); Potassium 4.4 mmol/L (3.5-5.1); Prostate Specific Antigen 0.3 ng/mL (< OR = 4.0); Sodium 141 mmol/L (136-145); Total Protein 6.7 g/dL (6.4-8.2)
== END 2024-08-19 07:10 | disposition home or self-care (01) ==
LOC: CHSLAB 07:11
PROVIDERS: PCP Internal Medicine; Visit Provider Urology
DX: J18.9 Pneumonia, unspecified organism (principal); N40.0 Benign prostatic hyperplasia without lower urinary tract symptoms; R06.00 Dyspnea, unspecified
CPT/HCPCS: 36415; 80053; 83880; 84153; 85027; 86140

== ENCOUNTER 2024-08-21 08:08 | Outpatient (CLI) | payer MEDICARE, SELFPAY ==
--- NOTE | ~2024-08-21 | XR_ITS ---
Clinical Indication: Pneumonia PA and lateral views of the chest: Comparison: 08/10/2024 Findings: There is residual hazy left basilar airspace disease. Right midlung airspace disease is imp roved.. Cardiomediastinal silhouette is within normal limits. Bones and soft tissues are unremarkabl e. Impression: Residual left lower lobe presumed pneumonia. Significant interval improvement in previously noted right perihilar pneumonia. Reviewed, dictated and finalized at location . UNDERWRITER Impression: Residual left lower lobe presumed pneumonia. Significant interval improvement in previously noted right perihilar pneumonia.
--- OUTSIDE RECORDS SUMMARY | 2024-08-21 08:25 | XMS_ITS | Referral Summary ---
Author Organization [facility] Address [address] [place] [address] Phone Care Team Providers Care International Exchange Coordinator Name Role Phone Vick Perkins MD Primary Care Provider [phone] Wander Matthews MD Unavailable [phone] Encounters Date Type Department Care Team Description 08/12/2024 Telephone [facility] Oncology [address] [place] [address] Office [address] [place] [address] Jessica Jimenez RN 08/10/2024 Telephone [facility] Oncology [address] [place] [address] Office [facility] [address] [place] [address] Odessa Garland CLT 08/07/2024 8:00 AM AIRPORT SHUTTLE DRIVER Lab [address] [place] [address] Multiple myeloma not having achieved remission (CMS/HCC) (HCC) 08/07/2024 8:30 AM AIRPORT SHUTTLE DRIVER Infusion [address] [place] [address] Multiple myeloma not having achieved remission (CMS/HCC) (HCC) (Primary Dx); Malignant melanoma of right upper extremity including shoulder (HCC); Chemotherapy induced nausea and vomiting 08/07/2024 8:15 AM AIRPORT SHUTTLE DRIVER Office Visit [facility] Oncology [address] [place] [address] Office [address] [place] [address] Wander Matthews MD Malignant melanoma of right upper extremity including shoulder (HCC) (Primary Dx); Multiple myeloma not having achieved remission (CMS/HCC) (HCC); Chemotherapy induced nausea and vomiting; Acute upper respiratory infection 08/06/2024 Telephone [facility] Oncology [address] [place] [address] [address] [place] [address] Lucrecia Haskins CLT 08/03/2024 4:18 PM AIRPORT SHUTTLE DRIVER - 08/03/2024 11:59 PM AIRPORT SHUTTLE DRIVER Hospital Encounter [address] [address] Multiple myeloma not having achieved remission (CMS/HCC) (HCC) Discharge Disposition: Discharge to home or self care 08/03/2024 8:15 AM AIRPORT SHUTTLE DRIVER Lab [facility] Outpatient Lab at [address] [phone] Multiple myeloma not having achieved remission (CMS/HCC) (HCC) (Primary Dx); Malignant melanoma (HCC) 07/31/2024 Orders Only [facility] Oncology [address] [place] [address] [address] [place] [address] Wander Matthews MD 07/31/2024 12:30 PM AIRPORT SHUTTLE DRIVER Lab [facility] Infusion [address] [place] [address] Multiple myeloma not having achieved remission (CMS/HCC) (HCC) 07/31/2024 1:00 PM AIRPORT SHUTTLE DRIVER Infusion [facility] Infusion [address] [place] [address] Multiple myeloma not having achieved remission (CMS/HCC) (HCC) (Primary Dx) 07/27/2024 1:03 PM AIRPORT SHUTTLE DRIVER - 07/27/2024 11:59 PM AIRPORT SHUTTLE DRIVER Hospital Encounter [address] [address] Hypothyroidism, unspecified type; Malignant melanoma of right upper extremity including shoulder (HCC) Discharge Disposition: Discharge to home or self care 07/27/2024 1:00 PM AIRPORT SHUTTLE DRIVER Lab [facility] Outpatient Lab at [address] [address] Chemotherapy induced nausea and vomiting (Primary Dx) 07/17/2024 8:30 AM AIRPORT SHUTTLE DRIVER Infusion [facility] Infusion [place] [address] [facility] [address] [place] [address] Multiple myeloma not having achieved remission (CMS/HCC) (HCC) (Primary Dx); Malignant melanoma of right upper extremity including shoulder (HCC); Chemotherapy induced nausea and vomiting 07/17/2024 8:15 AM AIRPORT SHUTTLE DRIVER Office Visit [facility] Physicians [facility] Oncology [address] [place] [address] Medical Office [facility] [address] [place] [address] Wander Matthews MD Multiple myeloma not having achieved remission (CMS/HCC) (HCC) (Primary Dx); Malignant melanoma of right upper extremity including shoulder (HCC); Chemotherapy induced nausea and vomiting; Hypothyroidism, unspecified type 07/15/2024 Telephone [facility] Oncology [address] [place] [address] Office [facility] B [facility] [address] [place] [address] Alix Miller RN 07/15/2024 Orders Only [facility] Oncology [address] [place] [address] Office [facility] [address] [place] [address] Wander Matthews MD 07/13/2024 4:18 PM AIRPORT SHUTTLE DRIVER - 07/13/2024 11:59 PM AIRPORT SHUTTLE DRIVER [address] [address] Malignant melanoma of right upper extremity including shoulder (HCC); Chemotherapy induced nausea and vomiting Discharge Disposition: Discharge to home or self care 07/13/2024 10:00 AM AIRPORT SHUTTLE DRIVER Lab [facility] Outpatient Lab at [address] [address] Monoclonal gammopathy of unknown significance (MGUS) (Primary Dx); Multiple myeloma not having achieved remission (CMS/HCC) (HCC) 07/10/2024 11:00 AM AIRPORT SHUTTLE DRIVER Infusion [facility] Infusion [place] [address] [facility] [address] [place] [address] Multiple myeloma not having achieved remission (CMS/HCC) (HCC) (Primary Dx) 07/07/2024 9:05 AM AIRPORT SHUTTLE DRIVER - 07/07/2024 11:59 PM AIRPORT SHUTTLE DRIVER Hospital Encounter [address] [address] Malignant melanoma of right upper extremity including shoulder (HCC); Multiple myeloma not having achieved remission (CMS/HCC) (HCC); Hypothyroidism due to medication Discharge Disposition: Discharge to home or self care 07/07/2024 9:00 AM AIRPORT SHUTTLE DRIVER Lab [facility] Outpatient Lab at [address] [address] 07/03/2024 9:00 AM AIRPORT SHUTTLE DRIVER Infusion [address] [address] Multiple myeloma not having achieved remission (CMS/HCC) (HCC) (Primary Dx) 06/29/2024 4:18 PM AIRPORT SHUTTLE DRIVER - 06/29/2024 11:59 PM AIRPORT SHUTTLE DRIVER Hospital Encounter [address] [address] Malignant melanoma of right upper extremity including shoulder (HCC) Discharge Disposition: Discharge to home or self care 06/29/2024 9:00 AM AIRPORT SHUTTLE DRIVER Lab [facility] Outpatient Lab at [address] [address] Malignant melanoma (HCC) (Primary Dx); Multiple myeloma not having achieved remission (CMS/HCC) (HCC) 06/26/2024 9:00 AM AIRPORT SHUTTLE DRIVER Infusion [address] [address] Chemotherapy induced nausea and vomiting (Primary Dx); Malignant melanoma of right upper extremity including shoulder (HCC) 06/26/2024 8:45 AM AIRPORT SHUTTLE DRIVER Office Visit [facility] Oncology [address] [place] [address] Medical Office Bldg [address] [place] [address] Wander Matthews MD Malignant melanoma of right upper extremity including shoulder (HCC) (Primary Dx); Chemotherapy induced nausea and vomiting; Multiple myeloma not having achieved remission (CMS/HCC) (HCC); Hypothyroidism due to medication 06/22/2024 11:05 AM AIRPORT SHUTTLE DRIVER - 06/22/2024 11:59 PM AIRPORT SHUTTLE DRIVER Hospital Encounter [address] [address] Multiple myeloma not having achieved remission (CMS/HCC) (HCC); Malignant melanoma of right upper extremity including shoulder (HCC) Discharge Disposition: Discharge to home or self care 06/22/2024 9:15 AM AIRPORT SHUTTLE DRIVER Lab [facility] Outpatient Lab at [address] [address] Multiple myeloma not having achieved remission (CMS/HCC) (HCC) (Primary Dx); Monoclonal gammopathy of unknown significance (MGUS); Malignant melanoma (HCC); Chemotherapy induced nausea and vomiting 06/17/2024 11:30 AM AIRPORT SHUTTLE DRIVER Infusion [address] [address] Multiple myeloma not having achieved remission (CMS/HCC) (HCC) (Primary Dx) 06/16/2024 1:53 PM AIRPORT SHUTTLE DRIVER - 06/16/2024 11:59 PM AIRPORT SHUTTLE DRIVER Hospital Encounter [address] [address] Malignant melanoma of right upper extremity including shoulder (HCC); Chemotherapy induced nausea and vomiting Discharge Disposition: Discharge to home or self care 06/16/2024 8:45 AM AIRPORT SHUTTLE DRIVER Lab [facility] Outpatient Lab at [address] [address] Malignant melanoma (HCC) (Primary Dx); Multiple myeloma not having achieved remission (CMS/HCC) (HCC) 06/10/2024 10:00 AM AIRPORT SHUTTLE DRIVER Infusion [address] [place] [address] Multiple myeloma not having achieved remission (CMS/HCC) (HCC) (Primary Dx) 06/09/2024 Documentation [facility] Oncology [address] [place] [address] Medical Office [facility] [address] [place] [address] Shereen Beal, ALLAN 06/09/2024 Telephone [facility] Oncology [address] [place] [address] Medical Office Bldg [address] [place] [address] Odessa Garland CLT 06/08/2024 3:46 PM AIRPORT SHUTTLE DRIVER - 06/08/2024 11:59 PM AIRPORT SHUTTLE DRIVER Hospital Encounter [address] [phone] Multiple myeloma not having achieved remission (CMS/HCC) (HCC) Discharge Disposition: Discharge to home or self care 06/08/2024 8:15 AM AIRPORT SHUTTLE DRIVER Lab [facility] Outpatient Lab at [address] [address] Multiple myeloma not having achieved remission (CMS/HCC) (HCC) (Primary Dx); Malignant melanoma (HCC) 06/03/2024 9:30 AM AIRPORT SHUTTLE DRIVER Infusion [facility] [address] [facility] [address] [place] [address] Chemotherapy induced nausea and vomiting (Primary Dx); Malignant melanoma of right upper extremity including shoulder (HCC); Multiple myeloma not having achieved remission (CMS/HCC) (HCC) 06/03/2024 9:00 AM AIRPORT SHUTTLE DRIVER Office Visit [facility] Oncology [address] [place] [address] Medical Office [facility] [address] [place] [address] Wander Matthews MD Multiple myeloma not having achieved remission (CMS/HCC) (HCC) (Primary Dx); Malignant melanoma of right upper extremity including shoulder (HCC); Chemotherapy induced nausea and vomiting 06/02/2024 Telephone [facility] Oncology [address] [place] [address] Medical Office dg [address] [place] [address] Lucrecia Haskins, CLT 06/01/2024 2:15 PM AIRPORT SHUTTLE DRIVER - 06/01/2024 11:59 PM AIRPORT SHUTTLE DRIVER Hospital Encounter [address] [address] Malignant melanoma of right upper extremity including shoulder (HCC) Discharge Disposition: Discharge to home or self care 06/01/2024 2:15 PM AIRPORT SHUTTLE DRIVER Lab [facility] Outpatient Lab at [address] [address] Malignant melanoma (HCC) (Primary Dx); Multiple myeloma not having achieved remission (CMS/HCC) (HCC) from Last 3 Months Allergies No known active allergies Medications aspirin 81 mg tablet Take 1 tablet (81 mg total) by mouth daily Active magnesium gluconate 200 mg tabletIndicati ons:hypomagnes emia 1 tablet (200 mg total) Active multivitamin-C h-lnat-dloidnr s 18-0.4 mg tablet Take by mouth. Activ e glucosam-faraz- jro3-K-fhsl-maria guadalupe sw 750 mg-644 mg- 30 mg-1 mg tablet Take by mouth. Activ e omeprazole (PriLOSEC) 20 mg capsule Take 1 capsule (20 mg total) by mouth daily Active B complex 22-hgelx-C-bio t-zinc [id number] nq-dr-ggl-mg tablet Take by mouth. Activ e Lumigan [...] 1 tablet (25 mcg total) by mouth car repairer before breakfast 30 tablet 2 07/17/19 25 [...] on file Legal Sex Male 1:08 PM AIRPORT SHUTTLE DRIVER Gender Identity Not on file Sexual Orientation Not on file Last Filed Vital Signs Vital Sign Reading Time Taken Comments Blood Pressure 110/72 08/07/2024 8:28 AM AIRPORT SHUTTLE DRIVER Pulse 118 08/07/2024 8:28 AM AIRPORT SHUTTLE DRIVER Temperature 36.8 C (98.2 F) 08/07/2024 8:28 AM AIRPORT SHUTTLE DRIVER Respiratory Rate 18 08/07/2024 8:28 AM AIRPORT SHUTTLE DRIVER Oxygen Saturation 95% 08/07/2024 8:28 AM AIRPORT SHUTTLE DRIVER Inhaled Oxygen Concentration - - Weight 105 kg (231 lb 6.4 oz) 08/07/2024 8:28 AM AIRPORT SHUTTLE DRIVER Height 177.8 cm (5' 10 ) 07/17/2024 8:09 AM AIRPORT SHUTTLE DRIVER Body Mass Index 33.2 07/17/2024 8:09 AM AIRPORT SHUTTLE DRIVER Plan of Treatment Not on file Procedures Procedure Name Priority Date/Time Associated Diagnosis Comments EGFR STAT 08/03/2024 10:57 PM AIRPORT SHUTTLE DRIVER Multiple myeloma not having achieved remission (CMS/HCC) (HCC) DIFFERENTIAL AUTO STAT 08/03/2024 10: 57 PM AIRPORT SHUTTLE DRIVER Multiple myeloma not having achieved remission (CMS/HCC) (HCC) CBC WITH AUTO DIFFERENTIAL STAT 08/03/2024 10:57 PM AIRPORT SHUTTLE DRIVER Multiple myeloma not having achieved remission (CMS/HCC) (HCC) COMPREHENSIVE METABOLIC PANEL STAT 08/03/2024 10:57 PM AIRPORT SHUTTLE DRIVER Multiple myeloma not having achieved remission (CMS/HCC) (HCC) EGFR Routine 07/27/2024 1:03 PM AIRPORT SHUTTLE DRIVER Malignant melanoma of right upper extremity including shoulder (HCC) DIFFERENTIAL AUTO Routine 07/27/2024 1:0 3 PM AIRPORT SHUTTLE DRIVER Malignant melanoma of right upper extremity including shoulder (HCC) IGG Routine 07/27/2024 1:03 PM AIRPORT SHUTTLE DRIVER Malignant melanoma of right upper extremity including shoulder (HCC) IMMUNOGLOBULIN FREE LIGHT CHAINS Routine 07/27/2024 1:03 PM AIRPORT SHUTTLE DRIVER Malignant melanoma of right upper extremity including shoulder (HCC) CBC WITH AUTO DIFFERENTIAL Routine 07/27/2024 1:03 PM AIRPORT SHUTTLE DRIVER Malignant melanoma of right upper extremity including shoulder (HCC) COMPREHENSIVE METABOLIC PANEL Routine 07/27/2024 1:03 PM AIRPORT SHUTTLE DRIVER Malignant melanoma of right upper extremity including shoulder (HCC) TSH Routine 07/27/2024 1:03 PM AIRPORT SHUTTLE DRIVER Hypothyroidism, unspecified type EGFR STAT 07/13/2024 10:05 AM AIRPORT SHUTTLE DRIVER Malignant melanoma of right upper extremity including shoulder (HCC) Chemotherapy induced nausea and vomiting DIFFERENTIAL AUTO STAT 07/13/2024 10: 05 AM AIRPORT SHUTTLE DRIVER Malignant melanoma of right upper extremity including shoulder (HCC) Chemotherapy induced nausea and vomiting CBC WITH AUTO DIFFERENTIAL STAT 07/13/2024 10:05 AM AIRPORT SHUTTLE DRIVER Malignant melanoma of right upper extremity including shoulder (HCC) Chemotherapy induced nausea and vomiting COMPREHENSIVE METABOLIC PANEL STAT 07/13/2024 10:05 AM AIRPORT SHUTTLE DRIVER Malignant melanoma of right upper extremity including shoulder (HCC) Chemotherapy induced nausea and vomiting TSH Routine 07/13/2024 10:05 AM AIRPORT SHUTTLE DRIVER Malignant melanoma of right upper extremity including shoulder (HCC) Chemotherapy induced nausea and vomiting EGFR Routine 07/07/2024 9:05 AM AIRPORT SHUTTLE DRIVER Malignant melanoma of right upper extremity including shoulder (HCC) Multiple myeloma not having achieved remission (CMS/HCC) (HCC) DIFFERENTIAL AUTO Routine 07/07/2024 9:0 5 AM AIRPORT SHUTTLE DRIVER Malignant melanoma of right upper extremity including shoulder (HCC) Multiple myeloma not having achieved remission (CMS/HCC) (HCC) CBC WITH AUTO DIFFERENTIAL Routine 07/07/2024 9:05 AM AIRPORT SHUTTLE DRIVER Malignant melanoma of right upper extremity including shoulder (HCC) Multiple myeloma not having achieved remission (CMS/HCC) (HCC) TSH Routine 07/07/2024 9:05 AM AIRPORT SHUTTLE DRIVER Malignant melanoma of right upper extremity including shoulder (HCC) Multiple myeloma not having achieved remission (CMS/HCC) (HCC) Hypothyroidism due to medication IMMUNOGLOBULIN FREE LIGHT CHAINS Routine 07/07/2024 9:05 AM AIRPORT SHUTTLE DRIVER Malignant melanoma of right upper extremity including shoulder (HCC) Multiple myeloma not having achieved remission (CMS/HCC) (HCC) IGG Routine 07/07/2024 9:05 AM AIRPORT SHUTTLE DRIVER Malignant melanoma of right upper extremity including shoulder (HCC) Multiple myeloma not having achieved remission (CMS/HCC) (HCC) COMPREHENSIVE METABOLIC PANEL Routine 07/07/2024 9:05 AM AIRPORT SHUTTLE DRIVER Malignant melanoma of right upper extremity including shoulder (HCC) Multiple myeloma not having achieved remission (CMS/HCC) (HCC) EGFR Routine 06/29/2024 8:57 AM AIRPORT SHUTTLE DRIVER Malignant melanoma of right upper extremity including shoulder (HCC) DIFFERENTIAL AUTO Routine 06/29/2024 8:5 7 AM AIRPORT SHUTTLE DRIVER Malignant melanoma of right upper extremity including shoulder (HCC) COMPREHENSIVE METABOLIC PANEL Routine 06/29/2024 8:57 AM AIRPORT SHUTTLE DRIVER Malignant melanoma of right upper extremity including shoulder (HCC) CBC WITH AUTO DIFFERENTIAL Routine 06/29/2024 8:57 AM AIRPORT SHUTTLE DRIVER Malignant melanoma of right upper extremity including shoulder (HCC) IMMUNOGLOBULIN FREE LIGHT CHAINS Routine 06/22/2024 9:14 AM AIRPORT SHUTTLE DRIVER Malignant melanoma of right upper extremity including shoulder (HCC) EGFR STAT 06/22/2024 9:14 AM AIRPORT SHUTTLE DRIVER Multiple myeloma not having achieved remission (CMS/HCC) (HCC) DIFFERENTIAL AUTO STAT 06/22/2024 9:1 4 AM AIRPORT SHUTTLE DRIVER Multiple myeloma not having achieved remission (CMS/HCC) (HCC) COMPREHENSIVE METABOLIC PANEL STAT 06/22/2024 9:14 AM AIRPORT SHUTTLE DRIVER Multiple myeloma not having achieved remission (CMS/HCC) (HCC) CBC WITH AUTO DIFFERENTIAL STAT 06/22/2024 9:14 AM AIRPORT SHUTTLE DRIVER Multiple myeloma not having achieved remission (CMS/HCC) (HCC) EGFR STAT 06/16/2024 8:00 AM AIRPORT SHUTTLE DRIVER Malignant melanoma of right upper extremity including shoulder (HCC) Chemotherapy induced nausea and vomiting DIFFERENTIAL AUTO STAT 06/16/2024 8:0 0 AM AIRPORT SHUTTLE DRIVER Malignant melanoma of right upper extremity including shoulder (HCC) Chemotherapy induced nausea and vomiting CBC WITH AUTO DIFFERENTIAL STAT 06/16/2024 8:00 AM AIRPORT SHUTTLE DRIVER Malignant melanoma of right upper extremity including shoulder (HCC) Chemotherapy induced nausea and vomiting COMPREHENSIVE METABOLIC PANEL STAT 06/16/2024 8:00 AM AIRPORT SHUTTLE DRIVER Malignant melanoma of right upper extremity including shoulder (HCC) Chemotherapy induced nausea and vomiting EGFR Routine 06/08/2024 9:00 AM AIRPORT SHUTTLE DRIVER Multiple myeloma not having achieved remission (CMS/HCC) (HCC) DIFFERENTIAL AUTO Routine 06/08/2024 9:0 0 AM AIRPORT SHUTTLE DRIVER Multiple myeloma not having achieved remission (CMS/HCC) (HCC) CBC WITH AUTO DIFFERENTIAL Routine 06/08/2024 9:00 AM AIRPORT SHUTTLE DRIVER Multiple myeloma not having achieved remission (CMS/HCC) (HCC) COMPREHENSIVE METABOLIC PANEL Routine 06/08/2024 9:00 AM AIRPORT SHUTTLE DRIVER Multiple myeloma not having achieved remission (CMS/HCC) (HCC) EGFR Routine 06/01/2024 2:15 PM AIRPORT SHUTTLE DRIVER Malignant melanoma of right upper extremity including shoulder (HCC) DIFFERENTIAL AUTO Routine 06/01/2024 2:1 5 PM AIRPORT SHUTTLE DRIVER Malignant melanoma of right upper extremity including shoulder (HCC) IMMUNOGLOBULIN FREE LIGHT CHAINS Routine 06/01/2024 2:15 PM AIRPORT SHUTTLE DRIVER Malignant melanoma of right upper extremity including shoulder (HCC) IGG Routine 06/01/2024 2:15 PM AIRPORT SHUTTLE DRIVER Malignant melanoma of right upper extremity including shoulder (HCC) COMPREHENSIVE METABOLIC PANEL Routine 06/01/2024 2:15 PM AIRPORT SHUTTLE DRIVER Malignant melanoma of right upper extremity including shoulder (HCC) CBC WITH AUTO DIFFERENTIAL Routine 06/01/2024 2:15 PM AIRPORT SHUTTLE DRIVER Malignant melanoma of right upper extremity including shoulder (HCC) PSA SCREEN Routine 01/20/2024 12:52 PM CDT Malignant neoplasm of prostate (HCC) from Last 3 Months or Most Recently Relevant to Health Maintenance Results * eGFR (08/03/2024 10:57 PM AIRPORT SHUTTLE DRIVER) eGFR 82 >=60 mL/min/1. 73 m2 Comment: [...] reviewed 2021. Blood 08/03/2024 10:5 7 PM AIRPORT SHUTTLE DRIVER 08/04/2024 12:03 AM AIRPORT SHUTTLE DRIVER us Wander Matthews MD LAB BLOOD ORDERABLES Final [facility] [id number] [address] Department [place] [address] * (ABNORMAL) Differential, auto (08/03/2024 10:57 PM AIRPORT SHUTTLE DRIVER) Neutrophil abs 1.8 1.5 - 6.5 K/cumm Imm gran abs 0.0 0.0 - 0.1 K/cumm [facility] Lymphocyte abs 0.4(L) 0.8 - 3.3 K/cumm [facility] Monocyte abs 0.1(L) 0.2 - 0.8 K/cumm [facility] Eosinophil abs 0.0 0.0 - 0.5 K/cumm [facility] Basophil abs 0.0 0.0 - 0.1 K/cumm [facility] Neutrophil pct 78.2 % [facility] Comment: Consistent with previous result Interpretive Data Percent cell count reference ranges are not reported, since discordance with absolute values may lead to misinterpretation of CBC data. Current Interpretive Data was last revised on 2017. Imm gran pct 0.9 % [facility] Comment: Interpretive Data Percent cell count reference ranges are not reported, since discordance with absolute values may lead to misinterpretation of CBC data. Current Interpretive Data was last revised on 2017. Lymphocyte pct 17.0 % [facility] Comment: Interpretive Data Percent cell count reference ranges are not reported, since discordance with absolute values may lead to misinterpretation of CBC data. Current Interpretive Data was last revised on 2017. Monocyte pct 2.6 % [facility] Comment: Interpretive Data Percent cell count [...] revised on 2017. Basophil pct 0.4 % [facility] Comment: Interpretive Data Percent cell count reference ranges are not reported, since discordance with absolute values may lead to misinterpretation of CBC data. Current Interpretive Data was last revised on 2017. Blood 08/03/2024 10:5 7 PM AIRPORT SHUTTLE DRIVER 08/03/2024 11:21 PM AIRPORT SHUTTLE DRIVER Wander Matthews MD LAB BLOOD ORDERABLES Final Re sult [facility] [id number] [address] [place] [address] * (ABNORMAL) CBC with auto differential (08/03/2024 10:57 PM AIRPORT SHUTTLE DRIVER) WBC 2.3(L) 3.8 - 9.9 K/cumm Hgb 11.6(L) 13.0 - 17.5 g/dL [facility] Hct 36.9(L) 38.9 - 50.3 % [facility] Plt 189 150 - 400 K/cumm [facility] MPV 9.6 9.1 - 12.3 fL [facility] RBC 3.85(L) 4.30 - 5.80 M/cumm [facility] MCV 95.8 81.3 - 96.4 fL [facility] MCH 30.1 27.1 - 33.3 pg [facility] MCHC 31.4(L) 32.3 - 35.7 g/dL [facility] RDW CV 15.3(H) 11.1 - 14.9 % [facility] RDW SD 54.1(H) 35.7 - 48.1 fL [facility] NRBC abs 0.00 0.00 - 0.01 K/cumm [facility] Blood 08/03/2024 10:5 7 PM AIRPORT SHUTTLE DRIVER 08/03/2024 11:21 PM AIRPORT SHUTTLE DRIVER us Wander Matthews MD LAB BLOOD ORDER[place] [id number] [address] Department [place] [address] * (ABNORMAL) Comprehensive metabolic panel (08/03/2024 10:57 PM AIRPORT SHUTTLE DRIVER) Sodium 139 135 - 145 mmol/L Potassium, [...] [facility] Blood 08/03/2024 10:5 7 PM AIRPORT SHUTTLE DRIVER 08/03/2024 11:21 PM AIRPORT SHUTTLE DRIVER Wander Matthews MD LAB BLOOD ORDERABLES Final Re sult Performing Organization Address City/[facility]/ZIP Co de Phone Number [facility] [address] [address] Department of Laboratories [place], [place] [phone] * eGFR (07/27/2024 1:03 PM AIRPORT SHUTTLE DRIVER) eGFR >90 >=60 mL/min/1. 73 m2 Comment: [...] last reviewed 2021. Blood 07/27/2024 1:03 PM AIRPORT SHUTTLE DRIVER 07/27/2024 7:27 PM AIRPORT SHUTTLE DRIVER Wander Matthews MD LAB BLOOD ORDERABLES Final Re sult [facility] [id number] [address] Department [place] [address] * (ABNORMAL) Differential, auto (07/27/2024 1:03 PM AIRPORT SHUTTLE DRIVER) Neutrophil abs 2.4 1.5 - 6.5 K/cumm Imm gran abs 0.0 0.0 - 0.1 K/cumm [facility] Lymphocyte abs 0.2(L) 0.8 - 3.3 K/cumm [facility] Monocyte abs 0.1(L) 0.2 - 0.8 K/cumm [facility] Eosinophil abs 0.1 0.0 - 0.5 K/cumm [facility] Basophil abs 0.0 0.0 - 0.1 K/cumm [facility] Neutrophil pct 85.7 % [facility] Comment: Consistent with previous result Interpretive Data Percent cell count reference ranges are not reported, since discordance with absolute values may lead to misinterpretation of CBC data. Current Interpretive Data was last revised on 2017. Imm gran pct 0.4 % [facility] Comment: Interpretive Data Percent cell count reference ranges are not reported, since discordance with absolute values may lead to misinterpretation of CBC data. Current Interpretive Data was last revised on 2017. Lymphocyte pct 8.5 % [facility] Comment: Interpretive Data Percent cell count reference ranges are not reported, since discordance with absolute values may lead to misinterpretation of CBC data. Current Interpretive Data was last revised on 2017. Monocyte pct 1.8 % [facility] Comment: Interpretive Data Percent cell count reference ranges are not reported, since discordance with absolute values may lead to misinterpretation of CBC data. Current Interpretive Data was last revised on 2017. Eosinophil pct 3.2 % [facility] Comment: Interpretive Data Percent cell count reference ranges are not reported, since discordance with absolute values may lead to misinterpretation of CBC data. Current Interpretive Data was last revised on 2017. Basophil pct 0.4 % [facility] Comment: Interpretive Data Percent cell count reference ranges are not reported, since discordance with absolute values may lead to misinterpretation of CBC data. Current Interpretive Data was last revised on 2017. Blood 07/27/2024 1:03 PM AIRPORT SHUTTLE DRIVER 07/27/2024 7:25 PM AIRPORT SHUTTLE DRIVER us Wander Matthews MD LAB BLOOD ORDERABLES Final Re sult MICHELINE [address] Department [place] [address] * (ABNORMAL) Immunoglobulin free light chains (07/27/2024 1:03 PM AIRPORT SHUTTLE DRIVER) [facility] [place]/Lambda ratio 43.30(H) 0.26 - 1.65 [place] free light chain 11.26(H) 0.33 - 1.94 mg/dL [facility] Comment: Interpretive Data [employer] [place] FLC assay procedure was used. Results from different manufacturers or methods may not be comparable. Serial testing should be performed using the same method. Lambda free light chain 0.26(L) 0.57 - 2.63 mg/dL [facility] Comment: Interpretive Data [employer] [place] FLC assay procedure was used. Results from different manufacturers or methods may not be comparable. Serial testing should be performed using the same method. Blood 07/27/2024 1:03 PM AIRPORT SHUTTLE DRIVER 07/27/2024 7:25 PM AIRPORT SHUTTLE DRIVER Wander Matthews MD LAB BLOOD ORDERABLES Final Re sult [facility] [address] Department [place] [address] * (ABNORMAL) CBC with auto differential (07/27/2024 1:03 PM AIRPORT SHUTTLE DRIVER) [facility] WBC 2.8(L) 3.8 - 9.9 K/cumm Hgb 10.9(L) 13.0 - 17.5 g/dL [facility] Hct 34.7(L) 38.9 - 50.3 % [facility] Plt 154 150 - 400 K/cumm [facility] MPV 10.0 9.1 - 12.3 fL [facility] RBC 3.70(L) 4.30 - 5.80 M/cumm [facility] MCV 93.8 81.3 - 96.4 fL [facility] MCH 29.5 27.1 - 33.3 pg [facility] MCHC 31.4(L) 32.3 - 35.7 g/dL [facility] RDW CV 15.2(H) 11.1 - 14.9 % [facility] RDW SD 52.3(H) 35.7 - 48.1 fL [facility] NRBC abs 0.00 0.00 - 0.01 K/cumm [facility] Blood 07/27/2024 1:03 PM AIRPORT SHUTTLE DRIVER 07/27/2024 7:25 PM AIRPORT SHUTTLE DRIVER Wander Matthews MD LAB BLOOD ORDERABLES Final Re sult Performing Organization Address [facility] Co de Phone Number MICHELINE [address] [address] [facility] [place] [address] * TSH (07/27/2024 1:03 PM AIRPORT SHUTTLE DRIVER) Pathologist [facility] Thyroid Stimulating Hormone 3.23 0.30 - 4.20 mcIUnit/mL Blood 07/27/2024 1:03 PM AIRPORT SHUTTLE DRIVER 07/27/2024 7:25 PM AIRPORT SHUTTLE DRIVER Narrative [facility] - 07/27/2024 7:52 PM AIRPORT SHUTTLE DRIVER Starting 08/10 every 4 weeks Wander Matthews MD LAB BLOOD ORDERABLES Final Re sult Performing Organization Address [facility] Co de Phone Number MICHELINE [address] [place] [address] * IgG (07/27/2024 1:03 PM AIRPORT SHUTTLE DRIVER) [facility] Immunoglobulin G 1,090 700 - 1,600 mg/dL Blood 07/27/2024 1:03 PM AIRPORT SHUTTLE DRIVER 07/27/2024 7:25 PM AIRPORT SHUTTLE DRIVER Wander Matthews MD LAB BLOOD ORDERABLES Final Re sult Performing Organization Address [facility] Co de Phone Number VICTOR HUGOMIC [address] [address] [facility] [place] [address] * Comprehensive metabolic panel (07/27/2024 1:03 PM AIRPORT SHUTTLE DRIVER) [facility] Sodium 139 135 - 145 mmol/L Potassium, pl 3.9 3.3 - 4.9 mmol/L [facility] Chloride 103 97 - 110 mmol/L [facility] CO2 23 22 - 32 mmol/L [facility] [...] Units/L [facility] Blood 07/27/2024 1:03 PM AIRPORT SHUTTLE DRIVER 07/27/2024 7:25 PM AIRPORT SHUTTLE DRIVER Wander Matthews MD LAB BLOOD ORDERABLES Final Re sult [facility] [address] [address] Department [place] [address] * eGFR (07/13/2024 10:05 AM AIRPORT SHUTTLE DRIVER) eGFR 85 >=60 mL/min/1. 73 m2 Comment: [...] reviewed 2021. Blood 07/13/2024 10:0 5 AM AIRPORT SHUTTLE DRIVER 07/13/2024 9:45 PM AIRPORT SHUTTLE DRIVER Wander Matthews MD LAB BLOOD ORDERABLES Final Re sult [facility] [address] Department [place] [address] * (ABNORMAL) Differential, auto (07/13/2024 10:05 AM AIRPORT SHUTTLE DRIVER) Neutrophil abs 1.9 1.5 - 6.5 K/cumm Imm gran abs 0.0 0.0 - 0.1 K/cumm [facility] Lymphocyte abs 0.4(L) 0.8 - 3.3 K/cumm [facility] Monocyte abs 0.1(L) 0.2 - 0.8 K/cumm [facility] Eosinophil abs 0.0 0.0 - 0.5 K/cumm [facility] Basophil abs 0.0 0.0 - 0.1 K/cumm [facility] Neutrophil pct 76.6 % [facility] Comment: Consistent with previous result Interpretive Data Percent cell count reference ranges are not reported, since discordance with absolute values may lead to misinterpretation of CBC data. Current Interpretive Data was last revised on 2017. Imm gran pct 1.2 % [facility] Comment: Interpretive Data Percent cell count reference ranges are not reported, since discordance with absolute values may lead to misinterpretation of CBC data. Current Interpretive Data was last revised on 2017. Lymphocyte pct 17.7 % [facility] Comment: Interpretive Data Percent cell count reference ranges are not reported, since discordance with absolute values may lead to misinterpretation of CBC data. Current Interpretive Data was last revised on 2017. Monocyte pct 3.3 % [facility] Comment: Interpretive Data Percent cell count reference ranges are not reported, since discordance with absolute values may lead to misinterpretation of CBC data. Current Interpretive Data was last revised on 2017. Eosinophil pct 0.8 % [facility] Comment: Interpretive Data Percent cell count reference ranges are not reported, since discordance with absolute values may lead to misinterpretation of CBC data. Current Interpretive Data was last revised on 2017. Basophil pct 0.4 % [facility] Comment: Interpretive Data Percent cell count reference ranges are not reported, since discordance with absolute values may lead to misinterpretation of CBC data. Current Interpretive Data was last revised on 2017. Blood 07/13/2024 10:0 5 AM AIRPORT SHUTTLE DRIVER 07/13/2024 9:30 PM AIRPORT SHUTTLE DRIVER Wander Matthews MD LAB BLOOD ORDERABLES Final Re sult [facility] [address] Department [place] [address] * (ABNORMAL) CBC with auto differential (07/13/2024 10:05 AM AIRPORT SHUTTLE DRIVER) WBC 2.4(L) 3.8 - 9.9 K/cumm Hgb 11.7(L) 13.0 - 17.5 g/dL [facility] Hct 37.0(L) 38.9 - 50.3 % [facility] Plt 82(L) 150 - 400 K/cumm [facility] Comment:No clot detected in sample. MPV 10.9 9.1 - 12.3 fL [facility] RBC 3.92(L) 4.30 - 5.80 M/cumm [facility] MCV 94.4 81.3 - 96.4 fL [facility] MCH 29.8 27.1 - 33.3 pg [facility] MCHC 31.6(L) 32.3 - 35.7 g/dL [facility] RDW CV 15.7(H) 11.1 - 14.9 % [facility] RDW SD 53.8(H) 35.7 - 48.1 fL [facility] NRBC abs 0.04(H) 0.00 - 0.01 K/cumm [facility] Blood 07/13/2024 10:0 5 AM AIRPORT SHUTTLE DRIVER 07/13/2024 9:30 PM AIRPORT SHUTTLE DRIVER Wander Matthews MD LAB BLOOD ORDERABLES Final Re sult Performing Organization Address City/[facility] Co de Phone Number MICHELINE LUO [address] [address] Department of Laboratories [place], [place] [id number] * (ABNORMAL) TSH (07/13/2024 10:05 AM AIRPORT SHUTTLE DRIVER) Pathologist [facility] Thyroid Stimulating Hormone 6.51(H) 0.30 - 4.20 mcIUnit/mL Blood 07/13/2024 10:0 5 AM AIRPORT SHUTTLE DRIVER 07/13/2024 9:30 PM AIRPORT SHUTTLE DRIVER Wander Matthews MD LAB BLOOD ORDERABLES Final Re sult Performing Organization Address City/[facility] Co de Phone Number MICHELINE LUO [address] [place] [address] * (ABNORMAL) Comprehensive metabolic panel (07/13/2024 10:05 AM AIRPORT SHUTTLE DRIVER) Pathologist [facility] Sodium 140 135 - 145 mmol/L Potassium, pl 3.6 3.3 - 4.9 mmol/L [facility] Chloride 103 97 - 110 mmol/L [facility] CO2 27 22 - 32 mmol/L [facility] Anion gap 10 2 - 15 mmol/L [facility] BUN 20 6 - 25 mg/dL [facility] Creatinine 0.95 0.80 - 1.30 mg/dL [facility] Glucose 159 70 - 199 mg/dL [facility] Comment: Interpretive Data Fasting glucose >/= [...] [facility] Blood 07/13/2024 10:0 5 AM AIRPORT SHUTTLE DRIVER 07/13/2024 9:30 PM AIRPORT SHUTTLE DRIVER Wander Matthews MD LAB BLOOD ORDERABLES Final Re sult MICHELINE LUO [address] [address] Department [place] [address] * eGFR (07/07/2024 9:05 AM AIRPORT SHUTTLE DRIVER) eGFR 86 >=60 mL/min/1. 73 m2 Comment: [...] last reviewed 2021. Blood 07/07/2024 9:05 AM AIRPORT SHUTTLE DRIVER 07/07/2024 4:21 PM AIRPORT SHUTTLE DRIVER us Wander Matthews MD LAB BLOOD ORDERABLES Final Re sult [facility] [address] [address] Department [place] [address] * (ABNORMAL) Differential, auto (07/07/2024 9:05 AM AIRPORT SHUTTLE DRIVER) Neutrophil abs 1.9 1.5 - 6.5 K/cumm Imm gran abs 0.0 0.0 - 0.1 K/cumm [facility] Lymphocyte abs 0.4(L) 0.8 - 3.3 K/cumm [facility] Monocyte abs 0.1(L) 0.2 - 0.8 K/cumm [facility] Eosinophil abs 0.1 0.0 - 0.5 K/cumm [facility] Basophil abs 0.0 0.0 - 0.1 K/cumm [facility] Neutrophil pct 76.1 % [facility] Comment: Consistent with previous result Interpretive Data Percent cell count reference ranges are not reported, since discordance with absolute values may lead to misinterpretation of CBC data. Current Interpretive Data was last revised on 2017. Imm gran pct 0.4 % [facility] Comment: Interpretive Data Percent cell count reference ranges are not reported, since discordance with absolute values may lead to misinterpretation of CBC data. Current Interpretive Data was last revised on 2017. Lymphocyte pct 17.3 % [facility] Comment: Interpretive Data Percent cell count reference ranges are not reported, since discordance with absolute values may lead to misinterpretation of CBC data. Current Interpretive Data was last revised on 2017. Monocyte pct 3.3 % [facility] Comment: Interpretive Data Percent cell count reference ranges are not reported, since discordance with absolute values may lead to misinterpretation of CBC data. Current Interpretive Data was last revised on 2017. Eosinophil pct 2.5 % [facility] Comment: Interpretive Data Percent cell count [...] revised on 2017. Blood 07/07/2024 9:05 AM AIRPORT SHUTTLE DRIVER 07/07/2024 4:03 PM AIRPORT SHUTTLE DRIVER Wander Matthews MD LAB BLOOD ORDERABLES Final Re sult Performing Organization Address [facility] de Phone Number VICTOR HUGOMIC [address] [place] [address] * (ABNORMAL) Immunoglobulin free light chains (07/07/2024 9:05 AM AIRPORT SHUTTLE DRIVER) [place]/Lambda ratio 22.10(H) 0.26 - 1.65 [place] free light chain 4.87(H) 0.33 - 1.94 mg/dL [facility]LINE Comment: Interpretive Data [employer] [place] FLC assay procedure was used. Results from [...] the same method. Blood 07/07/2024 9:05 AM AIRPORT SHUTTLE DRIVER 07/07/2024 4:03 PM AIRPORT SHUTTLE DRIVER Wander Mtathews MD LAB BLOOD ORDERABLES Final Re sult Performing Organization Address [facility] Co de Phone Number MICHELINE LUO [address] [address] [facility] [place] [address] * (ABNORMAL) CBC with auto differential (07/07/2024 9:05 AM AIRPORT SHUTTLE DRIVER) WBC 2.4(L) 3.8 - 9.9 K/cumm Hgb [...] K/cumm [facility] Blood 07/07/2024 9:05 AM AIRPORT SHUTTLE DRIVER 07/07/2024 4:03 PM AIRPORT SHUTTLE DRIVER Wander Matthews MD LAB BLOOD ORDERABLES Final Re sult Performing Organization Address City/[facility] Co de Phone Number MICHELINE LUO [address] [address] [address] * (ABNORMAL) TSH (07/07/2024 9:05 AM AIRPORT SHUTTLE DRIVER) Thyroid Stimulating Hormone 4.33(H) 0.30 - 4.20 mcIUnit/mL Blood 07/07/2024 9:05 AM AIRPORT SHUTTLE DRIVER 07/07/2024 4:03 PM AIRPORT SHUTTLE DRIVER Wander Matthews MD LAB BLOOD ORDERABLES Final Re sult Performing Organization Address City/[facility] Co de Phone Number MICHELINE LUO [address] [address] [facility] [employer] [place], [place] [id number] * IgG (07/07/2024 9:05 AM AIRPORT SHUTTLE DRIVER) Immunoglobulin G 957 700 - 1,600 mg/dL Blood 07/07/2024 9:05 AM AIRPORT SHUTTLE DRIVER 07/07/2024 4:03 PM AIRPORT SHUTTLE DRIVER Wander Matthews MD LAB BLOOD [place] [address] [address] Department [place] [address] * Comprehensive metabolic panel (07/07/2024 9:05 AM AIRPORT SHUTTLE DRIVER) Sodium 140 135 - 145 mmol/L Potassium, [...] Units/L [facility] Blood 07/07/2024 9:05 AM AIRPORT SHUTTLE DRIVER 07/07/2024 4:03 PM AIRPORT SHUTTLE DRIVER Wander Matthews MD LAB BLOOD ORDERABLES Final Re sult Performing Organization Address [facility]/ZIP Co de Phone Number MICHELINE LUO [address] Department of Laboratories [place], [place] [id number] * eGFR (06/29/2024 8:57 AM AIRPORT SHUTTLE DRIVER) eGFR 71 >=60 mL/min/1. 73 m2 Comment: [...] last reviewed 2021. Blood 06/29/2024 8:57 AM AIRPORT SHUTTLE DRIVER 06/29/2024 8:16 PM AIRPORT SHUTTLE DRIVER Wander Matthews MD LAB BLOOD ORDERABLES Final Re sult Performing Organization Address City/[facility]/ZIP Co de Phone Number MICHELINE LUO [address] Department [place] [address] * (ABNORMAL) Differential, auto (06/29/2024 8:57 AM AIRPORT SHUTTLE DRIVER) Neutrophil abs 2.2 1.5 - 6.5 K/cumm Imm gran abs 0.0 0.0 - 0.1 K/cumm [facility] Lymphocyte abs 0.3(L) 0.8 - 3.3 K/cumm [facility] Monocyte abs 0.1(L) 0.2 - 0.8 K/cumm [facility] Eosinophil abs 0.1 0.0 - 0.5 K/cumm [facility] Basophil abs 0.0 0.0 - 0.1 K/cumm [facility] Neutrophil pct 80.6 % [facility] Comment: Consistent with previous result Interpretive Data Percent cell count reference ranges are not reported, since discordance with absolute values may lead to misinterpretation of CBC data. Current Interpretive Data was last revised on 2017. Imm gran pct 0.7 % [facility] Comment: Interpretive Data Percent cell count reference ranges are not reported, since discordance with absolute values may lead to misinterpretation of CBC data. Current Interpretive Data was last revised on 2017. Lymphocyte pct 12.7 % [facility] Comment: Interpretive Data Percent cell count reference ranges are not reported, since discordance with absolute values may lead to misinterpretation of CBC data. Current Interpretive Data was last revised on 2017. Monocyte pct 2.2 % [facility] Comment: Interpretive Data Percent cell count reference ranges are not reported, since discordance with absolute values may lead to misinterpretation of CBC data. Current Interpretive Data was last revised on 2017. Eosinophil pct 3.4 % [facility] Comment: Interpretive Data Percent cell count reference ranges are not reported, since discordance with absolute values may lead to misinterpretation of CBC data. Current Interpretive Data was last revised on 2017. Basophil pct 0.4 % [facility] Comment: Interpretive Data Percent cell count reference ranges are not reported, since discordance with absolute values may lead to misinterpretation of CBC data. Current Interpretive Data was last revised on 2017. Blood 06/29/2024 8:57 AM AIRPORT SHUTTLE DRIVER 06/29/2024 6:44 PM AIRPORT SHUTTLE DRIVER us Wander Matthews MD LAB BLOOD ORDERABLES Final Re sult MICHELINE LUO [address] [address] Department [place] [address] * (ABNORMAL) CBC with auto differential (06/29/2024 8:57 AM AIRPORT SHUTTLE DRIVER) WBC 2.7(L) 3.8 - 9.9 K/cumm Hgb 11.6(L) 13.0 - 17.5 g/dL [facility] Hct 37.4(L) 38.9 - 50.3 % [facility] Plt 183 150 - 400 K/cumm [facility] MPV 9.8 9.1 - 12.3 fL [facility] RBC 3.97(L) 4.30 - 5.80 M/cumm [facility] MCV 94.2 81.3 - 96.4 fL [facility] MCH 29.2 27.1 - 33.3 pg [facility] MCHC 31.0(L) 32.3 - 35.7 g/dL [facility] RDW CV 14.8 11.1 - 14.9 % [facility] RDW SD 51.3(H) 35.7 - 48.1 fL [facility] NRBC abs 0.00 0.00 - 0.01 K/cumm [facility] Blood 06/29/2024 8:57 AM AIRPORT SHUTTLE DRIVER 06/29/2024 6:44 PM AIRPORT SHUTTLE DRIVER Wander Matthews MD LAB BLOOD ORDERABLES Final Re sult [facility] [address] [address] Department of Laboratories [place] [phone] * Comprehensive metabolic panel (06/29/2024 8:57 AM AIRPORT SHUTTLE DRIVER) Sodium 140 135 - 145 mmol/L Potassium, pl 4.1 3.3 - 4.9 mmol/L [facility] Chloride 105 97 - 110 mmol/L [facility] CO2 24 22 - 32 mmol/L [facility] Anion gap 11 2 - 15 mmol/L [facility] BUN 15 6 - 25 mg/dL [facility] Creatinine 1.10 0.80 - 1.30 mg/dL [facility] Glucose 121 70 - 199 mg/dL [facility] Comment: Interpretive Data Fasting glucose >/= [...] Units/L [facility] Blood 06/29/2024 8:57 AM AIRPORT SHUTTLE DRIVER 06/29/2024 6:44 PM AIRPORT SHUTTLE DRIVER us Wander Matthews MD LAB BLOOD ORDERABLES Final Re sult [facility] [address] [address] Department [place] [address] * eGFR (06/22/2024 9:14 AM AIRPORT SHUTTLE DRIVER) eGFR 71 >=60 mL/min/1. 73 m2 Comment: [...] last reviewed 2021. Blood 06/22/2024 9:14 AM AIRPORT SHUTTLE DRIVER 06/22/2024 5:53 PM AIRPORT SHUTTLE DRIVER us Wander Matthews MD LAB BLOOD ORDERABLES Final Re sult MICHELINE [address] [address] [place] [address] * (ABNORMAL) Differential, auto (06/22/2024 9:14 AM AIRPORT SHUTTLE DRIVER) Neutrophil abs 2.8 1.5 - 6.5 K/cumm Imm gran abs 0.0 0.0 - 0.1 K/cumm [facility] Lymphocyte abs 0.2(L) 0.8 - 3.3 K/cumm [facility] Monocyte abs 0.1(L) 0.2 - 0.8 K/cumm [facility] Eosinophil abs 0.1 0.0 - 0.5 K/cumm [facility] Basophil abs 0.0 0.0 - 0.1 K/cumm [facility] Neutrophil pct 89.3 % [facility] Comment: Consistent with previous result Interpretive Data Percent cell count reference ranges are not reported, since discordance with absolute values may lead to misinterpretation of CBC data. Current Interpretive Data was last revised on 2017. Imm gran pct 0.3 % [facility] Comment: Interpretive Data Percent cell count reference ranges are not reported, since discordance with absolute values may lead to misinterpretation of CBC data. Current Interpretive Data was last revised on 2017. Lymphocyte pct 7.2 % [facility] Comment: Interpretive Data Percent cell count [...] revised on 2017. Eosinophil pct 1.6 % [facility] Comment: Interpretive Data Percent cell count [...] revised on 2017. Blood 06/22/2024 9:14 AM AIRPORT SHUTTLE DRIVER 06/22/2024 5:29 PM AIRPORT SHUTTLE DRIVER Wander Matthews MD LAB BLOOD ORDERABLES Final Re sult Performing Organization Address [facility] de Phone Number [facility] [address] [place] [address] * (ABNORMAL) Immunoglobulin free light chains (06/22/2024 9:14 AM AIRPORT SHUTTLE DRIVER) Pathologist [facility] [place]/Lambda ratio 28.50(H) 0.26 - 1.65 [place] free light chain 8.26(H) 0.33 - 1.94 mg/dL [facility] Comment: Interpretive Data [employer] [place] FLC assay procedure was used. Results from [...] the same method. Blood 06/22/2024 9:14 AM AIRPORT SHUTTLE DRIVER 06/23/2024 10:18 AM AIRPORT SHUTTLE DRIVER Wander Matthews MD LAB BLOOD ORDERABLES Final Re sult Performing Organization Address [facility] de Phone Number [facility] [address] [address] [place] [address] * (ABNORMAL) CBC with auto differential (06/22/2024 9:14 AM AIRPORT SHUTTLE DRIVER) Pathologist [facility] WBC 3.2(L) 3.8 - 9.9 K/cumm Hgb 12.4(L) 13.0 - 17.5 g/dL [facility] Hct 39.0 38.9 - 50.3 % [facility] Plt 85(L) 150 - 400 K/cumm [facility] MPV 11.0 9.1 - 12.3 fL [facility] RBC 4.21(L) 4.30 - 5.80 M/cumm [facility] MCV 92.6 81.3 - 96.4 fL [facility] MCH 29.5 27.1 - 33.3 pg [facility] MCHC 31.8(L) 32.3 - 35.7 g/dL [facility] RDW CV 14.3 11.1 - 14.9 % [facility] RDW SD 48.1 35.7 - 48.1 fL [facility] NRBC abs 0.00 0.00 - 0.01 K/cumm [facility] Blood 06/22/2024 9:14 AM AIRPORT SHUTTLE DRIVER 06/22/2024 5:29 PM AIRPORT SHUTTLE DRIVER us Wander Matthews MD LAB BLOOD ORDERABLES Final Re sult [facility] [address] [address] [place] [address] * (ABNORMAL) Comprehensive metabolic panel (06/22/2024 9:14 AM AIRPORT SHUTTLE DRIVER) Sodium 140 135 - 145 mmol/L Potassium, pl 3.6 3.3 - 4.9 mmol/L [facility] Chloride 103 97 - 110 mmol/L [facility] CO2 26 22 - 32 mmol/L [facility] Anion gap 11 2 - 15 mmol/L [facility] BUN 23 6 - 25 mg/dL [facility] Creatinine 1.10 0.80 - 1.30 mg/dL [facility] Glucose 176 70 - 199 mg/dL [facility] Comment: Interpretive Data Fasting glucose >/= [...] Units/L [facility] Blood 06/22/2024 9:14 AM AIRPORT SHUTTLE DRIVER 06/22/2024 5:29 PM AIRPORT SHUTTLE DRIVER Wander Matthews MD LAB BLOOD ORDERABLES Final Re sult MICHELINE [address] Department [place] [address] * eGFR (06/16/2024 8:00 AM AIRPORT SHUTTLE DRIVER) eGFR 68 >=60 mL/min/1. 73 m2 Comment: [...] last reviewed 2021. Blood 06/16/2024 8:00 AM AIRPORT SHUTTLE DRIVER 06/16/2024 2:09 PM AIRPORT SHUTTLE DRIVER us Wander Matthews MD LAB BLOOD ORDERABLES Final Re sult [facility] [address] [address] [place] [address] * (ABNORMAL) Differential, auto (06/16/2024 8:00 AM AIRPORT SHUTTLE DRIVER) Neutrophil abs 2.9 1.5 - 6.5 K/cumm Imm gran abs 0.0 0.0 - 0.1 K/cumm [facility] Lymphocyte abs 0.4(L) 0.8 - 3.3 K/cumm [facility] Monocyte abs 0.1(L) 0.2 - 0.8 K/cumm [facility] Eosinophil abs 0.1 0.0 - 0.5 K/cumm [facility] Basophil abs 0.0 0.0 - 0.1 K/cumm [facility] Neutrophil pct 83.4 % [facility] Comment: Consistent with previous result Interpretive Data Percent cell count reference ranges are not reported, since discordance with absolute values may lead to misinterpretation of CBC data. Current Interpretive Data was last revised on 2017. Imm gran pct 0.6 % [facility] Comment: Interpretive Data Percent cell count reference ranges are not reported, since discordance with absolute values may lead to misinterpretation of CBC data. Current Interpretive Data was last revised on 2017. Lymphocyte pct 10.6 % [facility] Comment: Interpretive Data Percent cell count reference ranges are not reported, since discordance with absolute values may lead to misinterpretation of CBC data. Current Interpretive Data was last revised on 2017. Monocyte pct 1.4 % [facility] Comment: Interpretive Data Percent cell count reference ranges are not reported, since discordance with absolute values may lead to misinterpretation of CBC data. Current Interpretive Data was last revised on 2017. Eosinophil pct 3.7 % [facility] Comment: Interpretive Data Percent cell count [...] revised on 2017. Blood 06/16/2024 8:00 AM AIRPORT SHUTTLE DRIVER 06/16/2024 1:56 PM AIRPORT SHUTTLE DRIVER Wander Matthews MD LAB BLOOD ORDERABLES Final Re sult Performing Organization Address City/[facility]/ZIP Co de Phone Number MICHELINE LUO [address] [place] [address] * (ABNORMAL) CBC with auto differential (06/16/2024 8:00 AM AIRPORT SHUTTLE DRIVER) WBC 3.5(L) 3.8 - 9.9 K/cumm Hgb 13.3 13.0 - 17.5 g/dL [facility] Hct 40.1 38.9 - 50.3 % [facility] Plt 79(L) 150 - 400 K/cumm [facility] MPV 11.3 9.1 - 12.3 fL [facility] RBC 4.42 4.30 - 5.80 M/cumm [facility] MCV 90.7 81.3 - 96.4 fL [facility] MCH 30.1 27.1 - 33.3 pg [facility] MCHC 33.2 32.3 - 35.7 g/dL [facility] RDW CV 14.0 11.1 - 14.9 % [facility] RDW SD 46.8 35.7 - 48.1 fL [facility] NRBC abs 0.00 0.00 - 0.01 K/cumm [facility] Blood 06/16/2024 8:00 AM AIRPORT SHUTTLE DRIVER 06/16/2024 1:56 PM AIRPORT SHUTTLE DRIVER Wander Matthews MD LAB BLOOD ORDERABLES Final Re sult Performing Organization Address City/[facility]/ZIP Co de Phone Number MICHELINE LUO [address] [address] [facility] [employer] [place], [place] [id number] * Comprehensive metabolic panel (06/16/2024 8:00 AM AIRPORT SHUTTLE DRIVER) Sodium 137 135 - 145 mmol/L Potassium, [...] Glucose 172 70 - 199 mg/dL [facility] Comment: Interpretive [...] Units/L [facility] Blood 06/16/2024 8:00 AM AIRPORT SHUTTLE DRIVER 06/16/2024 1:56 PM AIRPORT SHUTTLE DRIVER us Wander Matthews MD LAB BLOOD ORDERABLES Final Re sult [facility] [id number] [address] Department [place] [address] * eGFR (06/08/2024 9:00 AM AIRPORT SHUTTLE DRIVER) eGFR 73 >=60 mL/min/1. 73 m2 Comment: [...] last reviewed 2021. Blood 06/08/2024 9:00 AM AIRPORT SHUTTLE DRIVER 06/08/2024 4:57 PM AIRPORT SHUTTLE DRIVER Wander Matthews MD LAB BLOOD ORDERABLES Final Re sult [facility] [address] [address] Department [place] [address] * (ABNORMAL) Differential, auto (06/08/2024 9:00 AM AIRPORT SHUTTLE DRIVER) Neutrophil abs 1.8 1.5 - 6.5 K/cumm Imm gran abs 0.0 0.0 - 0.1 K/cumm [facility] Lymphocyte abs 0.4(L) 0.8 - 3.3 K/cumm [facility] Monocyte abs 0.1(L) 0.2 - 0.8 K/cumm [facility] Eosinophil abs 0.1 0.0 - 0.5 K/cumm [facility] Basophil abs 0.0 0.0 - 0.1 K/cumm [facility] Neutrophil pct 77.5 % [facility] Comment: Consistent with previous result Interpretive Data Percent cell count reference ranges are not reported, since discordance with absolute values may lead to misinterpretation of CBC data. Current Interpretive Data was last revised on 2017. Imm gran pct 0.4 % [facility] Comment: Interpretive Data Percent cell count [...] revised on 2017. Blood 06/08/2024 9:00 AM AIRPORT SHUTTLE DRIVER 06/08/2024 4:38 PM AIRPORT SHUTTLE DRIVER us Wander Matthews MD LAB BLOOD ORDERABLES Final Re sult [facility] [address] [address] Department [place] [address] * (ABNORMAL) CBC with auto differential (06/08/2024 9:00 AM AIRPORT SHUTTLE DRIVER) WBC 2.3(L) 3.8 - 9.9 K/cumm Hgb 12.6(L) 13.0 - 17.5 g/dL [facility] Hct 38.7(L) 38.9 - 50.3 % [facility] Plt 130(L) 150 - 400 K/cumm [facility] MPV 10.9 9.1 - 12.3 fL [facility] RBC 4.20(L) 4.30 - 5.80 M/cumm [facility] MCV 92.1 81.3 - 96.4 fL [facility] MCH 30.0 27.1 - 33.3 pg [facility] MCHC 32.6 32.3 - 35.7 g/dL [facility] RDW CV 14.0 11.1 - 14.9 % [facility] RDW SD 47.1 35.7 - 48.1 fL [facility] NRBC abs 0.00 0.00 - 0.01 K/cumm [facility] Blood 06/08/2024 9:00 AM AIRPORT SHUTTLE DRIVER 06/08/2024 4:38 PM AIRPORT SHUTTLE DRIVER Narrative [facility] - 06/08/2024 5:03 [address] SHUTTLE [address]IVER Dr. Matthews weekly CBC on 01/20/2024 and 01/27/2024 us Wander Matthews MD LAB BLOOD ORDERABLES Final Re sult [facility] [id number] [address] Department [place] [address] * (ABNORMAL) Comprehensive metabolic panel (06/08/2024 9:00 AM AIRPORT SHUTTLE DRIVER) Sodium 139 135 - 145 mmol/L Potassium, pl 3.7 3.3 - 4.9 mmol/L [facility] Chloride 100 97 - 110 mmol/L [facility] CO2 27 22 - 32 mmol/L [facility] Anion gap 12 2 - 15 mmol/L [facility] BUN 28(H) 6 - 25 mg/dL [facility] Creatinine 1.08 0.80 - 1.30 mg/dL [facility] Glucose 95 70 - 199 mg/dL [facility] Comment: Interpretive Data Fasting glucose >/= 126 [...] 2022. Calcium 10.2 8.5 - 10.3 mg/dL [facility] Bilirubin, total 0.6 0.1 - 1.2 mg/dL [facility] Protein, pl 7.0 6.5 - 8.5 g/dL [facility] Albumin 4.0 3.5 - 5.0 g/dL [facility] Alk phos 48 40 - 130 Units/L [facility] ALT 15 7 - 55 Units/L [facility] AST 23 10 - 50 Units/L [facility] Blood 06/08/2024 9:00 AM AIRPORT SHUTTLE DRIVER 06/08/2024 4:38 PM AIRPORT SHUTTLE DRIVER Narrative [facility] - 06/08/2024 5:21 PM AIRPORT SHUTTLE DRIVER Cassie CMP weekly x 2 01/20/2024 and 01/27/2024 us Wander Matthews MD LAB BLOOD ORDERABLES Final Re sult MICHELINE LUO [address] [address] Department [place] [address] * eGFR (06/01/2024 2:15 PM AIRPORT SHUTTLE DRIVER) eGFR 70 >=60 mL/min/1. 73 m2 Comment: [...] last reviewed 2021. Blood 06/01/2024 2:15 PM AIRPORT SHUTTLE DRIVER 06/01/2024 9:08 PM AIRPORT SHUTTLE DRIVER us Wander Matthews MD LAB BLOOD ORDERABLES Final Re sult [facility] [address] [address] Department [place] [address] * (ABNORMAL) Differential, auto (06/01/2024 2:15 PM AIRPORT SHUTTLE DRIVER) Neutrophil abs 2.6 1.5 - 6.5 K/cumm Imm gran abs 0.0 0.0 - 0.1 K/cumm [facility] Lymphocyte abs 0.5(L) 0.8 - 3.3 K/cumm [facility] Monocyte abs 0.1(L) 0.2 - 0.8 K/cumm [facility] Eosinophil abs 0.1 0.0 - 0.5 K/cumm [facility] Basophil abs 0.0 0.0 - 0.1 K/cumm [facility] Neutrophil pct 78.8 % [facility] Comment: Interpretive Data Percent cell count reference ranges are not reported, since discordance with absolute values may lead to misinterpretation of CBC data. Current Interpretive Data was last revised on 2017. Imm gran pct 0.3 % [facility] Comment: Interpretive Data Percent cell count reference ranges are not reported, since discordance with absolute values may lead to misinterpretation of CBC data. Current Interpretive Data was last revised on 2017. Lymphocyte pct 14.1 % [facility] Comment: Interpretive Data Percent cell count reference ranges are not reported, since discordance with absolute values may lead to misinterpretation of CBC data. Current Interpretive Data was last revised on 2017. Monocyte pct 3.4 % [facility] Comment: Interpretive Data Percent cell count reference ranges are not reported, since discordance with absolute values may lead to misinterpretation of CBC data. Current Interpretive Data was last revised on 2017. Eosinophil pct 2.5 % [facility] Comment: Interpretive Data Percent cell count reference ranges are not reported, since discordance with absolute values may lead to misinterpretation of CBC data. Current Interpretive Data was last revised on 2017. Basophil pct 0.9 % [facility] Comment: Interpretive Data Percent cell count reference ranges are not reported, since discordance with absolute values may lead to misinterpretation of CBC data. Current Interpretive Data was last revised on 2017. Blood 06/01/2024 2:15 PM AIRPORT SHUTTLE DRIVER 06/01/2024 9:06 PM AIRPORT SHUTTLE DRIVER Wander Matthews MD LAB BLOOD ORDERABLES Final Re sult Performing Organization Address [facility] de Phone Number MICHELINE LUO [address] [address] [place] [address] * (ABNORMAL) Immunoglobulin free light chains (06/01/2024 2:15 PM AIRPORT SHUTTLE DRIVER) [place]/Lambda ratio 18.40(H) 0.26 - 1.65 [place] free light chain 12.17(H) 0.33 - 1.94 mg/dL [facility] Comment: Interpretive Data The [employer] Ig [place] FLC assay procedure was used. Results from different manufacturers or methods may not be comparable. Serial testing should be performed using the same method. Lambda free light chain 0.66 0.57 - 2.63 mg/dL [facility] Comment: Interpretive Data [employer] Ig Lambda FLC assay procedure was used. Results from different manufacturers or methods may not be comparable. Serial testing should be performed using the same method. Blood 06/01/2024 2:15 PM AIRPORT SHUTTLE DRIVER 06/01/2024 9:06 PM AIRPORT SHUTTLE DRIVER Wander Matthews MD LAB BLOOD ORDERABLES Final Re sult Performing Organization Address [facility] de Phone Number MICHELINE LUO [address] [address] [place] [address] * (ABNORMAL) CBC with auto differential (06/01/2024 2:15 PM AIRPORT SHUTTLE DRIVER) WBC 3.3(L) 3.8 - 9.9 K/cumm Hgb 12.4(L) 13.0 - 17.5 g/dL [facility] Hct 39.0 38.9 - 50.3 % [facility] Plt 191 150 - 400 K/cumm [facility] MPV 10.3 9.1 - 12.3 fL [facility] RBC 4.17(L) 4.30 - 5.80 M/cumm [facility] MCV 93.5 81.3 - 96.4 fL [facility] CH MCH 29.7 27.1 - 33.3 pg [facility] MCHC 31.8(L) 32.3 - 35.7 g/dL [facility] CH RDW CV 14.1 11.1 - 14.9 % [facility] CH RDW SD 48.1 35.7 - 48.1 fL [facility] CH NRBC abs 0.00 0.00 - 0.01 K/cumm [facility] Blood 06/01/2024 2:15 PM AIRPORT SHUTTLE DRIVER 06/01/2024 9:06 PM AIRPORT SHUTTLE DRIVER Wander Matthews MD LAB BLOOD ORDERABLES Final Re sult Performing Organization Address City/[facility]/ZIP Co de Phone Number [facility] [address] [address] [place] [address] * IgG (06/01/2024 2:15 PM AIRPORT SHUTTLE DRIVER) Pathologist [facility] Immunoglobulin G 1,202 700 - 1,600 mg/dL Blood 06/01/2024 2:15 PM AIRPORT SHUTTLE DRIVER 06/01/2024 9:06 PM AIRPORT SHUTTLE DRIVER Wander Matthews MD LAB BLOOD ORDERABLES Final Re sult Performing Organization Address [facility] de Phone Number [facility] [address] [address] [place] [address] * Comprehensive metabolic panel (06/01/2024 2:15 PM AIRPORT SHUTTLE DRIVER) Pathologist [facility] Sodium 140 135 - 145 mmol/L Potassium, pl 3.9 3.3 - 4.9 mmol/L [facility] Chloride 102 97 - 110 mmol/L [facility] CO2 28 22 - 32 mmol/L [facility] Anion gap 10 2 - 15 mmol/L [facility] BUN 18 6 - 25 mg/dL [facility] Creatinine 1.12 0.80 - 1.30 mg/dL [facility] Glucose 109 70 - 199 mg/dL [facility] Comment: Interpretive Data Fasting glucose >/= [...] Units/L [facility] Blood 06/01/2024 2:15 PM AIRPORT SHUTTLE DRIVER 06/01/2024 9:06 PM AIRPORT SHUTTLE DRIVER us Wander Matthews MD LAB BLOOD ORDERABLES Final Re sult MICHELINE LUO [address] [address] [place] [address] * PSA screen (01/20/2024 12:52 [...] De La Rosa MD LAB BLOOD ORDERABLES Critical [facility] hospital Result Performing Organization Address City/State/ZIP Co va Phone Number MICHELINE [address] [facility] [place] [address] from Last 3 Months or Most Recently Relevant to Health Maintenance Insurance [employer] [place] [phone] [facility] Care Teams International Exchange Coordinator Relationship Specialty Start Date End Date Vick Perkins MD PCP - General Internal Medicine 01/08/18 Wander Matthews MD Medical Oncologist/Rail[employer] D[employer] Car Stewardess Hematology and Oncology 10/25/22
--- OUTSIDE RECORDS SUMMARY | 2024-08-21 08:25 | XMS_ITS ---
Author Organization [facility] Address [address] [place] [address] Phone Care Team Providers Care Dye Range Tender Name Role Phone Vick Perkins MD Primary Care Provider [phone] Wander Matthews MD Unavailable [phone] Active Problems Problem Noted Date Diagnosed Date [...]
--- OUTSIDE RECORDS SUMMARY | 2024-08-21 08:26 | XMS_ITS | Encounter Summary ---
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
--- OUTSIDE RECORDS SUMMARY | 2024-08-21 08:26 | XMS_ITS | Clinical Summary ---
Author Organization [facility] Address [address] [place] [address] Phone Care Team Providers Care Shuttle Threader Name Role Phone Vick Perkins MD Primary Care Provider [phone] Wander Matthews MD Unavailable [phone] Allergies No known active allergies Medications aspirin 81 mg tablet Take 1 tablet (81 mg total) by mouth daily Active magnesium gluconate 200 mg tabletIndicati ons:hypomagnes emia 1 tablet (200 mg total) Active multivitamin-C q-mabi-qynealv s 18-0.4 mg tablet Take by mouth. Activ e glucosam-faraz- nvm3-L-nvlw-maria guadalupe sw 750 mg-644 mg- 30 mg-1 mg tablet Take by mouth. Activ e omeprazole (PriLOSEC) 20 mg capsule Take 1 capsule (20 mg total) by mouth daily Active B complex 98-uqfty-T-bio t-zinc [id number] jh-qb-lei-mg tablet Take by mouth. Activ e Lumigan [...] 1 tablet (25 mcg total) by mouth hr internship before breakfast 30 tablet 2 07/17/19 25 [...] Type Department Care Team Description 08/12/2024 Telephone [facility] Oncology [address] [place] [address] Office [facility] [address] [place] [address] Jessica Jimenez RN 08/10/2024 Telephone [facility] Oncology [address] [place] [address] Office [facility] [address] [place] [address] Odessa Garland, LOGAN 08/07/2024 8:30 AM ROLLER STAKER Infusion [facility] [address] [place] [address] Multiple myeloma not having achieved remission (CMS/HCC) (HCC) (Primary Dx); Malignant melanoma of right upper extremity including shoulder (HCC); Chemotherapy induced nausea and vomiting 08/07/2024 8:15 AM ROLLER STAKER Office Visit [facility] Oncology [address] [place] [address] [address] [place] [address] Wander Matthews MD Malignant melanoma of right upper extremity including shoulder (HCC) (Primary Dx); Multiple myeloma not having achieved remission (CMS/HCC) (HCC); Chemotherapy induced nausea and vomiting; Acute upper respiratory infection 08/07/2024 8:00 AM ROLLER STAKER Lab [facility] Infusion [address] [place] [address] Multiple myeloma not having achieved remission (CMS/HCC) (HCC) 08/06/2024 Telephone [facility] Oncology [address] [place] [address] Office [facility] [address] [place] [address] Lucrecia Haskins, CLT 08/03/2024 4:18 PM ROLLER STAKER - 08/03/2024 11:59 PM ROLLER STAKER Hospital Encounter [address] [address] Multiple myeloma not having achieved remission (CMS/HCC) (HCC) Discharge Disposition: Discharge to home or self care 08/03/2024 8:15 AM ROLLER STAKER Lab [facility] Outpatient Lab at [address] [address] Multiple myeloma not having achieved remission (CMS/HCC) (HCC) (Primary Dx); Malignant melanoma (HCC) 07/31/2024 1:00 PM ROLLER STAKER Infusion [address] [place] [phone] Multiple myeloma not having achieved remission (CMS/HCC) (HCC) (Primary Dx) 07/31/2024 12:30 PM ROLLER STAKER Lab [address] [place] [address] Multiple myeloma not having achieved remission (CMS/HCC) (HCC) 07/31/2024 Orders Only [facility] Oncology [address] [place] [address] Medical Office B[address] [place] [address] Wander Matthews MD 07/27/2024 1:03 PM ROLLER STAKER - 07/27/2024 11:59 PM ROLLER STAKER Hospital Encounter [address] [address] Hypothyroidism, unspecified type; Malignant melanoma of right upper extremity including shoulder (HCC) Discharge Disposition: Discharge to home or self care 07/27/2024 1:00 PM ROLLER STAKER Lab [facility] Outpatient Lab at [address] [address] Chemotherapy induced nausea and vomiting (Primary Dx) 07/17/2024 8:30 AM ROLLER STAKER Infusion [address] [place] [phone] Multiple myeloma not having achieved remission (CMS/HCC) (HCC) (Primary Dx); Malignant melanoma of right upper extremity including shoulder (HCC); Chemotherapy induced nausea and vomiting 07/17/2024 8:15 AM ROLLER STAKER Office Visit [facility] Oncology [address] [place] [address] Office [facility] [address] [place] [address] Wander Matthews MD Multiple myeloma not having achieved remission (CMS/HCC) (HCC) (Primary Dx); Malignant melanoma of right upper extremity including shoulder (HCC); Chemotherapy induced nausea and vomiting; Hypothyroidism, unspecified type 07/15/2024 Telephone [facility] Oncology [address] [place] [address] Office [facility] [address] [place] [address] Alix Miller RN 07/15/2024 Orders Only [facility] Oncology [address] [place] [address] Office [facility] [address] [place] [address] Wander Matthews MD 07/13/2024 4:18 PM ROLLER STAKER - 07/13/2024 11:59 PM ROLLER STAKER Hospital Encounter [address] [address] Malignant melanoma of right upper extremity including shoulder (HCC); Chemotherapy induced nausea and vomiting Discharge Disposition: Discharge to home or self care 07/13/2024 10:00 AM ROLLER STAKER Lab [facility] Outpatient Lab at [address] [address] Monoclonal gammopathy of unknown significance (MGUS) (Primary Dx); Multiple myeloma not having achieved remission (CMS/HCC) (HCC) 07/10/2024 11:00 AM ROLLER STAKER Infusion [facility] [address] [facility] [address] [place] [address] Multiple myeloma not having achieved remission (CMS/HCC) (HCC) (Primary Dx) 07/07/2024 9:05 AM ROLLER STAKER - 07/07/2024 11:59 PM ROLLER STAKER Hospital Encounter [address] [address] Malignant melanoma of right upper extremity including shoulder (HCC); Multiple myeloma not having achieved remission (CMS/HCC) (HCC); Hypothyroidism due to medication Discharge Disposition: Discharge to home or self care 07/07/2024 9:00 AM ROLLER STAKER Lab [facility] Outpatient Lab at [address] [address] 07/03/2024 9:00 AM ROLLER STAKER Infusion [address] [address] Multiple myeloma not having achieved remission (CMS/HCC) (HCC) (Primary Dx) 06/29/2024 4:18 PM ROLLER STAKER - 06/29/2024 11:59 PM ROLLER STAKER Hospital Encounter [address] [address] Malignant melanoma of right upper extremity including shoulder (HCC) Discharge Disposition: Discharge to home or self care 06/29/2024 9:00 AM ROLLER STAKER Lab [facility] Outpatient Lab at [address] [address] Malignant melanoma (HCC) (Primary Dx); Multiple myeloma not having achieved remission (CMS/HCC) (HCC) 06/26/2024 9:00 AM ROLLER STAKER Infusion [address] [address] Chemotherapy induced nausea and vomiting (Primary Dx); Malignant melanoma of right upper extremity including shoulder (HCC) 06/26/2024 8:45 AM ROLLER STAKER Office Visit [facility] Oncology [address] [place] [address] Medical [address] [address] Wander Matthews MD Malignant melanoma of right upper extremity including shoulder (HCC) (Primary Dx); Chemotherapy induced nausea and vomiting; Multiple myeloma not having achieved remission (CMS/HCC) (HCC); Hypothyroidism due to medication 06/22/2024 11:05 AM ROLLER STAKER - 06/22/2024 11:59 PM ROLLER STAKER Hospital Encounter [address] [address] Multiple myeloma not having achieved remission (CMS/HCC) (HCC); Malignant melanoma of right upper extremity including shoulder (HCC) Discharge Disposition: Discharge to home or self care 06/22/2024 9:15 AM ROLLER STAKER Lab [facility] Outpatient Lab at [address] [address] Multiple myeloma not having achieved remission (CMS/HCC) (HCC) (Primary Dx); Monoclonal gammopathy of unknown significance (MGUS); Malignant melanoma (HCC); Chemotherapy induced nausea and vomiting 06/17/2024 11:30 AM ROLLER STAKER Infusion [address] [place] [phone] Multiple myeloma not having achieved remission (CMS/HCC) (HCC) (Primary Dx) 06/16/2024 1:53 PM ROLLER STAKER - 06/16/2024 11:59 PM ROLLER STAKER Hospital Encounter [address] [address] Malignant melanoma of right upper extremity including shoulder (HCC); Chemotherapy induced nausea and vomiting Discharge Disposition: Discharge to home or self care 06/16/2024 8:45 AM ROLLER STAKER Lab [facility] Outpatient Lab at [address] [phone] Malignant melanoma (HCC) (Primary Dx); Multiple myeloma not having achieved remission (CMS/HCC) (HCC) 06/10/2024 10:00 AM ROLLER STAKER Infusion [address] [address] Multiple myeloma not having achieved remission (CMS/HCC) (HCC) (Primary Dx) 06/09/2024 Documentation [facility] On[facility] [address] [place] [address] Medical Office [facility] [address] [place] [address] Shereen Beal RN 06/09/2024 Telephone [facility] Oncology [address] [place] [address] Medical Office [facility] [address] [place] [address] Odessa Garland CLT 06/08/2024 3:46 PM ROLLER STAKER - 06/08/2024 11:59 PM ROLLER STAKER Hospital Encounter [address] [address] Multiple myeloma not having achieved remission (CMS/HCC) (HCC) Discharge Disposition: Discharge to home or self care 06/08/2024 8:15 AM ROLLER STAKER Lab [facility] Outpatient Lab at [address] [address] Multiple myeloma not having achieved remission (CMS/HCC) (HCC) (Primary Dx); Malignant melanoma (HCC) 06/03/2024 9:30 AM ROLLER STAKER Infusion [facility] Infusion [place] [address] [facility] [address] [place] [address] Chemotherapy induced nausea and vomiting (Primary Dx); Malignant melanoma of right upper extremity including shoulder (HCC); Multiple myeloma not having achieved remission (CMS/HCC) (HCC) 06/03/2024 9:00 AM ROLLER STAKER Office Visit [facility] Oncology [address] [place] [address] Office [facility] [address] [place] [address] Wander Matthews MD Multiple myeloma not having achieved remission (CMS/HCC) (HCC) (Primary Dx); Malignant melanoma of right upper extremity including shoulder (HCC); Chemotherapy induced nausea and vomiting 06/02/2024 Telephone [facility] Oncology [address] [place] [address] Office [facility] [address] [place] [address] Lucrecia Hsakins CLT 06/01/2024 2:15 PM ROLLER STAKER - 06/01/2024 11:59 PM ROLLER STAKER [place] [phone] Malignant melanoma of right upper extremity including shoulder (HCC) Discharge Disposition: Discharge to home or self care 06/01/2024 2:15 PM ROLLER STAKER Lab [facility] Outpatient Lab at [address] [address] Malignant melanoma (HCC) (Primary Dx); Multiple myeloma not having achieved remission (CMS/HCC) (HCC) from Last 3 Months Immunizations Immunization Administration [...] on file Legal Sex Male 1:08 PM ROLLER STAKER Gender Identity Not on file Sexual Orientation Not on file Obstetrics History Last Filed Vital Signs Vital Sign Reading Time Taken Comments Blood Pressure 110/72 08/07/2024 8:28 AM ROLLER STAKER Pulse 118 08/07/2024 8:28 AM ROLLER STAKER Temperature 36.8 C (98.2 F) 08/07/2024 8:28 AM ROLLER STAKER Respiratory Rate 18 08/07/2024 8:28 AM ROLLER STAKER Oxygen Saturation 95% 08/07/2024 8:28 AM ROLLER STAKER Inhaled Oxygen Concentration - - Weight 105 kg (231 lb 6.4 oz) 08/07/2024 8:28 AM ROLLER STAKER Height 177.8 cm (5' 10 ) 07/17/2024 8:09 AM ROLLER STAKER Body Mass Index 33.2 07/17/2024 8:09 AM ROLLER STAKER Plan of Treatment Health Maintenance Due Date Last Done Comments Colon Cancer Screening-Colonoscopy 1950 Depression Screening 1950 Hepatitis C Screening 1950 Hepatitis B Screening 1970 Zoster Vaccine (1 of 2) 1971 Well Visit 65+ 2017 Influenza Vaccine (#1) 2024 , 06/04/2022, 04/14/2021, Additional history exists Covid-19 Vaccine (9 - Modern a risk ) 11/15/2024 05/18/2024, 06/04/2023, 06/13/2022, Additional history exists Fall Risk Assessment 08/07/2025 08/07/2024, 07/03/2024, 06/26/2024, Additional history exists DTaP/Tdap/Td Vaccine (2 - Td or Tdap) 03/09/2033 03/09/2023 Pneumococcal vaccine 65+ Completed 02/11/2023 Prostate Cancer Screening-PSA Discontinued , 12/25/2023, 11/07/2023, Additional history exists Procedures Procedure Name Priority Date/Time Associated Diagnosis Comments EGFR STAT 08/03/2024 10:57 PM ROLLER STAKER Multiple myeloma not having achieved remission (CMS/HCC) (HCC) DIFFERENTIAL AUTO STAT 08/03/2024 10: 57 PM ROLLER STAKER Multiple myeloma not having achieved remission (CMS/HCC) (HCC) CBC WITH AUTO DIFFERENTIAL STAT 08/03/2024 10:57 PM ROLLER STAKER Multiple myeloma not having achieved remission (CMS/HCC) (HCC) COMPREHENSIVE METABOLIC PANEL STAT 08/03/2024 10:57 PM ROLLER STAKER Multiple myeloma not having achieved remission (CMS/HCC) (HCC) EGFR Routine 07/27/2024 1:03 PM ROLLER STAKER Malignant melanoma of right upper extremity including shoulder (HCC) DIFFERENTIAL AUTO Routine 07/27/2024 1:0 3 PM ROLLER STAKER Malignant melanoma of right upper extremity including shoulder (HCC) IGG Routine 07/27/2024 1:03 PM ROLLER STAKER Malignant melanoma of right upper extremity including shoulder (HCC) IMMUNOGLOBULIN FREE LIGHT CHAINS Routine 07/27/2024 1:03 PM ROLLER STAKER Malignant melanoma of right upper extremity including shoulder (HCC) CBC WITH AUTO DIFFERENTIAL Routine 07/27/2024 1:03 PM ROLLER STAKER Malignant melanoma of right upper extremity including shoulder (HCC) COMPREHENSIVE METABOLIC PANEL Routine 07/27/2024 1:03 PM ROLLER STAKER Malignant melanoma of right upper extremity including shoulder (HCC) TSH Routine 07/27/2024 1:03 PM ROLLER STAKER Hypothyroidism, unspecified type EGFR STAT 07/13/2024 10:05 AM ROLLER STAKER Malignant melanoma of right upper extremity including shoulder (HCC) Chemotherapy induced nausea and vomiting DIFFERENTIAL AUTO STAT 07/13/2024 10: 05 AM ROLLER STAKER Malignant melanoma of right upper extremity including shoulder (HCC) Chemotherapy induced nausea and vomiting CBC WITH AUTO DIFFERENTIAL STAT 07/13/2024 10:05 AM ROLLER STAKER Malignant melanoma of right upper extremity including shoulder (HCC) Chemotherapy induced nausea and vomiting COMPREHENSIVE METABOLIC PANEL STAT 07/13/2024 10:05 AM ROLLER STAKER Malignant melanoma of right upper extremity including shoulder (HCC) Chemotherapy induced nausea and vomiting TSH Routine 07/13/2024 10:05 AM ROLLER STAKER Malignant melanoma of right upper extremity including shoulder (HCC) Chemotherapy induced nausea and vomiting EGFR Routine 07/07/2024 9:05 AM ROLLER STAKER Malignant melanoma of right upper extremity including shoulder (HCC) Multiple myeloma not having achieved remission (CMS/HCC) (HCC) DIFFERENTIAL AUTO Routine 07/07/2024 9:0 5 AM ROLLER STAKER Malignant melanoma of right upper extremity including shoulder (HCC) Multiple myeloma not having achieved remission (CMS/HCC) (HCC) CBC WITH AUTO DIFFERENTIAL Routine 07/07/2024 9:05 AM ROLLER STAKER Malignant melanoma of right upper extremity including shoulder (HCC) Multiple myeloma not having achieved remission (CMS/HCC) (HCC) TSH Routine 07/07/2024 9:05 AM ROLLER STAKER Malignant melanoma of right upper extremity including shoulder (HCC) Multiple myeloma not having achieved remission (CMS/HCC) (HCC) Hypothyroidism due to medication IMMUNOGLOBULIN FREE LIGHT CHAINS Routine 07/07/2024 9:05 AM ROLLER STAKER Malignant melanoma of right upper extremity including shoulder (HCC) Multiple myeloma not having achieved remission (CMS/HCC) (HCC) IGG Routine 07/07/2024 9:05 AM ROLLER STAKER Malignant melanoma of right upper extremity including shoulder (HCC) Multiple myeloma not having achieved remission (CMS/HCC) (HCC) COMPREHENSIVE METABOLIC PANEL Routine 07/07/2024 9:05 AM ROLLER STAKER Malignant melanoma of right upper extremity including shoulder (HCC) Multiple myeloma not having achieved remission (CMS/HCC) (HCC) EGFR Routine 06/29/2024 8:57 AM ROLLER STAKER Malignant melanoma of right upper extremity including shoulder (HCC) DIFFERENTIAL AUTO Routine 06/29/2024 8:5 7 AM ROLLER STAKER Malignant melanoma of right upper extremity including shoulder (HCC) COMPREHENSIVE METABOLIC PANEL Routine 06/29/2024 8:57 AM ROLLER STAKER Malignant melanoma of right upper extremity including shoulder (HCC) CBC WITH AUTO DIFFERENTIAL Routine 06/29/2024 8:57 AM ROLLER STAKER Malignant melanoma of right upper extremity including shoulder (HCC) IMMUNOGLOBULIN FREE LIGHT CHAINS Routine 06/22/2024 9:14 AM ROLLER STAKER Malignant melanoma of right upper extremity including shoulder (HCC) EGFR STAT 06/22/2024 9:14 AM ROLLER STAKER Multiple myeloma not having achieved remission (CMS/HCC) (HCC) DIFFERENTIAL AUTO STAT 06/22/2024 9:1 4 AM ROLLER STAKER Multiple myeloma not having achieved remission (CMS/HCC) (HCC) COMPREHENSIVE METABOLIC PANEL STAT 06/22/2024 9:14 AM ROLLER STAKER Multiple myeloma not having achieved remission (CMS/HCC) (HCC) CBC WITH AUTO DIFFERENTIAL STAT 06/22/2024 9:14 AM ROLLER STAKER Multiple myeloma not having achieved remission (CMS/HCC) (HCC) EGFR STAT 06/16/2024 8:00 AM ROLLER STAKER Malignant melanoma of right upper extremity including shoulder (HCC) Chemotherapy induced nausea and vomiting DIFFERENTIAL AUTO STAT 06/16/2024 8:0 0 AM ROLLER STAKER Malignant melanoma of right upper extremity including shoulder (HCC) Chemotherapy induced nausea and vomiting CBC WITH AUTO DIFFERENTIAL STAT 06/16/2024 8:00 AM ROLLER STAKER Malignant melanoma of right upper extremity including shoulder (HCC) Chemotherapy induced nausea and vomiting COMPREHENSIVE METABOLIC PANEL STAT 06/16/2024 8:00 AM ROLLER STAKER Malignant melanoma of right upper extremity including shoulder (HCC) Chemotherapy induced nausea and vomiting EGFR Routine 06/08/2024 9:00 AM ROLLER STAKER Multiple myeloma not having achieved remission (CMS/HCC) (HCC) DIFFERENTIAL AUTO Routine 06/08/2024 9:0 0 AM ROLLER STAKER Multiple myeloma not having achieved remission (CMS/HCC) (HCC) CBC WITH AUTO DIFFERENTIAL Routine 06/08/2024 9:00 AM ROLLER STAKER Multiple myeloma not having achieved remission (CMS/HCC) (HCC) COMPREHENSIVE METABOLIC PANEL Routine 06/08/2024 9:00 AM ROLLER STAKER Multiple myeloma not having achieved remission (CMS/HCC) (HCC) EGFR Routine 06/01/2024 2:15 PM ROLLER STAKER Malignant melanoma of right upper extremity including shoulder (HCC) DIFFERENTIAL AUTO Routine 06/01/2024 2:1 5 PM ROLLER STAKER Malignant melanoma of right upper extremity including shoulder (HCC) IMMUNOGLOBULIN FREE LIGHT CHAINS Routine 06/01/2024 2:15 PM ROLLER STAKER Malignant melanoma of right upper extremity including shoulder (HCC) IGG Routine 06/01/2024 2:15 PM ROLLER STAKER Malignant melanoma of right upper extremity including shoulder (HCC) COMPREHENSIVE METABOLIC PANEL Routine 06/01/2024 2:15 PM ROLLER STAKER Malignant melanoma of right upper extremity including shoulder (HCC) CBC WITH AUTO DIFFERENTIAL Routine 06/01/2024 2:15 PM ROLLER STAKER Malignant melanoma of right upper extremity including shoulder (HCC) PSA SCREEN Routine 01/20/2024 12:52 PM CDT Malignant neoplasm of prostate (HCC) from Last 3 Months or Most Recently Relevant to Health Maintenance Results * eGFR (08/03/2024 10:57 PM ROLLER STAKER) eGFR 82 >=60 mL/min/1. 73 m2 Comment: [...] reviewed 2021. Blood 08/03/2024 10:5 7 PM ROLLER STAKER 08/04/2024 12:03 AM ROLLER STAKER us Wander Matthews MD LAB BLOOD ORDERABLES Final Re sult [facility] [id number] [place] [address] * (ABNORMAL) Differential, auto (08/03/2024 10:57 PM ROLLER STAKER) Neutrophil abs 1.8 1.5 - 6.5 K/cumm Imm gran abs 0.0 0.0 - 0.1 K/cumm [facility] Lymphocyte abs 0.4(L) 0.8 - 3.3 K/cumm [facility] Monocyte abs 0.1(L) 0.2 - 0.8 K/cumm [facility] Eosinophil abs 0.0 0.0 - 0.5 K/cumm [facility] Basophil abs 0.0 0.0 - 0.1 K/cumm [facility] Neutrophil pct 78.2 % [facility] Comment: Consistent with previous result Interpretive Data Percent cell count reference ranges are not reported, since discordance with absolute values may lead to misinterpretation of CBC data. Current Interpretive Data was last revised on 2017. Imm gran pct 0.9 % [facility] Comment: Interpretive Data Percent cell count reference ranges are not reported, since discordance with absolute values may lead to misinterpretation of CBC data. Current Interpretive Data was last revised on 2017. Lymphocyte pct 17.0 % [facility] Comment: Interpretive Data Percent cell count reference ranges are not reported, since discordance with absolute values may lead to misinterpretation of CBC data. Current Interpretive Data was last revised on 2017. Monocyte pct 2.6 % [facility] Comment: Interpretive Data Percent cell count reference ranges are not reported, since discordance with absolute values may lead to misinterpretation of CBC data. Current Interpretive Data was last revised on 2017. Eosinophil pct 0.9 % [facility] Comment: Interpretive Data Percent cell count reference ranges are not reported, since discordance with absolute values may lead to misinterpretation of CBC data. Current Interpretive Data was last revised on 2017. Basophil pct 0.4 % [facility] Comment: Interpretive Data Percent cell count reference ranges are not reported, since discordance with absolute values may lead to misinterpretation of CBC data. Current Interpretive Data was last revised on 2017. Blood 08/03/2024 10:5 7 PM ROLLER STAKER 08/03/2024 11:21 PM ROLLER STAKER Wander Matthews MD LAB BLOOD ORDERABLES Final Re sult MICHE[facility] [address] Department [place] [place] [address] * (ABNORMAL) CBC with auto differential (08/03/2024 10:57 PM ROLLER STAKER) WBC 2.3(L) 3.8 - 9.9 K/cumm Hgb 11.6(L) 13.0 - 17.5 g/dL [facility] Hct 36.9(L) 38.9 - 50.3 % [facility] Plt 189 150 - 400 K/cumm [facility] MPV 9.6 9.1 - 12.3 fL [facility] RBC 3.85(L) 4.30 - 5.80 M/cumm [facility] [...] [facility] Blood 08/03/2024 10:5 7 PM ROLLER STAKER 08/03/2024 11:21 PM ROLLER STAKER Wander Matthews MD LAB BLOOD ORDERABLES Final Re sult MICHELINE [address] Department [place] [place] [address] * (ABNORMAL) Comprehensive metabolic panel (08/03/2024 10:57 PM ROLLER STAKER) Sodium 139 135 - 145 mmol/L Potassium, [...] [facility] Blood 08/03/2024 10:5 7 PM ROLLER STAKER 08/03/2024 11:21 PM ROLLER STAKER Wander Matthews MD LAB BLOOD ORDERABLES Final Re sult [facility] [id number] Department [place] [address] * eGFR (07/27/2024 1:03 PM ROLLER STAKER) eGFR >90 >=60 mL/min/1. 73 m2 Comment: [...] last reviewed 2021. Blood 07/27/2024 1:03 PM ROLLER STAKER 07/27/2024 7:27 PM ROLLER STAKER Wander Matthews MD LAB BLOOD ORDERABLES Final Re sult [facility] [id number] Department [place] [address] * (ABNORMAL) Differential, auto (07/27/2024 1:03 PM ROLLER STAKER) Neutrophil abs 2.4 1.5 - 6.5 K/cumm Imm gran abs 0.0 0.0 - 0.1 K/cumm [facility] Lymphocyte abs 0.2(L) 0.8 - 3.3 K/cumm [facility] Monocyte abs 0.1(L) 0.2 - 0.8 K/cumm [facility] Eosinophil abs 0.1 0.0 - 0.5 K/cumm [facility] Basophil abs 0.0 0.0 - 0.1 K/cumm [facility] Neutrophil pct 85.7 % [facility] Comment: Consistent with previous result Interpretive Data Percent cell count reference ranges are not reported, since discordance with absolute values may lead to misinterpretation of CBC data. Current Interpretive Data was last revised on 2017. Imm gran pct 0.4 % [facility] Comment: Interpretive Data Percent cell count [...] revised on 2017. Blood 07/27/2024 1:03 PM ROLLER STAKER 07/27/2024 7:25 PM ROLLER STAKER us Wander Matthews MD LAB BLOOD ORDERABLES Final Re sult [facility] [address] Department of Laboratories [place], [place] [id number] * (ABNORMAL) Immunoglobulin free light chains (07/27/2024 1:03 PM ROLLER STAKER) Dewart/Lambda ratio 43.30(H) 0.26 - 1.65 Dewart free light chain 11.26(H) 0.33 - 1.94 mg/dL MICHELINE Comment: Interpretive Data The Blayne Ig Dewart FLC assay procedure was used. Results from different manufacturers or methods may not be comparable. Serial testing should be performed using the same method. Lambda free light chain 0.26(L) 0.57 - 2.63 mg/dL MICHELINE Comment: Interpretive Data The Blayne Ig Lambda FLC assay procedure was used. Results from different manufacturers or methods may not be comparable. Serial testing should be performed using the same method. Blood 07/27/2024 1:03 PM ROLLER STAKER 07/27/2024 7:25 PM ROLLER STAKER Wander Matthews MD LAB BLOOD ORDERABLES Final Re sult MICHELINE [address] [employer] [place], [place] [id number] * (ABNORMAL) CBC with auto differential (07/27/2024 1:03 PM ROLLER STAKER) WBC 2.8(L) 3.8 - 9.9 K/cumm Hgb 10.9(L) 13.0 - 17.5 g/dL [facility] Hct 34.7(L) 38.9 - 50.3 % [facility] Plt 154 150 - 400 K/cumm [facility] MPV 10.0 9.1 - 12.3 fL [facility] RBC 3.70(L) 4.30 - 5.80 M/cumm [facility] MCV 93.8 81.3 - 96.4 fL [facility] MCH 29.5 27.1 - 33.3 pg [facility] MCHC 31.4(L) 32.3 - 35.7 g/dL [facility] RDW CV 15.2(H) 11.1 - 14.9 % [facility] RDW SD 52.3(H) 35.7 - 48.1 fL [facility] NRBC abs 0.00 0.00 - 0.01 K/cumm [facility] Blood 07/27/2024 1:03 PM ROLLER STAKER 07/27/2024 7:25 PM ROLLER STAKER Wander Matthews MD LAB BLOOD ORDERABLES Final Re sult MICHELINE LUO [address] Department [employer] [place] [address] * TSH (07/27/2024 1:03 PM ROLLER STAKER) Thyroid Stimulating Hormone 3.23 0.30 - 4.20 mcIUnit/mL Blood 07/27/2024 1:03 PM ROLLER STAKER 07/27/2024 7:25 PM ROLLER STAKER Narrative [facility] - 07/27/2024 7:52 PM ROLLER STAKER Starting 08/10 every 4 weeks Wander Matthews MD LAB BLOOD ORDERABLES Final Re sult Performing Organization Address City/[facility] Co de Phone Number MICHELINE LUO [address] Department [place] [address] * IgG (07/27/2024 1:03 PM ROLLER STAKER) Pathologist [facility] Immunoglobulin G 1,090 700 - 1,600 mg/dL Blood 07/27/2024 1:03 PM ROLLER STAKER 07/27/2024 7:25 PM ROLLER STAKER Wander Matthews MD LAB BLOOD ORDERABLES Final Re sult Performing Organization Address [facility] de Phone Number MICHELINE LUO [address] [place] [address] * Comprehensive metabolic panel (07/27/2024 1:03 PM ROLLER STAKER) [facility] Sodium 139 135 - 145 mmol/L Potassium, pl 3.9 3.3 - 4.9 mmol/L [facility] Chloride 103 97 - 110 mmol/L [facility] CO2 23 22 - 32 mmol/L [facility] Anion gap 13 2 - 15 mmol/L [facility] BUN 18 6 - 25 mg/dL [facility] Creatinine 0.90 0.80 - 1.30 mg/dL [facility] Glucose 175 70 - 199 mg/dL [facility] Comment: Interpretive Data Fasting glucose [...] Units/L [facility] Blood 07/27/2024 1:03 PM ROLLER STAKER 07/27/2024 7:25 PM ROLLER STAKER Wander Matthews MD LAB BLOOD ORDERABLES Final Re sult Performing Organization Address [facility] Co de Phone Number MICHELINE LUO [address] Department [place] [address] * eGFR (07/13/2024 10:05 AM ROLLER STAKER) eGFR 85 >=60 mL/min/1. 73 m2 Comment: [...] reviewed 2021. Blood 07/13/2024 10:0 5 AM ROLLER STAKER 07/13/2024 9:45 PM ROLLER STAKER Wander Matthews MD LAB BLOOD ORDERABLES Final Re sult Performing Organization Address City/[facility]/ZIP Co de Phone Number MICHELINE [address] Department [place] [address] * (ABNORMAL) Differential, auto (07/13/2024 10:05 AM ROLLER STAKER) Neutrophil abs 1.9 1.5 - 6.5 K/cumm Imm gran abs 0.0 0.0 - 0.1 K/cumm [facility] Lymphocyte abs 0.4(L) 0.8 - 3.3 K/cumm [facility] Monocyte abs 0.1(L) 0.2 - 0.8 K/cumm [facility] Eosinophil abs 0.0 0.0 - 0.5 K/cumm [facility] Basophil abs 0.0 0.0 - 0.1 K/cumm [facility] Neutrophil pct 76.6 % [facility] Comment: Consistent with previous result Interpretive Data Percent cell count reference ranges are not reported, since discordance with absolute values may lead to misinterpretation of CBC data. Current Interpretive Data was last revised on 2017. Imm gran pct 1.2 % [facility] Comment: Interpretive Data Percent cell count reference ranges are not reported, since discordance with absolute values may lead to misinterpretation of CBC data. Current Interpretive Data was last revised on 2017. Lymphocyte pct 17.7 % [facility] Comment: Interpretive Data Percent cell count reference ranges are not reported, since discordance with absolute values may lead to misinterpretation of CBC data. Current Interpretive Data was last revised on 2017. Monocyte pct 3.3 % [facility] Comment: Interpretive Data Percent cell count reference ranges are not reported, since discordance with absolute values may lead to misinterpretation of CBC data. Current Interpretive Data was last revised on 2017. Eosinophil pct 0.8 % [facility] Comment: Interpretive Data Percent cell count reference ranges are not reported, since discordance with absolute values may lead to misinterpretation of CBC data. Current Interpretive Data was last revised on 2017. Basophil pct 0.4 % [facility] Comment: Interpretive Data Percent cell count reference ranges are not reported, since discordance with absolute values may lead to misinterpretation of CBC data. Current Interpretive Data was last revised on 2017. Blood 07/13/2024 10:0 5 AM ROLLER STAKER 07/13/2024 9:30 PM ROLLER STAKER Wander Matthews MD LAB BLOOD ORDERABLES Final Re sult Performing Organization Address [facility] Co de Phone Number MICHELINE LUO [address] Department [place] [place] [address] * (ABNORMAL) CBC with auto differential (07/13/2024 10:05 AM ROLLER STAKER) WBC 2.4(L) 3.8 - 9.9 K/cumm Hgb 11.7(L) 13.0 - 17.5 g/dL [facility] Hct 37.0(L) 38.9 - 50.3 % [facility] Plt 82(L) 150 - 400 K/cumm [facility] Comment:No clot detected in sample. MPV 10.9 [...] [facility] Blood 07/13/2024 10:0 5 AM ROLLER STAKER 07/13/2024 9:30 PM ROLLER STAKER Wander Matthews MD LAB BLOOD ORDERABLES Final Re sult Performing Organization Address City/[facility]/ZIP Co de Phone Number MICHELINE LUO [address] [facility] [employer] [employer] [place], [place] [id number] * (ABNORMAL) TSH (07/13/2024 10:05 AM ROLLER STAKER) Thyroid Stimulating Hormone 6.51(H) 0.30 - 4.20 mcIUnit/mL Blood 07/13/2024 10:0 5 AM ROLLER STAKER 07/13/2024 9:30 PM ROLLER STAKER Wander Matthews MD LAB BLOOD ORDERABLES Final Re sult [facility] [address] [place] [address] * (ABNORMAL) Comprehensive metabolic panel (07/13/2024 10:05 AM ROLLER STAKER) Sodium 140 135 - 145 mmol/L Potassium, [...] [facility] Blood 07/13/2024 10:0 5 AM ROLLER STAKER 07/13/2024 9:30 PM ROLLER STAKER Wander Matthews MD LAB BLOOD ORDERABLES Final Re sult Performing Organization Address [facility] Co de Phone Number MICHELINE LUO [address] Department [place] [address] * eGFR (07/07/2024 9:05 AM ROLLER STAKER) eGFR 86 >=60 mL/min/1. 73 m2 Comment: [...] last reviewed 2021. Blood 07/07/2024 9:05 AM ROLLER STAKER 07/07/2024 4:21 PM ROLLER STAKER Wander Matthews MD LAB BLOOD ORDERABLES Final Re sult Performing Organization Address [facility] Co de Phone Number MICHELINE LUO [address] Department of Laboratories [place], [place] [id number] * (ABNORMAL) Differential, auto (07/07/2024 9:05 AM ROLLER STAKER) Neutrophil abs 1.9 1.5 - 6.5 K/cumm Imm gran abs 0.0 0.0 - 0.1 K/cumm [facility] Lymphocyte abs 0.4(L) 0.8 - 3.3 K/cumm [facility] Monocyte abs 0.1(L) 0.2 - 0.8 K/cumm [facility] Eosinophil abs 0.1 0.0 - 0.5 K/cumm [facility] Basophil abs 0.0 0.0 - 0.1 K/cumm [facility] Neutrophil pct 76.1 % [facility] Comment: Consistent with previous result Interpretive Data Percent cell count reference ranges are not reported, since discordance with absolute values may lead to misinterpretation of CBC data. Current Interpretive Data was last revised on 2017. Imm gran pct 0.4 % [facility] Comment: Interpretive Data Percent cell count reference ranges are not reported, since discordance with absolute values may lead to misinterpretation of CBC data. Current Interpretive Data was last revised on 2017. Lymphocyte pct 17.3 % [facility] Comment: Interpretive Data Percent cell count reference ranges are not reported, since discordance with absolute values may lead to misinterpretation of CBC data. Current Interpretive Data was last revised on 2017. Monocyte pct 3.3 % [facility] Comment: Interpretive Data Percent cell count reference ranges are not reported, since discordance with absolute values may lead to misinterpretation of CBC data. Current Interpretive Data was last revised on 2017. Eosinophil pct 2.5 % [facility] Comment: Interpretive Data Percent cell count reference ranges are not reported, since discordance with absolute values may lead to misinterpretation of CBC data. Current Interpretive Data was last revised on 2017. Basophil pct 0.4 % [facility] Comment: Interpretive Data Percent cell count reference ranges are not reported, since discordance with absolute values may lead to misinterpretation of CBC data. Current Interpretive Data was last revised on 2017. Blood 07/07/2024 9:05 AM ROLLER STAKER 07/07/2024 4:03 PM ROLLER STAKER us Wander Matthews MD LAB BLOOD ORDERABLES Final Re sult MICHELINE LUO [address] [place] [address] * (ABNORMAL) Immunoglobulin free light chains (07/07/2024 9:05 AM ROLLER STAKER) Pathologist [facility] Dewart/Lambda ratio 22.10(H) 0.26 - 1.65 Dewart free light chain 4.87(H) 0.33 - 1.94 mg/dL [facility] Comment: Interpretive Data The Blayne Ig Dewart FLC assay procedure was used. Results from different manufacturers or methods may not be comparable. Serial testing should be performed using the same method. Lambda free light chain 0.22(L) 0.57 - 2.63 mg/dL [facility] Comment: Interpretive Data The Blayne Ig Lambda FLC assay procedure was used. Results from different manufacturers or methods may not be comparable. Serial testing should be performed using the same method. Blood 07/07/2024 9:05 AM ROLLER STAKER 07/07/2024 4:03 PM ROLLER STAKER Wander Matthews MD LAB BLOOD ORDERABLES Final Re sult [facility] [address] Department [place] [address] * (ABNORMAL) CBC with auto differential (07/07/2024 9:05 AM ROLLER STAKER) [facility] WBC 2.4(L) 3.8 - 9.9 K/cumm Hgb 11.7(L) 13.0 - 17.5 g/dL [facility] Hct 37.4(L) 38.9 - 50.3 % [facility] Plt 134(L) 150 - 400 K/cumm [facility] MPV 10.7 9.1 - 12.3 fL [facility] RBC 4.03(L) 4.30 - 5.80 M/cumm [facility] MCV 92.8 81.3 - 96.4 fL [facility] MCH 29.0 27.1 - 33.3 pg [facility] MCHC 31.3(L) 32.3 - 35.7 g/dL [facility] RDW CV 14.6 11.1 - 14.9 % [facility] RDW SD 49.2(H) 35.7 - 48.1 fL [facility] NRBC abs 0.00 0.00 - 0.01 K/cumm [facility] Blood 07/07/2024 9:05 AM ROLLER STAKER 07/07/2024 4:03 PM ROLLER STAKER Wander Matthews MD LAB BLOOD ORDERABLES Final Re sult Performing Organization Address [facility] Co de Phone Number MICHELINE LUO [address] [facility] [employer] [place] [address] * (ABNORMAL) TSH (07/07/2024 9:05 AM ROLLER STAKER) Pathologist [facility] Thyroid Stimulating Hormone 4.33(H) 0.30 - 4.20 mcIUnit/mL Blood 07/07/2024 9:05 AM ROLLER STAKER 07/07/2024 4:03 PM ROLLER STAKER Wander Matthews MD LAB BLOOD ORDERABLES Final Re sult Performing Organization Address [facility] Co de Phone Number MICHELINE LUO [address] [facility] [employer] [place] [address] * IgG (07/07/2024 9:05 AM ROLLER STAKER) Pathologist [facility] Immunoglobulin G 957 700 - 1,600 mg/dL Blood 07/07/2024 9:05 AM ROLLER STAKER 07/07/2024 4:03 PM ROLLER STAKER Wander Matthews MD LAB BLOOD ORDERABLES Final Re sult Performing Organization Address [facility] de Phone Number MICHELINE LUO [address] [facility] [employer] [place] [address] * Comprehensive metabolic panel (07/07/2024 9:05 AM ROLLER STAKER) Sodium 140 135 - 145 mmol/L Potassium, pl 3.9 3.3 - 4.9 mmol/L [facility] Chloride 104 97 - 110 mmol/L [facility] CO2 25 22 - 32 mmol/L [facility] Anion gap 11 2 - 15 mmol/L [facility] BUN 20 6 - 25 mg/dL [facility] Creatinine 0.94 0.80 - 1.30 mg/dL [facility] [...] Units/L [facility] Blood 07/07/2024 9:05 AM ROLLER STAKER 07/07/2024 4:03 PM ROLLER STAKER Wander Matthews MD LAB BLOOD ORDERABLES Final Re sult [facility] [address] [place] [address] * eGFR (06/29/2024 8:57 AM ROLLER STAKER) eGFR 71 >=60 mL/min/1. 73 m2 Comment: [...] last reviewed 2021. Blood 06/29/2024 8:57 AM ROLLER STAKER 06/29/2024 8:16 PM ROLLER STAKER us Wander Matthews MD LAB BLOOD ORDERABLES Final Re sult [facility] [id number] [place] [address] * (ABNORMAL) Differential, auto (06/29/2024 8:57 AM ROLLER STAKER) Neutrophil abs 2.2 1.5 - 6.5 K/cumm Imm gran abs 0.0 0.0 - 0.1 K/cumm [facility] Lymphocyte abs 0.3(L) 0.8 - 3.3 K/cumm [facility] Monocyte abs 0.1(L) 0.2 - 0.8 K/cumm [facility] Eosinophil abs 0.1 0.0 - 0.5 K/cumm [facility] Basophil abs 0.0 0.0 - 0.1 K/cumm [facility] Neutrophil pct 80.6 % [facility] Comment: Consistent with previous result Interpretive Data Percent cell count reference ranges are not reported, since discordance with absolute values may lead to misinterpretation of CBC data. Current Interpretive Data was last revised on 2017. Imm gran pct 0.7 % [facility] Comment: Interpretive Data Percent cell count reference ranges are not reported, since discordance with absolute values may lead to misinterpretation of CBC data. Current Interpretive Data was last revised on 2017. Lymphocyte pct 12.7 % [facility] Comment: Interpretive Data Percent cell count reference ranges are not reported, since discordance with absolute values may lead to misinterpretation of CBC data. Current Interpretive Data was last revised on 2017. Monocyte pct 2.2 % [facility] Comment: Interpretive Data Percent cell count reference ranges are not reported, since discordance with absolute values may lead to misinterpretation of CBC data. Current Interpretive Data was last revised on 2017. Eosinophil pct 3.4 % [facility] Comment: Interpretive Data Percent cell count reference ranges are not reported, since discordance with absolute values may lead to misinterpretation of CBC data. Current Interpretive Data was last revised on 2017. Basophil pct 0.4 % [facility] Comment: Interpretive Data Percent cell count reference ranges are not reported, since discordance with absolute values may lead to misinterpretation of CBC data. Current Interpretive Data was last revised on 2017. Blood 06/29/2024 8:57 AM ROLLER STAKER 06/29/2024 6:44 PM ROLLER STAKER us Wander Matthews MD LAB BLOOD ORDERABLES Final Re sult [facility] [address] [place] [address] * (ABNORMAL) CBC with auto differential (06/29/2024 8:57 AM ROLLER STAKER) WBC 2.7(L) 3.8 - 9.9 K/cumm Hgb 11.6(L) 13.0 - 17.5 g/dL [facility] Hct 37.4(L) 38.9 - 50.3 % [facility] Plt 183 150 - 400 K/cumm [facility] MPV 9.8 9.1 - 12.3 fL [facility] RBC 3.97(L) 4.30 - 5.80 M/cumm [facility] MCV 94.2 81.3 - 96.4 fL [facility] MCH 29.2 27.1 - 33.3 pg [facility] MCHC 31.0(L) 32.3 - 35.7 g/dL [facility] RDW CV 14.8 11.1 - 14.9 % [facility] RDW SD 51.3(H) 35.7 - 48.1 fL [facility] NRBC abs 0.00 0.00 - 0.01 K/cumm [facility] Blood 06/29/2024 8:57 AM ROLLER STAKER 06/29/2024 6:44 PM ROLLER STAKER Wander Matthews MD LAB BLOOD ORDERABLES Final Re sult [facility]LINE [address] Department [place] [address] * Comprehensive metabolic panel (06/29/2024 8:57 AM ROLLER STAKER) Sodium 140 135 - 145 mmol/L Potassium, [...] Units/L [facility] Blood 06/29/2024 8:57 AM ROLLER STAKER 06/29/2024 6:44 PM ROLLER STAKER Wander Matthews MD LAB BLOOD ORDERABLES Final Re sult Performing Organization Address City/[facility] Co de Phone Number MICHELINE LUO [address] [place] [place] [address] * eGFR (06/22/2024 9:14 AM ROLLER STAKER) eGFR 71 >=60 mL/min/1. 73 m2 Comment: [...] last reviewed 2021. Blood 06/22/2024 9:14 AM ROLLER STAKER 06/22/2024 5:53 PM ROLLER STAKER Wander Matthews MD LAB BLOOD ORDERABLES Final Re sult Performing Organization Address City/[facility]/ZIP Co de Phone Number MICHELINE LUO [address] Department [place] [place] [address] * (ABNORMAL) Differential, auto (06/22/2024 9:14 AM ROLLER STAKER) Neutrophil abs 2.8 1.5 - 6.5 K/cumm Imm gran abs 0.0 0.0 - 0.1 K/cumm [facility] Lymphocyte abs 0.2(L) 0.8 - 3.3 K/cumm [facility] Monocyte abs 0.1(L) 0.2 - 0.8 K/cumm [facility] Eosinophil abs 0.1 0.0 - 0.5 K/cumm [facility] Basophil abs 0.0 0.0 - 0.1 K/cumm [facility] Neutrophil pct 89.3 % [facility] Comment: Consistent with previous result Interpretive Data Percent cell count reference ranges are not reported, since discordance with absolute values may lead to misinterpretation of CBC data. Current Interpretive Data was last revised on 2017. Imm gran pct 0.3 % [facility] Comment: Interpretive Data Percent cell count reference ranges are not reported, since discordance with absolute values may lead to misinterpretation of CBC data. Current Interpretive Data was last revised on 2017. Lymphocyte pct 7.2 % [facility] Comment: Interpretive Data Percent cell count reference ranges are not reported, since discordance with absolute values may lead to misinterpretation of CBC data. Current Interpretive Data was last revised on 2017. Monocyte pct 1.6 % [facility] Comment: Interpretive Data Percent cell count reference ranges are not reported, since discordance with absolute values may lead to misinterpretation of CBC data. Current Interpretive Data was last revised on 2017. Eosinophil pct 1.6 % [facility] Comment: Interpretive Data Percent cell count reference ranges are not reported, since discordance with absolute values may lead to misinterpretation of CBC data. Current Interpretive Data was last revised on 2017. Basophil pct 0.0 % [facility] Comment: Interpretive Data Percent cell count reference ranges are not reported, since discordance with absolute values may lead to misinterpretation of CBC data. Current Interpretive Data was last revised on 2017. Blood 06/22/2024 9:14 AM ROLLER STAKER 06/22/2024 5:29 PM ROLLER STAKER us Wander Matthews MD LAB BLOOD ORDERABLES Final Re sult MICHELINE LUO [address] Department of Laboratories [place], [place] [id number] * (ABNORMAL) Immunoglobulin free light chains (06/22/2024 9:14 AM ROLLER STAKER) Dewart/Lambda ratio 28.50(H) 0.26 - 1.65 Dewart free light chain 8.26(H) 0.33 - 1.94 mg/dL [facility] Comment: Interpretive Data The Blayne Ig Dewart FLC assay procedure was used. Results from different manufacturers or methods may not be comparable. Serial testing should be performed using the same method. Lambda free light chain 0.29(L) 0.57 - 2.63 mg/dL [facility] Comment: Interpretive Data The Blayne Ig Lambda FLC assay procedure was used. Results from different manufacturers or methods may not be comparable. Serial testing should be performed using the same method. Blood 06/22/2024 9:14 AM ROLLER STAKER 06/23/2024 10:18 AM ROLLER STAKER Wander Matthews MD LAB BLOOD ORDERABLES Final Re sult [facility] [address] [place] [address] * (ABNORMAL) CBC with auto differential (06/22/2024 9:14 AM ROLLER STAKER) WBC 3.2(L) 3.8 - 9.9 K/cumm Hgb 12.4(L) 13.0 - 17.5 g/dL [facility] Hct 39.0 38.9 - 50.3 % [facility] Plt 85(L) 150 - 400 K/cumm [facility] MPV 11.0 9.1 - 12.3 fL [facility] RBC 4.21(L) 4.30 - 5.80 M/cumm [facility] MCV 92.6 81.3 - 96.4 fL [facility] MCH 29.5 27.1 - 33.3 pg [facility] MCHC 31.8(L) 32.3 - 35.7 g/dL [facility] RDW CV 14.3 11.1 - 14.9 % [facility] RDW SD 48.1 35.7 - 48.1 fL [facility] NRBC abs 0.00 0.00 - 0.01 K/cumm [facility] Blood 06/22/2024 9:14 AM ROLLER STAKER 06/22/2024 5:29 PM ROLLER STAKER Wander Matthews MD LAB BLOOD ORDERABLES Final Re sult Performing Organization Address City/[facility]/[place] [address] [address] Department [place] [address] * (ABNORMAL) Comprehensive metabolic panel (06/22/2024 9:14 AM ROLLER STAKER) Sodium 140 135 - 145 mmol/L Potassium, [...] Units/L [facility] Blood 06/22/2024 9:14 AM ROLLER STAKER 06/22/2024 5:29 PM ROLLER STAKER Wander Matthews MD LAB BLOOD ORDERABLES Final Re sult Performing Organization Address City/[facility]/ZIP Co de Phone Number MICHELINE LUO [address] Department of Laboratories [place], [place] [id number] * eGFR (06/16/2024 8:00 AM ROLLER STAKER) eGFR 68 >=60 mL/min/1. 73 m2 Comment: [...] last reviewed 2021. Blood 06/16/2024 8:00 AM ROLLER STAKER 06/16/2024 2:09 PM ROLLER STAKER us Wander Matthews MD LAB BLOOD ORDERABLES Final Re criselda MICHELINE LUO [address] Department [place] [address] * (ABNORMAL) Differential, auto (06/16/2024 8:00 AM ROLLER STAKER) Neutrophil abs 2.9 1.5 - 6.5 K/cumm Imm gran abs 0.0 0.0 - 0.1 K/cumm [facility] Lymphocyte abs 0.4(L) 0.8 - 3.3 K/cumm [facility] Monocyte abs 0.1(L) 0.2 - 0.8 K/cumm [facility] Eosinophil abs 0.1 0.0 - 0.5 K/cumm [facility] Basophil abs 0.0 0.0 - 0.1 K/cumm [facility] Neutrophil pct 83.4 % [facility] Comment: Consistent with previous result Interpretive Data Percent cell count reference ranges are not reported, since discordance with absolute values may lead to misinterpretation of CBC data. Current Interpretive Data was last revised on 2017. Imm gran pct 0.6 % MICHELINE Comment: Interpretive Data Percent cell count reference ranges are not reported, since discordance with absolute values may lead to misinterpretation of CBC data. Current Interpretive Data was last revised on 2017. Lymphocyte pct 10.6 % [facility] Comment: Interpretive Data Percent cell count reference ranges are not reported, since discordance with absolute values may lead to misinterpretation of CBC data. Current Interpretive Data was last revised on 2017. Monocyte pct 1.4 % MICHELINE Comment: Interpretive Data Percent cell count reference ranges are not reported, since discordance with absolute values may lead to misinterpretation of CBC data. Current Interpretive Data was last revised on 2017. Eosinophil pct 3.7 % MICHELINE Comment: Interpretive Data Percent cell count reference ranges are not reported, since discordance with absolute values may lead to misinterpretation of CBC data. Current Interpretive Data was last revised on 2017. Basophil pct 0.3 % [facility] Comment: Interpretive Data Percent cell count reference ranges are not reported, since discordance with absolute values may lead to misinterpretation of CBC data. Current Interpretive Data was last revised on 2017. Blood 06/16/2024 8:00 AM ROLLER STAKER 06/16/2024 1:56 PM ROLLER STAKER us Wander Matthews MD LAB BLOOD ORDERABLES Final Re sult [place]LINE [id number] Department [place] [address] * (ABNORMAL) CBC with auto differential (06/16/2024 8:00 AM ROLLER STAKER) WBC 3.5(L) 3.8 - 9.9 K/cumm Hgb 13.3 13.0 - 17.5 g/dL [facility] Hct 40.1 38.9 - 50.3 % [facility] Plt 79(L) 150 - 400 K/cumm C[facility]ER MPV 11.3 9.1 - 12.3 fL [facility] RBC 4.42 4.30 - 5.80 M/cumm [facility] MCV 90.7 81.3 - 96.4 fL [facility] MCH 30.1 27.1 - 33.3 pg [facility] MCHC 33.2 32.3 - 35.7 g/dL [facility] RDW CV 14.0 11.1 - 14.9 % [facility] RDW SD 46.8 35.7 - 48.1 fL [facility] NRBC abs 0.00 0.00 - 0.01 K/cumm [facility] Blood 06/16/2024 8:00 AM ROLLER STAKER 06/16/2024 1:56 PM ROLLER STAKER Wander Matthews MD LAB BLOOD ORDERABLES Final Re sult [facility] [address] [address] Department [place] [address] * Comprehensive metabolic panel (06/16/2024 8:00 AM ROLLER STAKER) Sodium 137 135 - 145 mmol/L Potassium, pl 3.8 3.3 - 4.9 mmol/L [facility] Chloride 99 97 - 110 mmol/L [facility] CO2 27 22 - 32 mmol/L [facility] Anion gap 11 2 - 15 mmol/L [facility] BUN 24 6 - 25 mg/dL [facility] Creatinine 1.14 0.80 - 1.30 mg/dL [facility] Comment:Icteric sample, test results may be affected. Glucose 172 70 - 199 mg/dL [facility] Comment: Interpretive Data Fasting glucose [...] Units/L [facility] Blood 06/16/2024 8:00 AM ROLLER STAKER 06/16/2024 1:56 PM ROLLER STAKER us Wander Matthews MD LAB BLOOD ORDERABLES Final [facility] [address] [address] Department [place] [address] * eGFR (06/08/2024 9:00 AM ROLLER STAKER) eGFR 73 >=60 mL/min/1. 73 m2 Comment: [...] last reviewed 2021. Blood 06/08/2024 9:00 AM ROLLER STAKER 06/08/2024 4:57 PM ROLLER STAKER us Wander Matthews MD LAB BLOOD ORDERABLES Final Re sult [place] [address] [place] [address] * (ABNORMAL) Differential, auto (06/08/2024 9:00 AM ROLLER STAKER) Neutrophil abs 1.8 1.5 - 6.5 K/cumm Imm gran abs 0.0 0.0 - 0.1 K/cumm [facility] Lymphocyte abs 0.4(L) 0.8 - 3.3 K/cumm [facility] Monocyte abs 0.1(L) 0.2 - 0.8 K/cumm [facility] Eosinophil abs 0.1 0.0 - 0.5 K/cumm [facility] Basophil abs 0.0 0.0 - 0.1 K/cumm [facility] Neutrophil pct 77.5 % [facility] Comment: Consistent with previous result Interpretive Data Percent cell count reference ranges are not reported, since discordance with absolute values may lead to misinterpretation of CBC data. Current Interpretive Data was last revised on 2017. Imm gran pct 0.4 % [facility] Comment: Interpretive Data Percent cell count reference ranges are not reported, since discordance with absolute values may lead to misinterpretation of CBC data. Current Interpretive Data was last revised on 2017. Lymphocyte pct 16.1 % [facility] Comment: Interpretive Data Percent cell count reference ranges are not reported, since discordance with absolute values may lead to misinterpretation of CBC data. Current Interpretive Data was last revised on 2017. Monocyte pct 3.0 % [facility] Comment: Interpretive Data Percent cell count reference ranges are not reported, since discordance with absolute values may lead to misinterpretation of CBC data. Current Interpretive Data was last revised on 2017. Eosinophil pct 2.6 % [facility] Comment: Interpretive Data Percent cell count reference ranges are not reported, since discordance with absolute values may lead to misinterpretation of CBC data. Current Interpretive Data was last revised on 2017. Basophil pct 0.4 % [facility] Comment: Interpretive Data Percent cell count reference ranges are not reported, since discordance with absolute values may lead to misinterpretation of CBC data. Current Interpretive Data was last revised on 2017. Blood 06/08/2024 9:00 AM ROLLER STAKER 06/08/2024 4:38 PM ROLLER STAKER Wander Matthews MD LAB BLOOD ORDERABLES Final Re sult [facility] [address] [address] Department [place] [address] * (ABNORMAL) CBC with auto differential (06/08/2024 9:00 AM ROLLER STAKER) WBC 2.3(L) 3.8 - 9.9 K/cumm Hgb 12.6(L) 13.0 - 17.5 g/dL [facility] Hct 38.7(L) 38.9 - 50.3 % [facility] Plt 130(L) 150 - 400 K/cumm [facility] MPV 10.9 9.1 - 12.3 fL [facility] RBC 4.20(L) 4.30 - 5.80 M/cumm [facility] MCV 92.1 81.3 - 96.4 fL [facility] MCH 30.0 27.1 - 33.3 pg [facility] MCHC 32.6 32.3 - 35.7 g/dL [facility] RDW CV 14.0 11.1 - 14.9 % [facility] RDW SD 47.1 35.7 - 48.1 fL [facility] NRBC abs 0.00 0.00 - 0.01 K/cumm [facility] Blood 06/08/2024 9:00 AM ROLLER STAKER 06/08/2024 4:38 PM ROLLER STAKER Narrative MICHELINE - 06/08/2024 5:[address] Matthews weekly CBC on 01/20/2024 and 01/27/2024 Wander Matthews MD LAB [place]LOOD [place] [address] [address] Department [place] [address] * (ABNORMAL) Comprehensive metabolic panel (06/08/2024 9:00 AM ROLLER STAKER) Sodium 139 135 - 145 mmol/L Potassium, [...] Units/L [facility] Blood 06/08/2024 9:00 AM ROLLER STAKER 06/08/2024 4:38 PM ROLLER STAKER Narrative [facility] - 06/08/2024 5:21 PM ROLLER STAKER Cassie CMP weekly x 2 01/20/2024 and 01/27/2024 us Wander Matthews MD LAB [place]LOOD [place] [address] [place] [address] * eGFR (06/01/2024 2:15 PM ROLLER STAKER) eGFR 70 >=60 mL/min/1. 73 m2 Comment: [...] last reviewed 2021. Blood 06/01/2024 2:15 PM ROLLER STAKER 06/01/2024 9:08 PM ROLLER STAKER us Wander Mathtews MD LAB BLOOD ORDERABLES Final Re sult MICHELINE LUO [address] Department [place] [address] * (ABNORMAL) Differential, auto (06/01/2024 2:15 PM ROLLER STAKER) Pathologist [facility] Neutrophil abs 2.6 1.5 - 6.5 K/cumm Imm gran abs 0.0 0.0 - 0.1 K/cumm [facility] Lymphocyte abs 0.5(L) 0.8 - 3.3 K/cumm [facility] Monocyte abs 0.1(L) 0.2 - 0.8 K/cumm [facility] Eosinophil abs 0.1 0.0 - 0.5 K/cumm [facility] Basophil abs 0.0 0.0 - 0.1 K/cumm [facility] Neutrophil pct 78.8 % [facility] Comment: Interpretive Data Percent cell count reference ranges are not reported, since discordance with absolute values may lead to misinterpretation of CBC data. Current Interpretive Data was last revised on 2017. Imm gran pct 0.3 % MICHELINE Comment: Interpretive Data Percent cell count reference ranges are not reported, since discordance with absolute values may lead to misinterpretation of CBC data. Current Interpretive Data was last revised on 2017. Lymphocyte pct 14.1 % [facility] Comment: Interpretive Data Percent cell count reference ranges are not reported, since discordance with absolute values may lead to misinterpretation of CBC data. Current Interpretive Data was last revised on 2017. Monocyte pct 3.4 % [facility] Comment: Interpretive Data Percent cell [...] revised on 2017. Blood 06/01/2024 2:15 PM ROLLER STAKER 06/01/2024 9:06 PM ROLLER STAKER us Wander Matthews MD LAB BLOOD ORDERABLES Final Re sult [facility] [address] [address] Department [place] [address] * (ABNORMAL) Immunoglobulin free light chains (06/01/2024 2:15 PM ROLLER STAKER) Dewart/Lambda ratio 18.40(H) 0.26 - 1.65 Dewart free light chain 12.17(H) 0.33 - 1.94 mg/dL MICHELINE Comment: Interpretive Data The Blayne Ig Dewart FLC assay procedure was used. Results from different manufacturers or methods may not be comparable. Serial testing should be performed using the same method. Lambda free light chain 0.66 0.57 - 2.63 mg/dL [facility] Comment: Interpretive Data The Blayne Ig Lambda FLC assay procedure was used. Results from different manufacturers or methods may not be comparable. Serial testing should be performed using the same method. Blood 06/01/2024 2:15 PM ROLLER STAKER 06/01/2024 9:06 PM ROLLER STAKER Wander Matthews MD LAB BLOOD ORDERABLES Final Re sult [facility] [address] [address] [place] [address] * (ABNORMAL) CBC with auto differential (06/01/2024 2:15 PM ROLLER STAKER) WBC 3.3(L) 3.8 - 9.9 K/cumm Hgb 12.4(L) 13.0 - 17.5 g/dL [facility] Hct 39.0 38.9 - 50.3 % [facility] Plt 191 150 - 400 K/cumm [facility] MPV 10.3 9.1 - 12.3 fL [facility] RBC 4.17(L) 4.30 - 5.80 M/cumm [facility] MCV 93.5 81.3 - 96.4 fL [facility] MCH 29.7 27.1 - 33.3 pg [facility] MCHC 31.8(L) 32.3 - 35.7 g/dL [facility] RDW CV 14.1 11.1 - 14.9 % [facility] RDW SD 48.1 35.7 - 48.1 fL [facility] NRBC abs 0.00 0.00 - 0.01 K/cumm [facility] Blood 06/01/2024 2:1 5 PM ROLLER STAKER 06/01/2024 9:06 PM ROLLER STAKER Wander Matthews MD LAB BLOOD ORDERABLES Final Re sult MICHELINE LUO [address] [address] Department [place] [address] * IgG (06/01/2024 2:15 PM ROLLER STAKER) Pathologist [facility] Immunoglobulin G 1,202 700 - 1,600 mg/dL Blood 06/01/2024 2:15 PM ROLLER STAKER 06/01/2024 9:06 PM ROLLER STAKER Wander Matthews MD LAB BLOOD ORDERABLES Final Re sult MICHELINE LUO [address] Department [place] [address] * Comprehensive metabolic panel (06/01/2024 2:15 PM ROLLER STAKER) Pathologist [facility] Sodium 140 135 - 145 mmol/L Potassium, pl 3.9 3.3 - 4.9 mmol/L [facility] Chloride 102 97 - 110 mmol/L [facility] CO2 28 22 - 32 mmol/L [facility] Anion gap 10 2 - 15 mmol/L [facility] BUN 18 6 - 25 mg/dL [facility] Creatinine 1.12 0.80 - 1.30 mg/dL [facility] Glucose 109 70 - 199 mg/dL [facility] Comment: Interpretive Data Fasting glucose [...] pl 7.3 6.5 - 8.5 g/dL [facility] Albumin 4.0 3.5 - 5.0 g/dL [facility] Alk phos 52 40 - 130 Units/L [facility] ALT 15 7 - 55 Units/L [facility] AST 23 10 - 50 Units/L [facility] Blood 06/01/2024 2:15 PM ROLLER STAKER 06/01/2024 9:06 PM ROLLER STAKER Wander Matthews MD LAB BLOOD ORDERABLES Final Re sult Performing Organization Address [facility] Co de Phone Number MICHELINE [address] [address] [facility] [employer] [place] [address] * PSA screen (01/20/2024 12:52 PM CDT) [...] ORDERABLES Fi nal Result Performing Organization Address [facility] Co de Phone Number [facility] [address] [address] [facility] [place] [place] [address] from Last 3 Months or Most Recently Relevant to Health Maintenance Insurance MEDICARE [facility] MEDICARE [facility] Care Teams Shuttle Threader Relationship Specialty Start Date End Date Vick Perkins MD PCP - General Internal Medicine 01/08/18 Wander Matthews MD Medical Oncologist/[employer] Hematology and Oncology 10/25/22
--- OUTSIDE RECORDS SUMMARY | 2024-08-21 08:26 | XMS_ITS | Clinical Summary ---
Author Organization [facility] Address [address] [place] [address] Care Team Providers Care Sales Training Representative Name Role Phone Vick Perkins MD Primary Care Provider [phone] Allergies No known active allergies Medications Ascorbic [...] Department Care Team Description 07/27/2024 9:23 AM COPY CENTER SPECIALIST Anesthesia Event [facility] [address] [place] [id number] Brandon Beal CRNA Hitt, Tracy A, CRNA 07/27/2024 9:12 AM COPY CENTER SPECIALIST - 07/27/2024 9:53 AM [facility]Y CENTER SPECIALIST Surgery [facility] [address] [place] [id number] Kwasi Cervantes MD CATARACT REMOVAL WITH IOL IMPLANT 07/27/2024 7:51 AM COPY CENTER SPECIALIST - 07/27/2024 10:03 AM COPY CENTER SPECIALIST Hospital Encounter [facility] [address] [place] [id number] Kwasi Cervantes MD Discharge Disposition: Home or [...] on file Legal Sex Male 3:07 PM COPY CENTER SPECIALIST Gender Identity Not on file Sexual Orientation Not on file Last Filed Vital Signs Vital Sign Reading Time Taken Comments Blood Pressure 140/89 07/27/2024 9:53 AM [facility] CENTER SPECIALIST Pulse 89 07/27/2024 9:53 AM [facility] CENTER SPECIALIST Temperature 36.5 C (97.7 F) 07/27/2024 8:10 AM COPY CENTER SPECIALIST Respiratory Rate 14 07/27/2024 9:53 AM COPY CENTER SPECIALIST Oxygen Saturation 97% 07/27/2024 9:53 AM COPY CENTER SPECIALIST Inhaled Oxygen Concentration - - Weight 108.9 kg (240 lb) 07/22/2024 12:13 PM COPY CENTER SPECIALIST Height 180.3 cm (5' 11 ) 07/22/2024 12:13 PM COPY CENTER SPECIALIST Body Mass Index 33.47 07/22/2024 12:13 PM COPY CENTER SPECIALIST Plan of Treatment Health Maintenance Due Date [...] this topic Medical Devices Implanted Type Area Slurry Man Device Identifier Shelf Expiration Date Model / Serial / Lot Rupert Manuel Toric Ii Optiblue Implanted:Qty: 1 on 07/27/2024 by Kwasi Cervantes MD at [facility] Lens Left: Eye [employer] 12/09/2025 / [id number] / Procedures Procedure Name Priority Date/Time Associated Diagnosis Comments REMV CATARACT EXTRACAP,INSERT LENS 07/27/2024 9:21 AM COPY CENTER SPECIALIST H25.12 from Last 3 Months Insurance MEDICARE [facility] Care Teams Sales Training Representative Relationship Specialty Start Date End Date Vick Perkins MD [address] [place] [address] PCP - General INTERNAL MEDICINE 09/21/20
--- OUTSIDE RECORDS SUMMARY | 2024-08-21 08:26 | XMS_ITS | Encounter Summary ---
Author Organization [facility] Address [address] [place] [address] Phone Care Team Providers Care Strategic Planning Director Name Role Phone Vick Perkins MD Primary Care Provider [phone] Wander Matthews MD Unavailable [phone] Wander Matthews MD Unavailable [phone] Encounter Details Date Type Department Care Team (Latest Contact Info) Description 09/30/2018 Orders Only [facility] Scanning, Provider Social History Tobacco Use Types Packs/Day Years Used Date Smoking Tobacco: Never Assessed Sex and Gender Information Value Date Recorded Sex Assigned at Not on file 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
== END 2024-08-21 08:09 | disposition home or self-care (01) ==
LOC: CHSIMG 08:11
PROVIDERS: PCP Internal Medicine; Visit Provider Internal Medicine
DX: J18.9 Pneumonia, unspecified organism (principal)
CPT/HCPCS: 71046